=== PATIENT | female | born 1950 | race Caucasian/White ===

== ENCOUNTER 2017-02-15 21:56 | Emergency (ER) | payer MEDICARE ==
[2017-02-14 23:20] VITALS: O2SAT 100
[~2017-02-15] VITALS: Ht 162.6 cm; Wt 87.0 kg
[2017-02-15 22:06] VITALS: BP 182/94; PULSE 77; RESP 20; TEMP 97.9; O2SAT 99
--- NOTE | 2017-02-15 22:08 | PD ---
HPI Chief Complaint: FALL Time Seen by Provider: 22:04 Travel History International Travel<30 days: No Contact w/Intl Traveler<30days: No Traveled to known affect area: No History of Present Illness HPI S/P MECHANICAL FALL AFTER TRIPPING ON CAT, LANDED AWKWARDLY AND NOW HAS PAIN TO RIGHT HIP, DIFFICULT TO MOVE, UNABLE TO MOVE WITHOUT SEVERE PAIN....11/29 [facility] Social History Alcohol Use: No Tobacco Use: No Allergies-Medications (Allergen,Severity, Reaction): Coded Allergies: Opioids - Morphine Analogues (Verified Allergy, Severe, Shortness of Breath, 02/15/17) acetaminophen (Verified Allergy, Severe, Swelling, 02/15/17) PT STATES THROAT SWELLS hydrocodone (Verified Allergy, Severe, Swelling, 02/15/17) PT STATES THROAT SWELLS oxycodone (Verified Allergy, Severe, Swelling, 02/15/17) PT STATES THROAT SWELLS Reported Meds & Prescriptions Reported Meds & Active Scripts Active No Active Prescriptions or Reported Medications Review of Systems Except as stated in HPI: all other systems reviewed are Neg Musculoskeletal: Positive: Limited ROM, Pain (RT HIP) Physical Exam Narrative GENERAL: SKIN: Warm and dry. HEAD: Atraumatic. Normocephalic. EYES: Pupils equal and round. No scleral icterus. No injection or drainage. ENT: No nasal bleeding or discharge. Mucous membranes pink and moist. NECK: Trachea midline. No JVD. CARDIOVASCULAR: Regular rate and rhythm. RESPIRATORY: No accessory muscle use. Clear to auscultation. Breath sounds equal bilaterally. GASTROINTESTINAL: Abdomen soft, non-tender, nondistended. Hepatic and splenic margins not palpable. MUSCULOSKELETAL: Extremities without clubbing, cyanosis, or edema. RT LE SHORTENED AND INTERNALLY ROTATED NEUROLOGICAL: Awake and alert. No obvious cranial nerve deficits. Motor grossly within normal limits. Five out of 5 muscle strength in the arms and legs. Normal speech. PSYCHIATRIC: Appropriate mood and affect; insight and judgment normal. Data Data Last Documented VS Vital Signs Date Time Temp Pulse Resp B/P (MAP) Pulse Ox O2 Delivery O2 Flow Rate FiO2 02/16/17 01:00 80 16 165/85 (111) 100 Room Air 02/15/17 22:06 97.9 02/14/17 23:20 2.00 Orders Orders Iv Access Insert/Monitor (02/15/17 22:04) Oximetry (02/15/17 22:04) Ecg Monitoring (02/15/17 22:04) Sodium Chloride 0.9% Flush (Ns Flush) (02/15/17 22:15) Hip, Ap Only W Ap Pelvis (02/15/17 22:04) Midazolam Inj (Versed Inj) (02/15/17 23:00) Midazolam Inj (Versed Inj) (02/15/17 23:02) Pelvis, Ap Only (Routine) (02/15/17 ) Immobilizer Knee 20 Inch (02/15/17 ) MDM Medical Decision Making Medical Screen Exam Complete: Yes Emergency Medical Condition: Yes Medical Record Reviewed: Yes Differential Diagnosis HIP FX V DISLOCATION V PROSTHESIS DISLOCATION Narrative Course XR CONFIRMED RT HIP DISLOCATION, AND AFTER CLOSED REDUCTION REPEAT XRAY CONFIRMED SUCCESSFUL REDUCTION. Procedures Procedure Narrative The patient was placed on a school bus monitor and pulse oximetry. An ambu bag and suction was immediately available at bedside. The patient was monitored by the nurse. Oxygen saturation, heart rate and blood pressure were monitored. Procedural sedation was acheived using [5MG VERSED]. The patient was observed until awake and alert. Procedural Sedation time in attendance was [30] minutes. RT HIP REDUCTION: LATERAL TRACTION /COUNTER TRACTION AT PELVIS WITH TRACTION OF LOWER EXTREMITY, SUCCESSFULL CLOSED REDUCTION, RIGHT KNEE IMMOBILIZER PLACED. Diagnosis Primary Impression: RIGHT HIP PROSTHESIS DISLOCATION S/P REDUCTION Patient Instructions: General Instructions, Hip Dislocation (ED) Scripts No Active Prescriptions or Reported Meds Disposition: 01 DISCHARGE HOME Condition: Stable John Ramsey MD Feb 15, 2017 22:08
[2017-02-15] MEDS ORDERED: SODIUM CHLORIDE 0.9% FLUSH 10 ML FLUSH IVF PRN (22:15)
--- NOTE | 2017-02-15 22:46 | RADRPT ---
EXAM DATE/TIME: 02/15/2017 22:30 [facility] COMPARISON: No previous studies available for comparison. INDICATIONS : Right hip pain after fall. MEDICAL HISTORY : None. SURGICAL HISTORY : ORIF right hip. ENCOUNTER: Initial ACUITY: 1 day PAIN SCORE: 10/10 LOCATION: Right hip. FINDINGS: Here is a right hip arthroplasty that has acute superior dislocation. No fractures. No hardware failu re demonstrated. CONCLUSION: Superiorly dislocated right hip arthroplasty. Mitch Gonzalez MD on February 15, 2017 at 22:44 Board Certified Radiologist. This report was verified electronically.
[2017-02-15] MEDS ORDERED: MIDAZOLAM HCL 5 MG/5 ML VIAL IV PUSH ONE (23:00)
[2017-02-15] MEDS ORDERED: MIDAZOLAM HCL 5 MG/ML VIAL (1 ML) ONE (23:02)
[2017-02-15 23:22] VITALS: BP 194/131; PULSE 82; RESP 19; O2SAT 99
[2017-02-15 23:30] VITALS: BP 163/69; PULSE 84; RESP 18; O2SAT 99
--- NOTE | 2017-02-15 23:57 | RADRPT ---
EXAM DATE/TIME: 02/15/2017 23:34 [facility] COMPARISON: No previous studies available for comparison. INDICATIONS : Post reduction right hip. MEDICAL HISTORY : None. SURGICAL HISTORY : ORIF right hip ENCOUNTER: Subsequent ACUITY: 1 day PAIN SCORE: 3/10 LOCATION: Right pelvis FINDINGS: A single frontal view of the pelvis demonstrates no acute findings. Previous right hip replacement. A dvanced osteoarthritis left hip. CONCLUSION: 1. No acute findings. Currently no dislocation. Maycol Looney MD on February 15, 2017 at 23:55 Board Certified Radiologist. This report was verified electronically.
[2017-02-16] VITALS: BP 155/73; PULSE 84; RESP 18; O2SAT 100
[2017-02-16 01:00] VITALS: BP 165/85; PULSE 80; RESP 16; O2SAT 100
[2017-02-16 07:06] VITALS: BP 156/74; PULSE 75; RESP 16; O2SAT 98
--- NOTE | 2017-02-16 14:53 | EKG ---
Date Performed: 02/15/2017 Time Performed: 22:15:51 PTAGE: 66 years EKG: Sinus rhythm NO PREVIOUS TRACING DOCTOR: Isauro Sheppard Interpretating Date/Time 02/16/2017 14:52:53
== END 2017-02-16 10:39 | disposition home or self-care (01) ==
LOC: NEPC 21:56
DX: S73.004A Unspecified dislocation of right hip, initial encounter (principal); T84.020A Dislocation of internal right hip prosthesis, initial encounter; W01.0XXA Fall on same level from slipping, tripping and stumbling without subsequent striking against object, initial encounter; Y92.019 Unspecified place in single-family (private) house as the place of occurrence of the external cause
CPT/HCPCS: 27265; 72170; 73501; 93005; 99152; 99153; 99285; J2250; L1830

== ENCOUNTER 2017-10-07 19:55 | Inpatient (IN) | payer MEDICARE ==
[2017-10-07] VITALS (7 sets, daily range): BP systolic 53–105; BP diastolic 30–59; PULSE 96–105; RESP 16; TEMP 95–97.4; O2SAT 92–100
[~2017-10-07] VITALS: Ht 170.2 cm; Wt 90.0 kg
[2017-10-07] MEDS ORDERED: DILT120C50 PO (20:54)
[2017-10-07] MEDS ORDERED: SODIUM CHLOR 0.9% 1000 ML INJ 400 ML IV ONE (20:54)
[2017-10-07] MEDS ORDERED: LISI40TA PO (20:54)
[2017-10-07] MEDS ORDERED: METF850T PO (20:54)
[2017-10-07] MEDS ORDERED: DULO1CAP3 PO (20:54)
[2017-10-07] MEDS ORDERED: SODIUM CHLOR 0.9% 1000 ML INJ 1,000 ML IV ONE ×2 (20:54)
[2017-10-07] MEDS ORDERED: LEVO75TA3 PO (20:54)
[2017-10-07] MEDS ORDERED: VANCOMYCIN INJ 1,200 MG in SODIUM CHLOR 0.9% 250 ML INJ 250 ML IV ONE (21:15)
[2017-10-07] MEDS ORDERED: CEFEPIME INJ 2,000 MG in SODIUM CHLORIDE 0.9% INJ 100 ML IV ONE (21:15)
[2017-10-07] MEDS ORDERED: OCTREOTIDE INJ 500 MCG in SODIUM CHLORID 0.9% 500 ML INJ 500 ML IV SCH (21:20)
[2017-10-07] MEDS ORDERED: PANTOPRAZOLE INJ 80 MG in SODIUM CHLORIDE 0.9% INJ 35 ML IV ONE (21:20)
[2017-10-07] MEDS ORDERED: PANTOPRAZOLE INJ 80 MG in SODIUM CHLORIDE 0.9% INJ 100 ML IV SCH (21:20)
[2017-10-07 21:41] LABS: ALT (GPT) 17 U/L (10-53)
[2017-10-07 21:42] LABS: AUTOMATED NEUTROPHIL # 10.8 TH/MM3 (1.8-7.7); BASOPHIL # 0.1 TH/MM3 (0-0.2); BASOPHIL % 0.6 % (0.0-2.0); HEMATOCRIT 24.7 % (35.0-46.0); HEMOGLOBIN 8.1 GM/DL (11.6-15.3); LYMPHOCYTE # 1.5 TH/MM3 (1.0-4.8); MEAN CORPUSCULAR HEMOGLOBIN 32.6 PG (27.0-34.0); MONO % 3.9 % (0.0-8.0); MONOCYTE # 0.5 TH/MM3 (0-0.9); NEUT % 83.5 % (16.0-70.0); PLATELET COUNT 290 TH/MM3 (150-450); RED CELL DISTRIBUTION WIDTH 18.6 % (11.6-17.2); WHITE BLOOD COUNT 12.9 TH/MM3 (4.0-11.0)
[2017-10-07 21:44] LABS: ALBUMIN 2.5 GM/DL (3.4-5.0); ALKALINE PHOSPHATASE 258 U/L (45-117); AST (GOT) 51 U/L (15-37); BICARBONATE 18.1 MEQ/L (21.0-32.0); BLOOD UREA NITROGEN 30 MG/DL (7-18); CALCIUM 9.3 MG/DL (8.5-10.1); CHLORIDE 90 MEQ/L (98-107); CREATININE 1.22 MG/DL (0.50-1.00); GLOMERULAR FILTRATION RATE 44 ML/MIN (>89); GLUCOSE,RANDOM 142 MG/DL (74-106); SODIUM (NA) 130 MEQ/L (136-145); TOTAL BILIRUBIN ADULT 3.8 MG/DL (0.2-1.0); TOTAL PROTEIN 7.2 GM/DL (6.4-8.2)
[2017-10-07 21:49] LABS: LACTIC ACID SEPSIS PROTOCOL 7.3 mmol/L (0.4-2.0)
[2017-10-07] MEDS ORDERED: TERBUTALINE INJ 1 MG/ML AMP SQ PRN (22:00)
[2017-10-07 22:06] LABS: INTERNATIONAL NORMALIZED RATIO 1.3 RATIO; PROTHROMBIN TIME - PATIENT 13.5 SEC (9.8-11.6)
--- NOTE | 2017-10-07 22:13 | PD ---
HPI Chief Complaint: GI Complaint Time Seen by Provider: 20:41 Travel History International Travel<30 days: No Contact w/Intl Traveler<30days: No Traveled to known affect area: No History of Present Illness HPI This is a 67-year-old female who has a history of alcoholism who presents to the emergency department with lethargy this been going on for 4 days, constant, severe, not getting out of a chair associated with some burning with urination. She has been very fatigued. She does not know of any dark stools. She has been vomiting but has not noticed any blood or coffee grounds in her vomit. She says she has been drinking less alcohol than normal and usually she drinks 5 drinks a day. PFSH Past Medical History Cardiovascular Problems: Yes (HTN) Diabetes: Yes (Metformin) Patient Takes Glucophage: Yes Diminished Hearing: No Endocrine: Yes (ACROMEGALY) Fibromyalgia: Yes Hypertension: Yes Neurologic: Yes (NEUROPATHY) Respiratory: Yes (COPD) Immunizations Current: No Thyroid Disease: Yes ?: Not Past Surgical History Abdominal Surgery: Yes (HERNIA REPAIR) Cholecystectomy: Yes Social History Alcohol Use: Yes (etoh daily 5 alcoholic drinks) Tobacco Use: Yes (1 ppd) Substance Use: No Allergies-Medications (Allergen,Severity, Reaction): Coded Allergies: Opioids - Morphine Analogues (Verified Allergy, Severe, Shortness of Breath, 10/07/17) acetaminophen (Verified Allergy, Severe, Swelling, 10/07/17) PT STATES THROAT SWELLS hydrocodone (Verified Allergy, Severe, Swelling, 10/07/17) PT STATES THROAT SWELLS oxycodone (Verified Allergy, Severe, Swelling, 10/07/17) PT STATES THROAT SWELLS Reported Meds & Prescriptions Reported Meds & Active Scripts Active Reported Metformin (Metformin HCl) 850 Mg Tab 850 Mg PO BIDPC Diltiazem CD 24 HR 120 Mg Caper 180 Mg PO DAILY Duloxetine DR (Duloxetine HCl) 60 Mg Capdr 60 Mg PO DAILY Levothyroxine (Levothyroxine Sodium) 75 Mcg Tab 75 Mcg PO DAILY Lisinopril 40 Mg Tab 40 Mg PO DAILY Review of Systems Except as stated in HPI: all other systems reviewed are Neg Physical Exam Narrative GENERAL: Malaise, frail, ill-appearing SKIN: Doughy pale skin, erythema and excoriation of the labia and buttock area with no warmth fluctuance or induration HEAD: Atraumatic. Normocephalic. EYES: Pupils equal and round. No injection or drainage. ENT: Moist mucous membranes NECK: Trachea midline. CARDIOVASCULAR: Tachycardic RESPIRATORY: Clear to auscultation. Breath sounds equal bilaterally. GASTROINTESTINAL: Hepatomegaly, nontender, nondistended MUSCULOSKELETAL: No obvious deformities. NEUROLOGICAL: Awake and alert. No obvious cranial nerve deficits. Moving all extremities. PSYCHIATRIC: Appropriate mood and affect; insight and judgment normal. Data Data Last Documented VS Vital Signs Date Time Temp Pulse Resp B/P (MAP) Pulse Ox O2 Delivery O2 Flow Rate FiO2 10/07/17 22:20 104 69/43 10/07/17 21:53 100 2.00 10/07/17 21:51 16 Nasal Cannula 10/07/17 21:37 97.4 Orders Orders Sepsis Workup Initiated (10/07/17 ) Complete Blood Count With Diff (10/07/17 20:54) Comprehensive Metabolic Panel (10/07/17 20:54) Lactic Acid Sepsis Protocol (10/07/17 20:54) Lipase (10/07/17 20:54) Ua Includes Microscopic (10/07/17 20:54) Blood Culture (10/07/17 20:54) Chest, Single Ap (10/07/17 20:54) Blood Glucose (10/07/17 20:54) Ecg Monitoring (10/07/17 20:54) Iv Access Insert/Monitor (10/07/17 20:54) Oximetry (10/07/17 20:54) Oxygen Administration (10/07/17 20:54) Sodium Chlor 0.9% 1000 Ml Inj (Ns 1000 M (10/07/17 20:54) Sodium Chlor 0.9% 1000 Ml Inj (Ns 1000 M (10/07/17 20:54) Sodium Chlor 0.9% 1000 Ml Inj (Ns 1000 M (10/07/17 20:54) Vancomycin Inj (Vancomycin Inj) (10/07/17 21:15) Cefepime Inj (Maxipime Inj) (10/07/17 21:15) Type And Screen (10/07/17 21:04) Prothrombin Time / Inr (Pt) (10/07/17 21:04) Act Partial Throm Time (Ptt) (10/07/17 21:04) Red Blood Cells (Rbc) (10/07/17 21:20) Blood Product Administration (10/07/17 21:20) Sodium Chloride 0.9... W/Pantoprazole In (10/07/17 21:20) Sodium Chloride 0.9... W/Pantoprazole In (10/07/17 21:20) Sodium Chlorid 0.9%... W/Octreotide Inj (10/07/17 21:20) Norepinephrine Inj (Levophed Inj) (10/07/17 22:00) Terbutaline Inj (Brethine Inj) (10/07/17 22:00) Consult Gastroenterology (10/07/17 ) Levothyroxine (Synthroid) (10/08/17 06:00) Sodium Chloride 0.9... W/Pantoprazole In (10/07/17 23:24) Sodium Chlorid 0.9%... W/Octreotide Inj (10/07/17 22:24) Admit Order (Ed Use Only) (10/07/17 22:25) Labs Laboratory Tests Test 10/07/17 00:00 10/07/17 21:05 10/07/17 21:12 Potassium Level 3.5 MEQ/L 3.4 MEQ/L Phosphorus Level 2.3 MG/DL Magnesium Level 1.6 MG/DL Ethyl Alcohol Level LESS THAN 3 MG/DL White Blood Count 12.9 TH/MM3 Red Blood Count 2.50 MIL/MM3 Hemoglobin 8.1 GM/DL Hematocrit 24.7 % Mean Corpuscular Volume 99.0 FL Mean Corpuscular Hemoglobin 32.6 PG Mean Corpuscular Hemoglobin Concent 33.0 % Red Cell Distribution Width 18.6 % Platelet Count 290 TH/MM3 Mean Platelet Volume 8.0 FL Neutrophils (%) (Auto) 83.5 % Lymphocytes (%) (Auto) 12.0 % Monocytes (%) (Auto) 3.9 % Eosinophils (%) (Auto) 0.0 % Basophils (%) (Auto) 0.6 % Neutrophils # (Auto) 10.8 TH/MM3 Lymphocytes # (Auto) 1.5 TH/MM3 Monocytes # (Auto) 0.5 TH/MM3 Eosinophils # (Auto) 0.0 TH/MM3 Basophils # (Auto) 0.1 TH/MM3 CBC Comment AUTO DIFF Differential Comment FINAL DIFF MANUAL Platelet Estimate NORMAL Platelet Morphology Comment NORMAL Blood Urea Nitrogen 30 MG/DL Creatinine 1.22 MG/DL Random Glucose 142 MG/DL Total Protein 7.2 GM/DL Albumin 2.5 GM/DL Calcium Level 9.3 MG/DL Alkaline Phosphatase 258 U/L Aspartate Amino Transf (AST/SGOT) 51 U/L Alanine Aminotransferase (ALT/SGPT) 17 U/L Total Bilirubin 3.8 MG/DL Sodium Level 130 MEQ/L Chloride Level 90 MEQ/L Carbon Dioxide Level 18.1 MEQ/L Anion Gap 22 MEQ/L Estimat Glomerular Filtration Rate 44 ML/MIN Lactic Acid Level 7.3 mmol/L Lipase 742 U/L Thyroid Stimulating Hormone 3rd Gen 5.570 uIU/ML Prothrombin Time 13.5 SEC Prothromb Time International Ratio 1.3 RATIO Activated Partial Thromboplast Time 24.0 SEC MDM Medical Decision Making Medical Screen Exam Complete: Yes Emergency Medical Condition: Yes Interpretation(s) Hypothermic, tachycardic, hypotensive Leukocytosis of 12 Hemoglobin is 8.1 Anion gap metabolic acidosis Lactic acid is 7.3 Total bilirubin is 3.8 Lipase is 742 Differential Diagnosis Urinary tract infection, GI bleed, pneumonia, myocardial infarction Narrative Course This is a 67-year-old female who presents to the emergency department feeling weak for the past several days. She was hypotensive on arrival and hypothermic concerning for sepsis. Patient was initiated on 30 cc/kg of normal saline and was given vancomycin and cefepime. She was found to be Hemoccult positive and had an episode of coffee-ground emesis with some blood clots in the emergency department. Following this she was transfused 2 units of trauma release blood. Her blood pressure continued to deteriorate. She was initiated on levophed. A central line was placed. Her lactic acid was found to be 7. Patient is in shock, hemorrhagic versus septic. She will be admitted to the intensive care unit for close monitoring. Goals of care were discussed with the patient. She says she would not want CPR in the hospital if she were to and she would want to be allowed to naturally. She would not want to be kept alive on life support. She does however want medical management to attempt to reverse her current condition. Critical Care Narrative Aggregate critical care time was 70 minutes. Time to perform other separately billable procedures was not included in the critical care time. My time did not include minutes spent treating any other patients simultaneously or on activities that did not directly contribute to the patient's treatment. The services I provided to this patient were to treat and/or prevent clinically significant deterioration that could result in: disability, I provided critical care services requiring my management, as noted below: Chart data review, documentation time, medication orders and management, vital sign assessments/reviewing monitor data, ordering and reviewing lab tests, ordering and interpreting/reviewing x-rays and diagnostic studies, care of the patient and discussion of the patient with the admitting physicians. Procedures Procedure Narrative CENTRAL VENOUS LINE: The site was prepped with Chloraprep and sterilely draped. It was infiltrated with 1% lidocaine plain. The deep vein was cannulated using normal Seldinger technique. A triple lumen central line was placed in the right internal jugular site and secured with simple interrupted suture. The site was sterilely dressed. The patient tolerated the procedure well. Physician Communication Physician Communication Discussed with Dr. Meyer Diagnosis Primary Impression: Shock Admitting Information Admitting Physician Requests: Admit Harriet Lieberman MD October 07, 2017 22:13
[2017-10-07] MEDS: NOREPINEPHRINE INJ 4 MG in SODIUM CHLOR 0.9% 250 ML INJ 246 ML IV PRN (22:20)
[2017-10-07] MEDS ORDERED: NURSING INFORMATION XX SCH (22:30)
[2017-10-07] MEDS ORDERED: RESP: ALBUTEROL 2.5 MG/IPRATROPIUM 0.5 MG NEB (PRN) INH (22:30)
[2017-10-07] MEDS ORDERED: CHLORHEXIDINE GLUCONATE 2 % 1 PACK (2 CLOTHS) TOP PRN (22:30)
--- NOTE | 2017-10-07 22:32 | RADRPT ---
EXAM DATE/TIME: 10/07/2017 21:54 [facility] COMPARISON: No previous studies available for comparison. INDICATIONS : Shortness of breath and dizziness. MEDICAL HISTORY : Chronic obstructive pulmonary disease. SURGICAL HISTORY : None. ENCOUNTER: Initial ACUITY: 1 day PAIN SCORE: 0/10 LOCATION: Bilateral chest FINDINGS: A single view of the chest demonstrates the lungs to be symmetrically aerated without evidence of mas s, infiltrate or effusion. The cardiomediastinal contours are unremarkable. Bilateral shoulder prost heses are present. CONCLUSION: No acute disease. Mitch Reed MD on October 07, 2017 at 22:30 Board Certified Radiologist. This report was verified electronically.
[2017-10-07 23:10] LABS: BACTERIA, URINE MANY /hpf; BLOOD, URINE MOD (NEG); GLUCOSE,URINE NEG (NEG); KETONE, URINE TRACE mg/dL (NEG); MUCUS URINE MANY /lpf (OCC); NITRITE,URINE NEG (NEG); RENAL EPITHELIAL CELLS 5 /hpf; TRANSITIONAL EPI CELLS, URINE 5 /hpf; URINE COLOR YELLOW (YELLW/STRAW); URINE LEUKOCYTE ESTERASE LARGE (NEG); WHITE BLOOD CELL CLUMPS MANY
[2017-10-07 23:11] LABS: BILIRUBIN, URINE NEG (NEG)
[2017-10-07] MEDS: OCTREOTIDE INJ 500 MCG in SODIUM CHLORID 0.9% 500 ML INJ 499.5 ML IV SCH (23:26)
--- NOTE | 2017-10-07 23:32 | RADRPT ---
EXAM DATE/TIME: 10/07/2017 23:15 [facility] COMPARISON: No previous studies available for comparison. INDICATIONS : Central line placement MEDICAL HISTORY : Chronic obstructive pulmonary disease SURGICAL HISTORY : None. ENCOUNTER: Initial ACUITY: 1 day PAIN SCORE: 0/10 LOCATION: Bilateral chest FINDINGS: A single view of the chest demonstrates right central line in superior vena cava. No pneumothorax or effusion. No lung consolidation. Tortuous aorta. Previous bilateral shoulder replacement. CONCLUSION: 1. Right central line in superior vena cava without pneumothorax. Maycol Looney MD on October 07, 2017 at 23:30 Board Certified Radiologist. This report was verified electronically.
[2017-10-07] MEDS: SODIUM CHLOR 0.9% 1000 ML INJ 1,000 ML IV SCH (23:53)
[2017-10-08] VITALS (20 sets, daily range): BP systolic 78–139; BP diastolic 42–81; PULSE 69–105; RESP 16–28; TEMP 97.4–98.2; O2SAT 97–100
--- NOTE | 2017-10-08 00:06 | HHI.HP ---
[facility] Service Critical Care Medicine Primary Care Physician Gael Dior MD Admission Diagnosis shock Diagnosis: (1) Septic shock Diagnosis: Principal (2) Anemia requiring transfusions Diagnosis: Principal (3) Upper GI bleed Diagnosis: Principal (4) Lactic acidosis Diagnosis: Principal (5) UTI (urinary tract infection) Diagnosis: Principal (6) Acute kidney injury Diagnosis: Principal (7) Elevated bilirubin Diagnosis: Principal (8) Hypokalemia Diagnosis: Principal (9) Hypothermia Diagnosis: Principal (10) Alcohol dependence Diagnosis: Secondary Chief Complaint: Upper GI bleed Septic shock Travel History International Travel<30 Days: No Contact w/Intl Traveler <30 Da: No Traveled to Known Affected Are: No Sepsis Criteria SIRS Criteria (2 or more): Temp > 100.9 or < 96.8, WBC > 55698, < 4000 or > 10 % bands Sepsis Criteria (SIRS+source): Infect source susp/known Severe Sepsis (+one): Hypotension Septic Shock Criteria: Lactic acid >=4 Criteria Outcome: Meets septic shock criteria History of Present Illness Patient is a 67-year-old female with history of alcohol dependence, history of acromegaly, hypertension, type 2 diabetes, COPD who presented to the emergency department for increasing lethargy and a UTI symptoms and severe fatigue for last 4 days. She drinks approximately 5 alcoholic beverages a day. Patient was initially hypothermic with temperatures in the 95. Tachycardic and hypotensive with lowest blood pressure recorded as 55/30. Patient was fluid resuscitated with 2.5 L of normal saline, and despite that remained hypotensive. Patient was given vancomycin and cefepime. Hb was 8.1, found to be Hemoccult positive and also had coffee-ground emesis with some blood clots in the emergency department. She was transfused 2 units of emergency release blood. Levophed was started for persistent hypotension and Dr. Lieberman placed a Rright IUJ central line. Her lactic acid was found to be 7.3. UA showed evidence of severe UTI which could be the source of sepsis, white count was 12.9 with left shift. Other pertinent labs included total bilirubin of 3.8 elevated lipase at 742, lactic acid as mentioned above 7.3. I evaluated the patient in the emergency department. Despite fluid boluses and now receiving blood patient is on 10 mcg/min of Levophed. Patient is lethargic encephalopathic but she is able to answer some of the questions. I am told by the ED physician that patient wanted to be a DNR but wants to get medical management for current situation. Patient is a poor historian is lethargic and has encephalopathy from UTI. I will readdress the CODE STATUS when patient is clinically improved. For sepsis cefepime will be continued. Have placed the patient on IV Protonix infusion and octreotide infusion for upper GI bleed. Monitor hemoglobin every 6 hours for at least 24 hours. GI has been consulted. Cefepime will provide SBP prophylaxis also Review of Systems ROS Limitations: Clinical Condition, Altered Mental Status Past Family Social History Allergies: Coded Allergies: Opioids - Morphine Analogues (Verified Allergy, Severe, Shortness of Breath, 10/07/17) acetaminophen (Verified Allergy, Severe, Swelling, 10/07/17) PT STATES THROAT SWELLS hydrocodone (Verified Allergy, Severe, Swelling, 10/07/17) PT STATES THROAT SWELLS oxycodone (Verified Allergy, Severe, Swelling, 10/07/17) PT STATES THROAT SWELLS Past Medical History Acromegaly Type 2 diabetes Hypertension Hypothyroidism COPD Alcohol dependence Past Surgical History Cholecystectomy Hernia repair Pituitary surgery for acromegaly in 1996. Was on Octreotide before Reported Medications Metformin (Metformin HCl) 850 Mg Tab 850 Mg PO BIDPC Diltiazem CD 24 HR 120 Mg Caper 180 Mg PO DAILY Duloxetine DR (Duloxetine HCl) 60 Mg Capdr 60 Mg PO DAILY Levothyroxine (Levothyroxine Sodium) 75 Mcg Tab 75 Mcg PO DAILY Lisinopril 40 Mg Tab 40 Mg PO DAILY Active Ordered Medications Reviewed Family History Unable to obtain, poor historian Social History Daily drinks 5 alcoholic beverages Smokes 1 pack of cigarettes a day Physical Exam Vital Signs Vital Signs Date Time Temp Pulse Resp B/P (MAP) Pulse Ox O2 Delivery O2 Flow Rate FiO2 10/08/17 00:00 91 16 109/63 (78) 100 Nasal Cannula 2.00 10/07/17 23:45 99 Nasal Cannula 2.00 10/07/17 23:20 94 133/69 10/07/17 22:36 95.0 10/07/17 22:35 96 16 105/59 (74) 100 Nasal Cannula 2.00 10/07/17 22:20 104 69/43 10/07/17 21:53 100 2.00 10/07/17 21:51 104 16 55/30 (38) 99 Nasal Cannula 2.00 10/07/17 21:51 95 10/07/17 21:37 97.4 105 16 53/30 10/07/17 20:45 95.0 104 16 89/59 (69) 92 Room Air Physical Exam GENERAL: Acutely ill-appearing frail female, lethargic SKIN: Hypothermic but denies current HEAD: Atraumatic. Normocephalic. Prognathism EYES: Pupils equal and round. No injection or drainage. ENT: Oral mucosa is dry NECK: Trachea midline. CARDIOVASCULAR: Tachycardic. No murmurs RESPIRATORY: Clear to auscultation. Breath sounds equal bilaterally. GASTROINTESTINAL: Hepatomegaly, mild tenderness. MSK: Large hands and feet, and prognathism suggestive of acromegaly NEUROLOGICAL: Awake and alert. No obvious cranial nerve deficits. Moving all extremities. Answers a few questions Laboratory Laboratory Tests Test 10/07/17 21:05 10/07/17 21:12 10/07/17 22:28 10/07/17 23:35 White Blood Count 12.9 Red Blood Count 2.50 Hemoglobin 8.1 Hematocrit 24.7 Mean Corpuscular Volume 99.0 Mean Corpuscular Hemoglobin 32.6 Mean Corpuscular Hemoglobin Concent 33.0 Red Cell Distribution Width 18.6 Platelet Count 290 Mean Platelet Volume 8.0 Neutrophils (%) (Auto) 83.5 Lymphocytes (%) (Auto) 12.0 Monocytes (%) (Auto) 3.9 Eosinophils (%) (Auto) 0.0 Basophils (%) (Auto) 0.6 Neutrophils # (Auto) 10.8 Lymphocytes # (Auto) 1.5 Monocytes # (Auto) 0.5 Eosinophils # (Auto) 0.0 Basophils # (Auto) 0.1 CBC Comment AUTO DIFF Differential Comment FINAL DIFF MANUAL Platelet Estimate NORMAL Platelet Morphology Comment NORMAL Blood Urea Nitrogen 30 Creatinine 1.22 Random Glucose 142 Total Protein 7.2 Albumin 2.5 Calcium Level 9.3 Alkaline Phosphatase 258 Aspartate Amino Transf (AST/SGOT) 51 Alanine Aminotransferase (ALT/SGPT) 17 Total Bilirubin 3.8 Sodium Level 130 Potassium Level 3.4 Chloride Level 90 Carbon Dioxide Level 18.1 Anion Gap 22 Estimat Glomerular Filtration Rate 44 Lactic Acid Level 7.3 Lipase 742 Prothrombin Time 13.5 Prothromb Time International Ratio 1.3 Activated Partial Thromboplast Time 24.0 Urine Color YELLOW Urine Turbidity HAZY Urine pH 7.0 Urine Specific Randolph 1.012 Urine Protein 300 Urine Glucose (UA) NEG Urine Ketones TRACE Urine Occult Blood MOD Urine Nitrite NEG Urine Bilirubin NEG Urine Urobilinogen 2.0 Urine Leukocyte Esterase LARGE Urine RBC 95 Urine WBC Urine WBC Clumps MANY Urine Transitional Epithelial Cells 5 Urine Renal Epithelial Cells 5 Urine Bacteria MANY Urine Mucus MANY Date/Time Source Procedure Growth Status 10/07/17 21:10 Blood Peripheral Aerobic Blood Culture Pending Received 10/07/17 21:10 Blood Peripheral Anaerobic Blood Culture Pending Received 10/07/17 22:22 Urine Catheterized Urine Urine Culture Pending Received Result Diagram: 10/07/17210410/07/172104 Imaging Chest x-ray no acute changes Septic Shock Reassessment Septic shock perfusion: reassessment completed Caprini VTE Risk Assessment Caprini VTE Risk Assessment: Mod/High Risk (score >= 2) VTE Pharm Contraindication: Hemorrhage Caprini Risk Assessment Model Point Value = 1 Point Value = 2 Point Value = 3 Point Value = 5 Age 41-60 Minor surgery BMI > 25 kg/m2 Swollen legs Varicose veins or History of unexplained or recurrent spontaneous Oral contraceptives or hormone replacement Sepsis (< 1 month) Serious lung disease, including pneumonia (< 1 month) Abnormal pulmonary function Acute myocardial infarction Congestive heart failure (< 1 month) History of inflammatory bowel disease Medical patient at bed rest Age 61-74 Arthroscopic surgery Major open surgery (> 45 min) Laparoscopic surgery (> 45 min) Malignancy Confined to bed (> 72 hours) Immobilizing plaster cast Central venous access Age >= 75 History of VTE Family history of VTE Factor V Leiden Prothrombin [id number] Lupus anticoagulant Anticardiolipin antibodies Elevated serum homocysteine Heparin-induced thrombocytopenia Other congenital or acquired thrombophilia Stroke (< 1 month) Elective arthroplasty Hip, pelvis, or leg fracture Acute spinal cord injury (< 1 month) Prophylaxis Regimen Total Risk Factor Score Risk Level Prophylaxis Regimen 0-1 Low Early ambulation 2 Moderate Order ONE of the following: *Sequential Compression Device (SCD) *Heparin 5000 units SQ BID 3-4 Higher Order ONE of the following medications: *Heparin 5000 units SQ TID *Enoxaparin/Lovenox 40 mg SQ daily (WT < 150 kg, CrCl > 30 mL/min) *Enoxaparin/Lovenox 30 mg SQ daily (WT < 150 kg, CrCl > 10-29 mL/min) *Enoxaparin/Lovenox 30 mg SQ BID (WT < 150 kg, CrCl > 30 mL/min) AND/OR *Sequential Compression Device (SCD) 5 or more Highest Order ONE of the following medications: *Heparin 5000 units SQ TID (Preferred with Epidurals) *Enoxaparin/Lovenox 40 mg SQ daily (WT < 150 kg, CrCl > 30 mL/min) *Enoxaparin/Lovenox 30 mg SQ daily (WT < 150 kg, CrCl > 10-29 mL/min) *Enoxaparin/Lovenox 30 mg SQ BID (WT < 150 kg, CrCl > 30 mL/min) AND *Sequential Compression Device (SCD) Assessment and Plan Assessment and Plan Assessment and Plan NEURO: Alcohol dependence -Initiate CIWA protocol, patient drinks about 5 alcoholic beverages daily -High risk of withdrawal -Supplement thiamine, MVI -Avoid excessive sedation RESP: History of COPD -Nasal cannula oxygen to keep O2 sat >90% -DuoNeb every 6 hours as needed -Aggressive pulmonary toilet CV: Septic and hypovolemic shock Lactic acidosis History of hypertension -Normal saline 2.5L bolus and maintenance at 84 ml per hour -Hold lisinopril and diltiazem -Trend lactic acid -Levophed to keep map above 65, currently at 10 mcg/min GI: Upper GI bleed Hyperbilirubinemia, possible cirrhosis -Start Protonix infusion, octreotide infusion -Keep n.p.o., GI consult -Cefepime will provide SBP prophylaxis -CT abdomen and pelvis to evaluate liver gallbladder, abdominal source of sepsis Acute kidney insufficiency -Monitor renal function closely. Normal saline at 84 mL/h -Patient is oliguric but with aggressive resuscitation starting to make some urine Endo: Type 2 diabetes Hypokalemia Acromegaly -Sliding scale insulin -Electrolyte replacement per protocol -Previously was on Octreotide and had pituitary surgery in 1986 -Check random cortisol level due to hypotension. If low check ACTH level ID: Septic shock UTI -Received vancomycin and cefepime in the ED. Continue cefepime -Follow-up on blood and urine cultures HEME: Anemia requiring transfusion -Transfuse 2 units PRBC, check hemoglobin every 8 hours -Monitor CBC, CMP, coags PROPH: -Bilateral lower extremity SCDs. IV Protonix infusion. Chemical DVT prophylaxis is contraindicated at this time LINES: -Right IJ central line placed in the ED by Dr. Patton CCT 77 MIN Code Status Full code for now Discussed Condition With Dr. Lieberman Problem Qualifiers (1) UTI (urinary tract infection): Ines Meyer MD October 08, 2017 00:06
[2017-10-08] MEDS ORDERED: MAGNESIUM SULFATE INJ 4 GM in SODIUM CHLORIDE 0.9% INJ 92 ML IV PRN (00:15)
[2017-10-08] MEDS ORDERED: SODIUM PHOSPHATE INJ 30 MMOL in SODIUM CHLOR 0.9% 250 ML INJ 240 ML IV PRN (00:15)
[2017-10-08] MEDS ORDERED: VANCOMYCIN INJ 1,000 MG in SODIUM CHLOR 0.9% 250 ML INJ 250 ML IV ONE (00:15)
[2017-10-08] MEDS ORDERED: MAGNESIUM SULFATE INJ 2 GM in SODIUM CHLORIDE 0.9% INJ 96 ML IV PRN (00:15)
[2017-10-08] MEDS ORDERED: POTASSIUM PHOSPHATE INJ 30 MMOL in SODIUM CHLOR 0.9% 250 ML INJ 250 ML IV PRN (00:15)
[2017-10-08] MEDS ORDERED: POTASSIUM CHLORIDE 25 MEQ EFFERVESCENT TAB PO PRN (00:15)
[2017-10-08] MEDS ORDERED: POTASSIUM PHOSPHATE MONOBASIC 500 MG TAB PO PRN (00:15)
[2017-10-08] MEDS ORDERED: MAGNESIUM OXIDE 400 MG TAB PO PRN (00:15)
[2017-10-08] MEDS ORDERED: POTASSIUM CHLOR 20 MEQ PREMIX 100 ML IV PRN (00:15)
[2017-10-08] MEDS ORDERED: POTASSIUM PHOSPHATE MONOBASIC 500 MG TAB PO/TUBE PRN (00:15)
[2017-10-08] MEDS ORDERED: LORazepam 2 MG/ML VIAL IV PUSH PRN ×3 (01:00)
[2017-10-08] MEDS ORDERED: LORazepam 2 MG TAB PO PRN (01:00)
[2017-10-08] MEDS ORDERED: LORazepam 1 MG TAB PO PRN (01:00)
[2017-10-08] MEDS ORDERED: FLUMAZENIL 0.5 MG/5 ML VIAL IV PUSH PRN (01:00)
[2017-10-08] MEDS ORDERED: PANTOPRAZOLE INJ 80 MG in SODIUM CHLORIDE 0.9% INJ 100 ML IV SCH (01:06)
[2017-10-08] MEDS: INSULIN ASPART SUPPLEMENTAL SCALE SQ SCH ×6 (02:25→20:00)
[2017-10-08] MEDS: PANTOPRAZOLE INJ 80 MG in SODIUM CHLORIDE 0.9% INJ 100 ML IV SCH ×2 (02:27→18:18)
[2017-10-08] MEDS: CHLORHEXIDINE GLUCONATE 2 % 1 PACK (2 CLOTHS) TOP SCH (04:00)
[2017-10-08 04:10] LABS: AUTOMATED NEUTROPHIL # 11.9 TH/MM3 (1.8-7.7); BASOPHIL % 0.1 % (0.0-2.0); HEMATOCRIT 29.4 % (35.0-46.0); LYMPH % 6.3 % (9.0-44.0); LYMPHOCYTE # 0.9 TH/MM3 (1.0-4.8); MEAN CELL VOLUME 94.6 FL (80.0-100.0); MEAN CORPUSCULAR HEMOGLOBIN 32.2 PG (27.0-34.0); MEAN PLATELET VOLUME 7.4 FL (7.0-11.0); MONO % 7.7 % (0.0-8.0); MONOCYTE # 1.1 TH/MM3 (0-0.9); NEUT % 85.9 % (16.0-70.0); PLATELET COUNT 208 TH/MM3 (150-450); RED BLOOD COUNT 3.11 MIL/MM3 (4.00-5.30); RED CELL DISTRIBUTION WIDTH 19.9 % (11.6-17.2); WHITE BLOOD COUNT 13.8 TH/MM3 (4.0-11.0)
[2017-10-08 04:41] LABS: ALBUMIN 2.1 GM/DL (3.4-5.0); ALKALINE PHOSPHATASE 211 U/L (45-117); ALT (GPT) 16 U/L (10-53); AST (GOT) 46 U/L (15-37); BICARBONATE 20.4 MEQ/L (21.0-32.0); BLOOD UREA NITROGEN 26 MG/DL (7-18); CALCIUM 7.6 MG/DL (8.5-10.1); CHLORIDE 100 MEQ/L (98-107); CREATININE 1.04 MG/DL (0.50-1.00); GLOMERULAR FILTRATION RATE 53 ML/MIN (>89); GLUCOSE,RANDOM 141 MG/DL (74-106); SODIUM (NA) 136 MEQ/L (136-145); TOTAL BILIRUBIN ADULT 4.2 MG/DL (0.2-1.0)
[2017-10-08] MEDS: POTASSIUM CHLOR 40 MEQ PREMIX 100 ML IV PRN ×2 (04:48→10:01)
--- NOTE | 2017-10-08 04:52 | RADRPT ---
EXAM DATE/TIME: 10/08/2017 03:08 [place] COMPARISON: CHEST SINGLE AP, October 07, 2017, 23:15. INDICATIONS : Shortness of breath, possible pulmonary disease. MEDICAL HISTORY : Chronic obstructive pulmonary disease. SURGICAL HISTORY : None. ENCOUNTER: Subsequent ACUITY: 2 days PAIN SCORE: Non-responsive. LOCATION: Bilateral chest FINDINGS: Right central line in superior vena cava. No focal consolidation or significant effusion. No pneumoth orax. Bilateral shoulder replacement. CONCLUSION: 1. Right central line in superior vena cava. No pneumothorax or effusion. Maycol Looney MD on October 08, 2017 at 4:49 Board Certified Radiologist. This report was verified electronically.
[2017-10-08 05:33] LABS: BANDS 9 % (0-6); LYMPHOCYTES 2 % (9-44); METAMYELOCYTES 1 % (0-1); MONOCYTES 1 % (0-8); NEUTROPHIL # MANUAL DIFF 13.4 TH/MM3 (1.8-7.7); POLYS (SEG NEUTROPHILS) 87 % (16-70)
[2017-10-08 05:34] LABS: TARGET CELLS 1+ (NORMAL)
[2017-10-08] MEDS: CEFEPIME INJ 1,000 MG in SODIUM CHLORIDE 0.9% INJ 100 ML IV SCH ×3 (05:54→21:31)
[2017-10-08] MEDS: LEVOTHYROXINE SODIUM 75 MCG TAB PO SCH (06:03)
[2017-10-08] MEDS: NOREPINEPHRINE INJ 4 MG in SODIUM CHLOR 0.9% 250 ML INJ 246 ML IV PRN ×2 (06:52→16:04)
[2017-10-08] MEDS: SODIUM CHLORIDE 0.9% FLUSH 10 ML FLUSH IV FLUSH SCH ×2 (09:00→21:00)
[2017-10-08] MEDS: MULTIVITAMIN INJ 10 ML, THIAMINE INJ 100 MG, FOLIC ACID INJ 1 MG in SODIUM CHLORID 0.9%... IV SCH (10:02)
[2017-10-08 10:34] LABS: HEMATOCRIT 30.8 % (35.0-46.0); HEMOGLOBIN 10.5 GM/DL (11.6-15.3)
--- NOTE | 2017-10-08 12:46 | PD.CONS ---
HPI History of Present Illness This is a 67 year old F with PMH significant for colon polyps, ETOH abuse, hypothyroidism, HTN, DM, acromegaly, and COPD who presented to the ER yesterday with complaints of weakness for the past week. In ther ER she was found to be hypotensive and tachycardic with hypothermia. Our service has been consulted to evaluate patient for coffee ground emesis, black stools, and Hemoccult positive stool. Pt reports five episodes of emesis that began yesterday, denies BRB in emesis. Also had one BM last night that she states was black, unsure of any BRB in her stool. Reports some mild epigastric pain, intermittent, for approximately a month. She thinks it is related to PO intake. States daily acid reflux, has been taking Aleve OTC every 4 hours which has not been helping. Also complaining of a 68 pound weight loss, unintentional, since May. Has never had EGD. Last colonoscopy a year and a half ago and states findings of polyps. Admits to five liquor drinks a day. Smokes a pack a day. Denies illicit drug use. (Karmen Orellana) PFSH Past Medical History Acromegaly Type 2 diabetes Hypertension Hypothyroidism COPD Alcohol dependence Past Surgical History Cholecystectomy Hernia repair Pituitary surgery for acromegaly in 1996. Was on Octreotide before Colonoscopy (Karmen Orellana) Coded Allergies: Opioids - Morphine Analogues (Verified Allergy, Severe, Shortness of Breath, 10/07/17) acetaminophen (Verified Allergy, Severe, Swelling, 10/07/17) PT STATES THROAT SWELLS hydrocodone (Verified Allergy, Severe, Swelling, 10/07/17) PT STATES THROAT SWELLS oxycodone (Verified Allergy, Severe, Swelling, 10/07/17) PT STATES THROAT SWELLS Social History Daily ETOH- 5 liquor drinks a day Smokes 1 PPD of cigarettes Denies illicit drug use (Karmen Orellana) Review of Systems Gastrointestinal: COMPLAINS OF: Abdominal pain, Black stools, Nausea, Vomiting , Heartburn, Hematemesis, DENIES: Bloody stools, Constipation, Diarrhea, Difficulty Swallowing, Odynophagia, Swelling of Abdomen (Karmen Orellana) GI Exam Vitals I&O Vital Signs Date Time Temp Pulse Resp B/P (MAP) Pulse Ox O2 Delivery O2 Flow Rate FiO2 5/19/18 12:00 73 10/08/17 12:00 97.8 73 19 98/50 (66) 98 10/08/17 10:00 72 10/08/17 09:49 99 Nasal Cannula 2.00 10/08/17 08:00 79 10/08/17 08:00 98.0 79 19 98/57 (71) 99 10/08/17 06:52 74 115/57 10/08/17 06:09 72 103/51 10/08/17 06:00 72 10/08/17 04:00 72 10/08/17 04:00 97.9 72 17 92/54 (67) 100 10/08/17 02:30 64 95/53 10/08/17 02:00 89 10/08/17 02:00 89 28 105/65 (78) 100 10/08/17 01:31 90 20 95/53 (67) 100 10/08/17 01:30 80 16 100 10/08/17 01:08 95 19 139/61 (87) 100 10/08/17 01:01 105 18 78/42 (54) 98 10/08/17 01:00 105 78/42 10/08/17 01:00 105 20 98 10/08/17 00:59 98 23 138/61 (86) 99 10/08/17 00:57 10/08/17 00:04 91 16 121/56 (77) 99 Nasal Cannula 2.00 10/08/17 00:00 91 16 109/63 (78) 100 Nasal Cannula 2.00 10/07/17 23:45 99 Nasal Cannula 2.00 10/07/17 23:20 94 133/69 10/07/17 22:36 95.0 10/07/17 22:35 96 16 105/59 (74) 100 Nasal Cannula 2.00 10/07/17 22:20 104 69/43 10/07/17 21:53 100 2.00 10/07/17 21:51 104 16 55/30 (38) 99 Nasal Cannula 2.00 10/07/17 21:51 95 10/07/17 21:37 97.4 105 16 53/30 10/07/17 20:45 95.0 104 16 89/59 (69) 92 Room Air I/O 510/07/17 10/07/17 10/08/17 10/08/17 10/08/17 07:00 15:00 23:00 07:00 15:00 23:00 Intake Total 1835 ml 2105.2 ml Output Total 0 ml 750 ml Balance 1835 ml 1355.2 ml Intake Oral 0 ml IV Total 1835 ml 1305.2 ml Packed Cells 800 ml Output Urine Total 750 ml Stool Total 0 ml # Bowel Movements 1 1 Imaging Last Impressions Chest X-Ray 10/08/17 0000 Signed Impressions: Service Date/Time: Sunday, October 08, 2017 03:08 - CONCLUSION: 1. Right central line in superior vena cava. No pneumothorax or effusion. Maycol Looney MD Laboratory Test 10/07/17 21:05 10/07/17 21:12 10/07/17 22:28 10/07/17 23:35 White Blood Count 12.9 TH/MM3 Red Blood Count 2.50 MIL/MM3 Hemoglobin 8.1 GM/DL Hematocrit 24.7 % Mean Corpuscular Volume 99.0 FL Mean Corpuscular Hemoglobin 32.6 PG Mean Corpuscular Hemoglobin Concent 33.0 % Red Cell Distribution Width 18.6 % Platelet Count 290 TH/MM3 Mean Platelet Volume 8.0 FL Neutrophils (%) (Auto) 83.5 % Lymphocytes (%) (Auto) 12.0 % Monocytes (%) (Auto) 3.9 % Eosinophils (%) (Auto) 0.0 % Basophils (%) (Auto) 0.6 % Neutrophils # (Auto) 10.8 TH/MM3 Lymphocytes # (Auto) 1.5 TH/MM3 Monocytes # (Auto) 0.5 TH/MM3 Eosinophils # (Auto) 0.0 TH/MM3 Basophils # (Auto) 0.1 TH/MM3 CBC Comment AUTO DIFF Differential Comment FINAL DIFF MANUAL Platelet Estimate NORMAL Platelet Morphology Comment NORMAL Blood Urea Nitrogen 30 MG/DL Creatinine 1.22 MG/DL Random Glucose 142 MG/DL Total Protein 7.2 GM/DL Albumin 2.5 GM/DL Calcium Level 9.3 MG/DL Alkaline Phosphatase 258 U/L Aspartate Amino Transf (AST/SGOT) 51 U/L Alanine Aminotransferase (ALT/SGPT) 17 U/L Total Bilirubin 3.8 MG/DL Sodium Level 130 MEQ/L Potassium Level 3.4 MEQ/L Chloride Level 90 MEQ/L Carbon Dioxide Level 18.1 MEQ/L Anion Gap 22 MEQ/L Estimat Glomerular Filtration Rate 44 ML/MIN Lactic Acid Level 7.3 mmol/L 4.4 mmol/L Lipase 742 U/L Thyroid Stimulating Hormone 3rd Gen 5.570 uIU/ML Prothrombin Time 13.5 SEC Prothromb Time International Ratio 1.3 RATIO Activated Partial Thromboplast Time 24.0 SEC Urine Color YELLOW Urine Turbidity HAZY Urine pH 7.0 Urine Specific Rose 1.012 Urine Protein 300 mg/dL Urine Glucose (UA) NEG mg/dL Urine Ketones TRACE mg/dL Urine Occult Blood MOD Urine Nitrite NEG Urine Bilirubin NEG Urine Urobilinogen 2.0 MG/DL Urine Leukocyte Esterase LARGE Urine RBC 95 /hpf Urine WBC /hpf Urine WBC Clumps MANY Urine Transitional Epithelial Cells 5 /hpf Urine Renal Epithelial Cells 5 /hpf Urine Bacteria MANY /hpf Urine Mucus MANY /lpf Test 10/08/17 01:00 10/08/17 01:44 10/08/17 03:45 10/08/17 09:22 Nasal Screen MRSA (PCR) MRSA NOT DETECTED Blood Gas Puncture Site RT RADIAL Blood Gas Patient Temperature 98.6 Blood Gas HCO3 17 mmol/L Blood Gas Base Excess -7.1 mmol/L Blood Gas Oxygen Saturation 94 % Arterial Blood pH 7.41 Arterial Blood Partial Pressure CO2 27 mmHg Arterial Blood Partial Pressure O2 113 mmHg Arterial Blood Oxygen Content 14.1 Vol % Arterial Blood Carboxyhemoglobin 2.4 % Arterial Blood Methemoglobin 1.5 % Blood Gas Hemoglobin 10.5 G/DL Oxygen Delivery Device NASAL CANNULA Blood Gas Liter Flow 2 L/M White Blood Count 13.8 TH/MM3 Red Blood Count 3.11 MIL/MM3 Hemoglobin 10.0 GM/DL 10.4 GM/DL Hematocrit 29.4 % 30.8 % Mean Corpuscular Volume 94.6 FL Mean Corpuscular Hemoglobin 32.2 PG Mean Corpuscular Hemoglobin Concent 34.0 % Red Cell Distribution Width 19.9 % Platelet Count 208 TH/MM3 Mean Platelet Volume 7.4 FL Neutrophils (%) (Auto) 85.9 % Lymphocytes (%) (Auto) 6.3 % Monocytes (%) (Auto) 7.7 % Eosinophils (%) (Auto) 0.0 % Basophils (%) (Auto) 0.1 % Neutrophils # (Auto) 11.9 TH/MM3 Lymphocytes # (Auto) 0.9 TH/MM3 Monocytes # (Auto) 1.1 TH/MM3 Eosinophils # (Auto) 0.0 TH/MM3 Basophils # (Auto) 0.0 TH/MM3 CBC Comment AUTO DIFF Differential Total Cells Counted 100 Neutrophils % (Manual) 87 % Band Neutrophils % 9 % Lymphocytes % 2 % Monocytes % 1 % Neutrophils # (Manual) 13.4 TH/MM3 Metamyelocytes 1 % Differential Comment FINAL DIFF MANUAL Platelet Estimate NORMAL Platelet Morphology Comment NORMAL Target Cells 1+ Blood Urea Nitrogen 26 MG/DL Creatinine 1.04 MG/DL Random Glucose 141 MG/DL Total Protein 6.0 GM/DL Albumin 2.1 GM/DL Calcium Level 7.6 MG/DL Alkaline Phosphatase 211 U/L Aspartate Amino Transf (AST/SGOT) 46 U/L Alanine Aminotransferase (ALT/SGPT) 16 U/L Total Bilirubin 4.2 MG/DL Sodium Level 136 MEQ/L Potassium Level 2.5 MEQ/L Chloride Level 100 MEQ/L Carbon Dioxide Level 20.4 MEQ/L Anion Gap 16 MEQ/L Estimat Glomerular Filtration Rate 53 ML/MIN Random Cortisol 36.2 MCG/DL Date/Time Source Procedure Growth Status 10/07/17 21:10 Blood Peripheral Aerobic Blood Culture - Preliminary NO GROWTH IN 1 DAY Resulted 10/07/17 21:10 Blood Peripheral Anaerobic Blood Culture - Preliminary NO GROWTH IN 1 DAY Resulted 10/07/17 22:22 Urine Catheterized Urine Urine Culture - Preliminary IMMATURE GROWTH - REINCUBATE Resulted Physical Examination HEENT: Normocephalic; atraumatic CHEST: Even/unlabored CARDIAC: RRR ABDOMEN: Soft, nondistended, nontender; bowel sounds active EXTREMITIES: No clubbing, cyanosis, or edema. SKIN: Normal; no rash; no jaundice. SENIOR SOLUTIONS ENGINEER: Alert and oriented times three. (Karmen Orellana) Assessment and Plan Plan Assessment: - Anemia with reports of coffee ground emesis and Hemoccult (+) stool H/H on admission 8.1/24.7 Pt denies history of GIB. Risk factors: Aleve q4hrs for long time, daily ETOH- 5 liquor drinks a day, smokes 1 PPD of cigarettes. Denies previous EGD. Last colonoscopy a year and a half ago, states findings of polyps - Unintentional weight loss- 68 pounds since May - Elevated LFTs in setting of ETOH abuse. [id number] Currently: AST-46 ALT-16 Alk phos-211 T bili-4.2 - Elevated lipase- no abdominal imaging - Sepsis- hypothermic, hypotensive, and tachycardic on arrival- Now on Levo- Cefepime Plan: EGD/colonoscopy on Tuesday Obtain consent Clear liquids tomorrow Golytely prep NPO after MN Tuesday CT abdomen and pelvis W/O contrast (poor renal function) Alcohol withdraw protocol Protonix gtt Octreotide gtt Monitor H/H Notify GI of active GIB- can do EGD on emergent basis Monitor LFTs Further recommendations based on findings of above and clinical course Pt has been seen and examined by myself and Dr. Khalil and this note is written on her behalf (Karmen Orellana) Physician Comments seen, examined agree with above (Annabella Khalil MD) Karmen Orellana October 08, 2017 12:46 Annabella Khalil MD October 08, 2017 18:13
--- NOTE | 2017-10-08 13:47 | EKG ---
Date Performed: 10/07/2017 Time Performed: 21:08:55 PTAGE: 67 years EKG: SINUS TACHYCARDIA LOW QRS VOLTAGE IN PRECORDIAL LEADS NONSPECIFIC T-WAVE ABNORMALITY ABNORM AL RHYTHM ECG INTERPRETATION BASED ON A DEFAULT AGE OF 40 YEARS PREVIOUS TRACING : 02/15/2017 22.15 Since the previous tracing, no significant change not ed DOCTOR: Yves Conrad Interpretating Date/Time 10/08/2017 13:44:35
[2017-10-08 15:35] LABS: HEMATOCRIT 29.5 % (35.0-46.0); HEMOGLOBIN 10.1 GM/DL (11.6-15.3)
[2017-10-08] MEDS: SODIUM CHLOR 0.9% 1000 ML INJ 1,000 ML IV SCH ×2 (17:07→22:15)
[2017-10-08] MEDS: OCTREOTIDE INJ 500 MCG in SODIUM CHLORID 0.9% 500 ML INJ 499.5 ML IV SCH (18:18)
[2017-10-08 23:59] LABS: HEMATOCRIT 27.8 % (35.0-46.0); HEMOGLOBIN 9.5 GM/DL (11.6-15.3)
[2017-10-09] VITALS (12 sets, daily range): BP systolic 112–145; BP diastolic 56–70; PULSE 66–91; RESP 17–24; TEMP 97.8–98.4; O2SAT 95–100
[2017-10-09] MEDS: NOREPINEPHRINE INJ 4 MG in SODIUM CHLOR 0.9% 250 ML INJ 246 ML IV PRN ×3 (02:56→21:27)
[2017-10-09] MEDS: INSULIN ASPART SUPPLEMENTAL SCALE SQ SCH ×6 (04:00→20:00)
[2017-10-09] MEDS: CHLORHEXIDINE GLUCONATE 2 % 1 PACK (2 CLOTHS) TOP SCH (04:00)
[2017-10-09] MEDS: PANTOPRAZOLE INJ 80 MG in SODIUM CHLORIDE 0.9% INJ 100 ML IV SCH ×3 (05:32→20:24)
[2017-10-09] MEDS: CEFEPIME INJ 1,000 MG in SODIUM CHLORIDE 0.9% INJ 100 ML IV SCH ×3 (05:33→20:24)
[2017-10-09] MEDS: LEVOTHYROXINE SODIUM 75 MCG TAB PO SCH (06:00)
[2017-10-09 06:41] LABS: ALBUMIN 1.9 GM/DL (3.4-5.0); ALKALINE PHOSPHATASE 186 U/L (45-117); ALT (GPT) 15 U/L (10-53); AST (GOT) 58 U/L (15-37); BICARBONATE 22.9 MEQ/L (21.0-32.0); BLOOD UREA NITROGEN 21 MG/DL (7-18); CALCIUM 7.5 MG/DL (8.5-10.1); CHLORIDE 107 MEQ/L (98-107); CREATININE 0.64 MG/DL (0.50-1.00); GLOMERULAR FILTRATION RATE 92 ML/MIN (>89); GLUCOSE,RANDOM 135 MG/DL (74-106); MAGNESIUM 1.2 MG/DL (1.5-2.5); SODIUM (NA) 142 MEQ/L (136-145); TOTAL PROTEIN 5.5 GM/DL (6.4-8.2)
[2017-10-09 07:21] LABS: AUTOMATED NEUTROPHIL # 6.9 TH/MM3 (1.8-7.7); BASOPHIL % 0.2 % (0.0-2.0); EOSINOPHIL # 0.1 TH/MM3 (0-0.4); EOSINOPHIL % 0.6 % (0.0-4.0); HEMATOCRIT 27.1 % (35.0-46.0); HEMOGLOBIN 9.2 GM/DL (11.6-15.3); LYMPH % 14.4 % (9.0-44.0); LYMPHOCYTE # 1.3 TH/MM3 (1.0-4.8); MEAN CELL VOLUME 94.9 FL (80.0-100.0); MEAN CORPUSCULAR HEMOGLOBIN 32.3 PG (27.0-34.0); MEAN CORPUSCULAR HGB CONC 34.1 % (32.0-36.0); MEAN PLATELET VOLUME 7.4 FL (7.0-11.0); MONO % 8.5 % (0.0-8.0); MONOCYTE # 0.8 TH/MM3 (0-0.9); NEUT % 76.3 % (16.0-70.0); PLATELET COUNT 180 TH/MM3 (150-450); RED BLOOD COUNT 2.86 MIL/MM3 (4.00-5.30); RED CELL DISTRIBUTION WIDTH 20.3 % (11.6-17.2); WHITE BLOOD COUNT 9.1 TH/MM3 (4.0-11.0)
[2017-10-09] MEDS: MULTIVITAMIN INJ 10 ML, THIAMINE INJ 100 MG, FOLIC ACID INJ 1 MG in SODIUM CHLORID 0.9%... IV SCH (08:25)
[2017-10-09] MEDS: POTASSIUM CHLOR 40 MEQ PREMIX 100 ML IV PRN ×2 (08:25→14:23)
[2017-10-09] MEDS: POTASSIUM CHLOR 20 MEQ PREMIX 100 ML IV PRN ×2 (08:26→14:24)
[2017-10-09] MEDS: SODIUM CHLORIDE 0.9% FLUSH 10 ML FLUSH IV FLUSH SCH ×2 (09:00→20:24)
[2017-10-09 11:31] LABS: HEMATOCRIT 26.4 % (35.0-46.0); HEMOGLOBIN 9.1 GM/DL (11.6-15.3)
[2017-10-09] MEDS ORDERED: Vancomycin Consult Pharmacy 1 EA OTHER SCH (13:45)
[2017-10-09] MEDS: OCTREOTIDE INJ 500 MCG in SODIUM CHLORID 0.9% 500 ML INJ 499.5 ML IV SCH (14:23)
[2017-10-09 15:13] LABS: HEMATOCRIT 28.5 % (35.0-46.0); HEMOGLOBIN 9.8 GM/DL (11.6-15.3)
--- NOTE | 2017-10-09 15:52 | HHI.CCPN ---
Subjective Remarks/Hospital Course Patient is a 67-year-old female with history of alcohol dependence, history of acromegaly, hypertension, type 2 diabetes, COPD who presented to the emergency department for increasing lethargy and a UTI symptoms and severe fatigue for last 4 days. She drinks approximately 5 alcoholic beverages a day. Patient was initially hypothermic with temperatures in the 95. Tachycardic and hypotensive with lowest blood pressure recorded as 55/30. Patient was fluid resuscitated with 2.5 L of normal saline, and despite that remained hypotensive. Patient was given vancomycin and cefepime. Hb was 8.1, found to be Hemoccult positive and also had coffee-ground emesis with some blood clots in the emergency department. She was transfused 2 units of emergency release blood. Levophed was started for persistent hypotension and Dr. Lieberman placed a Rright IUJ central line. Her lactic acid was found to be 7.3. UA showed evidence of severe UTI which could be the source of sepsis, white count was 12.9 with left shift. Other pertinent labs included total bilirubin of 3.8 elevated lipase at 742, lactic acid as mentioned above 7.3. I evaluated the patient in the emergency department. Despite fluid boluses and now receiving blood patient is on 10 mcg/min of Levophed. Patient is lethargic encephalopathic but she is able to answer some of the questions. I am told by the ED physician that patient wanted to be a DNR but wants to get medical management for current situation. Patient is a poor historian is lethargic and has encephalopathy from UTI. I will readdress the CODE STATUS when patient is clinically improved. For sepsis cefepime will be continued. Have placed the patient on IV Protonix infusion and octreotide infusion for upper GI bleed. Monitor hemoglobin every 6 hours for at least 24 hours. GI has been consulted. Cefepime will provide SBP prophylaxis also. Subjective: 10/09 Remains on levophed, weaned to 6 mcg/min. Hgb relatively stable following transfusion of 2 units on admission. Urine culture with GNR. Blood culture with 1/4 with GPC. Complains of some chest "heaviness". Non pleuritic. Denies shortness of breath, nausea vomiting, diaphoresis. Objective Vital Signs Date Time Temp Pulse Resp B/P (MAP) Pulse Ox O2 Delivery O2 Flow Rate FiO2 10/09/17 12:35 81 143/68 10/09/17 08:00 98.2 21 95 10/08/17 09:49 Nasal Cannula 2.00 Intake and Output 10/09/17 10/09/17 10/10/17 08:00 16:00 00:00 Output Total 900 ml Balance -900 ml Result Diagram: 10/09/17 1445 10/09/17 0400 Imaging Chest x-ray no acute changes Objective Remarks GENERAL: Ill appearing female. SKIN: Warm, dry./ HEAD: Atraumatic. Normocephalic. Prognathism EYES: Pupils equal and round. No injection or drainage. ENT: MMM NECK: Trachea midline. CARDIOVASCULAR: RRR with rate in the 70s, 2/6 systolic murmur LSB. RESPIRATORY: Clear to auscultation. Breath sounds equal bilaterally. GASTROINTESTINAL: Hepatomegaly, mild tenderness. Bowel sounds present. MSK: Large hands and feet, and prognathism suggestive of acromegaly NEUROLOGICAL: Awake and alert. No obvious cranial nerve deficits. Moving all extremities. Answers questions. A/P Problem List: (1) Hypokalemia ICD Code: E87.6 - Hypokalemia Status: Acute (2) Septic shock ICD Code: A41.9 - Sepsis, unspecified organism; R65.21 - Severe sepsis with septic shock Status: Acute (3) Lactic acidosis ICD Code: E87.2 - Acidosis Status: Resolved (4) UTI (urinary tract infection) ICD Code: N39.0 - Urinary tract infection, site not specified (5) Upper GI bleed ICD Code: K92.2 - Gastrointestinal hemorrhage, unspecified (6) Acute kidney injury ICD Code: N17.9 - Acute kidney failure, unspecified (7) Shock ICD Code: R57.9 - Shock, unspecified Status: Acute (8) Alcohol dependence ICD Code: F10.20 - Alcohol dependence, uncomplicated (9) Hypothermia ICD Code: T68.XXXA - Hypothermia, initial encounter (10) Anemia requiring transfusions ICD Code: D64.9 - Anemia, unspecified (11) Elevated bilirubin ICD Code: R17 - Unspecified jaundice Assessment and Plan Assessment and Plan NEURO: Chronic pain Alcohol dependence -On CIWA protocol, patient drinks about 5 alcoholic beverages daily -High risk of withdrawal -Supplement thiamine, MVI Patient states she is nonambulatory at baseline due to chronic pain, uses a motorized scooter. RESP: History of COPD -Nasal cannula oxygen to keep O2 sat >90% -DuoNeb every 6 hours as needed - pulmonary toilet CV: Septic and hypovolemic shock Lactic acidosis, resolved on 10/08 History of hypertension -Normal saline 2.5L bolus and maintenance at 84 ml per hour -Hold lisinopril and diltiazem -Trend lactic acid -Levophed to keep map above 65, currently at 6 mcg/min. Bolus LR 500 Chest pain Check EKG and troponin. Not candidate for ASA due to GI bleeding. Not candidate for betablocker due to hypotension. She states negative stress test at [facility] in [place] 3 years ago. GI: Upper GI bleed Hyperbilirubinemia, possible cirrhosis -Continue Protonix infusion, octreotide infusion -Keep n.p.o., GI consulted plan for EGD on 10/10. -Cefepime for UTI would also provide SBP prophylaxis -CT abdomen and pelvis to evaluate liver gallbladder, abdominal source of sepsis - results pending. Acute kidney insufficiency Hypokalemia Hypomagnesemia Hypophosphatemia -Monitor renal function closely. Normal saline at 84 mL/h -Electrolyte replacement per protocol Endo: Type 2 diabetes -Sliding scale insulin Acromegaly -Previously was on Octreotide and had pituitary surgery in 1986 -Random cortisol was normal. Hypothyroidism Continue Synthroid 75 mcg p.o. daily ID: Septic shock UTI -Received vancomycin and cefepime in the ED. Continue cefepime and continue vancomycin as blood culture 1/4 with GPC. 09/27 blood culture 1 out of 4 with GPC 10/07 urine culture - gram-negative rods 10/07 blood culture - pending. HEME: Anemia requiring transfusion -Transfused 2 units PRBC 10/07, check hemoglobin every 8 hours -Monitor CBC, CMP, coags PROPH: -Bilateral lower extremity SCDs. IV Protonix infusion. Chemical DVT prophylaxis is contraindicated at this time LINES: -Right IJ central line placed in the ED by Dr. Patton 10/08 #2, will remain in place due to ongoing levophed requirement. Patient is currently capacitated for medical decision-making. Discussed code status in detail. She states she wishes to be DNR. She would be willing to be intubated for procedure but states she would not otherwise want intubation for respiratory failure. She feels that her baseline quality of life is relatively poor and she states "when it is my time, just let me go". She states her will make medical decisions on her behalf should she lose capacity. She states they have spoken many times about end of life care and "he knows my wishes". Level 3 follow-up Problem Qualifiers (1) UTI (urinary tract infection): Maria Ines Rodriguez MD October 09, 2017 15:52
[2017-10-09] MEDS ORDERED: PEG (High)/E-LYTE SOLN 4000 ML BTL PO ONE (16:00)
[2017-10-09] MEDS ORDERED: LACTATED RINGER'S 1000 ML INJ 500 ML IV ONE (16:15)
[2017-10-09] MEDS: VANCOMYCIN INJ 1,250 MG in SODIUM CHLOR 0.9% 250 ML INJ 250 ML IV SCH (16:56)
--- NOTE | 2017-10-09 17:40 | EKG ---
Date Performed: 10/09/2017 Time Performed: 16:16:39 PTAGE: 67 years EKG: Sinus rhythm WITH OCCASIONAL SUPRAVENTRICULAR PREMATURE COMPLEXES LOW QRS VOLTAGE SEPTAL MYOCARDIAL INFARCTION , OF INDETERMINATE AGE NONSPECIFIC ST/T CHANGES ABNORMAL ECG PREVIOUS TRACING : 10/07/2017 21.08 Compared to previous tracing, PACs are now present. DOCTOR: Jacob Quevedo Interpretating Date/Time 10/09/2017 17:40:11
--- NOTE | 2017-10-09 18:58 | HHI.GIFU ---
GI Follow-up Note Consult Follow-up Subjective: Late entry.Patient seen earlier today Patient laying in bed comfortably, no new complaints .Denies nausea, vomiting, gi bleeding.Tolerated clear liquids.CT abdomen/pelvis ordered-not done yet.Some chest pain Objective: PHYSICAL EXAMINATION: Vitals signs stable No fever Vital Signs Date Time Temp Pulse Resp B/P (MAP) Pulse Ox O2 Delivery O2 Flow Rate FiO2 10/09/17 16:00 98.0 76 22 112/70 (84) 99 10/09/17 16:00 76 10/09/17 14:00 71 10/09/17 12:35 81 143/68 10/09/17 12:00 98.4 67 17 145/67 (93) 100 10/09/17 12:00 67 HEENT: Pupils round and reactive to light; normocephalic; atraumatic; no jaundice. Throat is clear. NECK: Neck is supple, no JVD, no lymphadenopathy. CHEST: Chest is clear to auscultation and percussion. CARDIAC: Regular rate and rhythm with no murmur gallop or rubs. ABDOMEN: Soft, nondistended, nontender; no hepatosplenomegaly; bowel sounds are present in all four quadrants. EXTREMITIES: No clubbing, cyanosis, or edema. SKIN: Normal; no rash; no jaundice. ETL DATA ARCHITECT: No focal deficits; alert and oriented times three. facial features characteristic for acromegaly Available Data (labs, X- Rays, Procedues) : Laboratory Tests Test 10/07/17 21:05 10/07/17 21:12 10/07/17 22:28 10/07/17 23:35 White Blood Count 12.9 TH/MM3 Red Blood Count 2.50 MIL/MM3 Hemoglobin 8.1 GM/DL Hematocrit 24.7 % Mean Corpuscular Volume 99.0 FL Mean Corpuscular Hemoglobin 32.6 PG Mean Corpuscular Hemoglobin Concent 33.0 % Red Cell Distribution Width 18.6 % Platelet Count 290 TH/MM3 Mean Platelet Volume 8.0 FL Neutrophils (%) (Auto) 83.5 % Lymphocytes (%) (Auto) 12.0 % Monocytes (%) (Auto) 3.9 % Eosinophils (%) (Auto) 0.0 % Basophils (%) (Auto) 0.6 % Neutrophils # (Auto) 10.8 TH/MM3 Lymphocytes # (Auto) 1.5 TH/MM3 Monocytes # (Auto) 0.5 TH/MM3 Eosinophils # (Auto) 0.0 TH/MM3 Basophils # (Auto) 0.1 TH/MM3 CBC Comment AUTO DIFF Differential Comment FINAL DIFF MANUAL Platelet Estimate NORMAL Platelet Morphology Comment NORMAL Blood Urea Nitrogen 30 MG/DL Creatinine 1.22 MG/DL Random Glucose 142 MG/DL Total Protein 7.2 GM/DL Albumin 2.5 GM/DL Calcium Level 9.3 MG/DL Alkaline Phosphatase 258 U/L Aspartate Amino Transf (AST/SGOT) 51 U/L Alanine Aminotransferase (ALT/SGPT) 17 U/L Total Bilirubin 3.8 MG/DL Sodium Level 130 MEQ/L Potassium Level 3.4 MEQ/L Chloride Level 90 MEQ/L Carbon Dioxide Level 18.1 MEQ/L Anion Gap 22 MEQ/L Estimat Glomerular Filtration Rate 44 ML/MIN Lactic Acid Level 7.3 mmol/L 4.4 mmol/L Lipase 742 U/L Thyroid Stimulating Hormone 3rd Gen 5.570 uIU/ML Prothrombin Time 13.5 SEC Prothromb Time International Ratio 1.3 RATIO Activated Partial Thromboplast Time 24.0 SEC Urine Color YELLOW Urine Turbidity HAZY Urine pH 7.0 Urine Specific [place] 1.012 Urine Protein 300 mg/dL Urine Glucose (UA) NEG mg/dL Urine Ketones TRACE mg/dL Urine Occult Blood MOD Urine Nitrite NEG Urine Bilirubin NEG Urine Urobilinogen 2.0 MG/DL Urine Leukocyte Esterase LARGE Urine RBC 95 /hpf Urine WBC /hpf Urine WBC Clumps MANY Urine Transitional Epithelial Cells 5 /hpf Urine Renal Epithelial Cells 5 /hpf Urine Bacteria MANY /hpf Urine Mucus MANY /lpf Test 10/08/17 01:00 10/08/17 01:44 10/08/17 03:45 10/08/17 09:22 Nasal Screen MRSA (PCR) MRSA NOT DETECTED Blood Gas Puncture Site RT RADIAL Blood Gas Patient Temperature 98.6 Blood Gas HCO3 17 mmol/L Blood Gas Base Excess -7.1 mmol/L Blood Gas Oxygen Saturation 94 % Arterial Blood pH 7.41 Arterial Blood Partial Pressure CO2 27 mmHg Arterial Blood Partial Pressure O2 113 mmHg Arterial Blood Oxygen Content 14.1 Vol % Arterial Blood Carboxyhemoglobin 2.4 % Arterial Blood Methemoglobin 1.5 % Blood Gas Hemoglobin 10.5 G/DL Oxygen Delivery Device NASAL CANNULA Blood Gas Liter Flow 2 L/M White Blood Count 13.8 TH/MM3 Red Blood Count 3.11 MIL/MM3 Hemoglobin 10.0 GM/DL 10.4 GM/DL Hematocrit 29.4 % 30.8 % Mean Corpuscular Volume 94.6 FL Mean Corpuscular Hemoglobin 32.2 PG Mean Corpuscular Hemoglobin Concent 34.0 % Red Cell Distribution Width 19.9 % Platelet Count 208 TH/MM3 Mean Platelet Volume 7.4 FL Neutrophils (%) (Auto) 85.9 % Lymphocytes (%) (Auto) 6.3 % Monocytes (%) (Auto) 7.7 % Eosinophils (%) (Auto) 0.0 % Basophils (%) (Auto) 0.1 % Neutrophils # (Auto) 11.9 TH/MM3 Lymphocytes # (Auto) 0.9 TH/MM3 Monocytes # (Auto) 1.1 TH/MM3 Eosinophils # (Auto) 0.0 TH/MM3 Basophils # (Auto) 0.0 TH/MM3 CBC Comment AUTO DIFF Differential Total Cells Counted 100 Neutrophils % (Manual) 87 % Band Neutrophils % 9 % Lymphocytes % 2 % Monocytes % 1 % Neutrophils # (Manual) 13.4 TH/MM3 Metamyelocytes 1 % Differential Comment FINAL DIFF MANUAL Platelet Estimate NORMAL Platelet Morphology Comment NORMAL Target Cells 1+ Blood Urea Nitrogen 26 MG/DL Creatinine 1.04 MG/DL Random Glucose 141 MG/DL Total Protein 6.0 GM/DL Albumin 2.1 GM/DL Calcium Level 7.6 MG/DL Alkaline Phosphatase 211 U/L Aspartate Amino Transf (AST/SGOT) 46 U/L Alanine Aminotransferase (ALT/SGPT) 16 U/L Total Bilirubin 4.2 MG/DL Sodium Level 136 MEQ/L Potassium Level 2.5 MEQ/L Chloride Level 100 MEQ/L Carbon Dioxide Level 20.4 MEQ/L Anion Gap 16 MEQ/L Estimat Glomerular Filtration Rate 53 ML/MIN Random Cortisol 36.2 MCG/DL Test 10/08/17 15:22 10/08/17 17:34 10/08/17 18:30 10/08/17 23:43 Hemoglobin 10.1 GM/DL 9.5 GM/DL 9.5 GM/DL Hematocrit 29.5 % 27.8 % Lactic Acid Level 1.1 mmol/L Potassium Level 3.1 MEQ/L Test 10/09/17 04:00 10/09/17 10:27 10/09/17 14:45 10/09/17 16:17 White Blood Count 9.1 TH/MM3 Red Blood Count 2.86 MIL/MM3 Hemoglobin 9.2 GM/DL 9.1 GM/DL 9.8 GM/DL Hematocrit 27.1 % 26.4 % 28.5 % Mean Corpuscular Volume 94.9 FL Mean Corpuscular Hemoglobin 32.3 PG Mean Corpuscular Hemoglobin Concent 34.1 % Red Cell Distribution Width 20.3 % Platelet Count 180 TH/MM3 Mean Platelet Volume 7.4 FL Neutrophils (%) (Auto) 76.3 % Lymphocytes (%) (Auto) 14.4 % Monocytes (%) (Auto) 8.5 % Eosinophils (%) (Auto) 0.6 % Basophils (%) (Auto) 0.2 % Neutrophils # (Auto) 6.9 TH/MM3 Lymphocytes # (Auto) 1.3 TH/MM3 Monocytes # (Auto) 0.8 TH/MM3 Eosinophils # (Auto) 0.1 TH/MM3 Basophils # (Auto) 0.0 TH/MM3 CBC Comment DIFF FINAL Differential Comment Blood Urea Nitrogen 21 MG/DL Creatinine 0.64 MG/DL Random Glucose 135 MG/DL Total Protein 5.5 GM/DL Albumin 1.9 GM/DL Calcium Level 7.5 MG/DL Phosphorus Level 1.0 MG/DL Magnesium Level 1.2 MG/DL Alkaline Phosphatase 186 U/L Aspartate Amino Transf (AST/SGOT) 58 U/L Alanine Aminotransferase (ALT/SGPT) 15 U/L Total Bilirubin 3.0 MG/DL Sodium Level 142 MEQ/L Potassium Level 2.7 MEQ/L Chloride Level 107 MEQ/L Carbon Dioxide Level 22.9 MEQ/L Anion Gap 12 MEQ/L Estimat Glomerular Filtration Rate 92 ML/MIN Troponin I LESS THAN 0.02 NG/ML ASSESSMENT/PLAN: Weight loss, decreased appetite- work-up in progress gi bleeding-no active bleeding since admission -s/p 2 units of prbc history of nsaids use, etoh use UTI Recommendations : CT abdomen/pelvis egd/colonoscopy in am transfuse prn clear liquid diet avoid nsaids, etoh if active bleeding we will consider endoscopy on emergency It was a pleasure seeing Deedee Almanza. Thank you for this consult. Entered by: Annabella Brumfield MD October 09, 2017 18:58
[2017-10-09] MEDS: LORazepam 2 MG/ML VIAL IV PUSH PRN (20:26)
--- NOTE | 2017-10-09 21:52 | RADRPT ---
EXAM DATE/TIME: 10/09/2017 21:07 [place] COMPARISON: No previous studies available for comparison. INDICATIONS : Sepsis. ORAL CONTRAST: No oral contrast ingested. RADIATION DOSE: 16.45 CTDIvol (mGy) MEDICAL HISTORY : Cardiovascular disease. Hypertension. SURGICAL HISTORY : Cholecystectomy. ENCOUNTER: Initial ACUITY: 1 day PAIN SCALE: 0/10 LOCATION: abdomen TECHNIQUE: Volumetric scanning of the abdomen and pelvis was performed. Using automated exposure control and ad justment of the mA and/or kV according to patient size, radiation dose was kept as low as reasonably achievable to obtain optimal diagnostic quality images. DICOM format image data is available electro nically for review and comparison. FINDINGS: LOWER LUNGS: Trace bilateral pleural effusions. LIVER: Slightly nodular hepatic contour. Gallbladder surgically absent. Trace perihepatic ascites. SPLEEN: Normal size without lesion. PANCREAS: Within normal limits. KIDNEYS: Symmetrical in size without hydronephrosis or radiopaque renal calculi. No significant contour deform ing abnormalities. ADRENAL GLANDS: Within normal limits. VASCULAR: There is no aortic aneurysm. BOWEL/MESENTERY: Nondistended fluid-filled loop of jejunum and ileum. Moderate stool in the rectum. Evaluation of the perirectal region is limited by beam hardening artifact. However, there is a collection of fluid and small amount of air in the perirectal region measuring 6.3 x 2.5 cm that appears to be extraluminal. Mild sigmoid diverticulosis without evidence for diverticulitis. Mild mesenteric edema throughout the abdomen. No free air. ABDOMINAL WALL: [place] anterior abdominal. Umbilical hernia containing several loops of bowel appearing small trevin l. RETROPERITONEUM: There is no lymphadenopathy. BLADDER: No wall thickening or mass. REPRODUCTIVE: Within normal limits. INGUINAL: There is no lymphadenopathy or hernia. MUSCULOSKELETAL: Degenerative spondylosis of the lumbar spine. Right hip arthroplasty in place. CONCLUSION: 1. Moderate stool in the rectum with findings concerning for a perirectal abscess measuring up to 6.3 cm. Evaluation of the perirectal region is significantly limited due to lack of contrast and beam hadley rdening artifact from right hip arthroplasty. Correlation with physical examination is recommended. C onsider disimpaction with repeat rectal contrast examination to further evaluate if there is continue d clinical uncertainty. 2. Cirrhotic appearing liver with trace ascites and mesenteric edema. 3. Anterior abdominal wall hernia containing several loops of normal-appearing small bowel. Tez Myers MD on October 09, 2017 at 21:43 Board Certified Radiologist. This report was verified electronically.
[2017-10-09] MEDS: SODIUM CHLOR 0.9% 1000 ML INJ 1,000 ML IV SCH (23:59)
[2017-10-10] VITALS (12 sets, daily range): BP systolic 96–118; BP diastolic 52–73; PULSE 67–112; RESP 13–24; TEMP 97.7–98.6; O2SAT 92–100
[2017-10-10] MEDS: PANTOPRAZOLE INJ 80 MG in SODIUM CHLORIDE 0.9% INJ 100 ML IV SCH ×4 (01:39→22:21)
[2017-10-10 02:36] LABS: AUTOMATED NEUTROPHIL # 5.5 TH/MM3 (1.8-7.7); BASOPHIL % 0.2 % (0.0-2.0); EOSINOPHIL # 0.1 TH/MM3 (0-0.4); EOSINOPHIL % 0.9 % (0.0-4.0); HEMATOCRIT 25.2 % (35.0-46.0); HEMOGLOBIN 8.6 GM/DL (11.6-15.3); LYMPH % 18.2 % (9.0-44.0); LYMPHOCYTE # 1.5 TH/MM3 (1.0-4.8); MEAN CELL VOLUME 95.1 FL (80.0-100.0); MEAN CORPUSCULAR HEMOGLOBIN 32.7 PG (27.0-34.0); MEAN CORPUSCULAR HGB CONC 34.3 % (32.0-36.0); MEAN PLATELET VOLUME 7.1 FL (7.0-11.0); MONO % 11.4 % (0.0-8.0); MONOCYTE # 0.9 TH/MM3 (0-0.9); NEUT % 69.3 % (16.0-70.0); PLATELET COUNT 157 TH/MM3 (150-450); RED BLOOD COUNT 2.65 MIL/MM3 (4.00-5.30); RED CELL DISTRIBUTION WIDTH 20.8 % (11.6-17.2)
[2017-10-10 02:50] LABS: ALBUMIN 1.7 GM/DL (3.4-5.0); BICARBONATE 24.1 MEQ/L (21.0-32.0); CALCIUM 7.3 MG/DL (8.5-10.1); CALCIUM-PROTEIN CORRECTED 8.3 MG/DL (8.5-10.1); CREATININE 0.47 MG/DL (0.50-1.00); TOTAL BILIRUBIN ADULT 2.8 MG/DL (0.2-1.0); TOTAL PROTEIN 5.3 GM/DL (6.4-8.2); TROPONIN I 0.04 NG/ML (0.02-0.05)
[2017-10-10] MEDS: INSULIN ASPART SUPPLEMENTAL SCALE SQ SCH ×6 (04:00→20:00)
[2017-10-10] MEDS: CHLORHEXIDINE GLUCONATE 2 % 1 PACK (2 CLOTHS) TOP SCH (04:00)
[2017-10-10] MEDS: CEFEPIME INJ 1,000 MG in SODIUM CHLORIDE 0.9% INJ 100 ML IV SCH ×3 (05:41→20:41)
[2017-10-10] MEDS: LEVOTHYROXINE SODIUM 75 MCG TAB PO SCH (05:41)
[2017-10-10] MEDS: MULTIVITAMIN INJ 10 ML, THIAMINE INJ 100 MG, FOLIC ACID INJ 1 MG in SODIUM CHLORID 0.9%... IV SCH (09:05)
[2017-10-10] MEDS: POTASSIUM CHLOR 20 MEQ PREMIX 100 ML IV PRN ×2 (11:20→13:12)
[2017-10-10] MEDS: OCTREOTIDE INJ 500 MCG in SODIUM CHLORID 0.9% 500 ML INJ 499.5 ML IV SCH (12:50)
[2017-10-10] MEDS: SODIUM CHLORIDE 0.9% FLUSH 10 ML FLUSH IV FLUSH SCH ×2 (13:10→20:42)
--- NOTE | 2017-10-10 13:46 | HHI.CCPN ---
Subjective Remarks/Hospital Course Patient is a 67-year-old female with history of alcohol dependence, history of acromegaly, hypertension, type 2 diabetes, COPD who presented to the emergency department for increasing lethargy and a UTI symptoms and severe fatigue for last 4 days. She drinks approximately 5 alcoholic beverages a day. Patient was initially hypothermic with temperatures in the 95. Tachycardic and hypotensive with lowest blood pressure recorded as 55/30. Patient was fluid resuscitated with 2.5 L of normal saline, and despite that remained hypotensive. Patient was given vancomycin and cefepime. Hb was 8.1, found to be Hemoccult positive and also had coffee-ground emesis with some blood clots in the emergency department. She was transfused 2 units of emergency release blood. Levophed was started for persistent hypotension and Dr. Lieberman placed a Rright IUJ central line. Her lactic acid was found to be 7.3. UA showed evidence of severe UTI which could be the source of sepsis, white count was 12.9 with left shift. Other pertinent labs included total bilirubin of 3.8 elevated lipase at 742, lactic acid as mentioned above 7.3. I evaluated the patient in the emergency department. Despite fluid boluses and now receiving blood patient is on 10 mcg/min of Levophed. Patient is lethargic encephalopathic but she is able to answer some of the questions. I am told by the ED physician that patient wanted to be a DNR but wants to get medical management for current situation. Patient is a poor historian is lethargic and has encephalopathy from UTI. I will readdress the CODE STATUS when patient is clinically improved. For sepsis cefepime will be continued. Have placed the patient on IV Protonix infusion and octreotide infusion for upper GI bleed. Monitor hemoglobin every 6 hours for at least 24 hours. GI has been consulted. Cefepime will provide SBP prophylaxis also. Subjective: 10/09 Remains on levophed, weaned to 6 mcg/min. Hgb relatively stable following transfusion of 2 units on admission. Urine culture with GNR. Blood culture with 1/4 with GPC. Complains of some chest "heaviness". Non pleuritic. Denies shortness of breath, nausea vomiting, diaphoresis. 10/10: On levophed 3 mics per minute this morning. Still awaiting EGD/ colonoscopy however has not completed taking prep. Objective Vital Signs Date Time Temp Pulse Resp B/P (MAP) Pulse Ox O2 Delivery O2 Flow Rate FiO2 10/10/17 10:00 87 10/10/17 08:14 100 Nasal Cannula 2.00 10/10/17 08:00 97.9 20 116/73 (87) Intake and Output 10/10/17 10/10/17 10/11/17 08:00 16:00 00:00 Intake Total 3163 ml Output Total 900 ml Balance 2263 ml Result Diagram: 10/10/17 0215 10/10/17 0215 Other Results Microbiology Date/Time Source Procedure Growth Status 10/07/17 22:22 Urine Catheterized Urine Urine Culture - Final Escherichia Coli Complete Imaging Chest x-ray no acute changes Objective Remarks GENERAL: Ill appearing female. SKIN: Warm, dry./ HEAD: Atraumatic. Normocephalic. Prognathism EYES: Pupils equal and round. No injection or drainage. ENT: MMM NECK: Trachea midline. CARDIOVASCULAR: RRR with rate in the 70s, 2/6 systolic murmur LSB. RESPIRATORY: Clear to auscultation. Breath sounds equal bilaterally. GASTROINTESTINAL: Hepatomegaly, mild tenderness. Bowel sounds present. MSK: Large hands and feet, and prognathism suggestive of acromegaly NEUROLOGICAL: Awake and alert. No obvious cranial nerve deficits. Moving all extremities. Answers questions. A/P Problem List: (1) Hypokalemia ICD Code: E87.6 - Hypokalemia Status: Acute (2) Septic shock ICD Code: A41.9 - Sepsis, unspecified organism; R65.21 - Severe sepsis with septic shock Status: Acute (3) Lactic acidosis ICD Code: E87.2 - Acidosis Status: Resolved (4) UTI (urinary tract infection) ICD Code: N39.0 - Urinary tract infection, site not specified (5) Upper GI bleed ICD Code: K92.2 - Gastrointestinal hemorrhage, unspecified (6) Acute kidney injury ICD Code: N17.9 - Acute kidney failure, unspecified (7) Shock ICD Code: R57.9 - Shock, unspecified Status: Acute (8) Alcohol dependence ICD Code: F10.20 - Alcohol dependence, uncomplicated (9) Hypothermia ICD Code: T68.XXXA - Hypothermia, initial encounter (10) Anemia requiring transfusions ICD Code: D64.9 - Anemia, unspecified (11) Elevated bilirubin ICD Code: R17 - Unspecified jaundice Assessment and Plan Assessment and Plan NEURO: Chronic pain Alcohol dependence -On CIWA protocol, patient drinks about 5 alcoholic beverages daily -High risk of withdrawal -Supplement thiamine, MVI Patient states she is nonambulatory at baseline due to chronic pain, uses a motorized scooter. RESP: History of COPD -Nasal cannula oxygen to keep O2 sat >90% -DuoNeb every 6 hours as needed - pulmonary toilet CV: Septic and hypovolemic shock Lactic acidosis, resolved on 10/08 History of hypertension -Normal saline 2.5L bolus and maintenance at 84 ml per hour -Hold lisinopril and diltiazem -Trend lactic acid -Levophed to keep map above 65, currently at 3 mcg/min. Chest pain f/u EKG and troponin. Not candidate for ASA due to GI bleeding. Not candidate for betablocker due to hypotension. She states negative stress test at [facility] in [place] 3 years ago. GI: Upper GI bleed Hyperbilirubinemia, possible cirrhosis -Continue Protonix infusion, octreotide infusion -Keep n.p.o., GI consulted plan for EGD on 10/10. -Cefepime for UTI would also provide SBP prophylaxis -CT abdomen and pelvis to evaluate liver gallbladder, abdominal source of sepsis - results pending. Acute kidney insufficiency Hypokalemia Hypomagnesemia Hypophosphatemia -Monitor renal function closely. Normal saline at 84 mL/h -Electrolyte replacement per protocol Endo: Type 2 diabetes -Sliding scale insulin Acromegaly -Previously was on Octreotide and had pituitary surgery in 1986 -Random cortisol was normal. Hypothyroidism Continue Synthroid 75 mcg p.o. daily ID: Septic shock UTI -Received vancomycin and cefepime in the ED. Continue cefepime and continue vancomycin as blood culture 1/4 with GPC. 09/27 blood culture 1 out of 4 with GPC 10/07 urine culture - gram-negative rods 10/07 blood culture - pending. HEME: Anemia requiring transfusion -Transfused 2 units PRBC 10/07, check hemoglobin every 8 hours -Monitor CBC, CMP, coags PROPH: -Bilateral lower extremity SCDs. IV Protonix infusion. Chemical DVT prophylaxis is contraindicated at this time LINES: -Right IJ central line placed in the ED by Dr. Patton 10/08 #2, will remain in place due to ongoing levophed requirement. Patient is currently capacitated for medical decision-making. Discussed code status in detail. She states she wishes to be DNR. She would be willing to be intubated for procedure but states she would not otherwise want intubation for respiratory failure. She feels that her baseline quality of life is relatively poor and she states "when it is my time, just let me go". She states her will make medical decisions on her behalf should she lose capacity. She states they have spoken many times about end of life care and "he knows my wishes". Level 3 follow-up Problem Qualifiers (1) UTI (urinary tract infection): Landon Ortez MD October 10, 2017 13:46
[2017-10-10] MEDS: SODIUM CHLOR 0.9% 1000 ML INJ 1,000 ML IV SCH ×2 (16:36→22:22)
[2017-10-10] MEDS: VANCOMYCIN INJ 1,250 MG in SODIUM CHLOR 0.9% 250 ML INJ 250 ML IV SCH (16:36)
--- NOTE | 2017-10-10 17:27 | PD.CONS ---
History of Present Illness Service Infectious disease Consult Requested By Dr Bishop Ortez Reason for Consult Evaluate patient with UTI and perirectal abscess Primary Care Physician Gael Dior MD Diagnoses: History of Present Illness Patient seen and examined. Records reviewed. Patient is not a good historian. Patient is a 67-year-old female, presented to the hospital with lethargy, and dysuria. She has known significant history of alcohol use. She was initially hypothermic in the emergency room, tachycardic and hypotensive. She was given IV fluids and remain hypotensive, and was therefore started on pressors. She was started empirically on broad-spectrum antibiotic and was given vancomycin and cefepime. During her evaluation she was also found to have low hemoglobin, and Hemoccult positive stool. She has received blood transfusion. She has not been febrile. Her WBC has improved. Her hemodynamics also improved and she is currently off Levophed. Urine culture has E. coli. One blood culture with staph epi. CT of the abdomen and pelvis is showing some findings suggestive of perirectal abscess. GI is evaluating the patient, and planning on doing upper and lower endoscopy. She is currently getting prep, and having diarrhea. Patient states she has been having pain in the anal region. She denies any diarrhea or constipation at home, and states she has a normal bowel movement. She is also complaining of some shortness of breath and cough, but does not bring up any phlegm. Infectious disease consultation has been requested to assist with management of her UTI and perirectal abscess. Review of Systems Constitutional: COMPLAINS OF: Change in appetite, DENIES: Fever, Chills, Night Sweats Eyes: DENIES: Eye pain Ears, nose, mouth, throat: DENIES: Nasal discharge, Oral lesions, Throat pain, Ear Pain Respiratory: COMPLAINS OF: Cough, Shortness of breath, DENIES: Sputum production Cardiovascular: COMPLAINS OF: Dyspnea on Exertion, DENIES: Chest pain, Palpitations, Syncope Gastrointestinal: COMPLAINS OF: Diarrhea, DENIES: Abdominal pain, Nausea, Vomiting, Difficulty Swallowing Genitourinary: COMPLAINS OF: Dysuria Musculoskeletal: DENIES: Joint pain, Joint Swelling Integumentary: DENIES: Rash Immunologic/allergic: DENIES: Urticaria Neurologic: DENIES: Headache, Localized weakness Psychiatric: DENIES: Hallucinations Past Family Social History Allergies: Coded Allergies: Opioids - Morphine Analogues (Verified Allergy, Severe, Shortness of Breath, 10/07/17) acetaminophen (Verified Allergy, Severe, Swelling, 10/07/17) PT STATES THROAT SWELLS hydrocodone (Verified Allergy, Severe, Swelling, 10/07/17) PT STATES THROAT SWELLS oxycodone (Verified Allergy, Severe, Swelling, 10/07/17) PT STATES THROAT SWELLS Past Medical History Acromegaly Type 2 diabetes Hypertension Hypothyroidism COPD Alcohol dependence Past Surgical History Cholecystectomy Hernia repair Pituitary surgery for acromegaly in 1996. Was on Octreotide before Active Ordered Medications Current Medications Medications (Trade) Dose Ordered Sig/Mason Route Start Time Stop Time Status Last Admin Norepinephrine Bitartrate 4 mg/ Sodium Chloride 250 ml @ 7.5 mls/hr TITRATE PRN IV 10/07/17 22:00 10/09/17 21:27 (Brethine Inj) 1 mg UNSCH PRN SQ 10/07/17 22:00 (Synthroid) 75 mcg DAILY@0600 PO 10/08/17 06:00 10/10/17 05:41 Pantoprazole Sodium 80 mg/ Sodium Chloride 100 ml @ 10 mls/hr Q10H IV 10/07/17 23:24 10/10/17 12:49 Octreotide Acetate 500 mcg/ Sodium Chloride 500 ml @ 25 mls/hr Q20H IV 10/07/17 22:24 10/10/17 12:50 Sodium Chloride 1,000 ml @ 84 mls/hr [id number] IV 10/07/17 22:25 10/10/17 16:36 (NS Flush) 2 ml UNSCH PRN IV FLUSH 10/07/17 22:30 (NS Flush) 2 ml BID IV FLUSH 10/08/17 09:00 10/10/17 13:10 (Duoneb Neb) 1 ampule Q2HR NEB PRN INH 10/07/17 22:30 ([facility]) 1 [id number] XX 10/07/17 22:30 (Chlorhexidine 2% Cloth) 3 pack Taper DAILY@04 TOP 10/08/17 04:00 10/04/18 03:59 10/10/17 04:00 (Chlorhexidine 2% Cloth) 3 pack UNSCH PRN TOP 10/07/17 22:30 Cefepime HCl 1000 mg/Sodium Chloride 100 ml @ 200 mls/hr Q8H IV 10/08/17 05:00 10/10/17 12:48 (NovoLOG SUPPLEMENTAL SCALE) 1 Q4H SQ 10/08/17 00:00 10/09/17 12:00 Potassium Chloride 100 ml @ 50 mls/hr Q2H PRN IV 10/08/17 00:15 10/08/17 04:48 Potassium Chloride 100 ml @ 50 mls/hr Q2H PRN IV 10/08/17 00:15 10/10/17 13:12 (K-Lyte Cl Eff) 50 meq UNSCH PRN PO 10/08/17 00:15 Potassium Chloride 100 ml @ 25 mls/hr UNSCH PRN IV 10/08/17 00:15 10/09/17 14:23 Potassium Chloride 100 ml @ 50 mls/hr Q2H PRN IV 10/08/17 00:15 Magnesium Sulfate 4 gm/Sodium Chloride 100 ml @ 50 mls/hr UNSCH PRN IV 10/08/17 00:15 (Mag-Ox) 800 mg UNSCH PRN PO 10/08/17 00:15 Magnesium Sulfate 2 gm/Sodium Chloride 100 ml @ 50 mls/hr UNSCH PRN IV 10/08/17 00:15 (K-Phos) 2,000 mg Q4H PRN PO 10/08/17 00:15 Sodium Phosphate 30 mmol/Sodium Chloride 250 ml @ 42 mls/hr UNSCH PRN IV 10/08/17 00:15 (K-Phos) 2,000 mg UNSCH PRN PO/TUBE 10/08/17 00:15 Potassium Phosphate 30 mmol/ Sodium Chloride 260 ml @ 42 mls/hr UNSCH PRN IV 10/08/17 00:15 (Romazicon Inj) 0.2 mg Q1M PRN IV PUSH 10/08/17 01:00 (Ativan) 1 mg Q4H PRN PO 10/08/17 01:00 (Ativan Inj) 1 mg Q4H PRN IV PUSH 10/08/17 01:00 10/09/17 20:26 (Ativan) 2 mg Q2H PRN PO 10/08/17 01:00 (Ativan Inj) 2 mg Q2H PRN IV PUSH 10/08/17 01:00 (Ativan Inj) 2 mg Q1H PRN IV PUSH 10/08/17 01:00 (Ativan Inj) 2 mg Q15M PRN IV PUSH 10/08/17 01:00 Multivitamins 10 ml/Thiamine HCl 100 mg/Folic Acid 1 mg/Sodium Chloride 511.2 ml @ 125 mls/hr DAILY IV 10/08/17 09:00 10/10/17 09:05 Pharmacy Profile Note 0 ml @ 0 mls/hr UNSCH OTHER 10/09/17 13:45 Vancomycin HCl 1250 mg/Sodium Chloride 262.5 ml @ 250 mls/hr Q24H IV 10/09/17 15:00 10/10/17 16:36 ([facility] Ordered Lab Info) SPECIFIC LAB TO BE ... ONCE ONCE .XX 10/12/17 14:45 10/12/17 14:46 Family History Unable to obtain Social History Daily drinks 5 alcoholic beverages Smokes 1 pack of cigarettes a day Denies illicit drugs Physical Exam Vital Signs Vital Signs Date Time Temp Pulse Resp B/P (MAP) Pulse Ox O2 Delivery O2 Flow Rate FiO2 10/10/17 16:00 98.1 81 21 111/57 (75) 92 10/10/17 16:00 78 10/10/17 14:00 92 10/10/17 12:00 67 10/10/17 12:00 97.7 92 13 96/63 (74) 99 10/10/17 10:00 87 10/10/17 08:14 100 Nasal Cannula 2.00 10/10/17 08:00 97.9 110 20 116/73 (87) 100 10/10/17 08:00 110 10/10/17 05:30 75 119/62 10/10/17 04:01 100 Nasal Cannula 1.50 10/10/17 03:40 69 119/62 10/10/17 02:00 67 10/10/17 01:40 64 119/62 10/10/17 00:00 73 10/10/17 00:00 97.9 85 21 118/52 (74) 97 10/09/17 22:00 75 10/09/17 21:27 71 119/68 10/09/17 20:00 72 18 122/60 (80) 100 10/09/17 20:00 74 10/09/17 18:00 91 Physical Exam GENERAL: Patient is a well-nourished, well-developed female, awake and alert , not in respiratory distress. SKIN: Cool and dry. No generalized rash, no ecchymoses and no evidence of embolic lesions. HEAD: Atraumatic. Normocephalic. No temporal wasting, or tenderness. EYES: [place] conjunctiva. No petechia or hemorrhage. Pupils equal, round and reactive to light. Extraocular movements full and intact. No scleral icterus. No injection or drainage. EARS, NOSE AND THROAT: Nose without bleeding or purulent nasal discharge. No sinus tenderness. Mucous membranes pink and moist. No oral lesions noted. NECK: Trachea midline. Supple and not tender, no meningeal signs CARDIOVASCULAR: Regular rate and rhythm. No murmurs, rubs or gallops heard RESPIRATORY: Clear to auscultation. Breath sounds equal bilaterally. No rales , wheezing or rhonchi ABDOMEN: Soft, non-tender, nondistended. Bowel sounds present and normoactive. No guarding. No rebound. No organomegaly. BACK: Has excoriations in coccyx region. No induration or swelling noted in perianal region EXTREMITIES: No clubbing, cyanosis, or edema. No joint effusion, has good ROM. No calf tenderness. Well perfused and warm. NEUROLOGICAL: Awake and alert. Cranial nerves grossly intact. Motor grossly within normal limits. PSYCHIATRIC: Normal affect, calm and cooperative. LINE: No evidence of infection Laboratory Laboratory Tests Test 10/10/17 02:15 10/10/17 11:35 White Blood Count 8.0 Red Blood Count 2.65 Hemoglobin 8.6 Hematocrit 25.2 Mean Corpuscular Volume 95.1 Mean Corpuscular Hemoglobin 32.7 Mean Corpuscular Hemoglobin Concent 34.3 Red Cell Distribution Width 20.8 Platelet Count 157 Mean Platelet Volume 7.1 Neutrophils (%) (Auto) 69.3 Lymphocytes (%) (Auto) 18.2 Monocytes (%) (Auto) 11.4 Eosinophils (%) (Auto) 0.9 Basophils (%) (Auto) 0.2 Neutrophils # (Auto) 5.5 Lymphocytes # (Auto) 1.5 Monocytes # (Auto) 0.9 Eosinophils # (Auto) 0.1 Basophils # (Auto) 0.0 CBC Comment DIFF FINAL Differential Comment Blood Urea Nitrogen 11 Creatinine 0.47 Random Glucose 99 Total Protein 5.3 Albumin 1.7 Calcium Level 7.3 Alkaline Phosphatase 185 Aspartate Amino Transf (AST/SGOT) 64 Alanine Aminotransferase (ALT/SGPT) 17 Total Bilirubin 2.8 Sodium Level 144 Potassium Level 3.3 Chloride Level 110 Carbon Dioxide Level 24.1 Anion Gap 10 Estimat Glomerular Filtration Rate 131 Protein Corrected Calcium 8.3 Troponin I 0.04 0.02 Date/Time Source Procedure Growth Status 10/09/17 14:45 Blood Peripheral Aerobic Blood Culture - Preliminary NO GROWTH IN 1 DAY Resulted 10/09/17 14:45 Blood Peripheral Anaerobic Blood Culture - Preliminary NO GROWTH IN 1 DAY Resulted 10/07/17 22:22 Urine Catheterized Urine Urine Culture - Final Escherichia Coli Complete Result Diagram: 10/10/175 10/10/17 0215 Imaging RADIOLOGY STUDIES/FILMS REVIEWED Chest X-Ray 10/08/17 0000 Signed Impressions: Service Date/Time: Sunday, October 08, 2017 03:08 - CONCLUSION: 1. Right central line in superior vena cava. No pneumothorax or effusion. Maycol Looney MD Abdomen/Pelvis CT 10/08/17 0000 Signed Impressions: Service Date/Time: Monday, October 09, 2017 21:07 - CONCLUSION: 1. Moderate stool in the rectum with findings concerning for a perirectal abscess measuring up to 6.3 cm. Evaluation of the perirectal region is significantly limited due to lack of contrast and beam hardening artifact from right hip arthroplasty. Correlation with physical examination is recommended. Consider disimpaction with repeat rectal contrast examination to further evaluate if there is continued clinical uncertainty. 2. Cirrhotic appearing liver with trace ascites and mesenteric edema. 3. Anterior abdominal wall hernia containing several loops of normal-appearing small bowel. Tez Myers MD Assessment and Plan Assessment and Plan IMPRESSION Sepsis on presentation, S/P shock - hemodynamic better, off pressors E coli UTI Perirectal abscess, possible, seen on CT GIB, anemia Known significant ETOH use One (+) BC with Staph epi likely contaminant RECOMMENDATION Surgery has been consulted to evaluate for perirectal abscess GI work up in progress Continue Vanco Continue Cefepime Add Flagyl Monitor progress I will follow along with you. Thank you for this consultation Discussed Condition With D/W RN Malathi Huggins MD October 10, 2017 17:27
[2017-10-10] MEDS: metroNIDAZOLE 500 MG TAB PO SCH ×2 (19:00→22:22)
--- NOTE | 2017-10-10 22:04 | HHI.GIFU ---
Subjective Remarks Laying in bed still drinking her GoLYTELY appears to be comfortable with no new complaints and no signs of any active bleeding Objective Vitals I&O Vital Signs Date Time Temp Pulse Resp B/P (MAP) Pulse Ox O2 Delivery O2 Flow Rate FiO2 10/10/17 18:00 90 10/10/17 16:00 98.1 81 21 111/57 (75) 92 10/10/17 16:00 78 10/10/17 14:00 92 10/10/17 12:00 67 10/10/17 12:00 97.7 92 13 96/63 (74) 99 10/10/17 10:00 87 10/10/17 08:14 100 Nasal Cannula 2.00 10/10/17 08:00 97.9 110 20 116/73 (87) 100 10/10/17 08:00 110 10/10/17 05:30 75 119/62 10/10/17 04:01 100 Nasal Cannula 1.50 10/10/17 03:40 69 119/62 10/10/17 02:00 67 10/10/17 01:40 64 119/62 10/10/17 00:00 73 10/10/17 00:00 97.9 85 21 118/52 (74) 97 10/09/17 22:00 75 I/O 10/09/17 10/09/17 10/09/17 10/10/17 10/10/17 10/10/17 07:00 15:00 23:00 07:00 15:00 23:00 Intake Total 711.2 ml 962.5 ml 3163 ml 350 ml Output Total 900 ml 1625 ml 900 ml 650 ml Balance -900 ml 711.2 ml -662.5 ml 2263 ml -300 ml Intake Oral 0 ml 350 ml IV Total 711.2 ml 962.5 ml 3163 ml Output Urine Total 900 ml 1625 ml 900 ml 650 ml # Bowel Movements 1 0 4 2 Laboratory Laboratory Tests Test 10/10/17 02:15 10/10/17 11:35 White Blood Count 8.0 Red Blood Count 2.65 Hemoglobin 8.6 Hematocrit 25.2 Mean Corpuscular Volume 95.1 Mean Corpuscular Hemoglobin 32.7 Mean Corpuscular Hemoglobin Concent 34.3 Red Cell Distribution Width 20.8 Platelet Count 157 Mean Platelet Volume 7.1 Neutrophils (%) (Auto) 69.3 Lymphocytes (%) (Auto) 18.2 Monocytes (%) (Auto) 11.4 Eosinophils (%) (Auto) 0.9 Basophils (%) (Auto) 0.2 Neutrophils # (Auto) 5.5 Lymphocytes # (Auto) 1.5 Monocytes # (Auto) 0.9 Eosinophils # (Auto) 0.1 Basophils # (Auto) 0.0 CBC Comment DIFF FINAL Differential Comment Blood Urea Nitrogen 11 Creatinine 0.47 Random Glucose 99 Total Protein 5.3 Albumin 1.7 Calcium Level 7.3 Alkaline Phosphatase 185 Aspartate Amino Transf (AST/SGOT) 64 Alanine Aminotransferase (ALT/SGPT) 17 Total Bilirubin 2.8 Sodium Level 144 Potassium Level 3.3 Chloride Level 110 Carbon Dioxide Level 24.1 Anion Gap 10 Estimat Glomerular Filtration Rate 131 Protein Corrected Calcium 8.3 Troponin I 0.04 0.02 Date/Time Source Procedure Growth Status 10/09/17 14:45 Blood Peripheral Aerobic Blood Culture - Preliminary NO GROWTH IN 1 DAY Resulted 10/09/17 14:45 Blood Peripheral Anaerobic Blood Culture - Preliminary NO GROWTH IN 1 DAY Resulted 10/07/17 22:22 Urine Catheterized Urine Urine Culture - Final Escherichia Coli Complete Imaging Last Impressions Chest X-Ray 10/08/17 0000 Signed Impressions: Service Date/Time: Sunday, October 08, 2017 03:08 - CONCLUSION: 1. Right central line in superior vena cava. No pneumothorax or effusion. Maycol Looney MD Abdomen/Pelvis CT 10/08/17 0000 Signed Impressions: Service Date/Time: Monday, October 09, 2017 21:07 - CONCLUSION: 1. Moderate stool in the rectum with findings concerning for a perirectal abscess measuring up to 6.3 cm. Evaluation of the perirectal region is significantly limited due to lack of contrast and beam hardening artifact from right hip arthroplasty. Correlation with physical examination is recommended. Consider disimpaction with repeat rectal contrast examination to further evaluate if there is continued clinical uncertainty. 2. Cirrhotic appearing liver with trace ascites and mesenteric edema. 3. Anterior abdominal wall hernia containing several loops of normal-appearing small bowel. Tez Myers MD Physical Exam HEENT: normocephalic; atraumatic; no jaundice. Throat is clear. NECK: Neck is supple, no JVD CHEST: Chest is clear to auscultation and percussion. CARDIAC: Regular rate and rhythm with no murmur gallop or rubs. ABDOMEN: Soft, nondistended, nontender; no hepatosplenomegaly; bowel sounds are present in all four quadrants. EXTREMITIES: No clubbing, cyanosis, or edema. SKIN: Normal; no rash; no jaundice. GEOSPATIAL ENGINEER: No focal deficits; alert and oriented times three. Assessment and Plan Plan Assessment: - Anemia with reports of coffee ground emesis and Hemoccult (+) stool H/H on admission 8.1/24.7 Pt denies history of GIB. Risk factors: Aleve q4hrs for long time, daily ETOH- 5 liquor drinks a day, smokes 1 PPD of cigarettes. Denies previous EGD. Last colonoscopy a year and a half ago, states findings of polyps - Unintentional weight loss- 68 pounds since May - Elevated LFTs in setting of ETOH abuse. DF-11 Currently: AST-46 ALT-16 Alk phos-211 T bili-4.2 - Elevated lipase- no abdominal imaging - Sepsis- hypothermic, hypotensive, and tachycardic on arrival- Now on Levo- Cefepime Abnormal CT revealing cirrhosis of the liver with abdominal wall herniation and possibly kirsten-rectal abscess Plan: EGD/colonoscopy tomorrow CT abdomen and pelvis W/O contrast (poor renal function) Alcohol withdraw protocol Protonix gtt Octreotide gtt Monitor H/H Notify GI of active GIB- can do EGD on emergent basis Monitor LFTs Further recommendations based on findings of above and clinical course Tee Tatum MD October 10, 2017 22:04
[2017-10-11] VITALS (15 sets, daily range): BP systolic 123–148; BP diastolic 59–79; PULSE 68–106; RESP 12–32; TEMP 97.6–98.6; O2SAT 71–99
[2017-10-11] MEDS: INSULIN ASPART SUPPLEMENTAL SCALE SQ SCH ×6 (03:56→20:00)
[2017-10-11] MEDS: CHLORHEXIDINE GLUCONATE 2 % 1 PACK (2 CLOTHS) TOP SCH (04:00)
[2017-10-11] MEDS: CEFEPIME INJ 1,000 MG in SODIUM CHLORIDE 0.9% INJ 100 ML IV SCH ×3 (04:19→20:07)
[2017-10-11] MEDS: LEVOTHYROXINE SODIUM 75 MCG TAB PO SCH (04:19)
[2017-10-11] MEDS: metroNIDAZOLE 500 MG TAB PO SCH ×3 (04:19→20:08)
[2017-10-11] MEDS: LORazepam 2 MG/ML VIAL IV PUSH PRN ×2 (04:22→21:05)
[2017-10-11] MEDS: SODIUM CHLORIDE 0.9% FLUSH 10 ML FLUSH IV FLUSH SCH ×2 (08:08→20:08)
[2017-10-11] MEDS: OCTREOTIDE INJ 500 MCG in SODIUM CHLORID 0.9% 500 ML INJ 499.5 ML IV SCH ×2 (08:09→20:08)
[2017-10-11] MEDS: PANTOPRAZOLE INJ 80 MG in SODIUM CHLORIDE 0.9% INJ 100 ML IV SCH ×2 (08:09→20:09)
--- NOTE | 2017-10-11 08:37 | HHI.IDPN ---
Subjective Subjective Remarks Patient is a 67-year-old female, presented to the hospital with lethargy, and dysuria. She has known significant history of alcohol use. She was initially hypothermic in the emergency room, tachycardic and hypotensive. She was given IV fluids and remain hypotensive, and was therefore started on pressors. She was started empirically on broad-spectrum antibiotic and was given vancomycin and cefepime. During her evaluation she was also found to have low hemoglobin, and Hemoccult positive stool. She has received blood transfusion. She has not been febrile. Her WBC has improved. Her hemodynamics also improved and she is currently off Levophed. Urine culture has E. coli. One blood culture with staph epi. CT of the abdomen and pelvis is showing some findings suggestive of perirectal abscess. GI is evaluating the patient, and planning on doing upper and lower endoscopy. She is currently getting prep, and having diarrhea. Patient states she has been having pain in the anal region. She denies any diarrhea or constipation at home, and states she has a normal bowel movement. She is also complaining of some shortness of breath and cough, but does not bring up any phlegm. Infectious disease consultation has been requested to assist with management of her UTI and perirectal abscess. Notes reviewed Discussed with RN Afebrile BP okay GI workup still pending Antibiotics Vancomycin Cefepime Flagyl Current Medications Medications (Trade) Dose Ordered Sig/Mason Route Start Time Stop Time Status Last Admin Norepinephrine Bitartrate 4 mg/ Sodium Chloride 250 ml @ 7.5 mls/hr TITRATE PRN IV 10/07/17 22:00 10/09/17 21:27 (Brethine Inj) 1 mg UNSCH PRN SQ 10/07/17 22:00 (Synthroid) 75 mcg DAILY@0600 PO 10/08/17 06:00 10/11/17 04:19 Pantoprazole Sodium 80 mg/ Sodium Chloride 100 ml @ 10 mls/hr Q10H IV 10/07/17 23:24 10/11/17 08:09 Octreotide Acetate 500 mcg/ Sodium Chloride 500 ml @ 25 mls/hr Q20H IV 10/07/17 22:24 10/11/17 08:09 Sodium Chloride 1,000 ml @ 84 mls/hr [id number] IV 10/07/17 22:25 10/10/17 22:22 (NS Flush) 2 ml UNSCH PRN IV FLUSH 10/07/17 22:30 (NS Flush) 2 ml BID IV FLUSH 10/08/17 09:00 10/11/17 08:08 (Duoneb Neb) 1 ampule Q2HR NEB PRN INH 10/07/17 22:30 ([facility] 1 [id number] XX 10/07/17 22:30 (Chlorhexidine 2% Cloth) 3 pack Taper DAILY@04 TOP 10/08/17 04:00 10/04/18 03:59 10/11/17 04:00 (Chlorhexidine 2% Cloth) 3 pack UNSCH PRN TOP 10/07/17 22:30 Cefepime HCl 1000 mg/Sodium Chloride 100 ml @ 200 mls/hr Q8H IV 10/08/17 05:00 10/11/17 04:19 (NovoLOG SUPPLEMENTAL SCALE) 1 Q4H SQ 10/08/17 00:00 10/09/17 12:00 Potassium Chloride 100 ml @ 50 mls/hr Q2H PRN IV 10/08/17 00:15 10/08/17 04:48 Potassium Chloride 100 ml @ 50 mls/hr Q2H PRN IV 10/08/17 00:15 10/10/17 13:12 (K-Lyte Cl Eff) 50 meq UNSCH PRN PO 10/08/17 00:15 Potassium Chloride 100 ml @ 25 mls/hr UNSCH PRN IV 10/08/17 00:15 10/09/17 14:23 Potassium Chloride 100 ml @ 50 mls/hr Q2H PRN IV 10/08/17 00:15 Magnesium Sulfate 4 gm/Sodium Chloride 100 ml @ 50 mls/hr UNSCH PRN IV 10/08/17 00:15 (Mag-Ox) 800 mg UNSCH PRN PO 10/08/17 00:15 Magnesium Sulfate 2 gm/Sodium Chloride 100 ml @ 50 mls/hr UNSCH PRN IV 10/08/17 00:15 (K-Phos) 2,000 mg Q4H PRN PO 10/08/17 00:15 Sodium Phosphate 30 mmol/Sodium Chloride 250 ml @ 42 mls/hr UNSCH PRN IV 10/08/17 00:15 (K-Phos) 2,000 mg UNSCH PRN PO/TUBE 10/08/17 00:15 Potassium Phosphate 30 mmol/ Sodium Chloride 260 ml @ 42 mls/hr UNSCH PRN IV 10/08/17 00:15 (Romazicon Inj) 0.2 mg Q1M PRN IV PUSH 10/08/17 01:00 (Ativan) 1 mg Q4H PRN PO 10/08/17 01:00 (Ativan Inj) 1 mg Q4H PRN IV PUSH 10/08/17 01:00 10/11/17 04:22 (Ativan) 2 mg Q2H PRN PO 10/08/17 01:00 (Ativan Inj) 2 mg Q2H PRN IV PUSH 10/08/17 01:00 (Ativan Inj) 2 mg Q1H PRN IV PUSH 10/08/17 01:00 (Ativan Inj) 2 mg Q15M PRN IV PUSH 10/08/17 01:00 Multivitamins 10 ml/Thiamine HCl 100 mg/Folic Acid 1 mg/Sodium Chloride 511.2 ml @ 125 mls/hr DAILY IV 10/08/17 09:00 10/10/17 09:05 Pharmacy Profile Note 0 ml @ 0 mls/hr UNSCH OTHER 10/09/17 13:45 Vancomycin HCl 1250 mg/Sodium Chloride 262.5 ml @ 250 mls/hr Q24H IV 10/09/17 15:00 10/10/17 16:36 ([facility] Or[facility] Info) SPECIFIC LAB TO BE .. ONCE ONCE .XX 10/12/17 14:45 10/12/17 14:46 (Flagyl) 500 mg Q8HR PO 10/10/17 17:30 10/11/17 04:19 Past Medical History Acromegaly Type 2 diabetes Hypertension Hypothyroidism COPD Alcohol dependence Past Surgical History Cholecystectomy Hernia repair Pituitary surgery for acromegaly in 1996. Was on Octreotide before Allergies: Coded Allergies: Opioids - Morphine Analogues (Verified Allergy, Severe, Shortness of Breath, 10/07/17) acetaminophen (Verified Allergy, Severe, Swelling, 10/07/17) PT STATES THROAT SWELLS hydrocodone (Verified Allergy, Severe, Swelling, 10/07/17) PT STATES THROAT SWELLS oxycodone (Verified Allergy, Severe, Swelling, 10/07/17) PT STATES THROAT SWELLS Objective . Vital Signs Date Time Temp Pulse Resp B/P (MAP) Pulse Ox O2 Delivery O2 Flow Rate FiO2 10/11/17 08:03 99 Nasal Cannula 3.00 10/11/17 06:00 78 10/11/17 04:00 106 10/11/17 04:00 97.6 106 25 123/69 (87) 71 10/11/17 02:00 100 10/11/17 00:25 99 Nasal Cannula 3.00 10/11/17 00:00 98 10/11/17 00:00 98.5 98 17 128/79 (95) 97 10/10/17 22:00 81 10/10/17 20:00 98.6 112 24 110/60 (77) 96 10/10/17 20:00 112 10/10/17 18:00 90 10/10/17 16:00 98.1 81 21 111/57 (75) 92 10/10/17 16:00 78 10/10/17 14:00 92 10/10/17 12:00 67 10/10/17 12:00 97.7 92 13 96/63 (74) 99 10/10/17 10:00 87 . Laboratory Tests Test 10/09/17 10:27 10/09/17 14:45 10/10/17 02:15 Hemoglobin 9.1 GM/DL 9.8 GM/DL 8.6 GM/DL Hematocrit 26.4 % 28.5 % 25.2 % White Blood Count 8.0 TH/MM3 Red Blood Count 2.65 MIL/MM3 Mean Corpuscular Volume 95.1 FL Mean Corpuscular Hemoglobin 32.7 PG Mean Corpuscular Hemoglobin Concent 34.3 % Red Cell Distribution Width 20.8 % Platelet Count 157 TH/MM3 Mean Platelet Volume 7.1 FL Neutrophils (%) (Auto) 69.3 % Lymphocytes (%) (Auto) 18.2 % Monocytes (%) (Auto) 11.4 % Eosinophils (%) (Auto) 0.9 % Basophils (%) (Auto) 0.2 % Neutrophils # (Auto) 5.5 TH/MM3 Lymphocytes # (Auto) 1.5 TH/MM3 Monocytes # (Auto) 0.9 TH/MM3 Eosinophils # (Auto) 0.1 TH/MM3 Basophils # (Auto) 0.0 TH/MM3 CBC Comment DIFF FINAL Differential Comment Laboratory Tests Test 10/09/17 16:17 10/10/17 02:15 10/10/17 11:35 Troponin I LESS THAN 0.02 NG/ML 0.04 NG/ML 0.02 NG/ML Blood Urea Nitrogen 11 MG/DL Creatinine 0.47 MG/DL Random Glucose 99 MG/DL Total Protein 5.3 GM/DL Albumin 1.7 GM/DL Calcium Level 7.3 MG/DL Alkaline Phosphatase 185 U/L Aspartate Amino Transf (AST/SGOT) 64 U/L Alanine Aminotransferase (ALT/SGPT) 17 U/L Total Bilirubin 2.8 MG/DL Sodium Level 144 MEQ/L Potassium Level 3.3 MEQ/L Chloride Level 110 MEQ/L Carbon Dioxide Level 24.1 MEQ/L Anion Gap 10 MEQ/L Estimat Glomerular Filtration Rate 131 ML/MIN Protein Corrected Calcium 8.3 MG/DL Microbiology Date/Time Source Procedure Growth Status 10/09/17 14:45 Blood Peripheral Aerobic Blood Culture - Preliminary NO GROWTH IN 1 DAY Resulted 10/09/17 14:45 Blood Peripheral Anaerobic Blood Culture - Preliminary NO GROWTH IN 1 DAY Resulted 10/09/17 14:40 Blood Peripheral Aerobic Blood Culture - Preliminary NO GROWTH IN 1 DAY Resulted 10/09/17 14:40 Blood Peripheral Anaerobic Blood Culture - Preliminary NO GROWTH IN 1 DAY Resulted Imaging Last Impressions Chest X-Ray 10/08/17 0000 Signed Impressions: Service Date/Time: Sunday, October 08, 2017 03:08 - CONCLUSION: 1. Right central line in superior vena cava. No pneumothorax or effusion. Maycol Looney MD Abdomen/Pelvis CT 10/08/17 0000 Signed Impressions: Service Date/Time: Monday, October 09, 2017 21:07 - CONCLUSION: 1. Moderate stool in the rectum with findings concerning for a perirectal abscess measuring up to 6.3 cm. Evaluation of the perirectal region is significantly limited due to lack of contrast and beam hardening artifact from right hip arthroplasty. Correlation with physical examination is recommended. Consider disimpaction with repeat rectal contrast examination to further evaluate if there is continued clinical uncertainty. 2. Cirrhotic appearing liver with trace ascites and mesenteric edema. 3. Anterior abdominal wall hernia containing several loops of normal-appearing small bowel. Tez Myers MD Physical Exam GENERAL: Awakens easily, not in respiratory distress. SKIN: Cool and dry. No generalized rash, no ecchymoses and no evidence of embolic lesions. HEAD: Atraumatic. Normocephalic. No temporal wasting, or tenderness. EYES: Mettler conjunctiva. No petechia or hemorrhage. Pupils equal, round and reactive to light. Extraocular movements full and intact. No scleral icterus. No injection or drainage. EARS, NOSE AND THROAT: Nose without bleeding or purulent nasal discharge. No sinus tenderness. Mucous membranes pink and moist. No oral lesions noted. NECK: Trachea midline. Supple and not tender, no meningeal signs CARDIOVASCULAR: Regular rate and rhythm. No murmurs, rubs or gallops heard RESPIRATORY: Clear to auscultation. Breath sounds equal bilaterally. No rales , wheezing or rhonchi ABDOMEN: Soft, non-tender, nondistended. Bowel sounds present and normoactive. No guarding. No rebound. No organomegaly. BACK: Has excoriations in coccyx region. No induration or swelling noted in perianal region EXTREMITIES: No clubbing, cyanosis, or edema. No joint effusion, has good ROM. No calf tenderness. Well perfused and warm. NEUROLOGICAL: Awake and alert. Cranial nerves grossly intact. Motor grossly within normal limits. PSYCHIATRIC: Normal affect, calm and cooperative. LINE: No evidence of infection Assessment & Plan Remarks IMPRESSION Sepsis on presentation, S/P shock - hemodynamic better, off pressors E coli UTI Perirectal abscess, possible, seen on CT GIB, anemia Known significant ETOH use One (+) BC with Staph epi likely contaminant RECOMMENDATION Surgery has been consulted to evaluate for perirectal abscess GI work up in progress Continue Vanco Continue Cefepime Continue Flagyl Monitor progress Discussed with Malathi Joyce MD October 11, 2017 08:37
[2017-10-11] MEDS: MULTIVITAMIN INJ 10 ML, THIAMINE INJ 100 MG, FOLIC ACID INJ 1 MG in SODIUM CHLORID 0.9%... IV SCH (10:45)
[2017-10-11] MEDS: SODIUM CHLOR 0.9% 1000 ML INJ 1,000 ML IV SCH (10:45)
[2017-10-11] MEDS ORDERED: PHENYLEPH/NS 1000 MCG/10 ML SYR IV ONE (12:00)
[2017-10-11] MEDS ORDERED: PROPOFOL 200 MG/20 ML AMP IV ONE (12:00)
[2017-10-11] MEDS ORDERED: LIDOCAINE HCL 1% PF 5 ML SYRINGE OTHER ONE (12:00)
--- NOTE | 2017-10-11 15:03 | HHI.CCPN ---
Subjective Remarks/Hospital Course Patient is a 67-year-old female with history of alcohol dependence, history of acromegaly, hypertension, type 2 diabetes, COPD who presented to the emergency department for increasing lethargy and a UTI symptoms and severe fatigue for last 4 days. She drinks approximately 5 alcoholic beverages a day. Patient was initially hypothermic with temperatures in the 95. Tachycardic and hypotensive with lowest blood pressure recorded as 55/30. Patient was fluid resuscitated with 2.5 L of normal saline, and despite that remained hypotensive. Patient was given vancomycin and cefepime. Hb was 8.1, found to be Hemoccult positive and also had coffee-ground emesis with some blood clots in the emergency department. She was transfused 2 units of emergency release blood. Levophed was started for persistent hypotension and Dr. Lieberman placed a Rright IUJ central line. Her lactic acid was found to be 7.3. UA showed evidence of severe UTI which could be the source of sepsis, white count was 12.9 with left shift. Other pertinent labs included total bilirubin of 3.8 elevated lipase at 742, lactic acid as mentioned above 7.3. I evaluated the patient in the emergency department. Despite fluid boluses and now receiving blood patient is on 10 mcg/min of Levophed. Patient is lethargic encephalopathic but she is able to answer some of the questions. I am told by the ED physician that patient wanted to be a DNR but wants to get medical management for current situation. Patient is a poor historian is lethargic and has encephalopathy from UTI. I will readdress the CODE STATUS when patient is clinically improved. For sepsis cefepime will be continued. Have placed the patient on IV Protonix infusion and octreotide infusion for upper GI bleed. Monitor hemoglobin every 6 hours for at least 24 hours. GI has been consulted. Cefepime will provide SBP prophylaxis also. 10/09 Remains on levophed, weaned to 6 mcg/min. Hgb relatively stable following transfusion of 2 units on admission. Urine culture with GNR. Blood culture with 1/4 with GPC. Complains of some chest "heaviness". Non pleuritic. Denies shortness of breath, nausea vomiting, diaphoresis. 10/10: On levophed 3 mics per minute this morning. Still awaiting EGD/ colonoscopy however has not completed taking prep. Subjective: 10/11 Off levophed. EGD/colonoscopy today. Dr. Liao recommends colorectal surgery eval for ?perirectal abscess. Objective Vital Signs Date Time Temp Pulse Resp B/P (MAP) Pulse Ox O2 Delivery O2 Flow Rate FiO2 10/11/17 14:00 68 10/11/17 12:00 98.0 12 148/68 (94) 99 10/11/17 08:03 Nasal Cannula 3.00 Intake and Output 10/11/17 10/11/17 10/12/17 08:00 16:00 00:00 Intake Total 4000 ml Output Total 1250 ml Balance 2750 ml Result Diagram: 10/10/17 0215 10/10/17 0215 Imaging Chest x-ray no acute changes Objective Remarks GENERAL: Ill appearing femal. SKIN: Warm, dry./ HEAD: Atraumatic. Normocephalic. Prognathism EYES: Pupils equal and round. No injection or drainage. ENT: MMM NECK: Trachea midline. CARDIOVASCULAR: RRR with rate in the 70s, 2/6 systolic murmur LSB. RESPIRATORY: Clear to auscultation. Breath sounds equal bilaterally. GASTROINTESTINAL: Hepatomegaly, mild tenderness. Bowel sounds present. Excoriation of right buttocks MSK: Large hands and feet, and prognathism suggestive of acromegaly NEUROLOGICAL: Awake and alert. No obvious cranial nerve deficits. Moving all extremities. Answers questions. A/P Problem List: (1) Hypokalemia ICD Code: E87.6 - Hypokalemia Status: Acute (2) Septic shock ICD Code: A41.9 - Sepsis, unspecified organism; R65.21 - Severe sepsis with septic shock Status: Acute (3) Lactic acidosis ICD Code: E87.2 - Acidosis Status: Resolved (4) UTI (urinary tract infection) ICD Code: N39.0 - Urinary tract infection, site not specified (5) Upper GI bleed ICD Code: K92.2 - Gastrointestinal hemorrhage, unspecified (6) Acute kidney injury ICD Code: N17.9 - Acute kidney failure, unspecified (7) Shock ICD Code: R57.9 - Shock, unspecified Status: Acute (8) Alcohol dependence ICD Code: F10.20 - Alcohol dependence, uncomplicated (9) Hypothermia ICD Code: T68.XXXA - Hypothermia, initial encounter (10) Anemia requiring transfusions ICD Code: D64.9 - Anemia, unspecified (11) Elevated bilirubin ICD Code: R17 - Unspecified jaundice Assessment and Plan Assessment and Plan NEURO: Chronic pain Alcohol dependence -On CINE protocol, patient drinks about 5 alcoholic beverages daily -Supplement thiamine, MVI Patient states she is nonambulatory at baseline due to chronic pain, uses a motorized scooter. RESP: History of COPD -Nasal cannula oxygen to keep O2 sat >90% -DuoNeb every 6 hours as needed - pulmonary toilet CV: Septic and hypovolemic shock , resolved on 10/11. Lactic acidosis, resolved on 10/08 History of hypertension -Normal saline 2.5L bolus and maintenance at 84 ml per hour -Hold lisinopril and diltiazem -Levophed now off. Chest pain, resolved Serial troponins were negative. Not candidate for ASA due to GI bleeding. Not candidate for betablocker due to hypotension. She states negative stress test at [facility] in [place] 3 years ago. GI: Upper GI bleed Hyperbilirubinemia, possible cirrhosis Gastritis Colon polyps Diverticulosis Internal and external hemorrhoid Cirrhosis -EGD 10/11 - gastritis, duodenitis. No acitve bleeding. Biopsies sent. (Dr. Tatum) -Colonoscopy 10/11 -diverticulosis, colon polyps, internal and external hemorrhoids. (Dr. Tatum) transverse colon and descending colon polypectomy were performed x2 and sent for path -Discontinue Protonix and octreotide infusions. Protonix 40 mg IV daily. -Antibiotic for UTI would also provide SBP prophylaxis Perirectal abscess -CT abdomen and pelvis -findings concerning for perirectal abscess. Colorectal surgery consulted, Dr. Yin evaluated Acute kidney insufficiency Hypokalemia Hypomagnesemia Hypophosphatemia -Monitor renal function closely. Normal saline at 84 mL/h -Electrolyte replacement per protocol Endo: Type 2 diabetes -Sliding scale insulin Acromegaly -Previously was on Octreotide and had pituitary surgery in 1986 -Random cortisol was normal. Hypothyroidism Continue Synthroid 75 mcg p.o. daily ID: Septic shock UTI Perirectal abscess -Received vancomycin and cefepime in the ED. on antibiotics per infectious disease: Vancomycin, cefepime, Flagyl. Colorectal surgery evaluating as per above 09/27 blood culture 1 out of 4 with GPC 10/07 urine culture -E. coli 10/07 blood culture -no growth to date HEME: Anemia requiring transfusion -Transfused 2 units PRBC 10/07, CBC daily -Monitor CBC, CMP, coags PROPH: -Bilateral lower extremity SCDs. Change to Protonix 40 mill grams IV daily. Chemical DVT prophylaxis when appropriate from GI standpoint LINES: -Right IJ central line placed in the ED by Dr. Patton 10/08 #4 we will continue for now as may require OR for perirectal abscess, follow-up on Dr. Yin's plan On 10/09: Patient is currently capacitated for medical decision-making. Discussed code status in detail. She states she wishes to be DNR. She would be willing to be intubated for procedure but states she would not otherwise want intubation for respiratory failure. She feels that her baseline quality of life is relatively poor and she states "when it is my time, just let me go". She states her will make medical decisions on her behalf should she lose capacity. She states they have spoken many times about end of life care and "he knows my wishes". DNR Level 3 follow-up Problem Qualifiers (1) UTI (urinary tract infection): Maria Ines Rodriguez MD October 11, 2017 15:03
[2017-10-11] MEDS: VANCOMYCIN INJ 1,250 MG in SODIUM CHLOR 0.9% 250 ML INJ 250 ML IV SCH (15:48)
[2017-10-11] MEDS ORDERED: DO NOT ADM ANY ANTICOAGULANT DRUGS PRN (19:26)
--- NOTE | 2017-10-11 19:28 | PD.PROCEDR ---
GI Procedure PROCEDURE PERFORMED EGD with biopsy followed by colonoscopy with snare polypectomy and biopsy INDICATION FOR PROCEDURE Anemia, coffee-ground emesis, weight loss, abnormal CT with possible kirsten- rectal abscess PROCEDURE: The procedure, risks and benefits were discussed with Patient/POA and informed consent was obtained. Anesthesia sedated Patient with Diprivan. Patient was placed in the left lateral decubitus position. EGD: The Pentax videoscope was introduced through the oropharynx and advanced to the second portion of the duodenum under direct visualization. Retroflexion was performed in the stomach. FINDINGS: The esophagus this appeared to be unremarkable and within normal limits The stomach there was patchy erythema in the antrum but no ulcerations no erosions no blood or bleeding antral biopsies were taken for further evaluation The duodenum this was normal random biopsies were taken for evaluation of anemia Colonoscopy: The Pentax videoscope was introduced through the rectum and advanced to proximal transverse colon. Retroflexion was performed in the rectum. Colonic prep was fair to poor FINDINGS: Colonic withdrawal time greater than 6 minutes. As the scope was slowly withdrawn colonic mucosa was carefully inspected patient was noted to have several polyps one in the transverse colon this was removed using biopsy forceps there was a second 1 in the descending colon that was removed with biopsy forceps and a third one that was slightly bigger removed with a cold snare technique colonic mucosa was otherwise unremarkable the patient did have diverticulosis scattered throughout the colon retroflexion in the rectum did reveal moderate size internal hemorrhoids and rectal examination also revealed external hemorrhoids ESTIMATED BLOOD LOSS: None SPECIMENS REMOVED: Gastric, duodenal, and colon biopsies COMPLICATIONS: None IMPRESSION: Gastritis Colon polyps Diverticulosis Internal and external hemorrhoids Incomplete colonoscopy PLAN: Await biopsies High-fiber diet Follow-up with GI post discharge Consider repeat colonoscopy in 2-3 months Continue with current supportive care Tee Tatum MD October 11, 2017 19:28
[2017-10-12] VITALS (11 sets, daily range): BP systolic 110–142; BP diastolic 59–77; PULSE 72–160; RESP 14–25; TEMP 97.5–98.2; O2SAT 93–100
[2017-10-12] MEDS: SODIUM CHLOR 0.9% 1000 ML INJ 1,000 ML IV SCH (03:17)
[2017-10-12] MEDS: CHLORHEXIDINE GLUCONATE 2 % 1 PACK (2 CLOTHS) TOP SCH (04:00)
[2017-10-12] MEDS: INSULIN ASPART SUPPLEMENTAL SCALE SQ SCH ×6 (04:00→20:00)
[2017-10-12 04:56] LABS: HEMATOCRIT 23.9 % (35.0-46.0); MEAN CELL VOLUME 96.5 FL (80.0-100.0); MEAN CORPUSCULAR HEMOGLOBIN 32.4 PG (27.0-34.0); MEAN CORPUSCULAR HGB CONC 33.5 % (32.0-36.0); MEAN PLATELET VOLUME 7.4 FL (7.0-11.0); PLATELET COUNT 125 TH/MM3 (150-450); RED BLOOD COUNT 2.47 MIL/MM3 (4.00-5.30); RED CELL DISTRIBUTION WIDTH 20.2 % (11.6-17.2); WHITE BLOOD COUNT 5.4 TH/MM3 (4.0-11.0)
[2017-10-12 05:37] LABS: ALBUMIN 1.6 GM/DL (3.4-5.0); BICARBONATE 20.3 MEQ/L (21.0-32.0); CALCIUM 6.9 MG/DL (8.5-10.1); CALCIUM-PROTEIN CORRECTED 8.1 MG/DL (8.5-10.1); CREATININE 0.39 MG/DL (0.50-1.00); TOTAL BILIRUBIN ADULT 1.7 MG/DL (0.2-1.0); TOTAL PROTEIN 4.9 GM/DL (6.4-8.2)
[2017-10-12] MEDS: LEVOTHYROXINE SODIUM 75 MCG TAB PO SCH (05:42)
[2017-10-12] MEDS: metroNIDAZOLE 500 MG TAB PO SCH (05:42)
[2017-10-12] MEDS: CEFEPIME INJ 1,000 MG in SODIUM CHLORIDE 0.9% INJ 100 ML IV SCH ×3 (05:42→20:27)
[2017-10-12] MEDS: POTASSIUM CHLOR 40 MEQ PREMIX 100 ML IV PRN ×2 (06:46→06:47)
--- NOTE | 2017-10-12 08:35 | HHI.PR ---
Subjective Remarks C/R Surg afebrile, VSS EGD/Colon reviewed UO good Objective - Vital Signs Date Time Temp Pulse Resp B/P (MAP) Pulse Ox O2 Delivery O2 Flow Rate FiO2 10/12/17 06:00 102 10/12/17 04:00 97.6 17 142/70 (94) 94 10/11/17 19:45 Nasal Cannula 3.00 Result Diagram: 10/12/1741910/12/17419 Objective Remarks PE Abd - doughy, non-tender Rectal - fistula PML open, no cellultitis, no abscess signif desquamation of skin A/P Assessment and Plan Imp: stable fistula, cont local wound care protective ointment for kirsten-anal dermatitis good anal cleaning will see prn - not a good time to consider fistulotomy Juan Miguel Yin MD October 12, 2017 08:35
--- NOTE | 2017-10-12 09:15 | MB ---
cc: Juan Miguel Yin MD DATE: 10/11/2017 REASON FOR CONSULTATION: Possible perirectal abscess. HISTORY OF PRESENT ILLNESS: Ms. Almanza is a 67-year-old female with a history of alcohol abuse, acromegaly, diabetes, COPD. The patient was brought to the emergency room when she was found to have decreasing mental status and increased lethargy. This had been going on for 4 or 5 days prior to her arrival at the hospital. She does consume alcohol daily. Upon arrival to the hospital, she was found to have a low blood pressure around 95. She had a high pulse rate as well as hypotension. She was resuscitated and warmed, placed on IV fluids and pressors. Workup revealed a low hemoglobin down to 8.1. She did have some coffee ground emesis and clots in the emergency room. She was also found to have a significant urinary tract infection with high white cells and clumps of bacteria in the urine. She was empirically treated with antibiotics and was stabilized. Additional workup including a CT scan of the abdomen and pelvis shows evidence of cirrhosis with some ascites and a suspicion of some thickening of the perirectal tissues with some perirectal air suggestive of a possible perirectal abscess or fistula. Since admission to the emergency room, the patient has stabilized on broad spectrum antibiotics. Urine culture has grown E. coli, which she is being treated appropriately for. She is a little bit more alert, although not a very good historian and does complain of some rectal pain and tenderness. GI is consulted who recently performed an upper and lower endoscopy showing no other signs of blood loss. Several small polyps were noted throughout the colon. MEDICAL AND SURGICAL HISTORY: Reviewed and updated in the chart. PERTINENT PHYSICAL EXAMINATION: GENERAL: Pleasant, lethargic female in no acute distress. HEENT: Remarkable for pale, dry membranes. Nonicteric sclerae. NECK: A little stiff without adenopathy. CHEST: Decreased bilaterally. HEART: Slight tachycardia. ABDOMEN: Doughy, soft, not really distended. Liver was palpable. No other masses or tenderness appreciated. Abdominal hernia was present. 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 Moderate amount of liquid stool and even solid stool in the fistula. Digital exam revealed decreased tone. No mucosal masses. Thickening and some edema posteriorly, but no abscess or fluctuance. There appeared to be a fistula to the posterior midline, but no acute cellulitis or significant drainable fluid was palpated. EXTREMITIES: No cyanosis or clubbing and 1-2+ pedal edema. LABORATORY DATA: White count 8.0, hemoglobin is 8.6, platelet count was 157,000. INR was 1.3. Electrolytes remarkable for a BUN of 11, creatinine of 0.47, bilirubin of 2.8, mild elevation of liver enzymes, albumin of 1.7. IMAGING STUDIES: CT scan was reviewed showing perirectal inflammatory process, but with the possibility of some perirectal air consistent with a fistula, cirrhotic liver and ascites. ASSESSMENT AND PLAN: A 67-year-old female with multiple medical problems and recent admission for hypotension and sepsis relating to hypothermia, dehydration and marked anemia. 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 I do not feel there was a drainable fluid collection at this time. She is being treated for urinary tract infection and apparently has gotten a lot better with IV fluids, blood transfusion and appropriate antibiotic coverage for the urinary tract infection. Would continue local care to the perianal tissues, A and D ointment or double shield for protection of the skin, good anal hygiene and local care to the perianal fistula. For the time being, with her liver problems, conservative treatment of the fistula would be more appropriate unless continued sepsis became an issue. We will see how she does over the next few days with aggressive antibiotic therapy. Juan Miguel Yin MD AHR/SB , 08:48 AM , 09:14 AM
[2017-10-12] MEDS: PANTOPRAZOLE SODIUM 40 MG VIAL IV PUSH SCH (09:22)
[2017-10-12] MEDS: SODIUM CHLORIDE 0.9% FLUSH 10 ML FLUSH IV FLUSH SCH ×2 (09:23→20:27)
[2017-10-12] MEDS: MULTIVITAMIN INJ 10 ML, THIAMINE INJ 100 MG, FOLIC ACID INJ 1 MG in SODIUM CHLORID 0.9%... IV SCH (09:33)
--- NOTE | 2017-10-12 09:43 | HHI.IDPN ---
Subjective Subjective Remarks Patient is a 67-year-old female, presented to the hospital with lethargy, and dysuria. She has known significant history of alcohol use. She was initially hypothermic in the emergency room, tachycardic and hypotensive. She was given IV fluids and remain hypotensive, and was therefore started on pressors. She was started empirically on broad-spectrum antibiotic and was given vancomycin and cefepime. During her evaluation she was also found to have low hemoglobin, and Hemoccult positive stool. She has received blood transfusion. She has not been febrile. Her WBC has improved. Her hemodynamics also improved and she is currently off Levophed. Urine culture has E. coli. One blood culture with staph epi. CT of the abdomen and pelvis is showing some findings suggestive of perirectal abscess. GI is evaluating the patient, and planning on doing upper and lower endoscopy. She is currently getting prep, and having diarrhea. Patient states she has been having pain in the anal region. She denies any diarrhea or constipation at home, and states she has a normal bowel movement. She is also complaining of some shortness of breath and cough, but does not bring up any phlegm. Infectious disease consultation has been requested to assist with management of her UTI and perirectal abscess. Notes reviewed Discussed with RN Afebrile BP okay Mental status back to baseline CRS notes reviewed - no perirectal abscess Had endoscopy, findings noted Antibiotics Vancomycin Cefepime Flagyl Current Medications Medications (Trade) Dose Ordered Sig/Mason Route Start Time Stop Time Status Last Admin (Synthroid) 75 mcg DAILY@0600 PO 10/08/17 06:00 10/12/17 05:42 Sodium Chloride 1,000 ml @ 84 mls/hr [id number] IV 10/07/17 22:25 10/12/17 03:17 (NS Flush) 2 ml UNSCH PRN IV FLUSH 10/07/17 22:30 (NS Flush) 2 ml BID IV FLUSH 10/08/17 09:00 10/12/17 09:23 (Duoneb Neb) 1 ampule Q2HR NEB PRN INH 10/07/17 22:30 ([facility]) 1 [id number] XX 10/07/17 22:30 10/07/17 22:30 (Chlorhexidine 2% Cloth) 3 pack Taper DAILY@04 TOP 10/08/17 04:00 5/15/19 03:59 10/12/17 04:00 (Chlorhexidine 2% Cloth) 3 pack UNSCH PRN TOP 10/07/17 22:30 Cefepime HCl 1000 mg/Sodium Chloride 100 ml @ 200 mls/hr Q8H IV 10/08/17 05:00 10/12/17 05:42 (NovoLOG SUPPLEMENTAL SCALE) 1 Q4H SQ 10/08/17 00:00 10/09/17 12:00 Potassium Chloride 100 ml @ 50 mls/hr Q2H PRN IV 10/08/17 00:15 10/12/17 06:47 Potassium Chloride 100 ml @ 50 mls/hr Q2H PRN IV 10/08/17 00:15 10/10/17 13:12 (K-Lyte Cl Eff) 50 meq UNSCH PRN PO 10/08/17 00:15 Potassium Chloride 100 ml @ 25 mls/hr UNSCH PRN IV 10/08/17 00:15 10/12/17 06:46 Potassium Chloride 100 ml @ 50 mls/hr Q2H PRN IV 10/08/17 00:15 Magnesium Sulfate 4 gm/Sodium Chloride 100 ml @ 50 mls/hr UNSCH PRN IV 10/08/17 00:15 (Mag-Ox) 800 mg UNSCH PRN PO 10/08/17 00:15 Magnesium Sulfate 2 gm/Sodium Chloride 100 ml @ 50 mls/hr UNSCH PRN IV 10/08/17 00:15 (K-Phos) 2,000 mg Q4H PRN PO 10/08/17 00:15 Sodium Phosphate 30 mmol/Sodium Chloride 250 ml @ 42 mls/hr UNSCH PRN IV 10/08/17 00:15 (K-Phos) 2,000 mg UNSCH PRN PO/TUBE 10/08/17 00:15 Potassium Phosphate 30 mmol/ Sodium Chloride 260 ml @ 42 mls/hr UNSCH PRN IV 10/08/17 00:15 (Romazicon Inj) 0.2 mg Q1M PRN IV PUSH 10/08/17 01:00 (Ativan) 1 mg Q4H PRN PO 10/08/17 01:00 (Ativan Inj) 1 mg Q4H PRN IV PUSH 10/08/17 01:00 10/11/17 21:05 (Ativan) 2 mg Q2H PRN PO 10/08/17 01:00 (Ativan Inj) 2 mg Q2H PRN IV PUSH 10/08/17 01:00 (Ativan Inj) 2 mg Q1H PRN IV PUSH 10/08/17 01:00 (Ativan Inj) 2 mg Q15M PRN IV PUSH 10/08/17 01:00 Multivitamins 10 ml/Thiamine HCl 100 mg/Folic Acid 1 mg/Sodium Chloride 511.2 ml @ 125 mls/hr DAILY IV 10/08/17 09:00 10/12/17 09:33 Pharmacy Profile Note 0 ml @ 0 mls/hr UNSCH OTHER 10/09/17 13:45 Vancomycin HCl 1250 mg/Sodium Chloride 262.5 ml @ 250 mls/hr Q24H IV 10/09/17 15:00 10/11/17 15:48 ([facility] Ordered Lab Info) SPECIFIC LAB TO BE ALEXIS... ONCE ONCE .XX 10/12/17 14:45 10/12/17 14:46 (Flagyl) 500 mg Q8HR PO 10/10/17 17:30 10/12/17 05:42 ([facility]) ALL NURSING DEPARTME... UNSCH PRN .XX 10/11/17 19:26 10/12/17 19:25 (Protonix Inj) 40 mg Q24H IV PUSH 10/12/17 09:00 10/12/17 09:22 Lines Line no evidence of infection Past Medical History Acromegaly Type 2 diabetes Hypertension Hypothyroidism COPD Alcohol dependence Past Surgical History Cholecystectomy Hernia repair Pituitary surgery for acromegaly in 1996. Was on Octreotide before Allergies: Coded Allergies: Opioids - Morphine Analogues (Verified Allergy, Severe, Shortness of Breath, 10/07/17) acetaminophen (Verified Allergy, Severe, Swelling, 10/07/17) PT STATES THROAT SWELLS hydrocodone (Verified Allergy, Severe, Swelling, 10/07/17) PT STATES THROAT SWELLS oxycodone (Verified Allergy, Severe, Swelling, 10/07/17) PT STATES THROAT SWELLS Objective . Vital Signs Date Time Temp Pulse Resp B/P (MAP) Pulse Ox O2 Delivery O2 Flow Rate FiO2 10/12/17 08:00 97.5 78 17 125/77 (93) 97 10/12/17 06:00 102 10/12/17 04:00 97.6 77 17 142/70 (94) 94 10/12/17 04:00 77 10/12/17 02:00 87 10/12/17 00:00 98.2 101 16 139/65 (89) 100 10/12/17 00:00 101 10/11/17 22:00 101 10/11/17 20:00 83 10/11/17 20:00 98.6 83 21 125/70 (88) 99 10/11/17 19:45 98 Nasal Cannula 3.00 10/11/17 19:30 98.6 100 14 137/68 (91) 98 Nasal Cannula 3 10/11/17 19:27 98.6 99 15 128/62 (84) 96 Nasal Cannula 3 10/11/17 18:00 77 10/11/17 16:00 96 10/11/17 16:00 97.6 96 32 127/61 (83) 97 10/11/17 14:00 68 10/11/17 12:00 98.0 86 12 148/68 (94) 99 10/11/17 12:00 86 10/11/17 10:00 72 . Laboratory Tests Test 10/12/17 04:20 White Blood Count 5.4 TH/MM3 Red Blood Count 2.47 MIL/MM3 Hemoglobin 8.0 GM/DL Hematocrit 23.9 % Mean Corpuscular Volume 96.5 FL Mean Corpuscular Hemoglobin 32.4 PG Mean Corpuscular Hemoglobin Concent 33.5 % Red Cell Distribution Width 20.2 % Platelet Count 125 TH/MM3 Mean Platelet Volume 7.4 FL Laboratory Tests Test 10/10/17 11:35 10/12/17 04:20 Troponin I 0.02 NG/ML Blood Urea Nitrogen 6 MG/DL Creatinine 0.39 MG/DL Random Glucose 86 MG/DL Total Protein 4.9 GM/DL Albumin 1.6 GM/DL Calcium Level 6.9 MG/DL Alkaline Phosphatase 168 U/L Aspartate Amino Transf (AST/SGOT) 45 U/L Alanine Aminotransferase (ALT/SGPT) 17 U/L Total Bilirubin 1.7 MG/DL Sodium Level 148 MEQ/L Potassium Level 3.0 MEQ/L Chloride Level 116 MEQ/L Carbon Dioxide Level 20.3 MEQ/L Anion Gap 12 MEQ/L Estimat Glomerular Filtration Rate 163 ML/MIN Protein Corrected Calcium 8.1 MG/DL Microbiology Date/Time Source Procedure Growth Status 10/09/17 14:45 Blood Peripheral Aerobic Blood Culture - Preliminary NO GROWTH IN 2 DAYS Resulted 10/09/17 14:45 Blood Peripheral Anaerobic Blood Culture - Preliminary NO GROWTH IN 2 DAYS Resulted 10/09/17 14:40 Blood Peripheral Aerobic Blood Culture - Preliminary NO GROWTH IN 2 DAYS Resulted 10/09/17 14:40 Blood Peripheral Anaerobic Blood Culture - Preliminary NO GROWTH IN 2 DAYS Resulted Imaging Last Impressions Chest X-Ray 10/08/17 0000 Signed Impressions: Service Date/Time: Sunday, October 08, 2017 03:08 - CONCLUSION: 1. Right central line in superior vena cava. No pneumothorax or effusion. Maycol Looney MD Abdomen/Pelvis CT 10/08/17 0000 Signed Impressions: Service Date/Time: Monday, October 09, 2017 21:07 - CONCLUSION: 1. Moderate stool in the rectum with findings concerning for a perirectal abscess measuring up to 6.3 cm. Evaluation of the perirectal region is significantly limited due to lack of contrast and beam hardening artifact from right hip arthroplasty. Correlation with physical examination is recommended. Consider disimpaction with repeat rectal contrast examination to further evaluate if there is continued clinical uncertainty. 2. Cirrhotic appearing liver with trace ascites and mesenteric edema. 3. Anterior abdominal wall hernia containing several loops of normal-appearing small bowel. Tez Myers MD Physical Exam GENERAL: Awake and alert, not in respiratory distress. SKIN: Cool and dry. No generalized rash, no ecchymoses and no evidence of embolic lesions. HEAD: Atraumatic. Normocephalic. No temporal wasting, or tenderness. EYES: Eros conjunctiva. No petechia or hemorrhage. Pupils equal, round and reactive to light. Extraocular movements full and intact. No scleral icterus. No injection or drainage. EARS, NOSE AND THROAT: Nose without bleeding or purulent nasal discharge. No sinus tenderness. Mucous membranes pink and moist. No oral lesions noted. NECK: Trachea midline. Supple and not tender, no meningeal signs CARDIOVASCULAR: Regular rate and rhythm. No murmurs, rubs or gallops heard RESPIRATORY: Clear to auscultation. Breath sounds equal bilaterally. No rales , wheezing or rhonchi ABDOMEN: Soft, non-tender, nondistended. Bowel sounds present and normoactive. No guarding. No rebound. No organomegaly. BACK: Has excoriations in coccyx region. No induration or swelling noted in perianal region EXTREMITIES: No clubbing, cyanosis, or edema. No joint effusion, has good ROM. No calf tenderness. Well perfused and warm. NEUROLOGICAL: Awake and alert. Cranial nerves grossly intact. Motor grossly within normal limits. PSYCHIATRIC: Normal affect, calm and cooperative. LINE: No evidence of infection Assessment & Plan Remarks IMPRESSION Sepsis on presentation, S/P shock - hemodynamic better, off pressors E coli UTI GIB, anemia Known significant ETOH use One (+) BC with Staph epi likely contaminant RECOMMENDATION Stop Vanco Continue Cefepime Stop Flagyl Monitor progress Possibly changed to oral Abx in next day or 2 if she remains stable Malathi Huggins MD October 12, 2017 09:43
--- NOTE | 2017-10-12 11:24 | HHI.GIFU ---
Subjective Remarks Pt resting in bed, napping. Offers no complaints. No obvious bleeding per nursing staff. (Sol Jimenez) Objective Vitals I&O Vital Signs Date Time Temp Pulse Resp B/P (MAP) Pulse Ox O2 Delivery O2 Flow Rate FiO2 10/12/17 10:00 115 10/12/17 10:00 97 10/12/17 08:00 78 10/12/17 08:00 97.5 78 17 125/77 (93) 97 10/12/17 06:00 102 10/12/17 04:00 97.6 77 17 142/70 (94) 94 10/12/17 04:00 77 10/12/17 02:00 87 10/12/17 00:00 98.2 101 16 139/65 (89) 100 10/12/17 00:00 101 10/11/17 22:00 101 10/11/17 20:00 83 10/11/17 20:00 98.6 83 21 125/70 (88) 99 10/11/17 19:45 98 Nasal Cannula 3.00 10/11/17 19:30 98.6 100 14 137/68 (91) 98 Nasal Cannula 3 10/11/17 19:27 98.6 99 15 128/62 (84) 96 Nasal Cannula 3 10/11/17 18:00 77 10/11/17 16:00 96 10/11/17 16:00 97.6 96 32 127/61 (83) 97 10/11/17 14:00 68 10/11/17 12:00 98.0 86 12 148/68 (94) 99 10/11/17 12:00 86 I/O 10/11/17 10/11/17 10/11/17 10/12/17 10/12/17 10/12/17 07:00 15:00 23:00 07:00 15:00 23:00 Intake Total 4000 ml 1500 ml 1580 ml 1800 ml Output Total 1250 ml 550 ml 475 ml Balance 2750 ml 1500 ml 1030 ml 1325 ml Intake Oral 4000 ml 30 ml 120 ml IV Total 1500 ml 950 ml 1680 ml Other 600 ml Output Urine Total 550 ml 550 ml 475 ml Stool Total 700 ml 0 ml # Bowel Movements 15 3 0 Laboratory Laboratory Tests Test 10/12/17 04:20 White Blood Count 5.4 Red Blood Count 2.47 Hemoglobin 8.0 Hematocrit 23.9 Mean Corpuscular Volume 96.5 Mean Corpuscular Hemoglobin 32.4 Mean Corpuscular Hemoglobin Concent 33.5 Red Cell Distribution Width 20.2 Platelet Count 125 Mean Platelet Volume 7.4 Blood Urea Nitrogen 6 Creatinine 0.39 Random Glucose 86 Total Protein 4.9 Albumin 1.6 Calcium Level 6.9 Alkaline Phosphatase 168 Aspartate Amino Transf (AST/SGOT) 45 Alanine Aminotransferase (ALT/SGPT) 17 Total Bilirubin 1.7 Sodium Level 148 Potassium Level 3.0 Chloride Level 116 Carbon Dioxide Level 20.3 Anion Gap 12 Estimat Glomerular Filtration Rate 163 Protein Corrected Calcium 8.1 Date/Time Source Procedure Growth Status 10/09/17 14:45 Blood Peripheral Aerobic Blood Culture - Preliminary NO GROWTH IN 3 DAYS Resulted 10/09/17 14:45 Blood Peripheral Anaerobic Blood Culture - Preliminary NO GROWTH IN 3 DAYS Resulted 10/07/17 22:22 Urine Catheterized Urine Urine Culture - Final Escherichia Coli Complete Imaging Last Impressions Chest X-Ray 10/08/17 0000 Signed Impressions: Service Date/Time: Sunday, October 08, 2017 03:08 - CONCLUSION: 1. Right central line in superior vena cava. No pneumothorax or effusion. Maycol Looney MD Abdomen/Pelvis CT 10/08/17 0000 Signed Impressions: Service Date/Time: Monday, October 09, 2017 21:07 - CONCLUSION: 1. Moderate stool in the rectum with findings concerning for a perirectal abscess measuring up to 6.3 cm. Evaluation of the perirectal region is significantly limited due to lack of contrast and beam hardening artifact from right hip arthroplasty. Correlation with physical examination is recommended. Consider disimpaction with repeat rectal contrast examination to further evaluate if there is continued clinical uncertainty. 2. Cirrhotic appearing liver with trace ascites and mesenteric edema. 3. Anterior abdominal wall hernia containing several loops of normal-appearing small bowel. Tez Myers MD Physical Exam HEENT: normocephalic; atraumatic; no jaundice. CHEST: CTA CARDIAC: RRR ABDOMEN: Soft, nondistended, nontender; no hepatosplenomegaly; bowel sounds are present in all four quadrants. EXTREMITIES: No clubbing, cyanosis, or edema. SKIN: Normal; no rash; no jaundice. BARYTES GRINDER: Lethargic (Sol Jimenez) Assessment and Plan Plan Assessment: - Anemia with reports of coffee ground emesis and Hemoccult (+) stool H/H on admission 8.1/24.7 Pt denies history of GIB. Risk factors: Aleve q4hrs for long time, daily ETOH- 5 liquor drinks a day, smokes 1 PPD of cigarettes. Denies previous EGD. Last colonoscopy a year and a half ago, states findings of polyps - Unintentional weight loss- 68 pounds since May - Elevated LFTs in setting of ETOH abuse. DF-11 Currently: AST-46 ALT-16 Alk phos-211 T bili-4.2 - Elevated lipase- no abdominal imaging - Sepsis- hypothermic, hypotensive, and tachycardic on arrival- Now on Levo- Cefepime Abnormal CT revealing cirrhosis of the liver with abdominal wall herniation and possibly kirsten-rectal abscess 10/12/17 s/p incomplete colonoscopy wit finding hemorrhoids, colon polyps, diverticulosis; EGD revealed gastritis. CRS consult appreciated re fistula, recommending conservative mgmt for now. HH trending down, no obvious bleeding. Bx pending. LFTs trending down. Plan: await bx Notify GI of active GIB Monitor LFTs colonoscopy 2-3 months supportive care pt seen by myself and Dr Tatum and this note is on his behalf (Sol Jimenez) Physician Comments Patient seen and examined Agree with above Continue with current supportive care Monitor labs (Tee Tatum MD) Sol Jimenez October 12, 2017 11:24 Tee Tatum MD October 12, 2017 19:18
--- NOTE | 2017-10-12 12:56 | HHI.CCPN ---
Subjective Remarks/Hospital Course Patient is a 67-year-old female with history of alcohol dependence, history of acromegaly, hypertension, type 2 diabetes, COPD who presented to the emergency department for increasing lethargy and a UTI symptoms and severe fatigue for last 4 days. She drinks approximately 5 alcoholic beverages a day. Patient was initially hypothermic with temperatures in the 95. Tachycardic and hypotensive with lowest blood pressure recorded as 55/30. Patient was fluid resuscitated with 2.5 L of normal saline, and despite that remained hypotensive. Patient was given vancomycin and cefepime. Hb was 8.1, found to be Hemoccult positive and also had coffee-ground emesis with some blood clots in the emergency department. She was transfused 2 units of emergency release blood. Levophed was started for persistent hypotension and Dr. Lieberman placed a Rright IUJ central line. Her lactic acid was found to be 7.3. UA showed evidence of severe UTI which could be the source of sepsis, white count was 12.9 with left shift. Other pertinent labs included total bilirubin of 3.8 elevated lipase at 742, lactic acid as mentioned above 7.3. I evaluated the patient in the emergency department. Despite fluid boluses and now receiving blood patient is on 10 mcg/min of Levophed. Patient is lethargic encephalopathic but she is able to answer some of the questions. I am told by the ED physician that patient wanted to be a DNR but wants to get medical management for current situation. Patient is a poor historian is lethargic and has encephalopathy from UTI. I will readdress the CODE STATUS when patient is clinically improved. For sepsis cefepime will be continued. Have placed the patient on IV Protonix infusion and octreotide infusion for upper GI bleed. Monitor hemoglobin every 6 hours for at least 24 hours. GI has been consulted. Cefepime will provide SBP prophylaxis also. 10/09 Remains on levophed, weaned to 6 mcg/min. Hgb relatively stable following transfusion of 2 units on admission. Urine culture with GNR. Blood culture with 1/4 with GPC. Complains of some chest "heaviness". Non pleuritic. Denies shortness of breath, nausea vomiting, diaphoresis. 10/10: On levophed 3 mics per minute this morning. Still awaiting EGD/ colonoscopy however has not completed taking prep. Subjective: 10/11 Off levophed. EGD/colonoscopy today. Dr. Liao recommends colorectal surgery eval for ?perirectal abscess. 10/12: Resting in bed comfortably. Off pressors for more than 24 hours. On nasal cannula. Objective Vital Signs Date Time Temp Pulse Resp B/P (MAP) Pulse Ox O2 Delivery O2 Flow Rate FiO2 10/12/17 12:00 73 10/12/17 12:00 97.6 14 110/59 (76) 100 10/11/17 19:45 Nasal Cannula 3.00 Intake and Output 10/12/17 10/12/17 10/13/17 08:00 16:00 00:00 Intake Total 1800 ml Output Total 475 ml Balance 1325 ml Result Diagram: 10/12/1741910/12/17419 Imaging Chest x-ray no acute changes Objective Remarks GENERAL: Ill appearing female, laying in bed not in any acute distress SKIN: Warm, dry HEAD: Atraumatic. Normocephalic. Prognathism EYES: Pupils equal and round. No injection or drainage. ENT: MMM NECK: Trachea midline. CARDIOVASCULAR: RRR, 2/6 systolic murmur LSB. RESPIRATORY: Clear to auscultation. Breath sounds equal bilaterally. GASTROINTESTINAL: Hepatomegaly, mild tenderness. Bowel sounds present. Excoriation of right buttocks MSK: Large hands and feet, and prognathism suggestive of acromegaly NEUROLOGICAL: Awake and alert. No obvious cranial nerve deficits. Moving all extremities. Answers questions. A/P Problem List: (1) Hypokalemia ICD Code: E87.6 - Hypokalemia Status: Acute (2) Septic shock ICD Code: A41.9 - Sepsis, unspecified organism; R65.21 - Severe sepsis with septic shock Status: Acute (3) Lactic acidosis ICD Code: E87.2 - Acidosis Status: Resolved (4) UTI (urinary tract infection) ICD Code: N39.0 - Urinary tract infection, site not specified (5) Upper GI bleed ICD Code: K92.2 - Gastrointestinal hemorrhage, unspecified (6) Acute kidney injury ICD Code: N17.9 - Acute kidney failure, unspecified (7) Shock ICD Code: R57.9 - Shock, unspecified Status: Acute (8) Alcohol dependence ICD Code: F10.20 - Alcohol dependence, uncomplicated (9) Hypothermia ICD Code: T68.XXXA - Hypothermia, initial encounter (10) Anemia requiring transfusions ICD Code: D64.9 - Anemia, unspecified (11) Elevated bilirubin ICD Code: R17 - Unspecified jaundice Assessment and Plan Assessment and Plan NEURO: Chronic pain Alcohol dependence -On [facility] protocol, patient drinks about 5 alcoholic beverages daily -Supplement thiamine, MVI Patient states she is nonambulatory at baseline due to chronic pain, uses a motorized scooter. RESP: History of COPD -Nasal cannula oxygen to keep O2 sat >90% -DuoNeb every 6 hours as needed - pulmonary toilet CV: Septic and hypovolemic shock , resolved on 10/11. Lactic acidosis, resolved on 10/08 History of hypertension -Normal saline 2.5L bolus and maintenance at 84 ml per hour -Hold lisinopril and diltiazem -Levophed now off. Chest pain, resolved Serial troponins were negative. Not candidate for ASA due to GI bleeding. Not candidate for betablocker due to hypotension. She states negative stress test at [facility] in [place] 3 years ago. GI: Upper GI bleed Hyperbilirubinemia, possible cirrhosis Gastritis Colon polyps Diverticulosis Internal and external hemorrhoid Cirrhosis -EGD 10/11 - gastritis, duodenitis. No acitve bleeding. Biopsies sent. (Dr. Tatum) -Colonoscopy 10/11 -diverticulosis, colon polyps, internal and external hemorrhoids. (Dr. Tatum) transverse colon and descending colon polypectomy were performed x2 and sent for path -Discontinue Protonix and octreotide infusions. Protonix 40 mg IV daily. -Antibiotic for UTI would also provide SBP prophylaxis Perirectal abscess -CT abdomen and pelvis -findings concerning for perirectal abscess. Colorectal surgery consulted, Dr. Yin evaluated Acute kidney insufficiency Hypokalemia Hypomagnesemia Hypophosphatemia -Monitor renal function closely. Normal saline at 84 mL/h -Electrolyte replacement per protocol Endo: Type 2 diabetes -Sliding scale insulin Acromegaly -Previously was on Octreotide and had pituitary surgery in 1986 -Random cortisol was normal. Hypothyroidism Continue Synthroid 75 mcg p.o. daily ID: Septic shock UTI Perirectal abscess -Received vancomycin and cefepime in the ED. on antibiotics per infectious disease: Vancomycin, cefepime, Flagyl. Colorectal surgery evaluating as per above 09/27 blood culture 1 out of 4 with GPC 10/07 urine culture -E. coli 10/07 blood culture -no growth to date HEME: Anemia requiring transfusion -Transfused 2 units PRBC 10/07, CBC daily -Monitor CBC, CMP, coags PROPH: -Bilateral lower extremity SCDs. Change to Protonix 40 mill grams IV daily. Chemical DVT prophylaxis when appropriate from GI standpoint LINES: -Right IJ central line placed in the ED by Dr. Patton 10/08, we will continue for now as may require OR for perirectal abscess, follow-up on Dr. Yin's plan On 10/09: Patient is currently capacitated for medical decision-making. Discussed code status in detail. She states she wishes to be DNR. She would be willing to be intubated for procedure but states she would not otherwise want intubation for respiratory failure. She feels that her baseline quality of life is relatively poor and she states "when it is my time, just let me go". She states her will make medical decisions on her behalf should she lose capacity. She states they have spoken many times about end of life care and "he knows my wishes". DNR Consult and transfer to hospitalist service for further medical management. Transfer out of ICU. Problem Qualifiers (1) UTI (urinary tract infection): Landon Ortez MD October 12, 2017 12:56
[2017-10-12] MEDS ORDERED: PHARMACY ORDERED LAB ONE (14:45)
[2017-10-13] VITALS (26 sets, daily range): BP systolic 102–152; BP diastolic 60–88; PULSE 67–96; RESP 16–19; TEMP 97.7–98.8; O2SAT 92–98
[2017-10-13] MEDS: CHLORHEXIDINE GLUCONATE 2 % 1 PACK (2 CLOTHS) TOP SCH ×2 (04:00→22:43)
[2017-10-13] MEDS: INSULIN ASPART SUPPLEMENTAL SCALE SQ SCH ×6 (04:00→20:55)
[2017-10-13] MEDS: CEFEPIME INJ 1,000 MG in SODIUM CHLORIDE 0.9% INJ 100 ML IV SCH ×3 (05:06→20:54)
[2017-10-13] MEDS: LEVOTHYROXINE SODIUM 75 MCG TAB PO SCH (05:06)
[2017-10-13] MEDS: PANTOPRAZOLE SODIUM 40 MG VIAL IV PUSH SCH (08:39)
[2017-10-13] MEDS: SODIUM CHLORIDE 0.9% FLUSH 10 ML FLUSH IV FLUSH SCH ×2 (08:40→20:55)
[2017-10-13] MEDS: SODIUM CHLORIDE 0.9% FLUSH 10 ML FLUSH IV FLUSH PRN (08:40)
[2017-10-13] MEDS: MULTIVITAMIN INJ 10 ML, THIAMINE INJ 100 MG, FOLIC ACID INJ 1 MG in SODIUM CHLORID 0.9%... IV SCH (09:38)
--- NOTE | 2017-10-13 15:55 | HHI.PR ---
Subjective Remarks awake and alert po intake gradually improving complains of discomfort on the perineal area- from [place] - on exam- some excoriations from the [place] area baseline uses a scooter around Objective Vitals Vital Signs Date Time Temp Pulse Resp B/P (MAP) Pulse Ox O2 Delivery O2 Flow Rate FiO2 10/13/17 11:49 92 Nasal Cannula 2.00 10/13/17 11:48 98.5 86 16 103/67 (79) 92 10/13/17 11:44 75 10/13/17 07:45 96 Nasal Cannula 2.00 10/13/17 07:45 98.5 75 16 102/60 (74) 96 10/13/17 07:00 67 10/13/17 06:00 70 10/13/17 05:00 96 10/13/17 04:00 70 10/13/17 04:00 98.2 90 18 152/88 (109) 96 10/13/17 03:00 74 10/13/17 02:00 84 10/13/17 01:00 72 10/13/17 00:00 98.6 78 16 147/85 (105) 98 10/13/17 00:00 86 10/12/17 20:00 84 10/12/17 20:00 97.7 84 24 124/59 (80) 94 10/12/17 19:28 94 21 10/12/17 16:00 72 10/12/17 16:00 97.8 160 25 134/59 (84) 93 I/O 10/12/17 10/12/17 10/12/17 10/13/17 10/13/17 10/13/17 07:00 15:00 23:00 07:00 15:00 23:00 Intake Total 1800 ml 700 ml 440 ml 240 ml Output Total 475 ml 450 ml Balance 1325 ml 700 ml -10 ml 240 ml Intake Oral 120 ml 240 ml 240 ml IV Total 1680 ml 700 ml 200 ml Output Urine Total 475 ml 450 ml Stool Total 0 ml # Voids 1 # Bowel Movements 0 1 Result Diagram: 10/12/17 0420 10/13/17 0022 Imaging Last Impressions Chest X-Ray 10/08/17 0000 Signed Impressions: Service Date/Time: Sunday, October 08, 2017 03:08 - CONCLUSION: 1. Right central line in superior vena cava. No pneumothorax or effusion. Maycol Looney MD Abdomen/Pelvis CT 10/08/17 0000 Signed Impressions: Service Date/Time: Monday, October 09, 2017 21:07 - CONCLUSION: 1. Moderate stool in the rectum with findings concerning for a perirectal abscess measuring up to 6.3 cm. Evaluation of the perirectal region is significantly limited due to lack of contrast and beam hardening artifact from right hip arthroplasty. Correlation with physical examination is recommended. Consider disimpaction with repeat rectal contrast examination to further evaluate if there is continued clinical uncertainty. 2. Cirrhotic appearing liver with trace ascites and mesenteric edema. 3. Anterior abdominal wall hernia containing several loops of normal-appearing small bowel. Tez Myers MD Objective Remarks anicteric no nuchal rigidity lungs- decfreased breath sounds, no rales regular rhythm abdomen-soft good bwoel sounds perineal area- weith excoriations from [place] extremites no edema Urinary Catheter: Yes Fernandez insert reason: Measure Accurate Output Date of Insertion: October 13, 2017 A/P Problem List: (1) Septic shock ICD Code: A41.9 - Sepsis, unspecified organism; R65.21 - Severe sepsis with septic shock Status: Acute (2) Anemia requiring transfusions ICD Code: D64.9 - Anemia, unspecified (3) Upper GI bleed ICD Code: K92.2 - Gastrointestinal hemorrhage, unspecified (4) Lactic acidosis ICD Code: E87.2 - Acidosis Status: Resolved (5) UTI (urinary tract infection) ICD Code: N39.0 - Urinary tract infection, site not specified (6) Acute kidney injury ICD Code: N17.9 - Acute kidney failure, unspecified (7) Elevated bilirubin ICD Code: R17 - Unspecified jaundice (8) Hypokalemia ICD Code: E87.6 - Hypokalemia Status: Acute (9) Hypothermia ICD Code: T68.XXXA - Hypothermia, initial encounter (10) Alcohol dependence ICD Code: F10.20 - Alcohol dependence, uncomplicated Assessment and Plan NEURO: Chronic pain Alcohol dependence -On [facility] protocol, patient drinks about 5 alcoholic beverages daily -Supplement thiamine, MVI Patient states she is nonambulatory at baseline due to chronic pain, uses a motorized scooter. RESP: History of COPD -Nasal cannula oxygen to keep O2 sat >90% -DuoNeb every 6 hours as needed - pulmonary toilet CV: Septic and hypovolemic shock , resolved on 10/11. Lactic acidosis, resolved on 10/08 History of hypertension -Normal saline 2.5L bolus and maintenance at 84 ml per hour -Hold lisinopril and diltiazem -Levophed now off. Chest pain, resolved Serial troponins were negative. Not candidate for ASA due to GI bleeding. Not candidate for betablocker due to hypotension. She states negative stress test at [facility] in [place] 3 years ago. GI: Upper GI bleed Hyperbilirubinemia, possible cirrhosis Gastritis Colon polyps Diverticulosis Internal and external hemorrhoid Cirrhosis -EGD 10/11 - gastritis, duodenitis. No acitve bleeding. Biopsies sent. (Dr. Tatum) -Colonoscopy 10/11 -diverticulosis, colon polyps, internal and external hemorrhoids. (Dr. Tatum) transverse colon and descending colon polypectomy were performed x2 and sent for path -Discontinue Protonix and octreotide infusions. Protonix 40 mg IV daily. -Antibiotic for UTI would also provide SBP prophylaxis Perirectal abscess -CT abdomen and pelvis -findings concerning for perirectal abscess. Colorectal surgery consulted, Dr. Yin evaluated Acute kidney insufficiency Hypokalemia Hypomagnesemia Hypophosphatemia -Monitor renal function closely. Normal saline at 84 mL/h -Electrolyte replacement per protocol Endo: Type 2 diabetes -Sliding scale insulin Acromegaly -Previously was on Octreotide and had pituitary surgery in 1986 -Random cortisol was normal. Hypothyroidism Continue Synthroid 75 mcg p.o. daily ID: Septic shock UTI Perirectal abscess -Received vancomycin and cefepime in the ED. on antibiotics per infectious disease: Vancomycin, cefepime, Flagyl. Colorectal surgery evaluating as per above 09/27 blood culture 1 out of 4 with GPC 10/07 urine culture -E. coli 10/07 blood culture -no growth to date HEME: Anemia requiring transfusion -Transfused 2 units PRBC 10/07, CBC daily -Monitor CBC, CMP, coags Perineal skin excoriations - wound care team consult - place fernandez PROPH: -Bilateral lower extremity SCDs. Change to Protonix 40 mill grams IV daily. Chemical DVT prophylaxis when appropriate from GI standpoint LINES: -Right IJ central line placed in the ED by Dr. Patton 10/08, we will continue for now as may require OR for perirectal abscess, follow-up on Dr. Yin's plan On 10/09: Patient is currently capacitated for medical decision-making. Discussed code status in detail. She states she wishes to be DNR. She would be willing to be intubated for procedure but states she would not otherwise want intubation for respiratory failure. She feels that her baseline quality of life is relatively poor and she states "when it is my time, just let me go". She states her will make medical decisions on her behalf should she lose capacity. She states they have spoken many times about end of life care and "he knows my wishes". DNR Out of bed to darek BISHOP for DC planning Problem Qualifiers (1) UTI (urinary tract infection): Aníbal Leyva MD October 13, 2017 15:55
[2017-10-13] MEDS ORDERED: POTASSIUM CHLORIDE 10 MEQ CONTROLLED RELEASE TAB PO ONE (16:00)
[2017-10-13] MEDS ORDERED: fentaNYL 25 MCG/HR PATCH T-DERMAL ONE (16:00)
--- NOTE | 2017-10-13 16:32 | HHI.GIFU ---
Subjective Remarks Obese female resting on her right side still having some lower abdominal cramping [place] catheter has been inserted secondary to her groin excoriation 3 loose greenish brown stools today incontinent Afebrile Current hemoglobin 8. (Shakira Alonzo) Objective Vitals I&O Vital Signs Date Time Temp Pulse Resp B/P (MAP) Pulse Ox O2 Delivery O2 Flow Rate FiO2 10/13/17 15:54 94 Nasal Cannula 2.00 10/13/17 15:53 98.8 83 16 114/67 (83) 94 10/13/17 11:49 92 Nasal Cannula 2.00 10/13/17 11:48 98.5 86 16 103/67 (79) 92 10/13/17 11:44 75 10/13/17 07:45 96 Nasal Cannula 2.00 10/13/17 07:45 98.5 75 16 102/60 (74) 96 10/13/17 07:00 67 10/13/17 06:00 70 10/13/17 05:00 96 10/13/17 04:00 70 10/13/17 04:00 98.2 90 18 152/88 (109) 96 10/13/17 03:00 74 10/13/17 02:00 84 10/13/17 01:00 72 10/13/17 00:00 98.6 78 16 147/85 (105) 98 10/13/17 00:00 86 10/12/17 20:00 84 10/12/17 20:00 97.7 84 24 124/59 (80) 94 10/12/17 19:28 94 21 I/O 10/12/17 10/12/17 10/12/17 10/13/17 10/13/17 10/13/17 07:00 15:00 23:00 07:00 15:00 23:00 Intake Total 1800 ml 700 ml 440 ml 240 ml Output Total 475 ml 450 ml Balance 1325 ml 700 ml -10 ml 240 ml Intake Oral 120 ml 240 ml 240 ml IV Total 1680 ml 700 ml 200 ml Output Urine Total 475 ml 450 ml Stool Total 0 ml # Voids 1 # Bowel Movements 0 1 Laboratory Laboratory Tests Test 10/13/17 00:22 Potassium Level 3.4 Date/Time Source Procedure Growth Status 10/09/17 14:45 Blood Peripheral Aerobic Blood Culture - Preliminary NO GROWTH IN 4 DAYS Resulted 10/09/17 14:45 Blood Peripheral Anaerobic Blood Culture - Preliminary NO GROWTH IN 4 DAYS Resulted 10/07/17 22:22 Urine Catheterized Urine Urine Culture - Final Escherichia Coli Complete Imaging Last Impressions Chest X-Ray 10/08/17 0000 Signed Impressions: Service Date/Time: Sunday, October 08, 2017 03:08 - CONCLUSION: 1. Right central line in superior vena cava. No pneumothorax or effusion. Maycol Looney MD Abdomen/Pelvis CT 10/08/17 0000 Signed Impressions: Service Date/Time: Monday, October 09, 2017 21:07 - CONCLUSION: 1. Moderate stool in the rectum with findings concerning for a perirectal abscess measuring up to 6.3 cm. Evaluation of the perirectal region is significantly limited due to lack of contrast and beam hardening artifact from right hip arthroplasty. Correlation with physical examination is recommended. Consider disimpaction with repeat rectal contrast examination to further evaluate if there is continued clinical uncertainty. 2. Cirrhotic appearing liver with trace ascites and mesenteric edema. 3. Anterior abdominal wall hernia containing several loops of normal-appearing small bowel. Tez Myers MD Physical Exam HEENT: Morbid obesity, normocephalic; atraumatic; no jaundice. CHEST: Diminished breath sounds with some shortness of breath CARDIAC: RRR ABDOMEN: Soft, large obese abdomen, complaints of lower abdominal cramping to light palpation; bowel sounds are present in all four quadrants. EXTREMITIES: No clubbing, cyanosis, or edema. SKIN: Pale, no rash; no jaundice. 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 Risk factors: Aleve q4hrs for long time, daily ETOH- 5 liquor drinks a day, smokes 1 PPD of cigarettes. Denies previous EGD. Last colonoscopy a year and a half ago, states findings of polyps - Unintentional weight loss- 68 pounds since May - Elevated LFTs in setting of ETOH abuse. DF-11 Currently: AST-46 ALT-16 Alk phos-211 T bili-4.2 - Elevated lipase- no abdominal imaging - Sepsis- hypothermic, hypotensive, and tachycardic on arrival- Now on Levo- Cefepime Abnormal CT revealing cirrhosis of the liver with abdominal wall herniation and possibly kirsten-rectal abscess 10/12/17 s/p incomplete colonoscopy wit finding hemorrhoids, colon polyps, diverticulosis; EGD revealed gastritis. CRS consult appreciated re fistula, recommending conservative mgmt for now. HH trending down, no obvious bleeding. Bx pending. LFTs trending down. 08/13/2017 patient is lying on right side having some loose incontinent stools today 3 small amounts of greenish brown, complains of some lower abdominal cramping Patient does have some mild dyspnea noted at rest and appears to be weakened. Current hemoglobin 8., LFTs done on 523 show 45 and 17 which are trending down. No obvious rectal bleeding noted. Liver palpable which is probably secondary to her cirrhosis and hepatomegaly No obvious bleeding at this time. INR 1.3 Plan: Biopsies pending Protonix 40 mg daily Encourage patient to turn and move in bed, Monitor labs with special attention to hemoglobin, transfuse if needed Monitor LFTs colonoscopy 2-3 months supportive care pt seen by myself and Dr Tatum and this note is on his behalf (Shakira Alonzo) Physician Comments Patient seen and examined Agree with above Continue with current supportive care Monitor labs Patient follow-up with GI post discharge No much to add from a GI perspective at this point we will sign off (Tee Tatum MD) Shakira Alonzo October 13, 2017 16:32 Tee Tatum MD October 13, 2017 20:35
[2017-10-14] VITALS (31 sets, daily range): BP systolic 93–120; BP diastolic 55–73; PULSE 68–112; RESP 15–20; TEMP 97.9–99.1; O2SAT 95–99
[2017-10-14] MEDS: INSULIN ASPART SUPPLEMENTAL SCALE SQ SCH ×6 (00:46→20:30)
[2017-10-14] MEDS: CEFEPIME INJ 1,000 MG in SODIUM CHLORIDE 0.9% INJ 100 ML IV SCH (04:25)
[2017-10-14] MEDS: LEVOTHYROXINE SODIUM 75 MCG TAB PO SCH (06:26)
[2017-10-14 07:26] LABS: BICARBONATE 21.5 MEQ/L (21.0-32.0); CALCIUM 7.1 MG/DL (8.5-10.1); CREATININE 0.49 MG/DL (0.50-1.00)
[2017-10-14 07:44] LABS: CALCIUM-PROTEIN CORRECTED 8.4 MG/DL (8.5-10.1); TOTAL PROTEIN 4.8 GM/DL (6.4-8.2)
[2017-10-14] MEDS: PANTOPRAZOLE SOD 40 MG DELAYED RELEASE TAB PO SCH (09:04)
[2017-10-14] MEDS: SODIUM CHLORIDE 0.9% FLUSH 10 ML FLUSH IV FLUSH SCH ×2 (09:04→20:30)
--- NOTE | 2017-10-14 10:03 | HHI.PR ---
Subjective Remarks awake and alert no complains no nausea or vomiting poor po sdtill ahve loose stools Objective Vitals Vital Signs Date Time Temp Pulse Resp B/P (MAP) Pulse Ox O2 Delivery O2 Flow Rate FiO2 10/14/17 07:51 97 Nasal Cannula 2.00 10/14/17 07:50 98.9 89 16 120/73 (89) 97 10/14/17 07:13 70 10/14/17 06:12 79 10/14/17 05:00 68 10/14/17 04:00 68 10/14/17 03:40 99.1 74 18 109/67 (81) 97 10/14/17 03:00 75 10/14/17 02:07 71 10/14/17 01:00 80 10/14/17 00:43 98.2 76 18 93/59 (70) 95 10/14/17 00:00 84 10/13/17 23:00 69 10/13/17 22:00 94 10/13/17 21:00 80 10/13/17 20:02 97.7 79 19 109/69 (82) 98 10/13/17 20:02 Nasal Cannula 2.00 10/13/17 20:00 78 10/13/17 19:00 81 10/13/17 18:24 83 10/13/17 18:00 94 10/13/17 17:00 86 10/13/17 16:00 79 10/13/17 15:54 94 Nasal Cannula 2.00 10/13/17 15:53 98.8 83 16 114/67 (83) 94 10/13/17 15:00 82 10/13/17 14:00 80 10/13/17 13:00 78 10/13/17 12:00 75 10/13/17 11:49 92 Nasal Cannula 2.00 10/13/17 11:48 98.5 86 16 103/67 (79) 92 10/13/17 11:44 75 I/O 10/13/17 10/13/17 10/13/17 10/14/17 10/14/17 10/14/17 07:00 15:00 23:00 07:00 15:00 23:00 Intake Total 240 ml 100 ml 240 ml Output Total 525 ml Balance 240 ml 100 ml -285 ml Intake Oral 240 ml 240 ml IV Total 100 ml Output Urine Total 525 ml # Voids 1 5 # Bowel Movements 3 1 Result Diagram: 10/12/17 0420 10/14/17 0515 Imaging Last Impressions Chest X-Ray 10/08/17 0000 Signed Impressions: Service Date/Time: Sunday, October 08, 2017 03:08 - CONCLUSION: 1. Right central line in superior vena cava. No pneumothorax or effusion. Maycol Looney MD Abdomen/Pelvis CT 10/08/17 0000 Signed Impressions: Service Date/Time: Monday, October 09, 2017 21:07 - CONCLUSION: 1. Moderate stool in the rectum with findings concerning for a perirectal abscess measuring up to 6.3 cm. Evaluation of the perirectal region is significantly limited due to lack of contrast and beam hardening artifact from right hip arthroplasty. Correlation with physical examination is recommended. Consider disimpaction with repeat rectal contrast examination to further evaluate if there is continued clinical uncertainty. 2. Cirrhotic appearing liver with trace ascites and mesenteric edema. 3. Anterior abdominal wall hernia containing several loops of normal-appearing small bowel. Tez Myers MD Objective Remarks awake and alert, oriented x 3, ff all commands, speech clear anicteric no nuchal rigidity lungs- decreased breath sounds, no rales regular rhythm abdomen-soft good bwoel sounds perirectal area- with excoriations extremites no edema Urinary Catheter: Yes Assessment to: Continue Fernandez insert reason: Prolonged Immobilization Date of Insertion: October 13, 2017 A/P Problem List: (1) Septic shock ICD Code: A41.9 - Sepsis, unspecified organism; R65.21 - Severe sepsis with septic shock Status: Acute (2) Anemia requiring transfusions ICD Code: D64.9 - Anemia, unspecified (3) Upper GI bleed ICD Code: K92.2 - Gastrointestinal hemorrhage, unspecified (4) Lactic acidosis ICD Code: E87.2 - Acidosis Status: Resolved (5) UTI (urinary tract infection) ICD Code: N39.0 - Urinary tract infection, site not specified (6) Acute kidney injury ICD Code: N17.9 - Acute kidney failure, unspecified (7) Elevated bilirubin ICD Code: R17 - Unspecified jaundice (8) Hypokalemia ICD Code: E87.6 - Hypokalemia Status: Acute (9) Hypothermia ICD Code: T68.XXXA - Hypothermia, initial encounter (10) Alcohol dependence ICD Code: F10.20 - Alcohol dependence, uncomplicated Assessment and Plan NEURO: Chronic pain Alcohol dependence -On CIMN protocol, patient drinks about 5 alcoholic beverages daily -Supplement thiamine, MVI Patient states she is nonambulatory at baseline due to chronic pain, uses a motorized scooter. MS duncan improv RESP: History of COPD -Nasal cannula oxygen to keep O2 sat >90% -DuoNeb every 6 hours as needed - pulmonary toilet CV: Septic and hypovolemic shock , resolved on 10/11. Lactic acidosis, resolved on 10/08 History of hypertension -Normal saline 2.5L bolus and maintenance at 84 ml per hour -Hold lisinopril and diltiazem -Levophed now off. Chest pain, resolved Serial troponins were negative. Not candidate for ASA due to GI bleeding. Not candidate for betablocker due to hypotension. She states negative stress test at [facility] in [place] 3 years ago. GI: Upper GI bleed Hyperbilirubinemia, possible cirrhosis Gastritis Colon polyps Diverticulosis Internal and external hemorrhoid Cirrhosis -EGD 10/11 - gastritis, duodenitis. No acitve bleeding. Biopsies sent. (Dr. Tatum) -Colonoscopy 10/11 -diverticulosis, colon polyps, internal and external hemorrhoids. (Dr. Tatum) transverse colon and descending colon polypectomy were performed x2 and sent for path -Discontinue Protonix and octreotide infusions. Protonix 40 mg IV daily. -Antibiotic for UTI would also provide SBP prophylaxis Perirectal abscess -CT abdomen and pelvis -findings concerning for perirectal abscess. Colorectal surgery consulted, Dr. Yin evaluated Acute kidney insufficiency Hypokalemia Hypomagnesemia Hypophosphatemia -Monitor renal function closely. Normal saline at 84 mL/h -Electrolyte replacement per protocol - give pop KCL Endo: Type 2 diabetes -Sliding scale insulin Acromegaly -Previously was on Octreotide and had pituitary surgery in 1986 -Random cortisol was normal. Hypothyroidism Continue Synthroid 75 mcg p.o. daily ID: Septic shock UTI Perirectal abscess -Received vancomycin and cefepime in the ED. on antibiotics per infectious disease: on Vancomycin, cefepime, Flagyl. Colorectal surgery evaluating as per above 09/27 blood culture 1 out of 4 with GPC 10/07 urine culture -E. coli 10/07 blood culture -no growth to date HEME: Anemia requiring transfusion -Transfused 2 units PRBC 10/07, CBC daily -Monitor CBC, CMP, coags Perineal skin excoriations - wound care team consult - place fernandez PROPH: -Bilateral lower extremity SCDs. Change to Protonix 40 mill grams IV daily. Chemical DVT prophylaxis when appropriate from GI standpoint LINES: -Right IJ central line placed in the ED by Dr. Patton 10/08, we will continue for now as may require OR for perirectal abscess, follow-up on Dr. Yin's plan On 10/09: Patient is currently capacitated for medical decision-making. Discussed code status in detail. She states she wishes to be DNR. She would be willing to be intubated for procedure but states she would not otherwise want intubation for respiratory failure. She feels that her baseline quality of life is relatively poor and she states "when it is my time, just let me go". She states her will make medical decisions on her behalf should she lose capacity. She states they have spoken many times about end of life care and "he knows my wishes". DNR Out of bed to chair for DC planning Problem Qualifiers (1) UTI (urinary tract infection): Aníbal Leyva MD October 14, 2017 10:03
[2017-10-14] MEDS: POTASSIUM CHLORIDE 20 MEQ CONTROLLED RELEASE TAB PO SCH ×2 (10:33→20:31)
[2017-10-14] MEDS ORDERED: POTASSIUM CHLOR 10 MEQ PREMIX 100 ML IV ONE (11:00)
--- NOTE | 2017-10-14 12:26 | HHI.IDPN ---
Subjective Subjective Remarks Patient is a 67-year-old female, presented to the hospital with lethargy, and dysuria. She has known significant history of alcohol use. She was initially hypothermic in the emergency room, tachycardic and hypotensive. She was given IV fluids and remain hypotensive, and was therefore started on pressors. She was started empirically on broad-spectrum antibiotic and was given vancomycin and cefepime. During her evaluation she was also found to have low hemoglobin, and Hemoccult positive stool. She has received blood transfusion. She has not been febrile. Her WBC has improved. Her hemodynamics also improved and she is currently off Levophed. Urine culture has E. coli. One blood culture with staph epi. CT of the abdomen and pelvis is showing some findings suggestive of perirectal abscess. GI is evaluating the patient, and planning on doing upper and lower endoscopy. She is currently getting prep, and having diarrhea. Patient states she has been having pain in the anal region. She denies any diarrhea or constipation at home, and states she has a normal bowel movement. She is also complaining of some shortness of breath and cough, but does not bring up any phlegm. Infectious disease consultation has been requested to assist with management of her UTI and perirectal abscess. Notes reviewed Afebrile BP okay Mental status back to baseline Out of ICU Antibiotics Cefepime Current Medications Medications (Trade) Dose Ordered Sig/Mason Route Start Time Stop Time Status Last Admin (Synthroid) 75 mcg DAILY@0600 PO 10/08/17 06:00 10/14/17 06:26 (NS Flush) 2 ml UNSCH PRN IV FLUSH 10/07/17 22:30 10/13/17 08:40 (NS Flush) 2 ml BID IV FLUSH 10/08/17 09:00 10/14/17 09:04 (Duoneb Neb) 1 ampule Q2HR NEB PRN INH 10/07/17 22:30 ([facility] Nursing Information) 1 Q361D XX 10/07/17 22:30 10/07/17 22:30 (Chlorhexidine 2% Cloth) Taper DAILY@04 TOP 10/08/17 04:00 10/04/18 03:59 10/12/17 04:00 (Chlorhexidine 2% Cloth) 3 pack UNSCH PRN TOP 10/07/17 22:30 (NovoLOG SUPPLEMENTAL SCALE) 1 Q4H SQ 10/08/17 00:00 10/13/17 20:55 (Romazicon Inj) 0.2 mg Q1M PRN IV PUSH 10/08/17 01:00 (Ativan) 1 mg Q4H PRN PO 10/08/17 01:00 (Ativan Inj) 1 mg Q4H PRN IV PUSH 10/08/17 01:00 10/11/17 21:05 (Ativan) 2 mg Q2H PRN PO 10/08/17 01:00 (Ativan Inj) 2 mg Q2H PRN IV PUSH 10/08/17 01:00 (Ativan Inj) 2 mg Q1H PRN IV PUSH 10/08/17 01:00 (Ativan Inj) 2 mg Q15M PRN IV PUSH 10/08/17 01:00 (Protonix) 40 mg DAILY PO 10/14/17 09:00 10/14/17 09:04 (KCl) 20 meq Q12HR PO 10/14/17 10:30 10/14/17 10:33 (Levaquin) 750 mg DAILY PO 10/14/17 13:00 10/21/17 23:00 Lines Line no evidence of infection Past Medical History Acromegaly Type 2 diabetes Hypertension Hypothyroidism COPD Alcohol dependence Past Surgical History Cholecystectomy Hernia repair Pituitary surgery for acromegaly in 1996. Was on Octreotide before Allergies: Coded Allergies: Opioids - Morphine Analogues (Verified Allergy, Severe, Shortness of Breath, 10/07/17) acetaminophen (Verified Allergy, Severe, Swelling, 10/07/17) PT STATES THROAT SWELLS hydrocodone (Verified Allergy, Severe, Swelling, 10/07/17) PT STATES THROAT SWELLS oxycodone (Verified Allergy, Severe, Swelling, 10/07/17) PT STATES THROAT SWELLS Objective . Vital Signs Date Time Temp Pulse Resp B/P (MAP) Pulse Ox O2 Delivery O2 Flow Rate FiO2 10/14/17 12:00 68 10/14/17 11:13 97 Nasal Cannula 2.00 10/14/17 11:12 98.1 77 16 116/58 (77) 97 10/14/17 11:00 76 10/14/17 10:00 88 10/14/17 09:00 112 10/14/17 08:00 78 10/14/17 07:51 97 Nasal Cannula 2.00 10/14/17 07:50 98.9 89 16 120/73 (89) 97 10/14/17 07:13 70 10/14/17 06:12 79 10/14/17 05:00 68 10/14/17 04:00 68 10/14/17 03:40 99.1 74 18 109/67 (81) 97 10/14/17 03:00 75 10/14/17 02:07 71 10/14/17 01:00 80 10/14/17 00:43 98.2 76 18 93/59 (70) 95 10/14/17 00:00 84 10/13/17 23:00 69 10/13/17 22:00 94 10/13/17 21:00 80 10/13/17 20:02 97.7 79 19 109/69 (82) 98 10/13/17 20:02 Nasal Cannula 2.00 10/13/17 20:00 78 10/13/17 19:00 81 10/13/17 18:24 83 10/13/17 18:00 94 10/13/17 17:00 86 10/13/17 16:00 79 10/13/17 15:54 94 Nasal Cannula 2.00 10/13/17 15:53 98.8 83 16 114/67 (83) 94 10/13/17 15:00 82 10/13/17 14:00 80 10/13/17 13:00 78 . Laboratory Tests Test 10/13/17 00:22 10/14/17 05:15 Potassium Level 3.4 MEQ/L 3.1 MEQ/L Blood Urea Nitrogen 5 MG/DL Creatinine 0.49 MG/DL Random Glucose 83 MG/DL Total Protein 4.8 GM/DL Calcium Level 7.1 MG/DL Sodium Level 149 MEQ/L Chloride Level 118 MEQ/L Carbon Dioxide Level 21.5 MEQ/L Anion Gap 10 MEQ/L Estimat Glomerular Filtration Rate 125 ML/MIN Protein Corrected Calcium 8.4 MG/DL Imaging Last Impressions Chest X-Ray 10/08/17 0000 Signed Impressions: Service Date/Time: Sunday, October 08, 2017 03:08 - CONCLUSION: 1. Right central line in superior vena cava. No pneumothorax or effusion. Maycol Looney MD Abdomen/Pelvis CT 10/08/17 0000 Signed Impressions: Service Date/Time: Monday, October 09, 2017 21:07 - CONCLUSION: 1. Moderate stool in the rectum with findings concerning for a perirectal abscess measuring up to 6.3 cm. Evaluation of the perirectal region is significantly limited due to lack of contrast and beam hardening artifact from right hip arthroplasty. Correlation with physical examination is recommended. Consider disimpaction with repeat rectal contrast examination to further evaluate if there is continued clinical uncertainty. 2. Cirrhotic appearing liver with trace ascites and mesenteric edema. 3. Anterior abdominal wall hernia containing several loops of normal-appearing small bowel. Tez Myers MD Physical Exam GENERAL: Awake and alert, not in respiratory distress. SKIN: Cool and dry. No generalized rash, no ecchymoses and no evidence of embolic lesions. HEAD: Atraumatic. Normocephalic. No temporal wasting, or tenderness. EYES: Mcdade conjunctiva. No petechia or hemorrhage. Pupils equal, round and reactive to light. Extraocular movements full and intact. No scleral icterus. No injection or drainage. EARS, NOSE AND THROAT: Nose without bleeding or purulent nasal discharge. No sinus tenderness. Mucous membranes pink and moist. No oral lesions noted. NECK: Trachea midline. Supple and not tender, no meningeal signs CARDIOVASCULAR: Regular rate and rhythm. No murmurs, rubs or gallops heard RESPIRATORY: Clear to auscultation. Breath sounds equal bilaterally. No rales , wheezing or rhonchi ABDOMEN: Soft, non-tender, nondistended. Bowel sounds present and normoactive. No guarding. No rebound. No organomegaly. BACK: Has excoriations in coccyx region. No induration or swelling noted in perianal region EXTREMITIES: No clubbing, cyanosis, or edema. No joint effusion, has good ROM. No calf tenderness. Well perfused and warm. NEUROLOGICAL: Awake and alert. Cranial nerves grossly intact. Motor grossly within normal limits. PSYCHIATRIC: Normal affect, calm and cooperative. LINE: No evidence of infection Assessment & Plan Remarks IMPRESSION Sepsis on presentation, S/P shock, better - hemodynamic better, off pressors E coli UTI GIB, anemia Known significant ETOH use One (+) BC with Staph epi likely contaminant RECOMMENDATION Change to po Levaquin and complete 14 day Rx for UTI End date ordered on [facility] Monitor progress Seems stable from ID standpoint Malathi Huggins MD October 14, 2017 12:26
[2017-10-14] MEDS: LEVOFLOXACIN 750 MG TAB PO SCH (13:00)
--- NOTE | 2017-10-14 13:41 | PD.WCN.NOT ---
Wound Consult Description: Received consult from Doctor Leyva, for wound care to perineal area. Communicated with: [facility] and Doctor Leyva Recommendation: 1.Please cleanse buttock and labia area with Remedy barrier wipes to remove stool gently from skin. Apply Ritter's cream BID to labia and buttock wounds and leave open to air 2.Please turn patient every 2 hours and PRN for comfort and offloading hillary prominences. 3. Only use ultra sorb pad for incontinence management, DO NOT use cloth pads. Additional Information: Patient seen on [facility] for evaluation of wound care to perineal area. Patient was seen with copywriter Student nurse Dionisio. Patient was turned to L side for wound assessment patient is noted with wounds to bilateral buttocks and labia areas that present as partial thickness, jagged wound margins. Wounds bilateral inner buttock measure ~8cm x ~2xm x ~0.1cm.Small labia wound measures ~2cm x ~1cm x ~ 0.1cm.Wound etiology is moisture and friction.Wounds are 100% pink and present dry without drainage.Periwound presents with blanching erythematous denuded peeling skin. Wounds are tender when cleansed. Patient does not want the Calazime skin protectant paste. Patient states," that maldonado me" . Patient was cleansed of stool with remedy barrier wipes gently.Sprayed periwound with Cavilon skin barrier film spray and left open to air. Recommendations are noted above. Saniya Fonseca [facility] October 14, 2017 13:41
[2017-10-14] MEDS: SILVER SULFADIAZINE/LIDOCAINE CREAM 60 GM JAR RECTAL SCH ×2 (15:23→20:33)
[2017-10-15] VITALS: BP 115/59; PULSE 81; RESP 18; TEMP 98; O2SAT 98
[2017-10-15] MEDS: INSULIN ASPART SUPPLEMENTAL SCALE SQ SCH ×4 (04:00→11:49)
[2017-10-15] MEDS: CHLORHEXIDINE GLUCONATE 2 % 1 PACK (2 CLOTHS) TOP SCH (04:00)
[2017-10-15] MEDS: LEVOTHYROXINE SODIUM 75 MCG TAB PO SCH (04:49)
[2017-10-15 08:00] VITALS: BP 114/54; PULSE 97; RESP 18; TEMP 98.2; O2SAT 96
--- NOTE | 2017-10-15 08:09 | HHI.IDPN ---
Subjective Subjective Remarks Patient is a 67-year-old female, presented to the hospital with lethargy, and dysuria. She has known significant history of alcohol use. She was initially hypothermic in the emergency room, tachycardic and hypotensive. She was given IV fluids and remain hypotensive, and was therefore started on pressors. She was started empirically on broad-spectrum antibiotic and was given vancomycin and cefepime. During her evaluation she was also found to have low hemoglobin, and Hemoccult positive stool. She has received blood transfusion. She has not been febrile. Her WBC has improved. Her hemodynamics also improved and she is currently off Levophed. Urine culture has E. coli. One blood culture with staph epi. CT of the abdomen and pelvis is showing some findings suggestive of perirectal abscess. GI is evaluating the patient, and planning on doing upper and lower endoscopy. She is currently getting prep, and having diarrhea. Patient states she has been having pain in the anal region. She denies any diarrhea or constipation at home, and states she has a normal bowel movement. She is also complaining of some shortness of breath and cough, but does not bring up any phlegm. Infectious disease consultation has been requested to assist with management of her UTI and perirectal abscess. Notes reviewed Afebrile BP okay Clinically stable from ID standpoint Antibiotics Levaquin Current Medications Medications (Trade) Dose Ordered Sig/Mason Route Start Time Stop Time Status Last Admin (Synthroid) 75 mcg DAILY@0600 PO 10/08/17 06:00 10/15/17 04:49 (NS Flush) 2 ml UNSCH PRN IV FLUSH 10/07/17 22:30 10/13/17 08:40 (NS Flush) 2 ml BID IV FLUSH 10/08/17 09:00 10/14/17 20:30 (Duoneb Neb) 1 ampule Q2HR NEB PRN INH 10/07/17 22:30 [place] [place] 1 Q361D XX 10/07/17 22:30 10/07/17 22:30 (Chlorhexidine 2% Cloth) Taper DAILY@04 TOP 10/08/17 04:00 10/04/18 03:59 10/12/17 04:00 (Chlorhexidine 2% Cloth) 3 pack UNSCH PRN TOP 10/07/17 22:30 (NovoLOG SUPPLEMENTAL SCALE) 1 Q4H SQ 10/08/17 00:00 10/14/17 20:30 (Romazicon Inj) 0.2 mg Q1M PRN IV PUSH 10/08/17 01:00 (Ativan) 1 mg Q4H PRN PO 10/08/17 01:00 (Ativan Inj) 1 mg Q4H PRN IV PUSH 10/08/17 01:00 10/11/17 21:05 (Ativan) 2 mg Q2H PRN PO 10/08/17 01:00 (Ativan Inj) 2 mg Q2H PRN IV PUSH 10/08/17 01:00 (Ativan Inj) 2 mg Q1H PRN IV PUSH 10/08/17 01:00 (Ativan Inj) 2 mg Q15M PRN IV PUSH 10/08/17 01:00 (Protonix) 40 mg DAILY PO 10/14/17 09:00 10/14/17 09:04 (KCl) 20 meq Q12HR PO 10/14/17 10:30 10/14/17 20:31 (Levaquin) 750 mg DAILY PO 10/14/17 13:00 10/21/17 23:00 10/14/17 13:00 (Ritters Cream) 1 applic BID RECTAL 10/14/17 13:15 10/14/17 20:33 Lines Line no evidence of infection Past Medical History Acromegaly Type 2 diabetes Hypertension Hypothyroidism COPD Alcohol dependence Past Surgical History Cholecystectomy Hernia repair Pituitary surgery for acromegaly in 1996. Was on Octreotide before Allergies: Coded Allergies: Opioids - Morphine Analogues (Verified Allergy, Severe, Shortness of Breath, 10/07/17) acetaminophen (Verified Allergy, Severe, Swelling, 10/07/17) PT STATES THROAT SWELLS hydrocodone (Verified Allergy, Severe, Swelling, 10/07/17) PT STATES THROAT SWELLS oxycodone (Verified Allergy, Severe, Swelling, 10/07/17) PT STATES THROAT SWELLS Objective . Vital Signs Date Time Temp Pulse Resp B/P (MAP) Pulse Ox O2 Delivery O2 Flow Rate FiO2 10/15/17 00:00 98.0 81 18 115/59 (77) 98 10/14/17 22:00 97.9 81 20 93/58 (70) 99 10/14/17 21:00 77 5/25/18 20:00 75 10/14/17 19:06 98.3 90 20 104/63 (77) 97 10/14/17 19:06 97 Nasal Cannula 2.00 10/14/17 19:00 76 10/14/17 18:10 101 10/14/17 17:04 69 10/14/17 16:26 69 10/14/17 16:09 75 10/14/17 16:08 98.2 75 15 100/55 (70) 97 10/14/17 15:42 98 10/14/17 14:00 78 10/14/17 13:34 73 10/14/17 13:14 112 10/14/17 12:00 68 10/14/17 11:13 97 Nasal Cannula 2.00 10/14/17 11:12 98.1 77 16 116/58 (77) 97 10/14/17 11:00 76 10/14/17 10:00 88 10/14/17 09:00 112 . Laboratory Tests Test 10/14/17 05:15 Blood Urea Nitrogen 5 MG/DL Creatinine 0.49 MG/DL Random Glucose 83 MG/DL Total Protein 4.8 GM/DL Calcium Level 7.1 MG/DL Sodium Level 149 MEQ/L Potassium Level 3.1 MEQ/L Chloride Level 118 MEQ/L Carbon Dioxide Level 21.5 MEQ/L Anion Gap 10 MEQ/L Estimat Glomerular Filtration Rate 125 ML/MIN Protein Corrected Calcium 8.4 MG/DL Imaging Last Impressions Chest X-Ray 10/08/17 0000 Signed Impressions: Service Date/Time: Sunday, October 08, 2017 03:08 - CONCLUSION: 1. Right central line in superior vena cava. No pneumothorax or effusion. Maycol Looney MD Abdomen/Pelvis CT 10/08/17 0000 Signed Impressions: Service Date/Time: Monday, October 09, 2017 21:07 - CONCLUSION: 1. Moderate stool in the rectum with findings concerning for a perirectal abscess measuring up to 6.3 cm. Evaluation of the perirectal region is significantly limited due to lack of contrast and beam hardening artifact from right hip arthroplasty. Correlation with physical examination is recommended. Consider disimpaction with repeat rectal contrast examination to further evaluate if there is continued clinical uncertainty. 2. Cirrhotic appearing liver with trace ascites and mesenteric edema. 3. Anterior abdominal wall hernia containing several loops of normal-appearing small bowel. Tez Myers MD Physical Exam GENERAL: Awake and alert, NAD SKIN: Cool and dry. No generalized rash. HEAD: Atraumatic. Normocephalic. No temporal wasting, or tenderness. EYES: Luck conjunctiva. No petechia or hemorrhage. Pupils equal, round and reactive to light. Extraocular movements full and intact. No scleral icterus. No injection or drainage. EARS, NOSE AND THROAT: Nose without bleeding or purulent nasal discharge. No sinus tenderness. Mucous membranes pink and moist. No oral lesions noted. NECK: Trachea midline. Supple and not tender, no meningeal signs CARDIOVASCULAR: Regular rate and rhythm. No murmurs, rubs or gallops heard RESPIRATORY: Clear to auscultation. Breath sounds equal bilaterally. No rales , wheezing or rhonchi ABDOMEN: Soft, non-tender, nondistended. Bowel sounds present and normoactive. No guarding. No rebound. No organomegaly. EXTREMITIES: No clubbing, cyanosis, or edema. No joint effusion, has good ROM. No calf tenderness. Well perfused and warm. NEUROLOGICAL: Awake and alert. Cranial nerves grossly intact. Motor grossly within normal limits. PSYCHIATRIC: Normal affect, calm and cooperative. LINE: No evidence of infection Assessment & Plan Remarks IMPRESSION Sepsis on presentation, S/P shock, resolved - hemodynamic better, off pressors E coli UTI GIB, anemia Known significant ETOH use One (+) BC with Staph epi likely contaminant RECOMMENDATION Continue Levaquin and complete 14 day Rx for UTI End date ordered on [facility] Clinically doing well from ID standpoint I will be available as needed Please call if with any further ID issue or question Malathi Huggins MD October 15, 2017 08:09
[2017-10-15] MEDS: SODIUM CHLORIDE 0.9% FLUSH 10 ML FLUSH IV FLUSH SCH ×2 (09:35→20:32)
[2017-10-15] MEDS: POTASSIUM CHLORIDE 20 MEQ CONTROLLED RELEASE TAB PO SCH ×2 (09:35→20:32)
[2017-10-15] MEDS: SILVER SULFADIAZINE/LIDOCAINE CREAM 60 GM JAR RECTAL SCH ×2 (09:35→20:32)
[2017-10-15] MEDS: PANTOPRAZOLE SOD 40 MG DELAYED RELEASE TAB PO SCH (09:35)
[2017-10-15] MEDS: LEVOFLOXACIN 750 MG TAB PO SCH (09:35)
[2017-10-15 12:00] VITALS: BP 114/57; PULSE 90; RESP 17; TEMP 98; O2SAT 96
--- NOTE | 2017-10-15 13:57 | HHI.PR ---
Subjective Remarks The pt was resting comfortably in bed. She said she has been very weak and can barely stand up. She gets short of breath at times. She has been tolerating a diet. Discussed with nursing. Objective Vitals Vital Signs Date Time Temp Pulse Resp B/P (MAP) Pulse Ox O2 Delivery O2 Flow Rate FiO2 10/15/17 12:00 98.0 90 17 114/57 (76) 96 10/15/17 09:55 Nasal Cannula 2.00 10/15/17 08:00 98.2 97 18 114/54 (74) 96 10/15/17 00:00 98.0 81 18 115/59 (77) 98 10/14/17 22:00 97.9 81 20 93/58 (70) 99 10/14/17 21:00 77 10/14/17 20:00 75 10/14/17 19:06 98.3 90 20 104/63 (77) 97 10/14/17 19:06 97 Nasal Cannula 2.00 10/14/17 19:00 76 10/14/17 18:10 101 10/14/17 17:04 69 10/14/17 16:26 69 10/14/17 16:09 75 10/14/17 16:08 98.2 75 15 100/55 (70) 97 10/14/17 15:42 98 10/14/17 14:00 78 I/O 10/14/17 10/14/17 10/14/17 10/15/17 10/15/17 10/15/17 07:00 15:00 23:00 07:00 15:00 23:00 Intake Total 240 ml Output Total 525 ml 500 ml Balance -285 ml -500 ml Intake Oral 240 ml Output Urine Total 525 ml 500 ml # Bowel Movements 1 Result Diagram: 10/12/17 0420 10/14/17 0515 Imaging Last Impressions Chest X-Ray 10/08/17 0000 Signed Impressions: Service Date/Time: Sunday, October 08, 2017 03:08 - CONCLUSION: 1. Right central line in superior vena cava. No pneumothorax or effusion. Maycol Looney MD Abdomen/Pelvis CT 10/08/17 0000 Signed Impressions: Service Date/Time: Monday, October 09, 2017 21:07 - CONCLUSION: 1. Moderate stool in the rectum with findings concerning for a perirectal abscess measuring up to 6.3 cm. Evaluation of the perirectal region is significantly limited due to lack of contrast and beam hardening artifact from right hip arthroplasty. Correlation with physical examination is recommended. Consider disimpaction with repeat rectal contrast examination to further evaluate if there is continued clinical uncertainty. 2. Cirrhotic appearing liver with trace ascites and mesenteric edema. 3. Anterior abdominal wall hernia containing several loops of normal-appearing small bowel. Tez Myers MD Objective Remarks GENERAL: Not in any acute distress SKIN: Warm, dry HEAD: Atraumatic. Normocephalic. Prognathism EYES: Pupils equal and round. No injection or drainage. ENT: MMM NECK: Trachea midline. CARDIOVASCULAR: RRR, 2/6 systolic murmur LSB. RESPIRATORY: Clear to auscultation. Breath sounds equal bilaterally. GASTROINTESTINAL: Hepatomegaly, mild tenderness. Bowel sounds present. Excoriation of right buttocks NEUROLOGICAL: Awake and alert. No obvious cranial nerve deficits. Moving all extremities. Answers questions. Date of Insertion: October 13, 2017 A/P Problem List: (1) Septic shock ICD Code: A41.9 - Sepsis, unspecified organism; R65.21 - Severe sepsis with septic shock Status: Acute (2) Anemia requiring transfusions ICD Code: D64.9 - Anemia, unspecified (3) Upper GI bleed ICD Code: K92.2 - Gastrointestinal hemorrhage, unspecified (4) Lactic acidosis ICD Code: E87.2 - Acidosis Status: Resolved (5) UTI (urinary tract infection) ICD Code: N39.0 - Urinary tract infection, site not specified (6) Acute kidney injury ICD Code: N17.9 - Acute kidney failure, unspecified (7) Elevated bilirubin ICD Code: R17 - Unspecified jaundice (8) Hypokalemia ICD Code: E87.6 - Hypokalemia Status: Acute (9) Hypothermia ICD Code: T68.XXXA - Hypothermia, initial encounter (10) Alcohol dependence ICD Code: F10.20 - Alcohol dependence, uncomplicated Assessment and Plan Upper GI bleed/ possible cirrhosis EGD 10/11 - gastritis, duodenitis. No acitve bleeding. Biopsies sent. (Dr. Tatum). Colonoscopy 10/11 -diverticulosis, colon polyps, internal and external hemorrhoids. (Dr. Tatum) transverse colon and descending colon polypectomy were performed x2 and sent for path. - PPI. - Antibiotics for UTI would also provide SBP prophylaxis. Septic shock/ UTI/ Perirectal abscess Colorectal surgery consult appreciated. 09/27 blood culture 1 out of 4 with GPC. urine culture -E. coli. Levophed weaned off. - antibiotics per ID. - holding antihypertensive meds. Chronic pain/ Alcohol dependence Patient drinks about 5 alcoholic beverages daily. Patient states she is nonambulatory at baseline due to chronic pain, uses a motorized scooter. - Supplement thiamine, MVI. - cessation instruction. - PT/ OT. - pain control. Chest pain Serial troponins were negative. She states negative stress test at [facility] in [place] 3 years ago. - Not candidate for ASA due to GI bleeding. - Not candidate for betablocker due to hypotension. Perirectal abscess CT abdomen and pelvis -findings concerning for perirectal abscess. - Colorectal surgery consulted, Dr. Yin evaluated. Not a candidate for surgery at this time. - continue wound care. Acute kidney insufficiency/ Hypokalemia/ Hypomagnesemia/ Hypophosphatemia Stable. - follow labs and replete lytes as needed. Acromegaly/ Hypothyroidism Previously was on Octreotide and had pituitary surgery in 1986. Random cortisol was normal. - Continue Synthroid 75 mcg p.o. daily. PROPH: -Bilateral lower extremity SCDs. Change to Protonix 40 mill grams IV daily. Chemical DVT prophylaxis when appropriate from GI standpoint Problem Qualifiers (1) UTI (urinary tract infection): Tarun Moran DO October 15, 2017 13:57
[2017-10-15] MEDS: D5-1/2 NS + KCL 20 MEQ INJ 1,000 ML IV SCH (14:45)
[2017-10-15 16:00] VITALS: BP 105/59; PULSE 88; RESP 18; TEMP 97.9; O2SAT 97
[2017-10-15] MEDS: DULoxetine HCl DR 60 MG CAP PO SCH (16:53)
[2017-10-15 20:00] VITALS: BP 111/58; PULSE 82; RESP 15; TEMP 98.1; O2SAT 96
[2017-10-16] VITALS: BP 117/56; PULSE 84; RESP 15; TEMP 98; O2SAT 94
[2017-10-16] MEDS: D5-1/2 NS + KCL 20 MEQ INJ 1,000 ML IV SCH ×3 (00:45→19:59)
[2017-10-16] MEDS: CHLORHEXIDINE GLUCONATE 2 % 1 PACK (2 CLOTHS) TOP SCH (04:00)
[2017-10-16] MEDS: LEVOTHYROXINE SODIUM 75 MCG TAB PO SCH (05:11)
[2017-10-16 06:26] LABS: HEMATOCRIT 24.7 % (35.0-46.0); HEMOGLOBIN 8.3 GM/DL (11.6-15.3); MEAN CELL VOLUME 97.5 FL (80.0-100.0); MEAN CORPUSCULAR HEMOGLOBIN 32.8 PG (27.0-34.0); MEAN CORPUSCULAR HGB CONC 33.6 % (32.0-36.0); MEAN PLATELET VOLUME 8.7 FL (7.0-11.0); PLATELET COUNT 126 TH/MM3 (150-450); RED BLOOD COUNT 2.53 MIL/MM3 (4.00-5.30); RED CELL DISTRIBUTION WIDTH 20.9 % (11.6-17.2); WHITE BLOOD COUNT 8.5 TH/MM3 (4.0-11.0)
[2017-10-16 07:10] LABS: ALBUMIN 1.6 GM/DL (3.4-5.0); BICARBONATE 21.9 MEQ/L (21.0-32.0); CALCIUM 7.2 MG/DL (8.5-10.1); CREATININE 0.64 MG/DL (0.50-1.00); DIRECT BILIRUBIN ADULT 1.9 MG/DL (0.0-0.2); INDIRECT BILIRUBIN 0.7 MG/DL (0.0-0.8); MAGNESIUM 0.8 MG/DL (1.5-2.5); TOTAL BILIRUBIN ADULT 2.6 MG/DL (0.2-1.0); TOTAL PROTEIN 5.2 GM/DL (6.4-8.2)
[2017-10-16 08:00] VITALS: BP 112/52; PULSE 84; RESP 17; TEMP 98.1; O2SAT 96
[2017-10-16 08:00] LABS: CALCIUM-PROTEIN CORRECTED 8.2 MG/DL (8.5-10.1)
[2017-10-16] MEDS: LEVOFLOXACIN 750 MG TAB PO SCH (08:24)
[2017-10-16] MEDS: PANTOPRAZOLE SOD 40 MG DELAYED RELEASE TAB PO SCH (08:25)
[2017-10-16] MEDS: DULoxetine HCl DR 60 MG CAP PO SCH (08:25)
[2017-10-16] MEDS: SODIUM CHLORIDE 0.9% FLUSH 10 ML FLUSH IV FLUSH SCH ×2 (08:25→19:57)
[2017-10-16] MEDS: POTASSIUM CHLORIDE 20 MEQ CONTROLLED RELEASE TAB PO SCH ×2 (08:25→19:59)
[2017-10-16] MEDS: SILVER SULFADIAZINE/LIDOCAINE CREAM 60 GM JAR RECTAL SCH ×2 (08:25→19:59)
[2017-10-16] MEDS ORDERED: ONDANSETRON ODT 4 MG TAB SL PRN (10:45)
[2017-10-16] MEDS ORDERED: ONDANSETRON ODT 4 MG TAB SL ONE (10:45)
[2017-10-16] MEDS ORDERED: PROCHLORPERAZINE INJ 10 MG/2 ML VIAL IV PUSH PRN (11:00)
[2017-10-16] MEDS ORDERED: PROCHLORPERAZINE INJ 10 MG/2 ML VIAL IV PUSH ONE (11:00)
[2017-10-16] MEDS: MAGNESIUM SULFATE 1 GM PREMIX 100 ML IV SCH ×4 (11:05→15:51)
--- NOTE | 2017-10-16 11:05 | HHI.PR ---
Subjective Remarks The pt has been nauseous. She has been having some abdominal pain. She says she gets short of breath at times. Discussed with her at the bedside. Objective Vitals Vital Signs Date Time Temp Pulse Resp B/P (MAP) Pulse Ox O2 Delivery O2 Flow Rate FiO2 10/16/17 08:30 Nasal Cannula 2.00 10/16/17 08:00 98.1 84 17 112/52 (72) 96 10/16/17 00:00 98.0 84 15 117/56 (76) 94 10/15/17 20:30 Nasal Cannula 2.00 10/15/17 20:00 98.1 82 15 111/58 (75) 96 10/15/17 16:00 97.9 88 18 105/59 (74) 97 10/15/17 12:00 98.0 90 17 114/57 (76) 96 I/O 10/15/17 10/15/17 10/15/17 10/16/17 10/16/17 10/16/17 07:00 15:00 23:00 07:00 15:00 23:00 Intake Total 1160 ml 1040 ml Output Total 550 ml 500 ml Balance 610 ml 540 ml Intake Oral 960 ml 240 ml IV Total 200 ml 800 ml Output Urine Total 550 ml 500 ml # Bowel Movements 2 1 Result Diagram: 10/16/17 0538 10/16/17 0538 Imaging Last Impressions Chest X-Ray 10/08/17 0000 Signed Impressions: Service Date/Time: Sunday, October 08, 2017 03:08 - CONCLUSION: 1. Right central line in superior vena cava. No pneumothorax or effusion. Maycol Looney MD Abdomen/Pelvis CT 10/08/17 0000 Signed Impressions: Service Date/Time: Monday, October 09, 2017 21:07 - CONCLUSION: 1. Moderate stool in the rectum with findings concerning for a perirectal abscess measuring up to 6.3 cm. Evaluation of the perirectal region is significantly limited due to lack of contrast and beam hardening artifact from right hip arthroplasty. Correlation with physical examination is recommended. Consider disimpaction with repeat rectal contrast examination to further evaluate if there is continued clinical uncertainty. 2. Cirrhotic appearing liver with trace ascites and mesenteric edema. 3. Anterior abdominal wall hernia containing several loops of normal-appearing small bowel. Tez Myers MD Objective Remarks GENERAL: Uncomfortable. SKIN: Warm, dry HEAD: Atraumatic. Normocephalic. Prognathism EYES: Pupils equal and round. No injection or drainage. ENT: MMM NECK: Trachea midline. CARDIOVASCULAR: RRR. RESPIRATORY: Clear to auscultation. Breath sounds equal bilaterally. GASTROINTESTINAL: Tender in the epigastric area. Bowel sounds present. Excoriation of right buttocks. NEUROLOGICAL: Awake and alert. No obvious cranial nerve deficits. Moving all extremities. Answers questions. Date of Insertion: October 13, 2017 A/P Problem List: (1) Septic shock ICD Code: A41.9 - Sepsis, unspecified organism; R65.21 - Severe sepsis with septic shock Status: Acute (2) Anemia requiring transfusions ICD Code: D64.9 - Anemia, unspecified (3) Upper GI bleed ICD Code: K92.2 - Gastrointestinal hemorrhage, unspecified (4) Lactic acidosis ICD Code: E87.2 - Acidosis Status: Resolved (5) UTI (urinary tract infection) ICD Code: N39.0 - Urinary tract infection, site not specified (6) Acute kidney injury ICD Code: N17.9 - Acute kidney failure, unspecified (7) Elevated bilirubin ICD Code: R17 - Unspecified jaundice (8) Hypokalemia ICD Code: E87.6 - Hypokalemia Status: Acute (9) Hypothermia ICD Code: T68.XXXA - Hypothermia, initial encounter (10) Alcohol dependence ICD Code: F10.20 - Alcohol dependence, uncomplicated Assessment and Plan Upper GI bleed/ possible cirrhosis/ N/V/ Abdominal pain EGD 10/11 - gastritis, duodenitis. No acitve bleeding. Biopsies sent. (Dr. Tatum). Colonoscopy 10/11 -diverticulosis, colon polyps, internal and external hemorrhoids. (Dr. Tatum) transverse colon and descending colon polypectomy were performed x2 and sent for path. - PPI. - check lipase and hepatitis profile. - pain control and antiemetics as needed. - low residue diet. - add sucralfate. Septic shock/ UTI/ Perirectal abscess Colorectal surgery consult appreciated. 09/27 blood culture 1 out of 4 with GPC. urine culture -E. coli. Levophed weaned off. - antibiotics per ID. - holding antihypertensive meds. Chronic pain/ Alcohol dependence Patient drinks about 5 alcoholic beverages daily. Patient states she is nonambulatory at baseline due to chronic pain, uses a motorized scooter. - Supplement thiamine, MVI. - cessation instruction. - PT/ OT. - pain control. Chest pain Serial troponins were negative. She states negative stress test at [facility] in [place] 3 years ago. Seems resolved. - Not candidate for ASA due to GI bleeding. - Not candidate for betablocker due to hypotension. Perirectal abscess CT abdomen and pelvis -findings concerning for perirectal abscess. - Colorectal surgery consulted, Dr. Yin evaluated. Not a candidate for surgery at this time. - continue wound care. Acute kidney insufficiency/ Hypokalemia/ Hypomagnesemia/ Hypophosphatemia Mg 0.8 10/16. - follow labs and replete lytes as needed. Acromegaly/ Hypothyroidism Previously was on Octreotide and had pituitary surgery in 1986. Random cortisol was normal. - Continue Synthroid 75 mcg p.o. daily. PROPH: -Bilateral lower extremity SCDs. Change to Protonix 40 mill grams IV daily. Chemical DVT prophylaxis when appropriate from GI standpoint Discharge Planning Will need SNF placement Problem Qualifiers (1) UTI (urinary tract infection): Tarun Moran DO October 16, 2017 11:05
[2017-10-16 12:00] VITALS: BP 113/66; PULSE 90; RESP 17; TEMP 98.1; O2SAT 94
[2017-10-16] MEDS: SUCRALFATE 1 GM/10 ML CUP PO SCH ×3 (12:10→19:59)
[2017-10-16 16:00] VITALS: BP 94/55; PULSE 85; RESP 17; TEMP 97.3; O2SAT 95
[2017-10-16 20:00] VITALS: BP 114/70; PULSE 79; RESP 16; TEMP 97.1; O2SAT 91
[2017-10-17] VITALS (8 sets, daily range): BP systolic 95–118; BP diastolic 52–73; PULSE 73–107; RESP 16–19; TEMP 97.7–98.3; O2SAT 94–95
[2017-10-17] MEDS: CHLORHEXIDINE GLUCONATE 2 % 1 PACK (2 CLOTHS) TOP SCH (04:00)
[2017-10-17] MEDS: LEVOTHYROXINE SODIUM 75 MCG TAB PO SCH (04:44)
[2017-10-17] MEDS: D5-1/2 NS + KCL 20 MEQ INJ 1,000 ML IV SCH (06:45)
[2017-10-17] MEDS: SUCRALFATE 1 GM/10 ML CUP PO SCH ×3 (08:00→12:00)
[2017-10-17] MEDS: LEVOFLOXACIN 750 MG TAB PO SCH ×2 (08:31→08:44)
[2017-10-17] MEDS: DULoxetine HCl DR 60 MG CAP PO SCH (08:31)
[2017-10-17] MEDS: POTASSIUM CHLORIDE 20 MEQ CONTROLLED RELEASE TAB PO SCH ×3 (08:31→20:07)
[2017-10-17] MEDS: PANTOPRAZOLE SOD 40 MG DELAYED RELEASE TAB PO SCH (08:31)
[2017-10-17] MEDS: SODIUM CHLORIDE 0.9% FLUSH 10 ML FLUSH IV FLUSH SCH ×2 (08:32→20:06)
[2017-10-17] MEDS: SILVER SULFADIAZINE/LIDOCAINE CREAM 60 GM JAR RECTAL SCH ×2 (08:32→20:07)
[2017-10-17] MEDS ORDERED: ONDANSETRON HCL 4 MG/2 ML VIAL IV PUSH ONE (13:00)
--- NOTE | 2017-10-17 13:06 | HHI.PR ---
Subjective Remarks The patient was still having nausea and she said she vomited 2 more times since last seeing me. She says she has not been able to eat much. She feels short of breath at times. No other acute complaints. Discussed with nursing. Objective Vitals Vital Signs Date Time Temp Pulse Resp B/P (MAP) Pulse Ox O2 Delivery O2 Flow Rate FiO2 10/17/17 12:00 97.7 84 17 95/52 (66) 94 10/17/17 11:52 81 10/17/17 08:00 98.3 81 17 118/72 (87) 95 10/17/17 00:00 97.7 73 16 112/69 (83) 94 10/16/17 20:00 97.1 79 16 114/70 (85) 91 10/16/17 16:00 97.3 85 17 94/55 (68) 95 I/O 10/16/17 10/16/17 10/16/17 10/17/17 10/17/17 10/17/17 07:00 15:00 23:00 07:00 15:00 23:00 Intake Total 1040 ml 2840 ml 1240 ml Output Total 500 ml 200 ml 275 ml Balance 540 ml 2640 ml 965 ml Intake Oral 240 ml 1440 ml 240 ml IV Total 800 ml 1400 ml 1000 ml Output Urine Total 500 ml 200 ml 275 ml # Bowel Movements 1 0 0 Result Diagram: 10/16/17 0538 10/16/17 0538 Imaging Last Impressions Chest X-Ray 10/08/17 0000 Signed Impressions: Service Date/Time: Sunday, October 08, 2017 03:08 - CONCLUSION: 1. Right central line in superior vena cava. No pneumothorax or effusion. Maycol Looney MD Abdomen/Pelvis CT 10/08/17 0000 Signed Impressions: Service Date/Time: Monday, October 09, 2017 21:07 - CONCLUSION: 1. Moderate stool in the rectum with findings concerning for a perirectal abscess measuring up to 6.3 cm. Evaluation of the perirectal region is significantly limited due to lack of contrast and beam hardening artifact from right hip arthroplasty. Correlation with physical examination is recommended. Consider disimpaction with repeat rectal contrast examination to further evaluate if there is continued clinical uncertainty. 2. Cirrhotic appearing liver with trace ascites and mesenteric edema. 3. Anterior abdominal wall hernia containing several loops of normal-appearing small bowel. Tez Myers MD Objective Remarks GENERAL: No distress. SKIN: Warm, dry HEAD: Atraumatic. Normocephalic. Prognathism EYES: Pupils equal and round. No injection or drainage. ENT: MMM NECK: Trachea midline. CARDIOVASCULAR: RRR. RESPIRATORY: Clear to auscultation. Breath sounds equal bilaterally. GASTROINTESTINAL: Nontender. Bowel sounds present. Excoriation of right buttocks. NEUROLOGICAL: Awake and alert. No obvious cranial nerve deficits. Moving all extremities. Answers questions. Date of Insertion: October 13, 2017 A/P Problem List: (1) Septic shock ICD Code: A41.9 - Sepsis, unspecified organism; R65.21 - Severe sepsis with septic shock Status: Acute (2) Anemia requiring transfusions ICD Code: D64.9 - Anemia, unspecified (3) Upper GI bleed ICD Code: K92.2 - Gastrointestinal hemorrhage, unspecified (4) Lactic acidosis ICD Code: E87.2 - Acidosis Status: Resolved (5) UTI (urinary tract infection) ICD Code: N39.0 - Urinary tract infection, site not specified (6) Acute kidney injury ICD Code: N17.9 - Acute kidney failure, unspecified (7) Elevated bilirubin ICD Code: R17 - Unspecified jaundice (8) Hypokalemia ICD Code: E87.6 - Hypokalemia Status: Acute (9) Hypothermia ICD Code: T68.XXXA - Hypothermia, initial encounter (10) Alcohol dependence ICD Code: F10.20 - Alcohol dependence, uncomplicated Assessment and Plan Upper GI bleed/ possible cirrhosis/ N/V/ Abdominal pain EGD 10/11 - gastritis, duodenitis. No acitve bleeding. Biopsies sent. (Dr. Tatum). Colonoscopy 10/11 -diverticulosis, colon polyps, internal and external hemorrhoids. (Dr. Tatum) transverse colon and descending colon polypectomy were performed x2 and sent for path. - PPI. - Antiemetics as needed. - pain control as needed. - low residue diet. - add sucralfate. - trend LFTs. - reconsult GI for persistent nausea and decreased p.o. intake. Septic shock/ UTI/ Perirectal abscess Colorectal surgery consult appreciated. 09/27 blood culture 1 out of 4 with GPC. urine culture -E. coli. Levophed weaned off. - antibiotics per ID. - holding antihypertensive meds. - monitor off of IVFs. Chronic pain/ Alcohol dependence Patient drinks about 5 alcoholic beverages daily. Patient states she is nonambulatory at baseline due to chronic pain, uses a motorized scooter. - Supplement thiamine, MVI. - cessation instruction. - PT/ OT. - pain control. Chest pain Serial troponins were negative. She states negative stress test at [facility] in [place] 3 years ago. Seems resolved. - Not candidate for ASA due to GI bleeding. - Not candidate for betablocker due to hypotension. Perirectal abscess CT abdomen and pelvis -findings concerning for perirectal abscess. - Colorectal surgery consulted, Dr. Yin evaluated. Not a candidate for surgery at this time. - continue wound care. Acute kidney insufficiency/ Hypokalemia/ Hypomagnesemia/ Hypophosphatemia Mg 0.8 10/16. - follow labs and replete lytes as needed. - monitor off of IVFs. Acromegaly/ Hypothyroidism Previously was on Octreotide and had pituitary surgery in 1986. Random cortisol was normal. - Continue Synthroid 75 mcg p.o. daily. PROPH: -Bilateral lower extremity SCDs. Chemical DVT prophylaxis when appropriate from GI standpoint Discharge Planning Will need SNF placement. Await GI re-evaluation. ADAT. Antiemetics as needed. Monitor off of IVFs. Problem Qualifiers (1) UTI (urinary tract infection): Tarun Moran DO October 17, 2017 13:06
[2017-10-17] MEDS ORDERED: LEVOFLOXACIN 250 MG TAB PO ONE (13:15)
[2017-10-17] MEDS ORDERED: PROCHLORPERAZINE INJ 10 MG/2 ML VIAL IV PUSH ONE (13:30)
--- NOTE | 2017-10-17 16:11 | PD.CONS ---
HPI History of Present Illness This is a 67 year old F with PMH significant for colon polyps, ETOH abuse, hypothyroidism, HTN, DM, acromegaly, and COPD who presented to the ER yesterday with complaints of weakness for the past week. In the ER she was found to be hypotensive and tachycardic with hypothermia. Our service has been consulted to evaluate patient for coffee ground emesis, black stools, and Hemoccult positive stool. Pt reports five episodes of emesis that began yesterday, denies BRB in emesis. Also had one BM last night that she states was black, unsure of any BRB in her stool. Reports some mild epigastric pain, intermittent, for approximately a month. She thinks it is related to PO intake. States daily acid reflux, has been taking Aleve OTC every 4 hours which has not been helping. Also complaining of a 68 pound weight loss, unintentional, since May. Has never had EGD. Last colonoscopy a year and a half ago and states findings of polyps. Admits to five liquor drinks a day. Smokes a pack a day. Denies illicit drug use. RECONSULT ON 10/17 FOR NAUSEA/VOMITING Pt reports continued nausea and five episodes of emesis over the past two days. Denies hematemesis and coffee ground emesis. Has been unable to keep food down because as soon as she eats a bite she has emesis soon after. Also complaining of epigastric pain, states constant. She had EGD and colonoscopy six days ago which revealed gastritis, colon polyps, diverticulosis, internal and external hemorrhoids, and incomplete colonoscopy. Pathology (small intestine) without significant histopathologic abnormality (stomach antrum) reactive/chemical gastropathy (transverse colon polyp) adenomatous polyp (descending colon polyp) adenomatous polyp, fragments. (Karmen Orellana) PFSH Past Medical History Acromegaly Type 2 diabetes Hypertension Hypothyroidism COPD Alcohol dependence Past Surgical History Cholecystectomy Hernia repair Pituitary surgery for acromegaly in 1996. Was on Octreotide before Colonoscopy (Karmen Orellana) Coded Allergies: Opioids - Morphine Analogues (Verified Allergy, Severe, Shortness of Breath, 10/07/17) acetaminophen (Verified Allergy, Severe, Swelling, 10/07/17) PT STATES THROAT SWELLS hydrocodone (Verified Allergy, Severe, Swelling, 10/07/17) PT STATES THROAT SWELLS oxycodone (Verified Allergy, Severe, Swelling, 10/07/17) PT STATES THROAT SWELLS Social History Daily ETOH- 5 liquor drinks a day Smokes 1 PPD of cigarettes Denies illicit drug use (Karmen Orellana) Review of Systems Gastrointestinal: COMPLAINS OF: Abdominal pain, Constipation, Nausea, Vomiting , Difficulty Swallowing, Odynophagia, Heartburn, DENIES: Black stools, Bloody stools, Diarrhea, Swelling of Abdomen, Hematemesis (Karmen Orellana) GI Exam Vitals I&O Vital Signs Date Time Temp Pulse Resp B/P (MAP) Pulse Ox O2 Delivery O2 Flow Rate FiO2 10/17/17 13:35 84 10/17/17 12:00 97.7 84 17 95/52 (66) 94 10/17/17 11:52 81 10/17/17 08:00 98.3 81 17 118/72 (87) 95 10/17/17 00:00 97.7 73 16 112/69 (83) 94 10/16/17 20:00 97.1 79 16 114/70 (85) 91 10/16/17 16:00 97.3 85 17 94/55 (68) 95 I/O 10/16/17 10/16/17 10/16/17 10/17/17 10/17/17 10/17/17 07:00 15:00 23:00 07:00 15:00 23:00 Intake Total 1040 ml 2840 ml 1240 ml Output Total 500 ml 200 ml 275 ml Balance 540 ml 2640 ml 965 ml Intake Oral 240 ml 1440 ml 240 ml IV Total 800 ml 1400 ml 1000 ml Output Urine Total 500 ml 200 ml 275 ml # Bowel Movements 1 0 0 Imaging Last Impressions Chest X-Ray 10/08/17 0000 Signed Impressions: Service Date/Time: Sunday, October 08, 2017 03:08 - CONCLUSION: 1. Right central line in superior vena cava. No pneumothorax or effusion. Maycol Looney MD Abdomen/Pelvis CT 10/08/17 0000 Signed Impressions: Service Date/Time: Monday, October 09, 2017 21:07 - CONCLUSION: 1. Moderate stool in the rectum with findings concerning for a perirectal abscess measuring up to 6.3 cm. Evaluation of the perirectal region is significantly limited due to lack of contrast and beam hardening artifact from right hip arthroplasty. Correlation with physical examination is recommended. Consider disimpaction with repeat rectal contrast examination to further evaluate if there is continued clinical uncertainty. 2. Cirrhotic appearing liver with trace ascites and mesenteric edema. 3. Anterior abdominal wall hernia containing several loops of normal-appearing small bowel. Tez Myers MD Laboratory Date/Time Source Procedure Growth Status 10/09/17 14:45 Blood Peripheral Aerobic Blood Culture - Final NO GROWTH IN 5 DAYS Complete 10/09/17 14:45 Blood Peripheral Anaerobic Blood Culture - Final NO GROWTH IN 5 DAYS Complete 10/07/17 22:22 Urine Catheterized Urine Urine Culture - Final Escherichia Coli Complete Physical Examination HEENT: Normocephalic; atraumatic (+) icterus CHEST: Even/unlabored CARDIAC: RRR ABDOMEN: Soft, nondistended, nontender; bowel sounds active FORM BUILDER HELPER: Alert and oriented times three. (Karmen Orellana) Assessment and Plan Plan Assessment: - Anemia with reports of coffee ground emesis and Hemoccult (+) stool H/H on admission 8.1/24.7 Pt denies history of GIB. Risk factors: Aleve q4hrs for long time, daily ETOH- 5 liquor drinks a day, smokes 1 PPD of cigarettes. Denies previous EGD. Last colonoscopy a year and a half ago, states findings of polyps EGD and colonoscopy on 10/11 --> gastritis, colon polyps, diverticulosis, internal and external hemorrhoids, and incomplete colonoscopy. Pathology (small intestine) without significant histopathologic abnormality (stomach antrum) reactive/chemical gastropathy (transverse colon polyp) adenomatous polyp (descending colon polyp) adenomatous polyp, fragments. - Unintentional weight loss- [address] abdomen and pelvis W/O IV contrast (10/09) Moderate stool in the rectum with findings concerning for a perirectal abscess measuring up to 6.3 cm. Evaluation of the perirectal region is significantly limited due to lack of contrast and beam hardening artifact from right hip arthroplasty. Cirrhotic appearing liver with trace ascites and mesenteric edema. Anterior abdominal wall hernia containing several loops of normal-appearing small bowel. 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 Associated epigastric pain, constant but worse after eating. Nausea also related to PO intake. Previous cholecystostomy. Plan: GES Consider Reglan after exam Protonix Monitor LFTs ETOH cessation Colonoscopy 2-3 months Supportive care Further recommendations based on findings of above and clinical course Pt has been seen and examined by myself and Dr. Marvin and this note is written on his behalf (Karmen Orellana) Physician Comments Seen and examined with FARM ADVISOR, GES and CT scan ordered for tomorrow. CT scan foe fu of kirsten rectal abscess. Discussed with pt. and family at bedside. Thank you (Griffin Marvin MD) Karmen Orellana October 17, 2017 16:11 Griffin Marvin MD October 17, 2017 16:50
[2017-10-18] VITALS (10 sets, daily range): BP systolic 95–107; BP diastolic 51–69; PULSE 75–112; RESP 18–19; TEMP 97.1–98.3; O2SAT 94–97
[2017-10-18] MEDS: CHLORHEXIDINE GLUCONATE 2 % 1 PACK (2 CLOTHS) TOP SCH (04:00)
[2017-10-18] MEDS: LEVOTHYROXINE SODIUM 75 MCG TAB PO SCH (06:00)
[2017-10-18 07:19] LABS: HEMATOCRIT 24.7 % (35.0-46.0); HEMOGLOBIN 8.3 GM/DL (11.6-15.3); MEAN CORPUSCULAR HEMOGLOBIN 32.5 PG (27.0-34.0); MEAN CORPUSCULAR HGB CONC 33.8 % (32.0-36.0); MEAN PLATELET VOLUME 9.5 FL (7.0-11.0); PLATELET COUNT 137 TH/MM3 (150-450); RED BLOOD COUNT 2.57 MIL/MM3 (4.00-5.30); RED CELL DISTRIBUTION WIDTH 20.3 % (11.6-17.2); WHITE BLOOD COUNT 12.1 TH/MM3 (4.0-11.0)
[2017-10-18 07:57] LABS: ALBUMIN 1.4 GM/DL (3.4-5.0); BICARBONATE 20.6 MEQ/L (21.0-32.0); CALCIUM 7.6 MG/DL (8.5-10.1); CREATININE 0.57 MG/DL (0.50-1.00); DIRECT BILIRUBIN ADULT 4.3 MG/DL (0.0-0.2); INDIRECT BILIRUBIN 1.1 MG/DL (0.0-0.8); MAGNESIUM 1.4 MG/DL (1.5-2.5); PHOSPHORUS 0.9 MG/DL (2.5-4.9); TOTAL BILIRUBIN ADULT 5.4 MG/DL (0.2-1.0); TOTAL PROTEIN 5.6 GM/DL (6.4-8.2)
[2017-10-18] MEDS: PANTOPRAZOLE SOD 40 MG DELAYED RELEASE TAB PO SCH (08:13)
[2017-10-18] MEDS: LEVOFLOXACIN 750 MG TAB PO SCH (08:14)
[2017-10-18] MEDS: SILVER SULFADIAZINE/LIDOCAINE CREAM 60 GM JAR RECTAL SCH ×2 (08:14→21:43)
[2017-10-18] MEDS: DULoxetine HCl DR 60 MG CAP PO SCH (08:14)
[2017-10-18] MEDS: POTASSIUM CHLORIDE 20 MEQ CONTROLLED RELEASE TAB PO SCH ×2 (08:14→21:43)
[2017-10-18] MEDS: SODIUM CHLORIDE 0.9% FLUSH 10 ML FLUSH IV FLUSH SCH ×2 (08:30→21:43)
--- NOTE | 2017-10-18 08:59 | HHI.GIFU ---
Subjective Remarks Pt resting in bed Currently NPO for imaging studies today Continued epigastric pain today, states does not feel much different Some nausea but mostly related to PO intake and she has not eaten 2 BMs documented (Karmen Orellana) Objective Vitals I&O Vital Signs Date Time Temp Pulse Resp B/P (MAP) Pulse Ox O2 Delivery O2 Flow Rate FiO2 10/18/17 00:00 98.3 99 19 95/54 (68) 94 10/17/17 20:00 97.9 100 19 116/73 (87) 95 10/17/17 17:07 107 10/17/17 16:00 97.9 107 17 98/55 (69) 94 10/17/17 13:35 84 10/17/17 12:00 97.7 84 17 95/52 (66) 94 10/17/17 11:52 81 I/O 10/17/17 10/17/17 10/17/17 10/18/17 10/18/17 10/18/17 07:00 15:00 23:00 07:00 15:00 23:00 Intake Total 1240 ml 960 ml 240 ml Output Total 275 ml 150 ml 175 ml Balance 965 ml 810 ml 65 ml Intake Oral 240 ml 160 ml 240 ml IV Total 1000 ml 800 ml Output Urine Total 275 ml 150 ml 175 ml # Bowel Movements 0 2 Laboratory Laboratory Tests Test 10/18/17 06:23 White Blood Count 12.1 Red Blood Count 2.57 Hemoglobin 8.3 Hematocrit 24.7 Mean Corpuscular Volume 96.0 Mean Corpuscular Hemoglobin 32.5 Mean Corpuscular Hemoglobin Concent 33.8 Red Cell Distribution Width 20.3 Platelet Count 137 Mean Platelet Volume 9.5 Blood Urea Nitrogen 6 Creatinine 0.57 Random Glucose 64 Total Protein 5.6 Albumin 1.4 Calcium Level 7.6 Phosphorus Level 0.9 Magnesium Level 1.4 Alkaline Phosphatase 232 Aspartate Amino Transf (AST/SGOT) 87 Alanine Aminotransferase (ALT/SGPT) 23 Total Bilirubin 5.4 Direct Bilirubin 4.3 Sodium Level 140 Potassium Level 4.6 Chloride Level 111 Carbon Dioxide Level 20.6 Anion Gap 8 Estimat Glomerular Filtration Rate 105 Indirect Bilirubin 1.1 Lipase 85 Date/Time Source Procedure Growth Status 10/09/17 14:45 Blood Peripheral Aerobic Blood Culture - Final NO GROWTH IN 5 DAYS Complete 10/09/17 14:45 Blood Peripheral Anaerobic Blood Culture - Final NO GROWTH IN 5 DAYS Complete 10/07/17 22:22 Urine Catheterized Urine Urine Culture - Final Escherichia Coli Complete Imaging Last Impressions Chest X-Ray 10/08/17 0000 Signed Impressions: Service Date/Time: Sunday, October 08, 2017 03:08 - CONCLUSION: 1. Right central line in superior vena cava. No pneumothorax or effusion. Maycol Looney MD Abdomen/Pelvis CT 10/08/17 0000 Signed Impressions: Service Date/Time: Monday, October 09, 2017 21:07 - CONCLUSION: 1. Moderate stool in the rectum with findings concerning for a perirectal abscess measuring up to 6.3 cm. Evaluation of the perirectal region is significantly limited due to lack of contrast and beam hardening artifact from right hip arthroplasty. Correlation with physical examination is recommended. Consider disimpaction with repeat rectal contrast examination to further evaluate if there is continued clinical uncertainty. 2. Cirrhotic appearing liver with trace ascites and mesenteric edema. 3. Anterior abdominal wall hernia containing several loops of normal-appearing small bowel. Tez Myers MD Physical Exam HEENT: Normocephalic; atraumatic CHEST: Even/unlabored CARDIAC: RRR ABDOMEN: Soft, nontender, nondistended, bowel sounds active EXTREMITIES: No clubbing, cyanosis, or edema. SKIN: Pale, no rash; no jaundice. 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 Risk factors: Aleve q4hrs for long time, daily ETOH- 5 liquor drinks a day, smokes 1 PPD of cigarettes. Denies previous EGD. Last colonoscopy a year and a half ago, states findings of polyps EGD and colonoscopy on 10/11 --> gastritis, colon polyps, diverticulosis, internal and external hemorrhoids, and incomplete colonoscopy. Pathology (small intestine) without significant histopathologic abnormality (stomach antrum) reactive/chemical gastropathy (transverse colon polyp) adenomatous polyp (descending colon polyp) adenomatous polyp, fragments. - Unintentional weight loss- [address] abdomen and pelvis W/O IV contrast (10/09) Moderate stool in the rectum with findings concerning for a perirectal abscess measuring up to 6.3 cm. Evaluation of the perirectal region is significantly limited due to lack of contrast and beam hardening artifact from right hip arthroplasty. Cirrhotic appearing liver with trace ascites and mesenteric edema. Anterior abdominal wall hernia containing several loops of normal-appearing small bowel. 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 Associated epigastric pain, constant but worse after eating. Nausea also related to PO intake. Previous cholecystostomy. (10/18) Currently NPO for imaging studies today, still with some nausea, but mostly related to PO intake. Continued epigastric pain, states doesn't feel much different. 2 BMs with good relief. Plan: CT abdomen and pelvis W IV contrast to assess perirectal abscess GES Consider Reglan after exam Protonix Monitor LFTs ETOH cessation Colonoscopy 2-3 months Supportive care Further recommendations based on findings of above and clinical course Pt has been seen and examined by myself and Dr. Marvin and this note is written on his behalf (Karmen Orellana) Physician Comments Seen and examined today with [employer], CT and GES planned for today. (Griffin Marvin MD) Karmen Orellana October 18, 2017 08:58 Griffin Marvin MD October 18, 2017 12:06
[2017-10-18] MEDS: DIATRIZOATE MEGLUM/DIATRIZOATE SOD 9 ML CUP PO ONE (10:00)
--- NOTE | 2017-10-18 15:13 | RADRPT ---
EXAM DATE: 10/18/2017 12:48 PM EDT AGE/SEX: 67 years / Female INDICATIONS: Abdominal pain, nausea and vomiting for 2 days. CLINICAL DATA: This is the patient's initial encounter. Patient reports that signs and symptoms have been present for 2 days and indicates a pain score of 3/10. MEDICAL/SURGICAL HISTORY: Diabetes mellitus type II. Hypothyroidism. Hypertension. . Right hi p and knee replacement. COMPARISON: No prior [facility] exams available for comparison. No external comparison. DOSE: 1.1 mCi Tc99m Sulfur Colloid Labeled Whole Egg PO MEDICATION: None. Reglan IV at None. minutes. IMAGING TIME: 2 hr TECHNIQUE: Following the oral ingestion of radiotracer-labeled meal, dynamic sequential images in the ICELANDIC projection were acquired with simultaneous computer acquisition. The data set was decay-correcte d. FINDINGS: Lag Phase: There is 4 minutes before onset of gastric emptying. Emptying: Gastric emptying kinetics are linear. The decay-corrected, back-extrapolated half-time of emptying is 5 minutes. (Normal for this lab is 45 - 90 minutes) Intervention: No Reglan given. CONCLUSION: 1. Normal gastric emptying half-time and kinetics. Electronically signed by: Tez Myers MD 10/18/2017 3:12 PM EDT
--- NOTE | 2017-10-18 19:11 | HHI.PR ---
Subjective Remarks The patient complains of epigastric pain and some nausea, however denies vomiting. Denies chest pain or shortness of breath Denies fevers or chills and there has not been reported or documented fevers. Denies diarrhea. Objective Vitals Vital Signs Date Time Temp Pulse Resp B/P (MAP) Pulse Ox O2 Delivery O2 Flow Rate FiO2 10/18/17 18:11 100 10/18/17 16:00 97.7 100 18 107/69 (82) 97 10/18/17 14:21 97.6 102 18 99/51 (67) 95 10/18/17 13:44 75 10/18/17 12:19 75 10/18/17 11:07 75 10/18/17 09:36 75 10/18/17 08:00 97.7 75 18 101/52 (68) 95 10/18/17 00:00 98.3 99 19 95/54 (68) 94 10/17/17 20:00 97.9 100 19 116/73 (87) 95 I/O 10/17/17 10/17/17 10/17/17 10/18/17 10/18/17 10/18/17 07:00 15:00 23:00 07:00 15:00 23:00 Intake Total 1240 ml 960 ml 240 ml 240 ml Output Total 275 ml 150 ml 175 ml 100 ml Balance 965 ml 810 ml 65 ml 140 ml Intake Oral 240 ml 160 ml 240 ml 240 ml IV Total 1000 ml 800 ml Output Urine Total 275 ml 150 ml 175 ml 100 ml # Bowel Movements 0 2 0 Result Diagram: 10/18/17 0623 10/18/17 0623 Other Results Laboratory Tests Test 10/16/17 05:38 10/16/17 12:51 10/18/17 06:23 Red Blood Count 2.53 MIL/MM3 (4.00-5.30) 2.57 MIL/MM3 (4.00-5.30) Hemoglobin 8.3 GM/DL (11.6-15.3) 8.3 GM/DL (11.6-15.3) Hematocrit 24.7 % (35.0-46.0) 24.7 % (35.0-46.0) Red Cell Distribution Width 20.9 % (11.6-17.2) 20.3 % (11.6-17.2) Platelet Count 126 TH/MM3 (150-450) 137 TH/MM3 (150-450) Blood Urea Nitrogen 3 MG/DL (7-18) 6 MG/DL (7-18) Total Protein 5.2 GM/DL (6.4-8.2) 5.6 GM/DL (6.4-8.2) Albumin 1.6 GM/DL (3.4-5.0) 1.4 GM/DL (3.4-5.0) Calcium Level 7.2 MG/DL (8.5-10.1) 7.6 MG/DL (8.5-10.1) Magnesium Level 0.8 MG/DL (1.5-2.5) 1.4 MG/DL (1.5-2.5) Alkaline Phosphatase 205 U/L (45-117) 232 U/L (45-117) Aspartate Amino Transf (AST/SGOT) 65 U/L (15-37) 87 U/L (15-37) Total Bilirubin 2.6 MG/DL (0.2-1.0) 5.4 MG/DL (0.2-1.0) Direct Bilirubin 1.9 MG/DL (0.0-0.2) 4.3 MG/DL (0.0-0.2) Chloride Level 114 MEQ/L (98-107) 111 MEQ/L (98-107) Protein Corrected Calcium 8.2 MG/DL (8.5-10.1) White Blood Count 12.1 TH/MM3 (4.0-11.0) Random Glucose 64 MG/DL (74-106) Phosphorus Level 0.9 MG/DL (2.5-4.9) Carbon Dioxide Level 20.6 MEQ/L (21.0-32.0) Indirect Bilirubin 1.1 MG/DL (0.0-0.8) Objective Remarks NAD + jaundice + icteric sclera Lungs Clear to auscultation BL Abdomen is soft, tender to palpation of mesogastric region. Excoriation of right buttocks. neurologically intact Procedures SP EGD and colonoscopy Date of Insertion: October 13, 2017 A/P Problem List: (1) Septic shock ICD Code: A41.9 - Sepsis, unspecified organism; R65.21 - Severe sepsis with septic shock Status: Acute (2) Anemia requiring transfusions ICD Code: D64.9 - Anemia, unspecified (3) Upper GI bleed ICD Code: K92.2 - Gastrointestinal hemorrhage, unspecified (4) Lactic acidosis ICD Code: E87.2 - Acidosis Status: Resolved (5) UTI (urinary tract infection) ICD Code: N39.0 - Urinary tract infection, site not specified (6) Acute kidney injury ICD Code: N17.9 - Acute kidney failure, unspecified (7) Elevated bilirubin ICD Code: R17 - Unspecified jaundice (8) Hypokalemia ICD Code: E87.6 - Hypokalemia Status: Acute (9) Hypothermia ICD Code: T68.XXXA - Hypothermia, initial encounter (10) Alcohol dependence ICD Code: F10.20 - Alcohol dependence, uncomplicated Assessment and Plan Upper GI bleed/ possible cirrhosis/ N/V/ Abdominal pain EGD 10/11 - gastritis, duodenitis. No acitve bleeding. Biopsies sent. (Dr. Tatum). Colonoscopy 10/11 -diverticulosis, colon polyps, internal and external hemorrhoids. (Dr. Tatum) transverse colon and descending colon polypectomy were performed x2 and sent for path. - PPI. - Antiemetics as needed. - pain control as needed. - low residue diet. - add sucralfate. - trend LFTs. - reconsult GI for persistent nausea and decreased p.o. intake. 10/18 Patient's bilirrubin trending up with predominance of direct bilirubin over indirect bilirubin. Repeat CT abdomen and pelvis pending. Septic shock/ UTI/ Perirectal abscess Colorectal surgery consult appreciated. 09/27 blood culture 1 out of 4 with GPC. urine culture -E. coli. Levophed weaned off. - antibiotics per ID. - holding antihypertensive meds. - monitor off of IVFs. Chronic pain/ Alcohol dependence Patient drinks about 5 alcoholic beverages daily. Patient states she is nonambulatory at baseline due to chronic pain, uses a motorized scooter. - Supplement thiamine, MVI. - cessation instruction. - PT/ OT. - pain control. Chest pain Serial troponins were negative. She states negative stress test at [facility] in [place] 3 years ago. Seems resolved. - Not candidate for ASA due to GI bleeding. - Not candidate for betablocker due to hypotension. Perirectal abscess CT abdomen and pelvis -findings concerning for perirectal abscess. - Colorectal surgery consulted, Dr. Yin evaluated. Not a candidate for surgery at this time. - continue wound care. Acute kidney insufficiency/ Hypokalemia/ Hypomagnesemia/ Hypophosphatemia Mg 0.8 10/16. - follow labs and replete lytes as needed. - monitor off of IVFs. 10/18 Magnesium, phosphorus still low. Replace with IV Magnesium sulfate and neutra-phos. Acromegaly/ Hypothyroidism Previously was on Octreotide and had pituitary surgery in 1986. Random cortisol was normal. - Continue Synthroid 75 mcg p.o. daily. PROPH: -Bilateral lower extremity SCDs. Chemical DVT prophylaxis when appropriate from GI standpoint Discharge Planning Pending CT abdomen and pelvis. Bilirrubin trending up. Problem Qualifiers (1) UTI (urinary tract infection): Joshua Saeed MD October 18, 2017 19:11
[2017-10-18] MEDS ORDERED: IOHEXOL 350 MG/ML 10 ML VIAL (for RAD DIAG) IVCONTRAST ONE (20:28)
--- NOTE | 2017-10-18 20:41 | RADRPT ---
EXAM DATE: 10/18/2017 8:30 PM EDT AGE/SEX: 67 years / Female INDICATIONS: Perirectal abscess, pain. CLINICAL DATA: This is the patient's initial encounter. Patient reports that signs and symptoms have been present for 1 day and indicates a pain score of 4/10. MEDICAL/SURGICAL HISTORY: Hypertension. Diabetes. Cholecystectomy. hernia repair, right hip re placement. ORAL CONTRAST: Prescribed oral contrast ingested. RADIATION DOSE: 16.39 CTDI (mGy) ; Patient motion COMPARISON: No prior [facility] exams available for comparison. TECHNIQUE: Multiple contiguous axial images were obtained through the abdomen and pelvis following b olus infusion of 80 ml Omnipaque 350 (iohexol) nonionic water-soluble contrast as a single exam dos e. Prescribed oral contrast ingested. Using automated exposure control and adjustment of the mA and/ or kV according to patient size, the radiation dose was kept as low as reasonably achievable to obtai n optimal diagnostic quality images. FINDINGS: Lower Lungs: Small bilateral pleural effusions with some mild bibasilar atelectasis. Liver: The liver has a homogeneous density without space-occupying lesion. There is no dilation of th e biliary tree. The gallbladder has been surgically removed. There is a small amount of ascites aroun d the liver. Spleen: Homogeneous density without enlargement. Small amount of ascites around the spleen. Pancreas: Unremarkable without mass or calcification. Kidneys: Normal in size and shape. No evidence of mass or hydronephrosis. Adrenal Glands: Unremarkable. Aorta: Atherosclerotic changes. No aneurysmal dilatation. Bowel/Mesentery: The bowel gas pattern is within normal limits.. There are some scattered diverticul a along the sigmoid colon without definite inflammatory changes. However, this is limited since there is evidence of ascites in the pelvis. There appears to be a small right perirectal abscess measuring 2.8 x 1.2 cm. There is stool and fluid throughout the rectum. There is contrast seen in the colon wh ich is predominantly decompressed. There is stool throughout the colon. No evidence of free air. Ther e is a midline ventral abdominal wall hernia containing loops of small bowel without obstruction. Abdominal Wall: Midline ventral abdominal wall hernia containing loops of small bowel without obstru ction. Retroperitoneum: No evidence of adenopathy in the retrocrural, para-aortic, or deep pelvic regions. Bladder: Decompressed with [place] catheter. Reproductive Organs: No pelvic masses. Inguinal: The inguinal region is unremarkable without evidence of adenopathy. Bony Structures: Primary bony degenerative changes of the lumbar spine and pelvis. Right hip prosthe sis in place. Curvature of the lumbar spine to the right. CONCLUSION: 1. Small perirectal abscess on the right side measuring 2.8 x 1.2 cm.. 2. Small amount of ascites in the upper abdomen. Small to moderate amount of ascites in the pelvis. 3. Scattered diverticula along the sigmoid colon. 4. Midline ventral abdominal wall hernia containing loops of small bowel without obstruction. 5. Small bilateral pleural effusions with bibasilar atelectasis. Electronically signed by: Abhishek Bloom MD 10/18/2017 8:40 PM EDT
[2017-10-19] VITALS: BP 126/62; PULSE 100; RESP 18; TEMP 97.4; O2SAT 95
[2017-10-19] MEDS: MAGNESIUM SULFATE 1 GM PREMIX 100 ML IV SCH ×2 (01:00→02:00)
[2017-10-19] MEDS: CHLORHEXIDINE GLUCONATE 2 % 1 PACK (2 CLOTHS) TOP SCH (04:00)
[2017-10-19] MEDS: LEVOTHYROXINE SODIUM 75 MCG TAB PO SCH (05:15)
[2017-10-19] MEDS: POTASSIUM PHOSPHATE/SODIUM PHOSPHATE 250 MG TAB PO SCH ×3 (05:15→20:27)
[2017-10-19 07:20] LABS: AUTOMATED NEUTROPHIL # 10.1 TH/MM3 (1.8-7.7); BASOPHIL % 0.3 % (0.0-2.0); EOSINOPHIL % 0.3 % (0.0-4.0); HEMATOCRIT 24.1 % (35.0-46.0); HEMOGLOBIN 7.9 GM/DL (11.6-15.3); LYMPH % 10.3 % (9.0-44.0); LYMPHOCYTE # 1.2 TH/MM3 (1.0-4.8); MEAN CELL VOLUME 97.1 FL (80.0-100.0); MEAN PLATELET VOLUME 9.4 FL (7.0-11.0); MONO % 3.4 % (0.0-8.0); MONOCYTE # 0.4 TH/MM3 (0-0.9); NEUT % 85.7 % (16.0-70.0); PLATELET COUNT 142 TH/MM3 (150-450); RED BLOOD COUNT 2.48 MIL/MM3 (4.00-5.30); RED CELL DISTRIBUTION WIDTH 20.2 % (11.6-17.2); WHITE BLOOD COUNT 11.8 TH/MM3 (4.0-11.0)
[2017-10-19 07:51] LABS: ALBUMIN 1.4 GM/DL (3.4-5.0); AST (GOT) 79 U/L (15-37); BICARBONATE 22.5 MEQ/L (21.0-32.0); BLOOD UREA NITROGEN 7 MG/DL (7-18); CALCIUM 7.9 MG/DL (8.5-10.1); CHLORIDE 108 MEQ/L (98-107); CREATININE 0.62 MG/DL (0.50-1.00); GLOMERULAR FILTRATION RATE 95 ML/MIN (>89); GLUCOSE,RANDOM 64 MG/DL (74-106); MAGNESIUM 1.7 MG/DL (1.5-2.5); SODIUM (NA) 138 MEQ/L (136-145)
[2017-10-19 07:53] LABS: ALT (GPT) 24 U/L (10-53); DIRECT BILIRUBIN ADULT 5.1 MG/DL (0.0-0.2); PHOSPHORUS 1.3 MG/DL (2.5-4.9)
[2017-10-19 07:55] LABS: ALKALINE PHOSPHATASE 235 U/L (45-117); TOTAL BILIRUBIN ADULT 6.1 MG/DL (0.2-1.0); TOTAL PROTEIN 5.6 GM/DL (6.4-8.2)
[2017-10-19 08:00] VITALS: BP 102/55; PULSE 88; RESP 18; TEMP 97.9; O2SAT 98
[2017-10-19] MEDS: PANTOPRAZOLE SOD 40 MG DELAYED RELEASE TAB PO SCH (09:00)
[2017-10-19] MEDS: SODIUM CHLORIDE 0.9% FLUSH 10 ML FLUSH IV FLUSH SCH ×2 (09:00→20:34)
[2017-10-19] MEDS: LEVOFLOXACIN 750 MG TAB PO SCH (09:09)
[2017-10-19] MEDS: POTASSIUM CHLORIDE 20 MEQ CONTROLLED RELEASE TAB PO SCH ×2 (09:09→20:26)
[2017-10-19] MEDS: DULoxetine HCl DR 60 MG CAP PO SCH (09:09)
[2017-10-19] MEDS: SILVER SULFADIAZINE/LIDOCAINE CREAM 60 GM JAR RECTAL SCH ×2 (09:11→20:32)
--- NOTE | 2017-10-19 09:35 | HHI.GIFU ---
Subjective Remarks Pt resting in bed Reports some improvement in symptoms Still having some nausea and abdominal pain Denies emesis Has been able to tolerate some PO (Karmen Orellana) Objective Vitals I&O Vital Signs Date Time Temp Pulse Resp B/P (MAP) Pulse Ox O2 Delivery O2 Flow Rate FiO2 10/19/17 00:00 97.4 100 18 126/62 (83) 95 10/18/17 20:00 97.1 112 18 107/58 (74) 95 10/18/17 18:11 100 10/18/17 16:00 97.7 100 18 107/69 (82) 97 10/18/17 14:21 97.6 102 18 99/51 (67) 95 10/18/17 13:44 75 10/18/17 12:19 75 10/18/17 11:07 75 10/18/17 09:36 75 I/O 10/18/17 10/18/17 10/18/17 10/19/17 10/19/17 10/19/17 07:00 15:00 23:00 07:00 15:00 23:00 Intake Total 240 ml 240 ml 440 ml Output Total 175 ml 100 ml 300 ml Balance 65 ml 140 ml 140 ml Intake Oral 240 ml 240 ml 240 ml IV Total 200 ml Output Urine Total 175 ml 100 ml 300 ml # Bowel Movements 2 0 Laboratory Laboratory Tests Test 10/19/17 06:47 White Blood Count 11.8 Red Blood Count 2.48 Hemoglobin 7.9 Hematocrit 24.1 Mean Corpuscular Volume 97.1 Mean Corpuscular Hemoglobin 32.0 Mean Corpuscular Hemoglobin Concent 33.0 Red Cell Distribution Width 20.2 Platelet Count 142 Mean Platelet Volume 9.4 Neutrophils (%) (Auto) 85.7 Lymphocytes (%) (Auto) 10.3 Monocytes (%) (Auto) 3.4 Eosinophils (%) (Auto) 0.3 Basophils (%) (Auto) 0.3 Neutrophils # (Auto) 10.1 Lymphocytes # (Auto) 1.2 Monocytes # (Auto) 0.4 Eosinophils # (Auto) 0.0 Basophils # (Auto) 0.0 CBC Comment DIFF FINAL Differential Comment Blood Urea Nitrogen 7 Creatinine 0.62 Random Glucose 64 Total Protein 5.6 Albumin 1.4 Calcium Level 7.9 Phosphorus Level 1.3 Magnesium Level 1.7 Alkaline Phosphatase 235 Aspartate Amino Transf (AST/SGOT) 79 Alanine Aminotransferase (ALT/SGPT) 24 Total Bilirubin 6.1 Direct Bilirubin 5.1 Sodium Level 138 Potassium Level 4.1 Chloride Level 108 Carbon Dioxide Level 22.5 Anion Gap 8 Estimat Glomerular Filtration Rate 95 Date/Time Source Procedure Growth Status 10/09/17 14:45 Blood Peripheral Aerobic Blood Culture - Final NO GROWTH IN 5 DAYS Complete 10/09/17 14:45 Blood Peripheral Anaerobic Blood Culture - Final NO GROWTH IN 5 DAYS Complete 10/07/17 22:22 Urine Catheterized Urine Urine Culture - Final Escherichia Coli Complete Imaging Last Impressions Gastric Emptying Nuclear Medicine 10/18/17 0000 Signed Impressions: CONCLUSION: 1. Normal gastric emptying half-time and kinetics. Abdomen/Pelvis CT 10/18/17 0000 Signed Impressions: CONCLUSION: 1. Small perirectal abscess on the right side measuring 2.8 x 1.2 cm.. 2. Small amount of ascites in the upper abdomen. Small to moderate amount of a scites in the pelvis. 3. Scattered diverticula along the sigmoid colon. 4. Midline ventral abdominal wall hernia containing loops of small bowel witho ut obstruction. 5. Small bilateral pleural effusions with bibasilar atelectasis. Chest X-Ray 10/08/17 0000 Signed Impressions: Service Date/Time: Sunday, October 08, 2017 03:08 - CONCLUSION: 1. Right central line in superior vena cava. No pneumothorax or effusion. Maycol Looney MD Physical Exam HEENT: Normocephalic; atraumatic (+) icterus CHEST: Even/unlabored CARDIAC: RRR ABDOMEN: Soft, nontender, bowel sounds active, ventral wall hernia EXTREMITIES: No clubbing, cyanosis, or edema. SKIN: Pale, no rash; (+) jaundice. GRAPHIC ILLUSTRATOR: Alert and oriented (Karmen Orellana) Assessment and Plan Plan Assessment: - Anemia with reports of coffee ground emesis and Hemoccult (+) stool H/H on admission 8.1/24.7 Pt denies history of GIB. Risk factors: Aleve q4hrs for long time, daily ETOH- 5 liquor drinks a day, smokes 1 PPD of cigarettes. Denies previous EGD. Last colonoscopy a year and a half ago, states findings of polyps EGD and colonoscopy on 10/11 --> gastritis, colon polyps, diverticulosis, internal and external hemorrhoids, and incomplete colonoscopy. Pathology (small intestine) without significant histopathologic abnormality (stomach antrum) reactive/chemical gastropathy (transverse colon polyp) adenomatous polyp (descending colon polyp) adenomatous polyp, fragments. - Unintentional weight loss- [address] abdomen and pelvis W/O IV contrast (10/09) Moderate stool in the rectum with findings concerning for a perirectal abscess measuring up to 6.3 cm. Evaluation of the perirectal region is significantly limited due to lack of contrast and beam hardening artifact from right hip arthroplasty. Cirrhotic appearing liver with trace ascites and mesenteric edema. Anterior abdominal wall hernia containing several loops of normal-appearing small bowel. 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 Associated epigastric pain, constant but worse after eating. Nausea also related to PO intake. Previous cholecystostomy. (10/18) Currently NPO for imaging studies today, still with some nausea, but mostly related to PO intake. Continued epigastric pain, states doesn't feel much different. 2 BMs with good relief. (10/19) Pt reports some improvement in symptoms, continued abdominal pain and nausea, denies emesis. Alk phos and T bili continue to trend up. As previously noted post cholecystectomy. Will obtain MRCP to further evaluate. GES and CT scan noted. GES --> Normal gastric emptying half-time and kinetics CT abdomen and pelvis W IV contrast (10/18) Small perirectal abscess on the R side measuring 2.8 x 1.2 cm (smaller than previous exam), small amount of ascites in the upper abdomen. Small to moderate amount of ascites in the pelvis. Scattered diverticula along the sigmoid colon. Midline ventral abdominal wall hernia containing loops of small bowel without obstruction. Plan: MRCP Protonix Monitor LFTs ETOH cessation Colonoscopy 2-3 months Supportive care Further recommendations based on findings of above and clinical course Pt has been seen and examined by myself and Dr. Marvin and this note is written on his behalf (Karmen Orellana) Physician Comments Some improvement in symptoms. Repeat CT and GES reviewed. ? colonoscopy this admission (Griffin Marvin MD) Karmen Orellana October 19, 2017 09:35 Griffin Marvin MD October 19, 2017 16:14
[2017-10-19] MEDS: SODIUM CHLOR 0.9% 1000 ML INJ 1,000 ML IV SCH ×2 (11:00→20:33)
[2017-10-19 12:00] VITALS: BP 100/54; PULSE 89; RESP 17; TEMP 97.9; O2SAT 94
[2017-10-19 16:00] VITALS: BP 107/51; PULSE 100; RESP 17; TEMP 97.7; O2SAT 97
--- NOTE | 2017-10-19 16:12 | HHI.PR ---
Subjective Remarks The patient still complains of abdominal pain. States she is not feeling very well, is nauseous and vomited in the morning. As per RN report the patient urine output has been decreasing and urine looks very dark. Patient is not eating much and not drinking fluids as well. Objective Vitals Vital Signs Date Time Temp Pulse Resp B/P (MAP) Pulse Ox O2 Delivery O2 Flow Rate FiO2 10/19/17 12:00 97.9 89 17 100/54 (69) 94 10/19/17 08:00 97.9 88 18 102/55 (71) 98 10/19/17 00:00 97.4 100 18 126/62 (83) 95 10/18/17 20:00 97.1 112 18 107/58 (74) 95 10/18/17 18:11 100 I/O 10/18/17 10/18/17 10/18/17 10/19/17 10/19/17 10/19/17 07:00 15:00 23:00 07:00 15:00 23:00 Intake Total 240 ml 240 ml 440 ml Output Total 175 ml 100 ml 300 ml Balance 65 ml 140 ml 140 ml Intake Oral 240 ml 240 ml 240 ml IV Total 200 ml Output Urine Total 175 ml 100 ml 300 ml # Bowel Movements 2 0 Result Diagram: 10/19/17 0647 10/19/17 0647 Imaging Last Impressions Gastric Emptying Nuclear Medicine 10/18/17 0000 Signed Impressions: CONCLUSION: 1. Normal gastric emptying half-time and kinetics. Abdomen/Pelvis CT 10/18/17 0000 Signed Impressions: CONCLUSION: 1. Small perirectal abscess on the right side measuring 2.8 x 1.2 cm.. 2. Small amount of ascites in the upper abdomen. Small to moderate amount of a scites in the pelvis. 3. Scattered diverticula along the sigmoid colon. 4. Midline ventral abdominal wall hernia containing loops of small bowel witho ut obstruction. 5. Small bilateral pleural effusions with bibasilar atelectasis. Chest X-Ray 10/08/17 0000 Signed Impressions: Service Date/Time: Sunday, October 08, 2017 03:08 - CONCLUSION: 1. Right central line in superior vena cava. No pneumothorax or effusion. Maycol Looney MD Objective Remarks NAD + jaundice + icteric sclera Lungs Clear to auscultation BL Abdomen is soft, tender to palpation of mesogastric region. Excoriation of right buttocks. neurologically intact Procedures SP EGD and colonoscopy Medications and IVs Current Medications Medications (Trade) Dose Ordered Sig/Mason Route Start Time Stop Time Status Last Admin (Synthroid) 75 mcg DAILY@0600 PO 10/08/17 06:00 10/19/17 05:15 (NS Flush) 2 ml UNSCH PRN IV FLUSH 10/07/17 22:30 10/13/17 08:40 (NS Flush) 2 ml BID IV FLUSH 10/08/17 09:00 10/19/17 09:00 (Duoneb Neb) 1 ampule Q2HR NEB PRN INH 10/07/17 22:30 ([facility]) 1 Q361D XX 10/07/17 22:30 10/07/17 22:30 (Chlorhexidine 2% Cloth) Taper DAILY@04 TOP 10/08/17 04:00 10/04/18 03:59 10/12/17 04:00 (Chlorhexidine 2% Cloth) 3 pack UNSCH PRN TOP 10/07/17 22:30 (Romazicon Inj) 0.2 mg Q1M PRN IV PUSH 10/08/17 01:00 (Ativan) 1 mg Q4H PRN PO 10/08/17 01:00 (Ativan Inj) 1 mg Q4H PRN IV PUSH 10/08/17 01:00 10/11/17 21:05 (Ativan) 2 mg Q2H PRN PO 10/08/17 01:00 (Ativan Inj) 2 mg Q2H PRN IV PUSH 10/08/17 01:00 (Ativan Inj) 2 mg Q1H PRN IV PUSH 10/08/17 01:00 (Ativan Inj) 2 mg Q15M PRN IV PUSH 10/08/17 01:00 (Protonix) 40 mg DAILY PO 10/14/17 09:00 10/18/17 08:13 (KCl) 20 meq Q12HR PO 10/14/17 10:30 10/19/17 09:09 (Levaquin) 750 mg DAILY PO 10/14/17 13:00 10/21/17 23:00 10/19/17 09:09 (Ritters Cream) 1 applic BID RECTAL 10/14/17 13:15 10/19/17 09:11 (Cymbalta Dr) 60 mg DAILY PO 10/15/17 16:30 10/19/17 09:09 (Compazine Inj) 10 mg Q8H PRN IV PUSH 10/16/17 11:00 (K-Phos Neutral) 250 mg Q8HR PO 10/19/17 06:00 10/19/17 05:15 Sodium Chloride 1,000 ml @ 100 mls/hr Q10H IV 10/19/17 11:00 10/19/17 11:00 Date of Insertion: October 13, 2017 A/P Problem List: (1) Septic shock ICD Code: A41.9 - Sepsis, unspecified organism; R65.21 - Severe sepsis with septic shock Status: Acute (2) Anemia requiring transfusions ICD Code: D64.9 - Anemia, unspecified (3) Upper GI bleed ICD Code: K92.2 - Gastrointestinal hemorrhage, unspecified (4) Lactic acidosis ICD Code: E87.2 - Acidosis Status: Resolved (5) UTI (urinary tract infection) ICD Code: N39.0 - Urinary tract infection, site not specified (6) Acute kidney injury ICD Code: N17.9 - Acute kidney failure, unspecified (7) Elevated bilirubin ICD Code: R17 - Unspecified jaundice (8) Hypokalemia ICD Code: E87.6 - Hypokalemia Status: Acute (9) Hypothermia ICD Code: T68.XXXA - Hypothermia, initial encounter (10) Alcohol dependence ICD Code: F10.20 - Alcohol dependence, uncomplicated Assessment and Plan Upper GI bleed/ possible cirrhosis/ N/V/ Abdominal pain EGD 10/11 - gastritis, duodenitis. No acitve bleeding. Biopsies sent. (Dr. Tatum). Colonoscopy 10/11 -diverticulosis, colon polyps, internal and external hemorrhoids. (Dr. Tatum) transverse colon and descending colon polypectomy were performed x2 and sent for path. - PPI. - Antiemetics as needed. - pain control as needed. - low residue diet. - add sucralfate. - trend LFTs. - reconsult GI for persistent nausea and decreased p.o. intake. 10/18 Patient's bilirrubin trending up with predominance of direct bilirubin over indirect bilirubin. Repeat CT abdomen and pelvis pending. 10/19 bilirubin keeps trending up now total bilirubin 6.1, with predominance of direct bilirubin. Agree with MRCP. Septic shock/ UTI/ Perirectal abscess Colorectal surgery consult appreciated. 09/27 blood culture 1 out of 4 with GPC. urine culture -E. coli. Levophed weaned off. - antibiotics per ID. - holding antihypertensive meds. - monitor off of IVFs. Chronic pain/ Alcohol dependence Patient drinks about 5 alcoholic beverages daily. Patient states she is nonambulatory at baseline due to chronic pain, uses a motorized scooter. - Supplement thiamine, MVI. - cessation instruction. - PT/ OT. - pain control. Chest pain Serial troponins were negative. She states negative stress test at [facility] in [place] 3 years ago. Seems resolved. - Not candidate for ASA due to GI bleeding. - Not candidate for betablocker due to hypotension. Perirectal abscess CT abdomen and pelvis -findings concerning for perirectal abscess. - Colorectal surgery consulted, Dr. Yin evaluated. Not a candidate for surgery at this time. - continue wound care. Acute kidney insufficiency/ Hypokalemia/ Hypomagnesemia/ Hypophosphatemia Mg 0.8 10/16. - follow labs and replete lytes as needed. - monitor off of IVFs. 10/18 Magnesium, phosphorus still low. Replace with IV Magnesium sulfate and neutra-phos. 10/19 electrolytes much improved with potassium within normal range as well as magnesium., Phosphorus continues to be low. Continue Neutra-Phos. Acromegaly/ Hypothyroidism Previously was on Octreotide and had pituitary surgery in 1986. Random cortisol was normal. - Continue Synthroid 75 mcg p.o. daily. PROPH: -Bilateral lower extremity SCDs. Chemical DVT prophylaxis when appropriate from GI standpoint Discharge Planning Pending CT abdomen and pelvis. Bilirrubin trending up. Problem Qualifiers (1) UTI (urinary tract infection): Joshua Saeed MD October 19, 2017 16:12
[2017-10-19 20:00] VITALS: BP 108/59; PULSE 99; RESP 20; TEMP 97.9; O2SAT 95
[2017-10-20] VITALS: BP 131/61; PULSE 96; RESP 20; TEMP 97.6; O2SAT 93
[2017-10-20] MEDS: CHLORHEXIDINE GLUCONATE 2 % 1 PACK (2 CLOTHS) TOP SCH (04:00)
[2017-10-20] MEDS: POTASSIUM PHOSPHATE/SODIUM PHOSPHATE 250 MG TAB PO SCH ×3 (04:43→21:30)
[2017-10-20] MEDS: LEVOTHYROXINE SODIUM 75 MCG TAB PO SCH (04:43)
[2017-10-20] MEDS: SODIUM CHLOR 0.9% 1000 ML INJ 1,000 ML IV SCH ×2 (04:47→18:36)
[2017-10-20] MEDS ORDERED: SODIUM CHLORID 0.9% 500 ML INJ 500 ML IV ONE (05:30)
[2017-10-20 08:00] VITALS: BP 98/56; PULSE 79; RESP 16; TEMP 97.7; O2SAT 92
[2017-10-20] MEDS: SODIUM CHLORIDE 0.9% FLUSH 10 ML FLUSH IV FLUSH SCH ×2 (09:00→21:30)
--- NOTE | 2017-10-20 09:21 | HHI.GIFU ---
Subjective Remarks Pt resting in bed Denies nausea, vomiting, abdominal pain Has not eaten breakfast, but states it is because she has been sleeping MRCP pending (Karmen Orellana) Objective Vitals I&O Vital Signs Date Time Temp Pulse Resp B/P (MAP) Pulse Ox O2 Delivery O2 Flow Rate FiO2 10/20/17 08:00 97.7 79 16 98/56 (70) 92 10/20/17 00:00 97.6 96 20 131/61 (84) 93 10/19/17 20:00 97.9 99 20 108/59 (75) 95 10/19/17 16:00 97.7 100 17 107/51 (69) 97 10/19/17 12:00 97.9 89 17 100/54 (69) 94 I/O 10/19/17 10/19/17 10/19/17 10/20/17 10/20/17 10/20/17 07:00 15:00 23:00 07:00 15:00 23:00 Intake Total 440 ml 0 ml 240 ml Output Total 300 ml 175 ml 100 ml Balance 140 ml -175 ml 140 ml Intake Oral 240 ml 0 ml 240 ml IV Total 200 ml Output Urine Total 300 ml 175 ml 100 ml # Bowel Movements 1 Laboratory Laboratory Tests Test 10/19/17 17:33 Ammonia 24 Date/Time Source Procedure Growth Status 10/09/17 14:45 Blood Peripheral Aerobic Blood Culture - Final NO GROWTH IN 5 DAYS Complete 10/09/17 14:45 Blood Peripheral Anaerobic Blood Culture - Final NO GROWTH IN 5 DAYS Complete 10/07/17 22:22 Urine Catheterized Urine Urine Culture - Final Escherichia Coli Complete Imaging Last Impressions Gastric Emptying Nuclear Medicine 10/18/17 0000 Signed Impressions: CONCLUSION: 1. Normal gastric emptying half-time and kinetics. Abdomen/Pelvis CT 10/18/17 0000 Signed Impressions: CONCLUSION: 1. Small perirectal abscess on the right side measuring 2.8 x 1.2 cm.. 2. Small amount of ascites in the upper abdomen. Small to moderate amount of a scites in the pelvis. 3. Scattered diverticula along the sigmoid colon. 4. Midline ventral abdominal wall hernia containing loops of small bowel witho ut obstruction. 5. Small bilateral pleural effusions with bibasilar atelectasis. Chest X-Ray 10/08/17 0000 Signed Impressions: Service Date/Time: Sunday, October 08, 2017 03:08 - CONCLUSION: 1. Right central line in superior vena cava. No pneumothorax or effusion. Maycol Looney MD Physical Exam HEENT: Normocephalic; atraumatic (+) icterus CHEST: Even/unlabored CARDIAC: RRR ABDOMEN: Soft, nontender, bowel sounds active, ventral wall hernia EXTREMITIES: No clubbing, cyanosis, or edema. SKIN: Pale, no rash; (+) jaundice. FIXED INCOME MANAGER: Alert and oriented (Karmen Orellana [employer]) Assessment and Plan Plan Assessment: - Anemia with reports of coffee ground emesis and Hemoccult (+) stool H/H on admission 8.1/24.7 Pt denies history of GIB. Risk factors: Aleve q4hrs for long time, daily ETOH- 5 liquor drinks a day, smokes 1 PPD of cigarettes. Denies previous EGD. Last colonoscopy a year and a half ago, states findings of polyps EGD and colonoscopy on 10/11 --> gastritis, colon polyps, diverticulosis, internal and external hemorrhoids, and incomplete colonoscopy. Pathology (small intestine) without significant histopathologic abnormality (stomach antrum) reactive/chemical gastropathy (transverse colon polyp) adenomatous polyp (descending colon polyp) adenomatous polyp, fragments. - Unintentional weight loss- [address] abdomen and pelvis W/O IV contrast (10/09) Moderate stool in the rectum with findings concerning for a perirectal abscess measuring up to 6.3 cm. Evaluation of the perirectal region is significantly limited due to lack of contrast and beam hardening artifact from right hip arthroplasty. Cirrhotic appearing liver with trace ascites and mesenteric edema. Anterior abdominal wall hernia containing several loops of normal-appearing small bowel. 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 Associated epigastric pain, constant but worse after eating. Nausea also related to PO intake. Previous cholecystostomy. (10/18) Currently NPO for imaging studies today, still with some nausea, but mostly related to PO intake. Continued epigastric pain, states doesn't feel much different. 2 BMs with good relief. (10/19) Pt reports some improvement in symptoms, continued abdominal pain and nausea, denies emesis. Alk phos and T bili continue to trend up. As previously noted post cholecystectomy. Will obtain MRCP to further evaluate. GES and CT scan noted. GES --> Normal gastric emptying half-time and kinetics CT abdomen and pelvis W IV contrast (10/18) Small perirectal abscess on the R side measuring 2.8 x 1.2 cm (smaller than previous exam), small amount of ascites in the upper abdomen. Small to moderate amount of ascites in the pelvis. Scattered diverticula along the sigmoid colon. Midline ventral abdominal wall hernia containing loops of small bowel without obstruction. (10/20) Pt reports improvement in symptoms today. Denies nausea, vomiting, abdominal pain. MRCP ordered but pending. Labs from today are pending. Plan: MRCP Protonix Monitor LFTs ETOH cessation Colonoscopy 2-3 months Supportive care Further recommendations based on findings of above and clinical course Pt has been seen and examined by myself and Dr. Marvin and this note is written on his behalf (Karmen Orellana) Physician Comments Still with some nausea. MRCP -p. (Griffin Marvin MD) Karmen Orellana October 20, 2017 09:21 Griffin Marvin MD October 20, 2017 12:54
[2017-10-20 12:00] VITALS: BP 130/56; PULSE 81; RESP 19; TEMP 97.6; O2SAT 94
[2017-10-20] MEDS: DULoxetine HCl DR 60 MG CAP PO SCH (13:04)
[2017-10-20] MEDS: LEVOFLOXACIN 750 MG TAB PO SCH (13:04)
[2017-10-20] MEDS: SILVER SULFADIAZINE/LIDOCAINE CREAM 60 GM JAR RECTAL SCH ×2 (13:04→21:31)
[2017-10-20] MEDS: POTASSIUM CHLORIDE 20 MEQ CONTROLLED RELEASE TAB PO SCH ×2 (13:04→21:30)
[2017-10-20] MEDS: PANTOPRAZOLE SOD 40 MG DELAYED RELEASE TAB PO SCH (13:04)
--- NOTE | 2017-10-20 15:55 | RADRPT ---
EXAM DATE: 10/20/2017 11:03 AM EDT AGE/SEX: 67 years / Female INDICATIONS: . Bilirubin trending CLINICAL DATA: This is the patient's subsequent encounter. Patient reports that signs and symptoms h ave been present for 2 weeks and indicates a pain score of 0/10. MEDICAL/SURGICAL HISTORY: . HTN, COPD, DM . Hernia repair, Cholecystectomy, R & L Hip replacem ents, Bilat Shoulder Replacements COMPARISON: No prior [facility] exams available for comparison. TECHNIQUE: Multiplanar, multisequence images of the abdomen were obtained without contrast including dedicated cholangiographic images. FINDINGS: Imaging through the lung bases demonstrates small bilateral pleural effusions. There is ascites within the upper abdomen. The examination demonstrates signal dropout throughout the liver suggesting cirrhosis. There is no intrahepatic biliary ductal dilation. The common duct is very difficult to visualize and measures only approximately 3 mm in size. The gallbladder is not identified. The pancreas is unremarkable in appearance. The pancreatic duct is not visualized. The spleen is mildly enlarged. The abdominal aorta is normal in caliber. No retroperitoneal adenopathy is seen. CONCLUSION: 1. No biliary ductal dilation identified. 2. Cirrhotic changes within the liver with mild enlargement of the spleen and mild ascites. Electronically signed by: Norm Chiu MD 10/20/2017 3:53 PM EDT
[2017-10-20 16:00] VITALS: BP 102/58; PULSE 86; RESP 16; TEMP 97.9; O2SAT 96
--- NOTE | 2017-10-20 16:52 | HHI.PR ---
Subjective Remarks still has abdominal pain. Denies nausea and vomiting Objective Vitals Vital Signs Date Time Temp Pulse Resp B/P (MAP) Pulse Ox O2 Delivery O2 Flow Rate FiO2 10/20/17 16:00 97.9 86 16 102/58 (73) 96 10/20/17 12:00 97.6 81 19 130/56 (80) 94 10/20/17 08:00 97.7 79 16 98/56 (70) 92 10/20/17 00:00 97.6 96 20 131/61 (84) 93 10/19/17 20:00 97.9 99 20 108/59 (75) 95 I/O 10/19/17 10/19/17 10/19/17 10/20/17 10/20/17 10/20/17 07:00 15:00 23:00 07:00 15:00 23:00 Intake Total 440 ml 0 ml 240 ml Output Total 300 ml 175 ml 100 ml Balance 140 ml -175 ml 140 ml Intake Oral 240 ml 0 ml 240 ml IV Total 200 ml Output Urine Total 300 ml 175 ml 100 ml # Bowel Movements 1 Result Diagram: 10/19/17 0647 10/19/17 0647 Objective Remarks NAD + jaundice + icteric sclera Lungs Clear to auscultation BL Abdomen is soft, tenderness to palpation is improving, Bs + Excoriation of right buttocks. neurologically intact Procedures SP EGD and colonoscopy Date of Insertion: October 13, 2017 A/P Problem List: (1) Septic shock ICD Code: A41.9 - Sepsis, unspecified organism; R65.21 - Severe sepsis with septic shock Status: Acute (2) Anemia requiring transfusions ICD Code: D64.9 - Anemia, unspecified (3) Upper GI bleed ICD Code: K92.2 - Gastrointestinal hemorrhage, unspecified (4) Lactic acidosis ICD Code: E87.2 - Acidosis Status: Resolved (5) UTI (urinary tract infection) ICD Code: N39.0 - Urinary tract infection, site not specified (6) Acute kidney injury ICD Code: N17.9 - Acute kidney failure, unspecified (7) Elevated bilirubin ICD Code: R17 - Unspecified jaundice (8) Hypokalemia ICD Code: E87.6 - Hypokalemia Status: Acute (9) Hypothermia ICD Code: T68.XXXA - Hypothermia, initial encounter (10) Alcohol dependence ICD Code: F10.20 - Alcohol dependence, uncomplicated Assessment and Plan Upper GI bleed/ possible cirrhosis/ N/V/ Abdominal pain EGD 10/11 - gastritis, duodenitis. No acitve bleeding. Biopsies sent. (Dr. Tatum). Colonoscopy 10/11 -diverticulosis, colon polyps, internal and external hemorrhoids. (Dr. Tatum) transverse colon and descending colon polypectomy were performed x2 and sent for path. - PPI. - Antiemetics as needed. - pain control as needed. - low residue diet. - add sucralfate. - trend LFTs. - reconsult GI for persistent nausea and decreased p.o. intake. 10/18 Patient's bilirrubin trending up with predominance of direct bilirubin over indirect bilirubin. Repeat CT abdomen and pelvis pending. 10/19 bilirubin keeps trending up now total bilirubin 6.1, with predominance of direct bilirubin. Agree with MRCP. 10/20 MRCP done but results pending. Septic shock/ UTI/ Perirectal abscess Colorectal surgery consult appreciated. 09/27 blood culture 1 out of 4 with GPC. urine culture -E. coli. Levophed weaned off. - antibiotics per ID. - holding antihypertensive meds. - monitor off of IVFs. Chronic pain/ Alcohol dependence Patient drinks about 5 alcoholic beverages daily. Patient states she is nonambulatory at baseline due to chronic pain, uses a motorized scooter. - Supplement thiamine, MVI. - cessation instruction. - PT/ OT. - pain control. Chest pain Serial troponins were negative. She states negative stress test at [facility] in [place] 3 years ago. Seems resolved. - Not candidate for ASA due to GI bleeding. - Not candidate for betablocker due to hypotension. Perirectal abscess CT abdomen and pelvis -findings concerning for perirectal abscess. - Colorectal surgery consulted, Dr. Yin evaluated. Not a candidate for surgery at this time. - continue wound care. Acute kidney insufficiency/ Hypokalemia/ Hypomagnesemia/ Hypophosphatemia Mg 0.8 10/16. - follow labs and replete lytes as needed. - monitor off of IVFs. 10/18 Magnesium, phosphorus still low. Replace with IV Magnesium sulfate and neutra-phos. 10/19 electrolytes much improved with potassium within normal range as well as magnesium., Phosphorus continues to be low. Continue Neutra-Phos. Acromegaly/ Hypothyroidism Previously was on Octreotide and had pituitary surgery in 1986. Random cortisol was normal. - Continue Synthroid 75 mcg p.o. daily. PROPH: -Bilateral lower extremity SCDs. Chemical DVT prophylaxis when appropriate from GI standpoint Discharge Planning Pending CT abdomen and pelvis. Bilirrubin trending up. Problem Qualifiers (1) UTI (urinary tract infection): Joshua Saeed MD October 20, 2017 16:52
[2017-10-20 18:33] LABS: AUTOMATED NEUTROPHIL # 9.7 TH/MM3 (1.8-7.7); BASOPHIL # 0.1 TH/MM3 (0-0.2); BASOPHIL % 1.1 % (0.0-2.0); EOSINOPHIL % 0.4 % (0.0-4.0); HEMATOCRIT 23.5 % (35.0-46.0); HEMOGLOBIN 7.7 GM/DL (11.6-15.3); LYMPH % 9.9 % (9.0-44.0); LYMPHOCYTE # 1.1 TH/MM3 (1.0-4.8); MEAN CELL VOLUME 97.2 FL (80.0-100.0); MEAN CORPUSCULAR HEMOGLOBIN 31.7 PG (27.0-34.0); MEAN CORPUSCULAR HGB CONC 32.6 % (32.0-36.0); MEAN PLATELET VOLUME 9.4 FL (7.0-11.0); MONOCYTE # 0.6 TH/MM3 (0-0.9); NEUT % 83.6 % (16.0-70.0); PLATELET COUNT 149 TH/MM3 (150-450); RED BLOOD COUNT 2.42 MIL/MM3 (4.00-5.30); RED CELL DISTRIBUTION WIDTH 19.9 % (11.6-17.2); WHITE BLOOD COUNT 11.6 TH/MM3 (4.0-11.0)
[2017-10-20 18:43] LABS: ALBUMIN 1.4 GM/DL (3.4-5.0); ALT (GPT) 27 U/L (10-53); AST (GOT) 115 U/L (15-37); BLOOD UREA NITROGEN 7 MG/DL (7-18); CALCIUM 7.9 MG/DL (8.5-10.1); CHLORIDE 111 MEQ/L (98-107); CREATININE 0.56 MG/DL (0.50-1.00); GLOMERULAR FILTRATION RATE 107 ML/MIN (>89); GLUCOSE,RANDOM 66 MG/DL (74-106); SODIUM (NA) 141 MEQ/L (136-145)
[2017-10-20 18:46] LABS: ALKALINE PHOSPHATASE 274 U/L (45-117); TOTAL BILIRUBIN ADULT 7.4 MG/DL (0.2-1.0); TOTAL PROTEIN 5.9 GM/DL (6.4-8.2)
[2017-10-20 20:00] VITALS: BP 107/59; PULSE 86; RESP 20; TEMP 98; O2SAT 96
[2017-10-21] VITALS: BP 101/57; PULSE 84; RESP 20; TEMP 97.9; O2SAT 96
[2017-10-21] MEDS: CHLORHEXIDINE GLUCONATE 2 % 1 PACK (2 CLOTHS) TOP SCH (02:03)
[2017-10-21] MEDS: SODIUM CHLOR 0.9% 1000 ML INJ 1,000 ML IV SCH ×2 (03:00→16:01)
[2017-10-21] MEDS: LEVOTHYROXINE SODIUM 75 MCG TAB PO SCH (05:17)
[2017-10-21] MEDS: POTASSIUM PHOSPHATE/SODIUM PHOSPHATE 250 MG TAB PO SCH ×3 (05:17→21:58)
[2017-10-21 08:00] VITALS: BP 101/54; PULSE 82; RESP 18; TEMP 98; O2SAT 93
[2017-10-21] MEDS: SODIUM CHLORIDE 0.9% FLUSH 10 ML FLUSH IV FLUSH SCH ×2 (09:00→21:00)
[2017-10-21] MEDS: DULoxetine HCl DR 60 MG CAP PO SCH (09:06)
[2017-10-21] MEDS: POTASSIUM CHLORIDE 20 MEQ CONTROLLED RELEASE TAB PO SCH ×2 (09:06→21:58)
[2017-10-21] MEDS: PANTOPRAZOLE SOD 40 MG DELAYED RELEASE TAB PO SCH (09:06)
[2017-10-21] MEDS: SILVER SULFADIAZINE/LIDOCAINE CREAM 60 GM JAR RECTAL SCH ×2 (09:06→21:59)
[2017-10-21] MEDS: LEVOFLOXACIN 750 MG TAB PO SCH (09:06)
--- NOTE | 2017-10-21 09:41 | HHI.GIFU ---
Subjective Remarks Pt resting in bed Reports some abdominal pain Denies nausea Going to try to eat her breakfast (Karmen Orellana) Objective Vitals I&O Vital Signs Date Time Temp Pulse Resp B/P (MAP) Pulse Ox O2 Delivery O2 Flow Rate FiO2 10/21/17 08:00 98.0 82 18 101/54 (70) 93 10/21/17 00:00 97.9 84 20 101/57 (72) 96 10/20/17 21:30 Room Air 10/20/17 20:00 98.0 86 20 107/59 (75) 96 10/20/17 16:00 97.9 86 16 102/58 (73) 96 10/20/17 12:00 97.6 81 19 130/56 (80) 94 I/O 10/20/17 10/20/17 10/20/17 10/21/17 10/21/17 10/21/17 07:00 15:00 23:00 07:00 15:00 23:00 Intake Total 240 ml 600 ml 1000 ml Output Total 100 ml 275 ml 200 ml Balance 140 ml 325 ml 800 ml Intake Oral 240 ml 600 ml IV Total 1000 ml Output Urine Total 100 ml 275 ml 200 ml # Bowel Movements 1 2 Laboratory Laboratory Tests Test 10/20/17 18:00 White Blood Count 11.6 Red Blood Count 2.42 Hemoglobin 7.7 Hematocrit 23.5 Mean Corpuscular Volume 97.2 Mean Corpuscular Hemoglobin 31.7 Mean Corpuscular Hemoglobin Concent 32.6 Red Cell Distribution Width 19.9 Platelet Count 149 Mean Platelet Volume 9.4 Neutrophils (%) (Auto) 83.6 Lymphocytes (%) (Auto) 9.9 Monocytes (%) (Auto) 5.0 Eosinophils (%) (Auto) 0.4 Basophils (%) (Auto) 1.1 Neutrophils # (Auto) 9.7 Lymphocytes # (Auto) 1.1 Monocytes # (Auto) 0.6 Eosinophils # (Auto) 0.0 Basophils # (Auto) 0.1 CBC Comment DIFF FINAL Differential Comment Blood Urea Nitrogen 7 Creatinine 0.56 Random Glucose 66 Total Protein 5.9 Albumin 1.4 Calcium Level 7.9 Alkaline Phosphatase 274 Aspartate Amino Transf (AST/SGOT) 115 Alanine Aminotransferase (ALT/SGPT) 27 Total Bilirubin 7.4 Sodium Level 141 Potassium Level 4.5 Chloride Level 111 Carbon Dioxide Level 20.0 Anion Gap 10 Estimat Glomerular Filtration Rate 107 Date/Time Source Procedure Growth Status 10/09/17 14:45 Blood Peripheral Aerobic Blood Culture - Final NO GROWTH IN 5 DAYS Complete 10/09/17 14:45 Blood Peripheral Anaerobic Blood Culture - Final NO GROWTH IN 5 DAYS Complete 10/07/17 22:22 Urine Catheterized Urine Urine Culture - Final Escherichia Coli Complete Imaging Last Impressions Cholangiopancreatography MRI 10/20/17 0000 Signed Impressions: CONCLUSION: 1. No biliary ductal dilation identified. 2. Cirrhotic changes within the liver with mild enlargement of the spleen and mild ascites. Gastric Emptying Nuclear Medicine 10/18/17 0000 Signed Impressions: CONCLUSION: 1. Normal gastric emptying half-time and kinetics. Abdomen/Pelvis CT 10/18/17 0000 Signed Impressions: CONCLUSION: 1. Small perirectal abscess on the right side measuring 2.8 x 1.2 cm.. 2. Small amount of ascites in the upper abdomen. Small to moderate amount of a scites in the pelvis. 3. Scattered diverticula along the sigmoid colon. 4. Midline ventral abdominal wall hernia containing loops of small bowel witho ut obstruction. 5. Small bilateral pleural effusions with bibasilar atelectasis. Chest X-Ray 10/08/17 Signed Impressions: Service Date/Time: Sunday, October 08, 2017 03:08 - CONCLUSION: 1. Right central line in superior vena cava. No pneumothorax or effusion. Maycol Looney MD Physical Exam HEENT: Normocephalic; atraumatic (+) icterus CHEST: Even/unlabored CARDIAC: RRR ABDOMEN: Distended, soft, nontender, bowel sounds active, ventral wall hernia EXTREMITIES: No clubbing, cyanosis, or edema. SKIN: Pale, no rash; (+) jaundice. LEASE ADMINISTRATION ANALYST: Alert and oriented (Karmen Orellana) Assessment and Plan Plan Assessment: - Anemia with reports of coffee ground emesis and Hemoccult (+) stool H/H on admission 8.1/24.7 Pt denies history of GIB. Risk factors: Aleve q4hrs for long time, daily ETOH- 5 liquor drinks a day, smokes 1 PPD of cigarettes. Denies previous EGD. Last colonoscopy a year and a half ago, states findings of polyps EGD and colonoscopy on 10/11 --> gastritis, colon polyps, diverticulosis, internal and external hemorrhoids, and incomplete colonoscopy. Pathology (small intestine) without significant histopathologic abnormality (stomach antrum) reactive/chemical gastropathy (transverse colon polyp) adenomatous polyp (descending colon polyp) adenomatous polyp, fragments. - Unintentional weight loss- [address] abdomen and pelvis W/O IV contrast (10/09) Moderate stool in the rectum with findings concerning for a perirectal abscess measuring up to 6.3 cm. Evaluation of the perirectal region is significantly limited due to lack of contrast and beam hardening artifact from right hip arthroplasty. Cirrhotic appearing liver with trace ascites and mesenteric edema. Anterior abdominal wall hernia containing several loops of normal-appearing small bowel. 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 Associated epigastric pain, constant but worse after eating. Nausea also related to PO intake. Previous cholecystostomy. GES --> Normal gastric emptying half-time and kinetics CT abdomen and pelvis W IV contrast (10/18) Small perirectal abscess on the R side measuring 2.8 x 1.2 cm (smaller than previous exam), small amount of ascites in the upper abdomen. Small to moderate amount of ascites in the pelvis. Scattered diverticula along the sigmoid colon. Midline ventral abdominal wall hernia containing loops of small bowel without obstruction. MRCP --> No biliary ductal dilation identified. Cirrhotic changes within the liver with mild enlargement of the spleen and mild ascites (10/21) Labs from today pending, bilirubin has been trending up, will fractionate this. Imaging studies noted above. Plan: Repeat labs Fractionate bilirubin Protonix ETOH cessation Colonoscopy 2-3 months Supportive care Further recommendations based on findings of above and clinical course Pt has been seen and examined by myself and Dr. Mckee and this note is written on his behalf (Karmen Orellana) Physician Comments Less symptomatic today. MRCP results noted. Will need to avoid hepatotoxic meds. Daily LFT's Will follow up with you. (Steffen Mckee MD) Karmen Orellana Oct 21, 2017 09:41 Steffen Mckee MD Oct 21, 2017 10:50
[2017-10-21 12:00] VITALS: BP 102/51; PULSE 84; RESP 19; TEMP 97.9; O2SAT 97
[2017-10-21 12:20] LABS: AUTOMATED NEUTROPHIL # 7.4 TH/MM3 (1.8-7.7); BASOPHIL % 0.3 % (0.0-2.0); EOSINOPHIL % 0.5 % (0.0-4.0); HEMATOCRIT 21.6 % (35.0-46.0); HEMOGLOBIN 7.4 GM/DL (11.6-15.3); LYMPH % 12.2 % (9.0-44.0); LYMPHOCYTE # 1.1 TH/MM3 (1.0-4.8); MEAN CELL VOLUME 97.7 FL (80.0-100.0); MEAN CORPUSCULAR HEMOGLOBIN 33.4 PG (27.0-34.0); MEAN CORPUSCULAR HGB CONC 34.1 % (32.0-36.0); MONO % 4.5 % (0.0-8.0); MONOCYTE # 0.4 TH/MM3 (0-0.9); NEUT % 82.5 % (16.0-70.0); PLATELET COUNT 141 TH/MM3 (150-450); RED BLOOD COUNT 2.21 MIL/MM3 (4.00-5.30); RED CELL DISTRIBUTION WIDTH 20.5 % (11.6-17.2)
[2017-10-21 12:38] LABS: ALBUMIN 1.3 GM/DL (3.4-5.0); ALT (GPT) 30 U/L (10-53); AST (GOT) 139 U/L (15-37); BICARBONATE 18.8 MEQ/L (21.0-32.0); BLOOD UREA NITROGEN 7 MG/DL (7-18); CHLORIDE 113 MEQ/L (98-107); GLOMERULAR FILTRATION RATE 99 ML/MIN (>89); GLUCOSE,RANDOM 55 MG/DL (74-106); SODIUM (NA) 142 MEQ/L (136-145)
[2017-10-21 12:39] LABS: DIRECT BILIRUBIN ADULT 6.2 MG/DL (0.0-0.2); TOTAL BILIRUBIN ADULT 7.2 MG/DL (0.2-1.0)
[2017-10-21 12:41] LABS: ALKALINE PHOSPHATASE 272 U/L (45-117); TOTAL BILIRUBIN ADULT 7.1 MG/DL (0.2-1.0); TOTAL PROTEIN 5.4 GM/DL (6.4-8.2)
[2017-10-21 16:00] VITALS: BP 112/59; PULSE 103; RESP 18; TEMP 97.4; O2SAT 93
--- NOTE | 2017-10-21 17:27 | HHI.PR ---
Subjective Remarks Patient states she has no appetite and is not eating much. states abdominal pain is improving but still present. Denies nausea or vomiting Objective Vitals Vital Signs Date Time Temp Pulse Resp B/P (MAP) Pulse Ox O2 Delivery O2 Flow Rate FiO2 10/21/17 16:00 97.4 103 18 112/59 (76) 93 10/21/17 12:00 97.9 84 19 102/51 (68) 97 10/21/17 08:00 98.0 82 18 101/54 (70) 93 10/21/17 00:00 97.9 84 20 101/57 (72) 96 10/20/17 21:30 Room Air 10/20/17 20:00 98.0 86 20 107/59 (75) 96 I/O 10/20/17 10/20/17 10/20/17 10/21/17 10/21/17 10/21/17 07:00 15:00 23:00 07:00 15:00 23:00 Intake Total 240 ml 600 ml 1000 ml Output Total 100 ml 275 ml 200 ml Balance 140 ml 325 ml 800 ml Intake Oral 240 ml 600 ml IV Total 1000 ml Output Urine Total 100 ml 275 ml 200 ml # Bowel Movements 1 2 Result Diagram: 10/21/17 1157 10/21/17 1157 Objective Remarks NAD + jaundice + icteric sclera Lungs Clear to auscultation BL Abdomen is soft, tenderness to palpation is improving, Bs + Excoriation of right buttocks. neurologically intact Procedures SP EGD and colonoscopy Date of Insertion: October 13, 2017 A/P Problem List: (1) Septic shock ICD Code: A41.9 - Sepsis, unspecified organism; R65.21 - Severe sepsis with septic shock Status: Acute (2) Anemia requiring transfusions ICD Code: D64.9 - Anemia, unspecified (3) Upper GI bleed ICD Code: K92.2 - Gastrointestinal hemorrhage, unspecified (4) Lactic acidosis ICD Code: E87.2 - Acidosis Status: Resolved (5) UTI (urinary tract infection) ICD Code: N39.0 - Urinary tract infection, site not specified (6) Acute kidney injury ICD Code: N17.9 - Acute kidney failure, unspecified (7) Elevated bilirubin ICD Code: R17 - Unspecified jaundice (8) Hypokalemia ICD Code: E87.6 - Hypokalemia Status: Acute (9) Hypothermia ICD Code: T68.XXXA - Hypothermia, initial encounter (10) Alcohol dependence ICD Code: F10.20 - Alcohol dependence, uncomplicated Assessment and Plan Upper GI bleed/ possible cirrhosis/ N/V/ Abdominal pain Anemia EGD 10/11 - gastritis, duodenitis. No acitve bleeding. Biopsies sent. (Dr. Tatum). Colonoscopy 10/11 -diverticulosis, colon polyps, internal and external hemorrhoids. (Dr. Tatum) transverse colon and descending colon polypectomy were performed x2 and sent for path. - PPI. - Antiemetics as needed. - pain control as needed. - low residue diet. - add sucralfate. - trend LFTs. - reconsult GI for persistent nausea and decreased p.o. intake. 10/18 Patient's bilirrubin trending up with predominance of direct bilirubin over indirect bilirubin. Repeat CT abdomen and pelvis pending. 10/19 bilirubin keeps trending up now total bilirubin 6.1, with predominance of direct bilirubin. Agree with MRCP. 10/21 sp MRCP which does not show any type of obstruction. Septic shock/ UTI/ Perirectal abscess Colorectal surgery consult appreciated. 09/27 blood culture 1 out of 4 with GPC. urine culture -E. coli. Levophed weaned off. - antibiotics per ID. - holding antihypertensive meds. - monitor off of IVFs. Chronic pain/ Alcohol dependence Patient drinks about 5 alcoholic beverages daily. Patient states she is nonambulatory at baseline due to chronic pain, uses a motorized scooter. - Supplement thiamine, MVI. - cessation instruction. - PT/ OT. - pain control. Chest pain Serial troponins were negative. She states negative stress test at [facility] in [place] 3 years ago. Seems resolved. - Not candidate for ASA due to GI bleeding. - Not candidate for betablocker due to hypotension. Perirectal abscess CT abdomen and pelvis -findings concerning for perirectal abscess. - Colorectal surgery consulted, Dr. Yin evaluated. Not a candidate for surgery at this time. - continue wound care. Acute kidney insufficiency/ Hypokalemia/ Hypomagnesemia/ Hypophosphatemia Hyperchloremic metabolic acidosis Mg 0.8 10/16. - follow labs and replete lytes as needed. - monitor off of IVFs. 10/18 Magnesium, phosphorus still low. Replace with IV Magnesium sulfate and neutra-phos. 10/19 electrolytes much improved with potassium within normal range as well as magnesium., Phosphorus continues to be low. Continue Neutra-Phos. 10/21 Electrolytes within normal range. Dc normal saline. Acromegaly/ Hypothyroidism Previously was on Octreotide and had pituitary surgery in 1986. Random cortisol was normal. - Continue Synthroid 75 mcg p.o. daily. Decreased appetite/Poor oral intake Start patient on Megace. Transaminitis Hyperbilirrubinemia 10/21 worsening AST. Continue to monitor. Bilirrubin slightly improved but still very elevated. MRCP negative for obstruction. Continue to monitor bilirrubin. Anasarca As seen on CT abdomen/pelvis described above. DC IV fluids and start on lasix 40 mg po bid. PROPH: -Bilateral lower extremity SCDs. Chemical DVT prophylaxis when appropriate from GI standpoint Discharge Planning Pending clinical improvement and GI clearance. Problem Qualifiers (1) UTI (urinary tract infection): Joshua Saeed MD Oct 21, 2017 17:27
[2017-10-21 20:00] VITALS: BP 94/58; PULSE 95; RESP 18; TEMP 97.8; O2SAT 95
[2017-10-22 00:43] VITALS: BP 115/69; PULSE 91; RESP 16; TEMP 97.7; O2SAT 94
[2017-10-22] MEDS ORDERED: LACTATED RINGER'S 1000 ML INJ 1,000 ML IV SCH (01:00)
[2017-10-22] MEDS: CHLORHEXIDINE GLUCONATE 2 % 1 PACK (2 CLOTHS) TOP SCH ×2 (03:16→20:19)
[2017-10-22] MEDS: LEVOTHYROXINE SODIUM 75 MCG TAB PO SCH (06:09)
[2017-10-22] MEDS: POTASSIUM PHOSPHATE/SODIUM PHOSPHATE 250 MG TAB PO SCH ×3 (06:10→20:18)
[2017-10-22 08:00] VITALS: BP 116/56; PULSE 80; RESP 22; TEMP 98; O2SAT 95
[2017-10-22] MEDS: FUROSEMIDE 40 MG TAB PO SCH ×2 (08:23→18:16)
[2017-10-22] MEDS: DULoxetine HCl DR 60 MG CAP PO SCH (08:23)
[2017-10-22] MEDS: MEGESTROL ACETATE SUSP 400 MG/10 ML CUP PO SCH (08:23)
[2017-10-22] MEDS: POTASSIUM CHLORIDE 20 MEQ CONTROLLED RELEASE TAB PO SCH ×2 (08:23→20:19)
[2017-10-22] MEDS: SODIUM CHLORIDE 0.9% FLUSH 10 ML FLUSH IV FLUSH SCH ×2 (08:23→20:19)
[2017-10-22] MEDS: PANTOPRAZOLE SOD 40 MG DELAYED RELEASE TAB PO SCH (08:23)
[2017-10-22] MEDS: SILVER SULFADIAZINE/LIDOCAINE CREAM 60 GM JAR RECTAL SCH ×2 (08:24→20:18)
[2017-10-22 10:31] LABS: HEMATOCRIT 22.8 % (35.0-46.0); HEMOGLOBIN 7.6 GM/DL (11.6-15.3); MEAN CELL VOLUME 97.9 FL (80.0-100.0); MEAN CORPUSCULAR HEMOGLOBIN 32.7 PG (27.0-34.0); MEAN CORPUSCULAR HGB CONC 33.4 % (32.0-36.0); MEAN PLATELET VOLUME 9.2 FL (7.0-11.0); PLATELET COUNT 178 TH/MM3 (150-450); RED BLOOD COUNT 2.33 MIL/MM3 (4.00-5.30); RED CELL DISTRIBUTION WIDTH 20.2 % (11.6-17.2); WHITE BLOOD COUNT 9.4 TH/MM3 (4.0-11.0)
[2017-10-22 10:53] LABS: ALKALINE PHOSPHATASE 287 U/L (45-117); TOTAL BILIRUBIN ADULT 7.7 MG/DL (0.2-1.0); TOTAL PROTEIN 6.1 GM/DL (6.4-8.2)
[2017-10-22 11:05] LABS: ALBUMIN 1.4 GM/DL (3.4-5.0); ALT (GPT) 33 U/L (10-53); AST (GOT) 157 U/L (15-37); BICARBONATE 18.5 MEQ/L (21.0-32.0); BLOOD UREA NITROGEN 6 MG/DL (7-18); CALCIUM 7.9 MG/DL (8.5-10.1); CHLORIDE 113 MEQ/L (98-107); CREATININE 0.56 MG/DL (0.50-1.00); DIRECT BILIRUBIN ADULT 6.5 MG/DL (0.0-0.2); GLOMERULAR FILTRATION RATE 107 ML/MIN (>89); GLUCOSE,RANDOM 54 MG/DL (74-106); INDIRECT BILIRUBIN 1.2 MG/DL (0.0-0.8); SODIUM (NA) 143 MEQ/L (136-145)
[2017-10-22 12:00] VITALS: BP 123/57; PULSE 80; RESP 20; TEMP 97.6; O2SAT 96
--- NOTE | 2017-10-22 14:23 | HHI.GIFU ---
Subjective Remarks Pt with poor PO intake Reports some improvement in symptoms today Denies nausea, vomiting (Karmen Orellana) Objective Vitals I&O Vital Signs Date Time Temp Pulse Resp B/P (MAP) Pulse Ox O2 Delivery O2 Flow Rate FiO2 10/22/17 10:59 95 Room Air 10/22/17 08:00 98.0 80 22 116/56 (76) 95 10/22/17 00:43 97.7 91 16 115/69 (84) 94 10/21/17 20:00 97.8 95 18 94/58 (70) 95 10/21/17 16:00 97.4 103 18 112/59 (76) 93 I/O 10/21/17 10/21/17 10/21/17 10/22/17 10/22/17 10/22/17 07:00 15:00 23:00 07:00 15:00 23:00 Intake Total 1000 ml 840 ml 1280 ml Output Total 200 ml 350 ml 260 ml Balance 800 ml 490 ml 1020 ml Intake Oral 840 ml 280 ml IV Total 1000 ml 1000 ml Output Urine Total 200 ml 350 ml 260 ml # Voids 3 # Bowel Movements 2 2 3 Laboratory Laboratory Tests Test 10/22/17 10:11 White Blood Count 9.4 Red Blood Count 2.33 Hemoglobin 7.6 Hematocrit 22.8 Mean Corpuscular Volume 97.9 Mean Corpuscular Hemoglobin 32.7 Mean Corpuscular Hemoglobin Concent 33.4 Red Cell Distribution Width 20.2 Platelet Count 178 Mean Platelet Volume 9.2 Blood Urea Nitrogen 6 Creatinine 0.56 Random Glucose 54 Total Protein 6.1 Albumin 1.4 Calcium Level 7.9 Alkaline Phosphatase 287 Aspartate Amino Transf (AST/SGOT) 157 Alanine Aminotransferase (ALT/SGPT) 33 Total Bilirubin 7.7 Direct Bilirubin 6.5 Sodium Level 143 Potassium Level 4.1 Chloride Level 113 Carbon Dioxide Level 18.5 Anion Gap 12 Estimat Glomerular Filtration Rate 107 Indirect Bilirubin 1.2 Date/Time Source Procedure Growth Status 10/09/17 14:45 Blood Peripheral Aerobic Blood Culture - Final NO GROWTH IN 5 DAYS Complete 10/09/17 14:45 Blood Peripheral Anaerobic Blood Culture - Final NO GROWTH IN 5 DAYS Complete 10/07/17 22:22 Urine Catheterized Urine Urine Culture - Final Escherichia Coli Complete Imaging Last Impressions Cholangiopancreatography MRI 5/31/18 0000 Signed Impressions: CONCLUSION: 1. No biliary ductal dilation identified. 2. Cirrhotic changes within the liver with mild enlargement of the spleen and mild ascites. Gastric Emptying Nuclear Medicine 10/18/17 Signed Impressions: CONCLUSION: 1. Normal gastric emptying half-time and kinetics. Abdomen/Pelvis CT 10/18/17 Signed Impressions: CONCLUSION: 1. Small perirectal abscess on the right side measuring 2.8 x 1.2 cm.. 2. Small amount of ascites in the upper abdomen. Small to moderate amount of a scites in the pelvis. 3. Scattered diverticula along the sigmoid colon. 4. Midline ventral abdominal wall hernia containing loops of small bowel witho ut obstruction. 5. Small bilateral pleural effusions with bibasilar atelectasis. Chest X-Ray 10/08/17 Signed Impressions: Service Date/Time: Tuesday, October 08, 2017 03:08 - CONCLUSION: 1. Right central line in superior vena cava. No pneumothorax or effusion. Maycol Looney MD Physical Exam HEENT: Normocephalic; atraumatic (+) icterus CHEST: Even/unlabored CARDIAC: RRR ABDOMEN: Distended, soft, nontender, bowel sounds active, ventral wall hernia EXTREMITIES: No clubbing, cyanosis, or edema. SKIN: Pale, no rash; (+) jaundice. SENIOR TECHNICAL SPECIALIST: Alert and oriented (Karmen Orellana [employer]) Assessment and Plan Plan Assessment: - Anemia with reports of coffee ground emesis and Hemoccult (+) stool H/H on admission 8.1/24.7 Pt denies history of GIB. Risk factors: Aleve q4hrs for long time, daily ETOH- 5 liquor drinks a day, smokes 1 PPD of cigarettes. Denies previous EGD. Last colonoscopy a year and a half ago, states findings of polyps EGD and colonoscopy on 10/11 --> gastritis, colon polyps, diverticulosis, internal and external hemorrhoids, and incomplete colonoscopy. Pathology (small intestine) without significant histopathologic abnormality (stomach antrum) reactive/chemical gastropathy (transverse colon polyp) adenomatous polyp (descending colon polyp) adenomatous polyp, fragments. - Unintentional weight loss- [address] abdomen and pelvis W/O IV contrast (10/09) Moderate stool in the rectum with findings concerning for a perirectal abscess measuring up to 6.3 cm. Evaluation of the perirectal region is significantly limited due to lack of contrast and beam hardening artifact from right hip arthroplasty. Cirrhotic appearing liver with trace ascites and mesenteric edema. Anterior abdominal wall hernia containing several loops of normal-appearing small bowel. 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 Associated epigastric pain, constant but worse after eating. Nausea also related to PO intake. Previous cholecystostomy. GES --> Normal gastric emptying half-time and kinetics CT abdomen and pelvis W IV contrast (10/18) Small perirectal abscess on the R side measuring 2.8 x 1.2 cm (smaller than previous exam), small amount of ascites in the upper abdomen. Small to moderate amount of ascites in the pelvis. Scattered diverticula along the sigmoid colon. Midline ventral abdominal wall hernia containing loops of small bowel without obstruction. MRCP --> No biliary ductal dilation identified. Cirrhotic changes within the liver with mild enlargement of the spleen and mild ascites (10/21) Labs from today pending, bilirubin has been trending up, will fractionate this. Imaging studies noted above. (10/22) No significant changes overnight. Bilirbuin and AST remain elevated, no clear etiology. Pt remains with poor PO intake, client technical professional is following and states poor PO intake, recommendations to continue Powell supplement. Plan: Monitor LFTs Protonix ETOH cessation Colonoscopy 2-3 months Supportive care Further recommendations based on clinical course Pt has been seen and examined by myself and Dr. Mckee and this note is written on his behalf (Karmen Orellana [facility]) Physician Comments Seen with Karmen, plan discussed with primary team. Active issues include, poor oral intake, worsening LFT's and placement after discharge. Agree with the need for Doppler US of the liver, frequent small meals for gastroparesis and encourage oral intake. Will follow up with you. (Steffen Mckee MD) Karmen Orellana Oct 22, 2017 14:23 Steffen Mckee MD Oct 22, 2017 16:29
[2017-10-22 16:00] VITALS: BP 122/59; PULSE 97; RESP 18; TEMP 97.6; O2SAT 97
--- NOTE | 2017-10-22 17:50 | HHI.PR ---
Subjective Remarks The patient states that abdominal pain still present but much improved. Denies nausea vomiting. States still has poor appetite. Denies fevers or chills. Objective Vitals Vital Signs Date Time Temp Pulse Resp B/P (MAP) Pulse Ox O2 Delivery O2 Flow Rate FiO2 10/22/17 16:00 97.6 97 18 122/59 (80) 97 10/22/17 12:00 97.6 80 20 123/57 (79) 96 10/22/17 10:59 95 Room Air 10/22/17 08:00 98.0 80 22 116/56 (76) 95 10/22/17 00:43 97.7 91 16 115/69 (84) 94 10/21/17 20:00 97.8 95 18 94/58 (70) 95 I/O 10/21/17 10/21/17 10/21/17 10/22/17 10/22/17 10/22/17 07:00 15:00 23:00 07:00 15:00 23:00 Intake Total 1000 ml 840 ml 1280 ml 240 ml Output Total 200 ml 350 ml 260 ml 800 ml Balance 800 ml 490 ml 1020 ml 240 ml -800 ml Intake Oral 840 ml 280 ml 240 ml IV Total 1000 ml 1000 ml Output Urine Total 200 ml 350 ml 260 ml 800 ml # Voids 3 2 # Bowel Movements 2 2 3 Result Diagram: 10/22/17 1011 10/22/17 1011 Imaging Last Impressions Cholangiopancreatography MRI 10/20/17 0000 Signed Impressions: CONCLUSION: 1. No biliary ductal dilation identified. 2. Cirrhotic changes within the liver with mild enlargement of the spleen and mild ascites. Gastric Emptying Nuclear Medicine 10/18/17 0000 Signed Impressions: CONCLUSION: 1. Normal gastric emptying half-time and kinetics. Abdomen/Pelvis CT 10/18/17 0000 Signed Impressions: CONCLUSION: 1. Small perirectal abscess on the right side measuring 2.8 x 1.2 cm.. 2. Small amount of ascites in the upper abdomen. Small to moderate amount of a scites in the pelvis. 3. Scattered diverticula along the sigmoid colon. 4. Midline ventral abdominal wall hernia containing loops of small bowel witho ut obstruction. 5. Small bilateral pleural effusions with bibasilar atelectasis. Chest X-Ray 10/08/17 0000 Signed Impressions: Service Date/Time: Sunday, October 08, 2017 03:08 - CONCLUSION: 1. Right central line in superior vena cava. No pneumothorax or effusion. Maycol Looney MD Objective Remarks NAD + jaundice + icteric sclera Lungs Clear to auscultation BL Abdomen is soft, tenderness to palpation is improving, Bs + Excoriation of right buttocks. neurologically intact Procedures SP EGD and colonoscopy Date of Insertion: October 13, 2017 A/P Problem List: (1) Septic shock ICD Code: A41.9 - Sepsis, unspecified organism; R65.21 - Severe sepsis with septic shock Status: Acute (2) Anemia requiring transfusions ICD Code: D64.9 - Anemia, unspecified (3) Upper GI bleed ICD Code: K92.2 - Gastrointestinal hemorrhage, unspecified (4) Lactic acidosis ICD Code: E87.2 - Acidosis Status: Resolved (5) UTI (urinary tract infection) ICD Code: N39.0 - Urinary tract infection, site not specified (6) Acute kidney injury ICD Code: N17.9 - Acute kidney failure, unspecified (7) Elevated bilirubin ICD Code: R17 - Unspecified jaundice (8) Hypokalemia ICD Code: E87.6 - Hypokalemia Status: Acute (9) Hypothermia ICD Code: T68.XXXA - Hypothermia, initial encounter (10) Alcohol dependence ICD Code: F10.20 - Alcohol dependence, uncomplicated Assessment and Plan Upper GI bleed/ possible cirrhosis/ N/V/ Abdominal pain Anemia EGD 10/11 - gastritis, duodenitis. No acitve bleeding. Biopsies sent. (Dr. Tatum). Colonoscopy 10/11 -diverticulosis, colon polyps, internal and external hemorrhoids. (Dr. Tatum) transverse colon and descending colon polypectomy were performed x2 and sent for path. - PPI. - Antiemetics as needed. - pain control as needed. - low residue diet. - add sucralfate. - trend LFTs. - reconsult GI for persistent nausea and decreased p.o. intake. 10/18 Patient's bilirrubin trending up with predominance of direct bilirubin over indirect bilirubin. Repeat CT abdomen and pelvis pending. 10/19 bilirubin keeps trending up now total bilirubin 6.1, with predominance of direct bilirubin. Agree with MRCP. 10/21 sp MRCP which does not show any type of obstruction. Septic shock/ UTI/ Perirectal abscess Colorectal surgery consult appreciated. 09/27 blood culture 1 out of 4 with GPC. urine culture -E. coli. Levophed weaned off. - antibiotics per ID. - holding antihypertensive meds. - monitor off of IVFs. Chronic pain/ Alcohol dependence Patient drinks about 5 alcoholic beverages daily. Patient states she is nonambulatory at baseline due to chronic pain, uses a motorized scooter. - Supplement thiamine, MVI. - cessation instruction. - PT/ OT. - pain control. Chest pain Serial troponins were negative. She states negative stress test at [facility] in [place] 3 years ago. Seems resolved. - Not candidate for ASA due to GI bleeding. - Not candidate for betablocker due to hypotension. Perirectal abscess CT abdomen and pelvis -findings concerning for perirectal abscess. - Colorectal surgery consulted, Dr. Yin evaluated. Not a candidate for surgery at this time. - continue wound care. Acute kidney insufficiency/ Hypokalemia/ Hypomagnesemia/ Hypophosphatemia Hyperchloremic metabolic acidosis Mg 0.8 10/16. - follow labs and replete lytes as needed. - monitor off of IVFs. 10/18 Magnesium, phosphorus still low. Replace with IV Magnesium sulfate and neutra-phos. 10/19 electrolytes much improved with potassium within normal range as well as magnesium., Phosphorus continues to be low. Continue Neutra-Phos. Electrolytes within normal range. NS discontinued. Acromegaly/ Hypothyroidism Previously was on Octreotide and had pituitary surgery in 1986. Random cortisol was normal. - Continue Synthroid 75 mcg p.o. daily. Decreased appetite/Poor oral intake Continue Megace. Transaminitis Hyperbilirrubinemia 10/22 AST continue to worsens. Unclear etiology. Possibly secondary to hepatic congestion due to anasarca and fluid overload. Start on Lasix 40 mg p.o. twice daily. Monitor strict I's and O's with the goal of keeping a negative balance. Elevated bilirubin continues to worsen. Total bilirubin went up from 7.2-7.7 with predominance of direct bilirubin that went up from 6.2-6.5. Continue to monitor bilirubin levels. The case was discussed in detail with Dr. Sims from gastroenterology. Will order a Anasarca As seen on CT abdomen/pelvis described above. Continue Lasix 4 mg p.o. twice daily. PROPH: -Bilateral lower extremity SCDs. Hold chemical DVT prophylaxis due to recent GI bleed. Discharge Planning Pending clinical improvement and GI clearance. Problem Qualifiers (1) UTI (urinary tract infection): Joshua Saeed MD Oct 22, 2017 17:50
[2017-10-22 20:00] VITALS: BP 117/65; PULSE 93; RESP 18; TEMP 97.3; O2SAT 95
[2017-10-23] VITALS: BP 113/58; PULSE 87; RESP 18; TEMP 97.8; O2SAT 95
[2017-10-23] MEDS: LEVOTHYROXINE SODIUM 75 MCG TAB PO SCH (06:06)
[2017-10-23] MEDS: POTASSIUM PHOSPHATE/SODIUM PHOSPHATE 250 MG TAB PO SCH ×3 (06:06→21:04)
[2017-10-23 08:00] VITALS: BP 105/55; PULSE 75; RESP 16; TEMP 97.8; O2SAT 96
[2017-10-23] MEDS: FUROSEMIDE 40 MG TAB PO SCH ×2 (08:02→16:44)
[2017-10-23] MEDS: PANTOPRAZOLE SOD 40 MG DELAYED RELEASE TAB PO SCH (08:02)
[2017-10-23] MEDS: DULoxetine HCl DR 60 MG CAP PO SCH (08:02)
[2017-10-23] MEDS: MEGESTROL ACETATE SUSP 400 MG/10 ML CUP PO SCH (08:02)
[2017-10-23] MEDS: POTASSIUM CHLORIDE 20 MEQ CONTROLLED RELEASE TAB PO SCH ×2 (08:02→21:05)
[2017-10-23] MEDS: SODIUM CHLORIDE 0.9% FLUSH 10 ML FLUSH IV FLUSH SCH ×2 (08:03→21:05)
[2017-10-23] MEDS: SILVER SULFADIAZINE/LIDOCAINE CREAM 60 GM JAR RECTAL SCH ×2 (08:04→21:07)
--- NOTE | 2017-10-23 11:08 | RADRPT ---
EXAM DATE: 10/23/2017 10:19 AM EDT AGE/SEX: 67 years / Female INDICATIONS: Portal vein thrombosis. CLINICAL DATA: This is the patient's subsequent encounter. Patient reports that signs and symptoms h ave been present for 1 day and indicates a pain score of 2/10. MEDICAL/SURGICAL HISTORY: . Hypertension. Diabetes. Cirrhosis. COPD. Acromegaly. [place] m. . Cholecystectomy. Hernia repair. Right hip replacement. Left knee replacement. Bilateral george ulder replacement. Pituitary surgery. COMPARISON: [facility], MRCP W/O CONTRAST, 10/20/2017. [facility], CT ABDOMEN & PELVIS W CONTRAST, 10/18/2017. [facility] [place], CT ABDOMEN & PELVIS W/O CONTRAST, 10/09/2017. . No external comparison. MEASUREMENTS: Liver:__ 15.2 cm. Common Bile Duct:___ 6mm. Right Kidney:___9.5 x 4.6 x 4.4 . Left Kidney:___ . Spleen:___14.7 . Aorta: The portion measures cm maximal. FINDINGS: Liver: Coarse echotexture suggesting fatty change or diffuse hepatocellular process. Portal Vein: Portal vein flow not visualized. Common Duct: No intraluminal mass or stone visualized. Gallbladder: Surgically Absent. Pancreas: The visualized portions are within normal limits Right Kidney: No mass or hydronephrosis Ascites: Moderate ascites is noted. Pleural Effusion: None Spleen: The spleen appears enlarged at 14.7 cm, increased in size as compared to the prior MRI which measured 12.1 cm. Increased arterial flow is identified within the hepatic artery and normal flow within the hepatic ve ins. The splenic vein and splenic artery are patent with normal waveforms. CONCLUSION: 1. Portal vein thrombosis. 2. Diffuse ascites with cirrhotic appearance of the liver and progressive enlargement of the spleen. 3. The hepatic artery is increased in caliber and flow. Normal flow is identified within the splenic artery and vein. Electronically signed by: Amelia Christensen MD 10/23/2017 11:07 AM EDT
--- NOTE | 2017-10-23 14:27 | HHI.GIFU ---
Subjective Remarks Pt resting in bed Poor PO intake Continued upper abdominal pain Denies nausea, vomiting (Karmen Orellana) Objective Vitals I&O Vital Signs Date Time Temp Pulse Resp B/P (MAP) Pulse Ox O2 Delivery O2 Flow Rate FiO2 10/23/17 08:00 97.8 75 16 105/55 (72) 96 10/23/17 00:00 97.8 87 18 113/58 (76) 95 10/22/17 20:00 97.3 93 18 117/65 (82) 95 10/22/17 16:00 97.6 97 18 122/59 (80) 97 I/O 10/22/17 10/22/17 10/22/17 10/23/17 10/23/17 10/23/17 07:00 15:00 23:00 07:00 15:00 23:00 Intake Total 1280 ml 240 ml 480 ml 0 ml Output Total 260 ml 800 ml Balance 1020 ml 240 ml -320 ml 0 ml Intake Oral 280 ml 240 ml 480 ml 0 ml IV Total 1000 ml Output Urine Total 260 ml 800 ml # Voids 3 2 3 5 # Bowel Movements 3 1 Laboratory Date/Time Source Procedure Growth Status 10/09/17 14:45 Blood Peripheral Aerobic Blood Culture - Final NO GROWTH IN 5 DAYS Complete 10/09/17 14:45 Blood Peripheral Anaerobic Blood Culture - Final NO GROWTH IN 5 DAYS Complete 10/07/17 22:22 Urine Catheterized Urine Urine Culture - Final Escherichia Coli Complete Imaging Last Impressions Liver Ultrasound 10/23/17 0000 Signed Impressions: CONCLUSION: 1. Portal vein thrombosis. 2. Diffuse ascites with cirrhotic appearance of the liver and progressive enla rgement of the spleen. 3. The hepatic artery is increased in caliber and flow. Normal flow is identif ied within the splenic artery and vein. Cholangiopancreatography MRI 10/20/17 0000 Signed Impressions: CONCLUSION: 1. No biliary ductal dilation identified. 2. Cirrhotic changes within the liver with mild enlargement of the spleen and mild ascites. Gastric Emptying Nuclear Medicine 10/18/17 0000 Signed Impressions: CONCLUSION: 1. Normal gastric emptying half-time and kinetics. Abdomen/Pelvis CT 10/18/17 0000 Signed Impressions: CONCLUSION: 1. Small perirectal abscess on the right side measuring 2.8 x 1.2 cm.. 2. Small amount of ascites in the upper abdomen. Small to moderate amount of a scites in the pelvis. 3. Scattered diverticula along the sigmoid colon. 4. Midline ventral abdominal wall hernia containing loops of small bowel witho ut obstruction. 5. Small bilateral pleural effusions with bibasilar atelectasis. Chest X-Ray 10/08/17 0000 Signed Impressions: Service Date/Time: Tuesday, October 08, 2017 03:08 - CONCLUSION: 1. Right central line in superior vena cava. No pneumothorax or effusion. Maycol Looney MD Physical Exam HEENT: Normocephalic; atraumatic (+) icterus CHEST: Even/unlabored CARDIAC: RRR ABDOMEN: Distended, soft, RUQ tenderness, bowel sounds active, ventral wall hernia EXTREMITIES: No clubbing, cyanosis, or edema. SKIN: Pale, no rash; (+) jaundice. 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 Risk factors: Aleve q4hrs for long time, daily ETOH- 5 liquor drinks a day, smokes 1 PPD of cigarettes. Denies previous EGD. Last colonoscopy a year and a half ago, states findings of polyps EGD and colonoscopy on 10/11 --> gastritis, colon polyps, diverticulosis, internal and external hemorrhoids, and incomplete colonoscopy. Pathology (small intestine) without significant histopathologic abnormality (stomach antrum) reactive/chemical gastropathy (transverse colon polyp) adenomatous polyp (descending colon polyp) adenomatous polyp, fragments. - Unintentional weight loss- [address] abdomen and pelvis W/O IV contrast (10/09) Moderate stool in the rectum with findings concerning for a perirectal abscess measuring up to 6.3 cm. Evaluation of the perirectal region is significantly limited due to lack of contrast and beam hardening artifact from right hip arthroplasty. Cirrhotic appearing liver with trace ascites and mesenteric edema. Anterior abdominal wall hernia containing several loops of normal-appearing small bowel. 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 Associated epigastric pain, constant but worse after eating. Nausea also related to PO intake. Previous cholecystostomy. GES --> Normal gastric emptying half-time and kinetics CT abdomen and pelvis W IV contrast (10/18) Small perirectal abscess on the R side measuring 2.8 x 1.2 cm (smaller than previous exam), small amount of ascites in the upper abdomen. Small to moderate amount of ascites in the pelvis. Scattered diverticula along the sigmoid colon. Midline ventral abdominal wall hernia containing loops of small bowel without obstruction. MRCP --> No biliary ductal dilation identified. Cirrhotic changes within the liver with mild enlargement of the spleen and mild ascites (10/21) Labs from today pending, bilirubin has been trending up, will fractionate this. Imaging studies noted above. (10/22) No significant changes overnight. Bilirbuin and AST remain elevated, no clear etiology. Pt remains with poor PO intake, diesel engine pipe fitter is following and states poor PO intake, recommendations to continue [place] supplement. (10/23) US Doppler liver --> Portal vein thrombosis. Diffuse ascites with cirrhotic appearance of the liver and progressive enlargement of the spleen. The hepatic artery is increased in caliber and flow. Normal flow is identified within the splenic artery and vein. Heparin gtt ordered per attending Will continue to monitor LFTs Encourage PO intake Plan: Heparin gtt per attending Monitor LFTs Protonix Encourage PO intake ETOH cessation Colonoscopy 2-3 months Supportive care Further recommendations based on clinical course Pt has been seen and examined by myself and Dr. Mckee and this note is written on his behalf (Karmen Orellana) Physician Comments Seen with Karmen, plan as above, agree with anticoagulation. Further recommendations to follow. (Steffen Mckee MD) Karmen Orellana Oct 23, 2017 14:27 Steffen Mckee MD Oct 23, 2017 14:33
[2017-10-23 16:00] VITALS: BP 109/58; PULSE 92; RESP 16; TEMP 97.4; O2SAT 97
[2017-10-23] MEDS: HEPARIN-D5W 25,000 U/250 ML 250 ML IV PRN (16:47)
[2017-10-23] MEDS: SODIUM CHLORIDE 0.9% FLUSH 10 ML FLUSH IV FLUSH PRN (16:50)
[2017-10-23 17:10] LABS: INTERNATIONAL NORMALIZED RATIO 1.8 RATIO; PROTHROMBIN TIME - PATIENT 17.9 SEC (9.8-11.6)
[2017-10-23 19:27] LABS: ALBUMIN 1.4 GM/DL (3.4-5.0); DIRECT BILIRUBIN ADULT 6.1 MG/DL (0.0-0.2)
[2017-10-23 19:29] LABS: INDIRECT BILIRUBIN 0.9 MG/DL (0.0-0.8)
[2017-10-23 20:00] VITALS: BP 100/61; PULSE 87; RESP 18; TEMP 97.4; O2SAT 97
[2017-10-23 23:20] LABS: HEMATOCRIT 24.7 % (35.0-46.0); HEMOGLOBIN 8.3 GM/DL (11.6-15.3); MEAN CELL VOLUME 98.7 FL (80.0-100.0); MEAN CORPUSCULAR HGB CONC 33.4 % (32.0-36.0); MEAN PLATELET VOLUME 8.8 FL (7.0-11.0); PLATELET COUNT 168 TH/MM3 (150-450); RED BLOOD COUNT 2.51 MIL/MM3 (4.00-5.30); RED CELL DISTRIBUTION WIDTH 20.7 % (11.6-17.2); WHITE BLOOD COUNT 8.2 TH/MM3 (4.0-11.0)
[2017-10-24] VITALS: BP 144/65; PULSE 98; RESP 18; TEMP 97.9; O2SAT 93
[2017-10-24 02:24] LABS: AUTOMATED NEUTROPHIL # 5.6 TH/MM3 (1.8-7.7); BASOPHIL # 0.1 TH/MM3 (0-0.2); BASOPHIL % 1.3 % (0.0-2.0); EOSINOPHIL # 0.1 TH/MM3 (0-0.4); HEMATOCRIT 23.6 % (35.0-46.0); HEMOGLOBIN 7.9 GM/DL (11.6-15.3); LYMPH % 19.2 % (9.0-44.0); LYMPHOCYTE # 1.5 TH/MM3 (1.0-4.8); MEAN CELL VOLUME 97.6 FL (80.0-100.0); MEAN CORPUSCULAR HEMOGLOBIN 32.6 PG (27.0-34.0); MEAN CORPUSCULAR HGB CONC 33.4 % (32.0-36.0); MEAN PLATELET VOLUME 8.3 FL (7.0-11.0); MONO % 5.1 % (0.0-8.0); MONOCYTE # 0.4 TH/MM3 (0-0.9); NEUT % 73.4 % (16.0-70.0); PLATELET COUNT 161 TH/MM3 (150-450); RED BLOOD COUNT 2.42 MIL/MM3 (4.00-5.30); RED CELL DISTRIBUTION WIDTH 20.6 % (11.6-17.2); WHITE BLOOD COUNT 7.6 TH/MM3 (4.0-11.0)
[2017-10-24 02:43] LABS: ALBUMIN 1.3 GM/DL (3.4-5.0); ALKALINE PHOSPHATASE 272 U/L (45-117); ALT (GPT) 29 U/L (10-53); AST (GOT) 112 U/L (15-37); BICARBONATE 24.2 MEQ/L (21.0-32.0); BLOOD UREA NITROGEN 6 MG/DL (7-18); CALCIUM 7.8 MG/DL (8.5-10.1); CHLORIDE 109 MEQ/L (98-107); CREATININE 0.82 MG/DL (0.50-1.00); GLOMERULAR FILTRATION RATE 69 ML/MIN (>89); GLUCOSE,RANDOM 67 MG/DL (74-106); SODIUM (NA) 145 MEQ/L (136-145); TOTAL BILIRUBIN ADULT 6.7 MG/DL (0.2-1.0)
[2017-10-24 02:46] LABS: STOMATOCYTES 2+ (NORMAL)
[2017-10-24] MEDS: CHLORHEXIDINE GLUCONATE 2 % 1 PACK (2 CLOTHS) TOP SCH (04:00)
[2017-10-24] MEDS: POTASSIUM PHOSPHATE/SODIUM PHOSPHATE 250 MG TAB PO SCH ×3 (05:20→22:27)
[2017-10-24] MEDS: LEVOTHYROXINE SODIUM 75 MCG TAB PO SCH (05:24)
[2017-10-24 08:00] VITALS: BP 115/56; PULSE 80; RESP 17; TEMP 97.8; O2SAT 95
[2017-10-24] MEDS: SILVER SULFADIAZINE/LIDOCAINE CREAM 60 GM JAR RECTAL SCH ×2 (09:00→22:27)
[2017-10-24] MEDS: PANTOPRAZOLE SOD 40 MG DELAYED RELEASE TAB PO SCH (09:39)
[2017-10-24] MEDS: FUROSEMIDE 40 MG TAB PO SCH ×2 (09:40→17:43)
[2017-10-24] MEDS: POTASSIUM CHLORIDE 20 MEQ CONTROLLED RELEASE TAB PO SCH ×2 (09:40→22:27)
[2017-10-24] MEDS: MEGESTROL ACETATE SUSP 400 MG/10 ML CUP PO SCH (09:40)
[2017-10-24] MEDS: SODIUM CHLORIDE 0.9% FLUSH 10 ML FLUSH IV FLUSH SCH ×2 (09:40→21:00)
[2017-10-24] MEDS: DULoxetine HCl DR 60 MG CAP PO SCH (09:40)
[2017-10-24] MEDS ORDERED: POTASSIUM CHLORIDE 10 MEQ CONTROLLED RELEASE TAB PO ONE (11:30)
[2017-10-24 12:00] VITALS: BP 99/57; PULSE 79; RESP 19; TEMP 97.6; O2SAT 94
[2017-10-24] MEDS: MAGNESIUM SULFATE 1 GM PREMIX 100 ML IV SCH ×2 (12:12→15:10)
--- NOTE | 2017-10-24 14:38 | HHI.GIFU ---
Subjective Remarks Pt resting in bed Drinking a milk shake Reports mild abdominal pain but seems to be improving Denies nausea, vomiting (Karmen Orellana) Objective Vitals I&O Vital Signs Date Time Temp Pulse Resp B/P (MAP) Pulse Ox O2 Delivery O2 Flow Rate FiO2 10/24/17 12:00 97.6 79 19 99/57 (71) 94 10/24/17 08:00 97.8 80 17 115/56 (75) 95 10/24/17 00:00 97.9 98 18 144/65 (91) 93 10/23/17 20:00 97.4 87 18 100/61 (74) 97 10/23/17 16:00 97.4 92 16 109/58 (75) 97 I/O 10/23/17 10/23/17 10/23/17 10/24/17 10/24/17 10/24/17 07:00 15:00 23:00 07:00 15:00 23:00 Intake Total 0 ml 120 ml Output Total 800 ml Balance 0 ml 120 ml -800 ml Intake Oral 0 ml 120 ml Output Urine Total 800 ml # Voids 5 3 # Bowel Movements 2 2 Laboratory Laboratory Tests Test 10/23/17 16:23 10/23/17 18:45 10/23/17 23:06 10/24/17 02:14 Prothrombin Time 17.9 Prothromb Time International Ratio 1.8 Activated Partial Thromboplast Time 32.4 107.4 49.7 Total Bilirubin 7.0 6.7 Direct Bilirubin 6.1 Indirect Bilirubin 0.9 Aspartate Amino Transf (AST/SGOT) 129 112 Alanine Aminotransferase (ALT/SGPT) 29 29 Alkaline Phosphatase 278 272 Total Protein 6.0 6.0 Albumin 1.4 1.3 White Blood Count 8.2 7.6 Red Blood Count 2.51 2.42 Hemoglobin 8.3 7.9 Hematocrit 24.7 23.6 Mean Corpuscular Volume 98.7 97.6 Mean Corpuscular Hemoglobin 33.0 32.6 Mean Corpuscular Hemoglobin Concent 33.4 33.4 Red Cell Distribution Width 20.7 20.6 Platelet Count 168 161 Mean Platelet Volume 8.8 8.3 Neutrophils (%) (Auto) 73.4 Lymphocytes (%) (Auto) 19.2 Monocytes (%) (Auto) 5.1 Eosinophils (%) (Auto) 1.0 Basophils (%) (Auto) 1.3 Neutrophils # (Auto) 5.6 Lymphocytes # (Auto) 1.5 Monocytes # (Auto) 0.4 Eosinophils # (Auto) 0.1 Basophils # (Auto) 0.1 CBC Comment AUTO DIFF Differential Comment AUTO DIFF CONFIRMED Platelet Estimate LOW Platelet Morphology Comment ENLARGED Stomatocytes 2+ Blood Urea Nitrogen 6 Creatinine 0.82 Random Glucose 67 Calcium Level 7.8 Sodium Level 145 Potassium Level 2.6 Chloride Level 109 Carbon Dioxide Level 24.2 Anion Gap 12 Estimat Glomerular Filtration Rate 69 Magnesium Level 1.0 Test 10/24/17 11:03 Activated Partial Thromboplast Time 116.1 Date/Time Source Procedure Growth Status 10/09/17 14:45 Blood Peripheral Aerobic Blood Culture - Final NO GROWTH IN 5 DAYS Complete 10/09/17 14:45 Blood Peripheral Anaerobic Blood Culture - Final NO GROWTH IN 5 DAYS Complete 10/24/17 08:00 Stool Stool Stool Occult Blood (GENI) - Final HEMOCCULT NEGATIVE Complete 10/07/17 22:22 Urine Catheterized Urine Urine Culture - Final Escherichia Coli Complete Imaging Last Impressions Liver Ultrasound 10/23/17 0000 Signed Impressions: CONCLUSION: 1. Portal vein thrombosis. 2. Diffuse ascites with cirrhotic appearance of the liver and progressive enla rgement of the spleen. 3. The hepatic artery is increased in caliber and flow. Normal flow is identif ied within the splenic artery and vein. Cholangiopancreatography MRI 10/20/17 0000 Signed Impressions: CONCLUSION: 1. No biliary ductal dilation identified. 2. Cirrhotic changes within the liver with mild enlargement of the spleen and mild ascites. Gastric Emptying Nuclear Medicine 10/18/17 0000 Signed Impressions: CONCLUSION: 1. Normal gastric emptying half-time and kinetics. Abdomen/Pelvis CT 10/18/17 0000 Signed Impressions: CONCLUSION: 1. Small perirectal abscess on the right side measuring 2.8 x 1.2 cm.. 2. Small amount of ascites in the upper abdomen. Small to moderate amount of a scites in the pelvis. 3. Scattered diverticula along the sigmoid colon. 4. Midline ventral abdominal wall hernia containing loops of small bowel witho ut obstruction. 5. Small bilateral pleural effusions with bibasilar atelectasis. Chest X-Ray 10/08/17 0000 Signed Impressions: Service Date/Time: Sunday, October 08, 2017 03:08 - CONCLUSION: 1. Right central line in superior vena cava. No pneumothorax or effusion. Maycol Looney MD Physical Exam HEENT: Normocephalic; atraumatic (+) icterus CHEST: Even/unlabored CARDIAC: RRR ABDOMEN: Distended, soft, RUQ tenderness, bowel sounds active, ventral wall hernia EXTREMITIES: No clubbing, cyanosis, or edema. SKIN: Pale, no rash; (+) jaundice. TORCH SOLDERER: Alert and oriented (Karmen Orellana FLOAT OPERATOR) Assessment and Plan Plan Assessment: - Anemia with reports of coffee ground emesis and Hemoccult (+) stool H/H on admission 8.1/24.7 Pt denies history of GIB. Risk factors: Aleve q4hrs for long time, daily ETOH- 5 liquor drinks a day, smokes 1 PPD of cigarettes. Denies previous EGD. Last colonoscopy a year and a half ago, states findings of polyps EGD and colonoscopy on 10/11 --> gastritis, colon polyps, diverticulosis, internal and external hemorrhoids, and incomplete colonoscopy. Pathology (small intestine) without significant histopathologic abnormality (stomach antrum) reactive/chemical gastropathy (transverse colon polyp) adenomatous polyp (descending colon polyp) adenomatous polyp, fragments. - Unintentional weight loss- [address] abdomen and pelvis W/O IV contrast (10/09) Moderate stool in the rectum with findings concerning for a perirectal abscess measuring up to 6.3 cm. Evaluation of the perirectal region is significantly limited due to lack of contrast and beam hardening artifact from right hip arthroplasty. Cirrhotic appearing liver with trace ascites and mesenteric edema. Anterior abdominal wall hernia containing several loops of normal-appearing small bowel. 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 Associated epigastric pain, constant but worse after eating. Nausea also related to PO intake. Previous cholecystostomy. GES --> Normal gastric emptying half-time and kinetics CT abdomen and pelvis W IV contrast (10/18) Small perirectal abscess on the R side measuring 2.8 x 1.2 cm (smaller than previous exam), small amount of ascites in the upper abdomen. Small to moderate amount of ascites in the pelvis. Scattered diverticula along the sigmoid colon. Midline ventral abdominal wall hernia containing loops of small bowel without obstruction. MRCP --> No biliary ductal dilation identified. Cirrhotic changes within the liver with mild enlargement of the spleen and mild ascites (10/21) Labs from today pending, bilirubin has been trending up, will fractionate this. Imaging studies noted above. (10/22) No significant changes overnight. Bilirbuin and AST remain elevated, no clear etiology. Pt remains with poor PO intake, acute care physician is following and states poor PO intake, recommendations to continue [place] supplement. (10/23) US Doppler liver --> Portal vein thrombosis. Diffuse ascites with cirrhotic appearance of the liver and progressive enlargement of the spleen. The hepatic artery is increased in caliber and flow. Normal flow is identified within the splenic artery and vein. Heparin gtt ordered per attending Will continue to monitor LFTs Encourage PO intake (10/24) Pt on Heparin gtt, slight improvement in bili and AST today. Our service will sign off, recommend careful anticoagulation at discharge. ASA recommended. Pt with heavy ETOH prior to arrival, needs to be taken into consideration regarding anticoagulation. Have pt follow up with GI after DC. Plan: Heparin gtt per attending Monitor LFTs Protonix Encourage PO intake ETOH cessation Colonoscopy 2-3 months Supportive care GI will sign off, please reconsult as needed Have pt follow up with GI after discharge Pt has been seen and examined by myself and Dr. Mckee and this note is written on his behalf (Karmen Orellana) Physician Comments Agree with the plan as above. Please notify us if needed again. Will need out patient follow up after discharge. (Steffen Mckee MD) Karmen Orellana Oct 24, 2017 14:38 Steffen Mckee MD Oct 24, 2017 15:54
[2017-10-24] MEDS: POTASSIUM CHLOR 20 MEQ PREMIX 100 ML IV SCH ×2 (15:10→17:44)
[2017-10-24] MEDS: HEPARIN-D5W 25,000 U/250 ML 250 ML IV PRN (15:30)
--- NOTE | 2017-10-24 15:52 | HHI.PR ---
Subjective Remarks Patient states is eating a little better Chief complaint of abdominal pain. Potassium and magnesium very low. Bilirubin trending down. Objective Vitals Vital Signs Date Time Temp Pulse Resp B/P (MAP) Pulse Ox O2 Delivery O2 Flow Rate FiO2 10/24/17 12:00 97.6 79 19 99/57 (71) 94 10/24/17 08:00 97.8 80 17 115/56 (75) 95 10/24/17 00:00 97.9 98 18 144/65 (91) 93 10/23/17 20:00 97.4 87 18 100/61 (74) 97 10/23/17 16:00 97.4 92 16 109/58 (75) 97 I/O 10/23/17 10/23/17 10/23/17 10/24/17 10/24/17 10/24/17 07:00 15:00 23:00 07:00 15:00 23:00 Intake Total 0 ml 120 ml Output Total 800 ml Balance 0 ml 120 ml -800 ml Intake Oral 0 ml 120 ml Output Urine Total 800 ml # Voids 5 3 # Bowel Movements 2 2 Result Diagram: 10/24/17 0214 10/24/17 0214 Imaging Last 72 hours Impressions Liver Ultrasound 10/23/17 0000 Signed Impressions: CONCLUSION: 1. Portal vein thrombosis. 2. Diffuse ascites with cirrhotic appearance of the liver and progressive enla rgement of the spleen. 3. The hepatic artery is increased in caliber and flow. Normal flow is identif ied within the splenic artery and vein. Objective Remarks NAD + jaundice + icteric sclera Lungs Clear to auscultation BL Abdomen is soft, tenderness to palpation is improving, Bs + Excoriation of right buttocks. neurologically intact Procedures SP EGD and colonoscopy Date of Insertion: October 13, 2017 A/P Problem List: (1) Septic shock ICD Code: A41.9 - Sepsis, unspecified organism; R65.21 - Severe sepsis with septic shock Status: Acute (2) Anemia requiring transfusions ICD Code: D64.9 - Anemia, unspecified (3) Upper GI bleed ICD Code: K92.2 - Gastrointestinal hemorrhage, unspecified (4) Lactic acidosis ICD Code: E87.2 - Acidosis Status: Resolved (5) UTI (urinary tract infection) ICD Code: N39.0 - Urinary tract infection, site not specified (6) Acute kidney injury ICD Code: N17.9 - Acute kidney failure, unspecified (7) Elevated bilirubin ICD Code: R17 - Unspecified jaundice (8) Hypokalemia ICD Code: E87.6 - Hypokalemia Status: Acute (9) Hypothermia ICD Code: T68.XXXA - Hypothermia, initial encounter (10) Alcohol dependence ICD Code: F10.20 - Alcohol dependence, uncomplicated Assessment and Plan Upper GI bleed/ possible cirrhosis/ N/V/ Abdominal pain Anemia EGD 10/11 - gastritis, duodenitis. No acitve bleeding. Biopsies sent. (Dr. Tatum). Colonoscopy 10/11 -diverticulosis, colon polyps, internal and external hemorrhoids. (Dr. Tatum) transverse colon and descending colon polypectomy were performed x2 and sent for path. - PPI. - Antiemetics as needed. - pain control as needed. - low residue diet. - add sucralfate. - trend LFTs. - reconsult GI for persistent nausea and decreased p.o. intake. 10/18 Patient's bilirrubin trending up with predominance of direct bilirubin over indirect bilirubin. Repeat CT abdomen and pelvis pending. 10/19 bilirubin keeps trending up now total bilirubin 6.1, with predominance of direct bilirubin. Agree with MRCP. 10/21 sp MRCP which does not show any type of obstruction. Septic shock/ UTI/ Perirectal abscess Colorectal surgery consult appreciated. 09/27 blood culture 1 out of 4 with GPC. urine culture -E. coli. Levophed weaned off. - antibiotics per ID. - holding antihypertensive meds. - monitor off of IVFs. Chronic pain/ Alcohol dependence Patient drinks about 5 alcoholic beverages daily. Patient states she is nonambulatory at baseline due to chronic pain, uses a motorized scooter. - Supplement thiamine, MVI. - cessation instruction. - PT/ OT. - pain control. Chest pain Serial troponins were negative. She states negative stress test at [facility] in [place] 3 years ago. Seems resolved. - Not candidate for ASA due to GI bleeding. - Not candidate for betablocker due to hypotension. Perirectal abscess CT abdomen and pelvis -findings concerning for perirectal abscess. - Colorectal surgery consulted, Dr. Yin evaluated. Not a candidate for surgery at this time. - continue wound care. Acute kidney insufficiency/ Hypokalemia/ Hypomagnesemia/ Hypophosphatemia Hyperchloremic metabolic acidosis Mg 0.8 10/16. - follow labs and replete lytes as needed. - monitor off of IVFs. 10/18 Magnesium, phosphorus still low. Replace with IV Magnesium sulfate and neutra-phos. 10/19 electrolytes much improved with potassium within normal range as well as magnesium., Phosphorus continues to be low. Continue Neutra-Phos. Electrolytes within normal range. NS discontinued. Acromegaly/ Hypothyroidism Previously was on Octreotide and had pituitary surgery in 1986. Random cortisol was normal. - Continue Synthroid 75 mcg p.o. daily. Decreased appetite/Poor oral intake Continue Megace. Transaminitis Hyperbilirrubinemia Portal vein thrombosis 10/22 AST continue to worsens. Unclear etiology. Possibly secondary to hepatic congestion due to anasarca and fluid overload. Start on Lasix 40 mg p.o. twice daily. Monitor strict I's and O's with the goal of keeping a negative balance. Elevated bilirubin continues to worsen. Total bilirubin went up from 7.2-7.7 with predominance of direct bilirubin that went up from 6.2-6.5. Continue to monitor bilirubin levels. 10/24 venous Doppler showed portal vein thrombosis. Patient started on IV heparin drip. Start bridge to Coumadin, goal INR 2-3. Bilirubin trending down. Continue to monitor LFTs Anasarca As seen on CT abdomen/pelvis described above. 10/24 decrease furosemide to 40 mg p.o. daily. PROPH: -Bilateral lower extremity SCDs. Hold chemical DVT prophylaxis due to recent GI bleed. Discharge Planning Pending clinical improvement and GI clearance. Problem Qualifiers (1) UTI (urinary tract infection): Joshua Saeed MD Oct 24, 2017 15:52
[2017-10-24 16:00] VITALS: BP 113/65; PULSE 84; RESP 16; TEMP 98.3; O2SAT 97
[2017-10-24] MEDS ORDERED: WARFARIN SOD 2 MG TAB PO ONE (16:15)
[2017-10-24 20:00] VITALS: BP 112/57; PULSE 80; RESP 22; TEMP 97.7; O2SAT 93
[2017-10-25] VITALS: BP 108/56; PULSE 82; RESP 22; TEMP 97.6; O2SAT 96
[2017-10-25 03:18] LABS: INTERNATIONAL NORMALIZED RATIO 2.1 RATIO; PROTHROMBIN TIME - PATIENT 21.2 SEC (9.8-11.6)
[2017-10-25] MEDS: CHLORHEXIDINE GLUCONATE 2 % 1 PACK (2 CLOTHS) TOP SCH (04:00)
[2017-10-25] MEDS: LEVOTHYROXINE SODIUM 75 MCG TAB PO SCH (05:46)
[2017-10-25] MEDS: POTASSIUM PHOSPHATE/SODIUM PHOSPHATE 250 MG TAB PO SCH ×3 (05:46→20:04)
[2017-10-25 07:40] VITALS: BP 123/60; PULSE 74; RESP 18; TEMP 97.4; O2SAT 95
[2017-10-25] MEDS: SODIUM CHLORIDE 0.9% FLUSH 10 ML FLUSH IV FLUSH SCH ×2 (08:46→20:04)
[2017-10-25] MEDS: MEGESTROL ACETATE SUSP 400 MG/10 ML CUP PO SCH (08:46)
[2017-10-25] MEDS: POTASSIUM CHLORIDE 20 MEQ CONTROLLED RELEASE TAB PO SCH ×2 (08:47→20:04)
[2017-10-25] MEDS: DULoxetine HCl DR 60 MG CAP PO SCH (08:47)
[2017-10-25] MEDS: SILVER SULFADIAZINE/LIDOCAINE CREAM 60 GM JAR RECTAL SCH ×2 (08:48→20:06)
[2017-10-25] MEDS: FUROSEMIDE 40 MG TAB PO SCH ×2 (08:48→17:23)
[2017-10-25] MEDS: PANTOPRAZOLE SOD 40 MG DELAYED RELEASE TAB PO SCH (08:48)
[2017-10-25 11:05] LABS: CREATININE 0.9 MG/DL (0.50-1.00)
[2017-10-25 11:17] LABS: BICARBONATE 21.8 MEQ/L (21.0-32.0); CALCIUM 7.8 MG/DL (8.5-10.1)
[2017-10-25] MEDS: ENOXAPARIN SODIUM 100 MG/ML SYRINGE SQ SCH ×2 (11:43→23:55)
[2017-10-25 12:00] VITALS: BP 108/65; PULSE 99; RESP 18; TEMP 97.6; O2SAT 93
[2017-10-25 16:00] VITALS: BP 97/60; PULSE 97; RESP 20; TEMP 98; O2SAT 93
[2017-10-25] MEDS ORDERED: WARFARIN SOD 2 MG TAB PO SCH (16:00)
--- NOTE | 2017-10-25 16:58 | HHI.PR ---
Subjective Remarks Patient seen during PT session. Patient complains of severe epigastric abdominal pain. As per report was in the room the patient is not eating at all. Appetite is poor. Objective Vitals Vital Signs Date Time Temp Pulse Resp B/P (MAP) Pulse Ox O2 Delivery O2 Flow Rate FiO2 10/25/17 12:00 97.6 99 18 108/65 (79) 93 10/25/17 07:40 97.4 74 18 123/60 (81) 95 10/25/17 00:00 97.6 82 22 108/56 (73) 96 10/24/17 20:00 97.7 80 22 112/57 (75) 93 I/O 10/24/17 10/24/17 10/24/17 10/25/17 10/25/17 10/25/17 07:00 15:00 23:00 07:00 15:00 23:00 Intake Total 100 ml 575 ml 0 ml Output Total 800 ml 600 ml Balance -800 ml 100 ml 575 ml -600 ml Intake Oral 275 ml 0 ml IV Total 100 ml 300 ml Output Urine Total 800 ml 600 ml # Voids 6 1 # Bowel Movements 2 1 2 Result Diagram: 10/24/17 0214 10/25/17 1015 Imaging Last Impressions Liver Ultrasound 10/23/17 0000 Signed Impressions: CONCLUSION: 1. Portal vein thrombosis. 2. Diffuse ascites with cirrhotic appearance of the liver and progressive enla rgement of the spleen. 3. The hepatic artery is increased in caliber and flow. Normal flow is identif ied within the splenic artery and vein. Cholangiopancreatography MRI 10/20/17 Signed Impressions: CONCLUSION: 1. No biliary ductal dilation identified. 2. Cirrhotic changes within the liver with mild enlargement of the spleen and mild ascites. Gastric Emptying Nuclear Medicine 10/18/17 Signed Impressions: CONCLUSION: 1. Normal gastric emptying half-time and kinetics. Abdomen/Pelvis CT 10/18/17 Signed Impressions: CONCLUSION: 1. Small perirectal abscess on the right side measuring 2.8 x 1.2 cm.. 2. Small amount of ascites in the upper abdomen. Small to moderate amount of a scites in the pelvis. 3. Scattered diverticula along the sigmoid colon. 4. Midline ventral abdominal wall hernia containing loops of small bowel witho ut obstruction. 5. Small bilateral pleural effusions with bibasilar atelectasis. Chest X-Ray 10/08/17 0000 Signed Impressions: Service Date/Time: Sunday, October 08, 2017 03:08 - CONCLUSION: 1. Right central line in superior vena cava. No pneumothorax or effusion. Maycol Looney MD Objective Remarks NAD + jaundice + icteric sclera Lungs Clear to auscultation BL Abdomen is soft, tenderness to palpation is improving, Bs + Excoriation of right buttocks. neurologically intact Procedures SP EGD and colonoscopy Date of Insertion: October 13, 2017 A/P Problem List: (1) Septic shock ICD Code: A41.9 - Sepsis, unspecified organism; R65.21 - Severe sepsis with septic shock Status: Acute (2) Anemia requiring transfusions ICD Code: D64.9 - Anemia, unspecified (3) Upper GI bleed ICD Code: K92.2 - Gastrointestinal hemorrhage, unspecified (4) Lactic acidosis ICD Code: E87.2 - Acidosis Status: Resolved (5) UTI (urinary tract infection) ICD Code: N39.0 - Urinary tract infection, site not specified (6) Acute kidney injury ICD Code: N17.9 - Acute kidney failure, unspecified (7) Elevated bilirubin ICD Code: R17 - Unspecified jaundice (8) Hypokalemia ICD Code: E87.6 - Hypokalemia Status: Acute (9) Hypothermia ICD Code: T68.XXXA - Hypothermia, initial encounter (10) Alcohol dependence ICD Code: F10.20 - Alcohol dependence, uncomplicated Assessment and Plan Upper GI bleed/liver cirrhosis/ N/V/ Abdominal pain Anemia EGD 10/11 - gastritis, duodenitis. No acitve bleeding. Biopsies sent. (Dr. Tatum). Colonoscopy 10/11 -diverticulosis, colon polyps, internal and external hemorrhoids. (Dr. Tatum) transverse colon and descending colon polypectomy were performed x2 and sent for path. - PPI. - Antiemetics as needed. - pain control as needed. - low residue diet. - add sucralfate. - trend LFTs. - reconsult GI for persistent nausea and decreased p.o. intake. 10/18 Patient's bilirrubin trending up with predominance of direct bilirubin over indirect bilirubin. Repeat CT abdomen and pelvis pending. 10/19 bilirubin keeps trending up now total bilirubin 6.1, with predominance of direct bilirubin. Agree with MRCP. 10/21 sp MRCP which does not show any type of obstruction. 10/25 the patient still with severe abdominal pain, not eating. Septic shock/ UTI/ Perirectal abscess Colorectal surgery consult appreciated. 09/27 blood culture 1 out of 4 with GPC. urine culture -E. coli. Levophed weaned off. - antibiotics per ID. - holding antihypertensive meds. - monitor off of IVFs. Chronic pain/ Alcohol dependence Patient drinks about 5 alcoholic beverages daily. Patient states she is nonambulatory at baseline due to chronic pain, uses a motorized scooter. - Supplement thiamine, MVI. - cessation instruction. - PT/ OT. - pain control. Chest pain Serial troponins were negative. She states negative stress test at [facility] in [place] 3 years ago. Seems resolved. - Not candidate for ASA due to GI bleeding. - Not candidate for betablocker due to hypotension. Perirectal abscess CT abdomen and pelvis -findings concerning for perirectal abscess. - Colorectal surgery consulted, Dr. Yin evaluated. Not a candidate for surgery at this time. - continue wound care. Acute kidney insufficiency/ Hypokalemia/ Hypomagnesemia/ Hypophosphatemia Hyperchloremic metabolic acidosis Mg 0.8 10/16. - follow labs and replete lytes as needed. - monitor off of IVFs. 10/18 Magnesium, phosphorus still low. Replace with IV Magnesium sulfate and neutra-phos. 10/19 electrolytes much improved with potassium within normal range as well as magnesium., Phosphorus continues to be low. Continue Neutra-Phos. 10/25 status post IV and oral potassium on 10/24 due to severe hypokalemia. Potassium today 3.1. We will continue to replace orally and monitor BMP. Patient status post IV magnesium sulfate on 10/24. Will recheck magnesium and replace as needed with IV magnesium sulfate. Acromegaly/ Hypothyroidism Previously was on Octreotide and had pituitary surgery in 1986. Random cortisol was normal. - Continue Synthroid 75 mcg p.o. daily. Decreased appetite/Poor oral intake Moderate protein calorie malnutrition Continue Megace. 10/25 Dietitian consulted, recommended [place] 3 times daily with meals. I will order. Transaminitis Hyperbilirrubinemia Portal vein thrombosis 10/22 AST continue to worsens. Unclear etiology. Possibly secondary to hepatic congestion due to anasarca and fluid overload. Start on Lasix 40 mg p.o. twice daily. Monitor strict I's and O's with the goal of keeping a negative balance. Elevated bilirubin continues to worsen. Total bilirubin went up from 7.2-7.7 with predominance of direct bilirubin that went up from 6.2-6.5. Continue to monitor bilirubin levels. Venous Doppler showed portal vein thrombosis. Patient started on IV heparin drip. Start bridge to Coumadin, goal INR 2-3. Bilirubin trending down. Continue to monitor LFTs 10/25 discontinued IV heparin drip and start on Lovenox 1 mg/kg subcutaneous twice daily. Lovenox bridge to Coumadin with a goal INR of 2-3. Continue to monitor LFTs, bilirubin. Anasarca As seen on CT abdomen/pelvis described above. 10/25 On lasix. continue. PROPH: -Bilateral lower extremity SCDs. Hold chemical DVT prophylaxis due to recent GI bleed. Discharge Planning Discharge pending clinical improvement. The patient still having abdominal pain and not eating. Patient will need to be eating appropriately prior to discharge. Problem Qualifiers (1) UTI (urinary tract infection): Joshua Saeed MD Oct 25, 2017 16:58
[2017-10-25 18:06] LABS: ALBUMIN 1.5 GM/DL (3.4-5.0); DIRECT BILIRUBIN ADULT 5.6 MG/DL (0.0-0.2); TOTAL BILIRUBIN ADULT 6.6 MG/DL (0.2-1.0); TOTAL PROTEIN 6.3 GM/DL (6.4-8.2)
[2017-10-25 20:00] VITALS: BP 126/62; PULSE 80; RESP 20; TEMP 97.4; O2SAT 95
[2017-10-26] VITALS: BP 100/56; PULSE 77; RESP 20; TEMP 98.3; O2SAT 94
[2017-10-26] MEDS: CHLORHEXIDINE GLUCONATE 2 % 1 PACK (2 CLOTHS) TOP SCH (04:00)
[2017-10-26] MEDS: POTASSIUM PHOSPHATE/SODIUM PHOSPHATE 250 MG TAB PO SCH ×3 (06:17→22:23)
[2017-10-26] MEDS: LEVOTHYROXINE SODIUM 75 MCG TAB PO SCH (06:17)
[2017-10-26 08:00] VITALS: BP 77/40; PULSE 100; RESP 18; TEMP 97.7; O2SAT 94
[2017-10-26 08:30] LABS: HEMATOCRIT 24.8 % (35.0-46.0); HEMOGLOBIN 8.4 GM/DL (11.6-15.3); MEAN CELL VOLUME 98.9 FL (80.0-100.0); MEAN CORPUSCULAR HEMOGLOBIN 33.4 PG (27.0-34.0); MEAN CORPUSCULAR HGB CONC 33.8 % (32.0-36.0); MEAN PLATELET VOLUME 8.4 FL (7.0-11.0); PLATELET COUNT 186 TH/MM3 (150-450); RED CELL DISTRIBUTION WIDTH 21.7 % (11.6-17.2); WHITE BLOOD COUNT 10.5 TH/MM3 (4.0-11.0)
[2017-10-26 08:39] LABS: INTERNATIONAL NORMALIZED RATIO 5.5 RATIO; PROTHROMBIN TIME - PATIENT 55.2 SEC (9.8-11.6)
[2017-10-26 08:43] VITALS: BP 92/52
[2017-10-26] MEDS: DULoxetine HCl DR 60 MG CAP PO SCH (08:47)
[2017-10-26] MEDS: FUROSEMIDE 40 MG TAB PO SCH ×2 (08:47→16:49)
[2017-10-26] MEDS: POTASSIUM CHLORIDE 20 MEQ CONTROLLED RELEASE TAB PO SCH (08:48)
[2017-10-26] MEDS: MEGESTROL ACETATE SUSP 400 MG/10 ML CUP PO SCH (08:48)
[2017-10-26] MEDS: PANTOPRAZOLE SOD 40 MG DELAYED RELEASE TAB PO SCH (08:48)
[2017-10-26] MEDS: SODIUM CHLORIDE 0.9% FLUSH 10 ML FLUSH IV FLUSH SCH ×2 (08:49→21:00)
[2017-10-26] MEDS: SILVER SULFADIAZINE/LIDOCAINE CREAM 60 GM JAR RECTAL SCH ×2 (08:49→22:23)
[2017-10-26 09:12] LABS: ALBUMIN 1.4 GM/DL (3.4-5.0); BICARBONATE 22.9 MEQ/L (21.0-32.0); CALCIUM 7.7 MG/DL (8.5-10.1); CREATININE 0.97 MG/DL (0.50-1.00); DIRECT BILIRUBIN ADULT 5.7 MG/DL (0.0-0.2); INDIRECT BILIRUBIN 0.8 MG/DL (0.0-0.8); MAGNESIUM 1.1 MG/DL (1.5-2.5); PHOSPHORUS 4.3 MG/DL (2.5-4.9); TOTAL BILIRUBIN ADULT 6.5 MG/DL (0.2-1.0); TOTAL PROTEIN 6.2 GM/DL (6.4-8.2)
[2017-10-26] MEDS ORDERED: POTASSIUM CHLORIDE 25 MEQ EFFERVESCENT TAB PO ONE (09:45)
[2017-10-26] MEDS: ENOXAPARIN SODIUM 100 MG/ML SYRINGE SQ SCH (10:10)
[2017-10-26 12:00] VITALS: BP 111/56; PULSE 95; RESP 19; TEMP 97.4; O2SAT 99
--- NOTE | 2017-10-26 15:35 | HHI.PR ---
Subjective Remarks 6-5 Patient seen during PT session. Patient complains of severe epigastric abdominal pain. As per report was in the room the patient is not eating at all. Appetite is poor. 6-6 POTASSIUM IS DECREASED WILL REPLACE AM LABS DW RN AND PT AND CM Objective Vitals Vital Signs Date Time Temp Pulse Resp B/P (MAP) Pulse Ox O2 Delivery O2 Flow Rate FiO2 10/26/17 12:00 97.4 95 19 111/56 (74) 99 10/26/17 08:43 92/52 (65) 10/26/17 08:00 97.7 100 18 77/40 (52) 94 10/26/17 00:00 98.3 77 20 100/56 (71) 94 10/25/17 20:00 97.4 80 20 126/62 (83) 95 10/25/17 16:00 98.0 97 20 97/60 (72) 93 I/O 10/25/17 10/25/17 10/25/17 10/26/17 10/26/17 10/26/17 07:00 15:00 23:00 07:00 15:00 23:00 Intake Total 0 ml 240 ml 0 ml Output Total 600 ml 800 ml 1000 ml Balance -600 ml -560 ml -1000 ml Intake Oral 0 ml 240 ml 0 ml Output Urine Total 600 ml 800 ml 1000 ml # Voids 1 5 # Bowel Movements 2 3 1 2 Result Diagram: 10/26/17 0810 10/26/17 0810 Other Results Laboratory Tests Test 10/23/17 16:23 10/23/17 18:45 10/23/17 23:06 10/24/17 02:14 Prothrombin Time 17.9 SEC Prothromb Time International Ratio 1.8 RATIO Activated Partial Thromboplast Time 32.4 SEC 107.4 SEC 49.7 SEC Total Bilirubin 7.0 MG/DL 6.7 MG/DL Direct Bilirubin 6.1 MG/DL Indirect Bilirubin 0.9 MG/DL Aspartate Amino Transf (AST/SGOT) 129 U/L 112 U/L Alanine Aminotransferase (ALT/SGPT) 29 U/L 29 U/L Alkaline Phosphatase 278 U/L 272 U/L Total Protein 6.0 GM/DL 6.0 GM/DL Albumin 1.4 GM/DL 1.3 GM/DL White Blood Count 8.2 TH/MM3 7.6 TH/MM3 Red Blood Count 2.51 MIL/MM3 2.42 MIL/MM3 Hemoglobin 8.3 GM/DL 7.9 GM/DL Hematocrit 24.7 % 23.6 % Mean Corpuscular Volume 98.7 FL 97.6 FL Mean Corpuscular Hemoglobin 33.0 PG 32.6 PG Mean Corpuscular Hemoglobin Concent 33.4 % 33.4 % Red Cell Distribution Width 20.7 % 20.6 % Platelet Count 168 TH/MM3 161 TH/MM3 Mean Platelet Volume 8.8 FL 8.3 FL Neutrophils (%) (Auto) 73.4 % Lymphocytes (%) (Auto) 19.2 % Monocytes (%) (Auto) 5.1 % Eosinophils (%) (Auto) 1.0 % Basophils (%) (Auto) 1.3 % Neutrophils # (Auto) 5.6 TH/MM3 Lymphocytes # (Auto) 1.5 TH/MM3 Monocytes # (Auto) 0.4 TH/MM3 Eosinophils # (Auto) 0.1 TH/MM3 Basophils # (Auto) 0.1 TH/MM3 CBC Comment AUTO DIFF Differential Comment AUTO DIFF CONFIRMED Platelet Estimate LOW Platelet Morphology Comment ENLARGED Stomatocytes 2+ Blood Urea Nitrogen 6 MG/DL Creatinine 0.82 MG/DL Random Glucose 67 MG/DL Calcium Level 7.8 MG/DL Sodium Level 145 MEQ/L Potassium Level 2.6 MEQ/L Chloride Level 109 MEQ/L Carbon Dioxide Level 24.2 MEQ/L Anion Gap 12 MEQ/L Estimat Glomerular Filtration Rate 69 ML/MIN Magnesium Level 1.0 MG/DL Test 10/24/17 11:03 10/24/17 18:50 10/25/17 02:56 10/25/17 10:15 Activated Partial Thromboplast Time 116.1 SEC 34.2 SEC 89.3 SEC 63.9 SEC Prothrombin Time 21.2 SEC Prothromb Time International Ratio 2.1 RATIO Blood Urea Nitrogen 6 MG/DL Creatinine 0.90 MG/DL Random Glucose 73 MG/DL Calcium Level 7.8 MG/DL Sodium Level 143 MEQ/L Potassium Level 3.1 MEQ/L Chloride Level 108 MEQ/L Carbon Dioxide Level 21.8 MEQ/L Anion Gap 13 MEQ/L Estimat Glomerular Filtration Rate 62 ML/MIN Total Bilirubin 6.6 MG/DL Direct Bilirubin 5.6 MG/DL Indirect Bilirubin 1.0 MG/DL Aspartate Amino Transf (AST/SGOT) 113 U/L Alanine Aminotransferase (ALT/SGPT) 28 U/L Alkaline Phosphatase 270 U/L Total Protein 6.3 GM/DL Albumin 1.5 GM/DL Test 10/26/17 08:10 White Blood Count 10.5 TH/MM3 Red Blood Count 2.50 MIL/MM3 Hemoglobin 8.4 GM/DL Hematocrit 24.8 % Mean Corpuscular Volume 98.9 FL Mean Corpuscular Hemoglobin 33.4 PG Mean Corpuscular Hemoglobin Concent 33.8 % Red Cell Distribution Width 21.7 % Platelet Count 186 TH/MM3 Mean Platelet Volume 8.4 FL Prothrombin Time 55.2 SEC Prothromb Time International Ratio 5.5 RATIO Blood Urea Nitrogen 6 MG/DL Creatinine 0.97 MG/DL Random Glucose 55 MG/DL Total Protein 6.2 GM/DL Albumin 1.4 GM/DL Calcium Level 7.7 MG/DL Phosphorus Level 4.3 MG/DL Magnesium Level 1.1 MG/DL Alkaline Phosphatase 259 U/L Aspartate Amino Transf (AST/SGOT) 95 U/L Alanine Aminotransferase (ALT/SGPT) 23 U/L Total Bilirubin 6.5 MG/DL Direct Bilirubin 5.7 MG/DL Sodium Level 144 MEQ/L Potassium Level 2.3 MEQ/L Chloride Level 107 MEQ/L Carbon Dioxide Level 22.9 MEQ/L Anion Gap 14 MEQ/L Estimat Glomerular Filtration Rate 57 ML/MIN Indirect Bilirubin 0.8 MG/DL Ammonia LESS THAN 10 MCMOL/L Imaging Last Impressions Liver Ultrasound 10/23/17 0000 Signed Impressions: CONCLUSION: 1. Portal vein thrombosis. 2. Diffuse ascites with cirrhotic appearance of the liver and progressive enla rgement of the spleen. 3. The hepatic artery is increased in caliber and flow. Normal flow is identif ied within the splenic artery and vein. Cholangiopancreatography MRI 10/20/17 0000 Signed Impressions: CONCLUSION: 1. No biliary ductal dilation identified. 2. Cirrhotic changes within the liver with mild enlargement of the spleen and mild ascites. Gastric Emptying Nuclear Medicine 10/18/17 0000 Signed Impressions: CONCLUSION: 1. Normal gastric emptying half-time and kinetics. Abdomen/Pelvis CT 10/18/17 0000 Signed Impressions: CONCLUSION: 1. Small perirectal abscess on the right side measuring 2.8 x 1.2 cm.. 2. Small amount of ascites in the upper abdomen. Small to moderate amount of a scites in the pelvis. 3. Scattered diverticula along the sigmoid colon. 4. Midline ventral abdominal wall hernia containing loops of small bowel witho ut obstruction. 5. Small bilateral pleural effusions with bibasilar atelectasis. Chest X-Ray 10/08/17 0000 Signed Impressions: Service Date/Time: Sunday, October 08, 2017 03:08 - CONCLUSION: 1. Right central line in superior vena cava. No pneumothorax or effusion. Maycol Looney MD Objective Remarks GENERAL: Awake and alert talkative cooperative jaundiced SKIN: Warm and dry. HEAD: Atraumatic. Normocephalic. EYES: Pupils equal and round. Positive scleral icterus. No injection or drainage. ENT: No nasal bleeding or discharge. Mucous membranes pink and moist. NECK: Trachea midline. No JVD. CARDIOVASCULAR: Regular rate and rhythm. S1-S2 no S3 or S4 RESPIRATORY: No accessory muscle use. Clear to auscultation. Breath sounds equal bilaterally. GASTROINTESTINAL: Abdomen soft, non-tender, nondistended. Hepatic and splenic margins not palpable. MUSCULOSKELETAL: Extremities without clubbing, cyanosis, or edema. No obvious deformities. NEUROLOGICAL: Awake and alert. No obvious cranial nerve deficits. Motor grossly within normal limits. Five out of 5 muscle strength in the arms and legs. Normal speech. PSYCHIATRIC: INAppropriate mood and affect; insight and judgment ABnormal. Procedures SP EGD and colonoscopy Medications and IVs Current Medications Sodium Chloride 1,000 ml @ 1,000 mls/hr Q1H ONCE IV Last administered on 21:09; Start 10/07/17 at 20:54; Stop 10/07/17 at 21:53; Status DC Sodium Chloride 1,000 ml @ 1,000 mls/hr Q1H ONCE IV Last administered on 21:10; Start 10/07/17 at 20:54; Stop 10/07/17 at 21:53; Status DC Sodium Chloride 400 ml @ 1,000 mls/hr Q24M ONCE IV Last administered on at 21:10; Start 10/07/17 at 20:54; Stop 10/07/17 at 21:17; Status DC Vancomycin HCl 1200 mg/Sodium Chloride 262 ml @ 250 mls/hr ONCE ONCE IV Last administered on 10/07/17at 22:20; Start 10/07/17 at 21:15; Stop 10/07/17 at 22:17 ; Status DC Cefepime HCl 2000 mg/Sodium Chloride 100 ml @ 200 mls/hr ONCE ONCE IV Last administered on 10/07/17at 21:28; Start 10/07/17 at 21:15; Stop 10/07/17 at 21:44 ; Status DC Pantoprazole Sodium 80 mg/ Sodium Chloride 35 ml @ 420 mls/hr Q5M ONCE IV Last administered on 10/07/17at 22:21; Start 10/07/17 at 21:20; Stop 10/07/17 at 21:24; Status DC Pantoprazole Sodium 80 mg/ Sodium Chloride 100 ml @ 10 mls/hr Q10H IV Last administered on 10/07/17at 22:21; Start 10/07/17 at 21:20; Stop 10/07/17 at 22:35 ; Status DC Octreotide Acetate 500 mcg/ Sodium Chloride 500.5 ml @ 50 mls/hr Q10H1M IV Last administered on 10/07/17at 22:19; Start 10/07/17 at 21:20; Stop 10/07/17 at 22:35; Status DC Norepinephrine Bitartrate 4 mg/ Sodium Chloride 250 ml @ 7.5 mls/hr TITRATE PRN IV Blood pressure management Last administered on 10/09/17at 21:27; Start at 22:00; Stop 10/11/17 at 23:00; Status DC Terbutaline Sulfate (Brethine Inj) 1 mg UNSCH PRN SQ For Extravasation; Start 10/07/17 at 22:00; Stop 10/11/17 at 23:00; Status DC Levothyroxine Sodium (Synthroid) 75 mcg DAILY@0600 PO Last administered on at 06:17; Start 10/08/17 at 06:00 Pantoprazole Sodium 80 mg/ Sodium Chloride 100 ml @ 10 mls/hr Q10H IV Last administered on 10/11/17at 20:09; Start 10/07/17 at 23:24; Stop 10/11/17 at 23:00 ; Status DC Octreotide Acetate 500 mcg/ Sodium Chloride 500 ml @ 25 mls/hr Q20H IV Last administered on 10/11/17at 20:08; Start 10/07/17 at 22:24; Stop 10/11/17 at 23:00 ; Status DC Sodium Chloride 1,000 ml @ 84 mls/hr [id number] IV Last administered on at 03:17; Start 10/07/17 at 22:25; Stop 10/12/17 at 12:48; Status DC Sodium Chloride (NS Flush) 2 ml UNSCH PRN IV FLUSH FLUSH AFTER USING IV ACCESS Last administered on 10/23/17at 16:50; Start 10/07/17 at 22:30 Sodium Chloride (NS Flush) 2 ml BID IV FLUSH Last administered on 10/26/17 08: 49; Start 10/08/17 at 09:00 Albuterol/ Ipratropium (Duoneb Neb) 1 ampule Q2HR NEB PRN INH WHEEZING; Start 10/07/17 at 22:30 Miscellaneous Information [place] [place] 1 [id number] XX Last administered on 10/07/17at 22:30; Start 10/07/17 at 22:30 Chlorhexidine Gluconate (Chlorhexidine 2% Cloth) Taper DAILY@04 TOP Last administered on 10/12/17at 04:00; Start 10/08/17 at 04:00; Stop 10/04/18 at 03:59 Chlorhexidine Gluconate (Chlorhexidine 2% Cloth) 3 pack UNSCH PRN TOP HYGIENIC CARE; Start 10/07/17 at 22:30 Cefepime HCl 1000 mg/Sodium Chloride 100 ml @ 200 mls/hr Q8H IV Last administered on 10/14/17at 04:25; Start 10/08/17 at 05:00; Stop 10/14/17 at 12:14 ; Status DC Vancomycin HCl 1000 mg/Sodium Chloride 250 ml @ 250 mls/hr ONCE ONCE IV ; Start 10/08/17 at 00:15; Stop 10/08/17 at 01:14; Status UNV Insulin Aspart (NovoLOG SUPPLEMENTAL SCALE) 1 Q4H SQ Last administered on at 20:30; Start 10/08/17 at 00:00; Stop 10/15/17 at 14:52; Status DC Potassium Chloride 100 ml @ 50 mls/hr Q2H PRN IV For Potassium 2.8 - 3.2 mEq/ L Last administered on 10/12/17at 06:47; Start 10/08/17 at 00:15; Stop 10/13/17 at 15:08; Status DC Potassium Chloride 100 ml @ 50 mls/hr Q2H PRN IV For Potassium 2.8 - 3.2 mEq/ L Last administered on 10/10/17at 13:12; Start 10/08/17 at 00:15; Stop 10/13/17 at 15:08; Status DC Potassium Bicarb/ Potassium Chloride (K-Lyte Cl Eff) 50 meq UNSCH PRN PO For Potassium 3.3 - 3.5 mEq/L; Start 10/08/17 at 00:15; Stop 10/13/17 at 15:08; Status DC Potassium Chloride 100 ml @ 25 mls/hr UNSCH PRN IV For Potassium 3.3 - 3.5 mEq /L Last administered on 10/12/17at 06:46; Start 10/08/17 at 00:15; Stop 10/13/17 at 15:08; Status DC Potassium Chloride 100 ml @ 50 mls/hr Q2H PRN IV For Potassium 3.3 - 3.5 mEq/L ; Start 10/08/17 at 00:15; Stop 10/13/17 at 15:08; Status DC Magnesium Sulfate 4 gm/Sodium Chloride 100 ml @ 50 mls/hr UNSCH PRN IV For Magnesium 0.9 - 1.1 mg/dL; Start 10/08/17 at 00:15; Stop 10/13/17 at 15:08; Status DC Magnesium Oxide (Mag-Ox) 800 mg UNSCH PRN PO For Magnesium 1.2 - 1.6 mg/dL; Start 10/08/17 at 00:15; Stop 10/13/17 at 15:08; Status DC Magnesium Sulfate 2 gm/Sodium Chloride 100 ml @ 50 mls/hr UNSCH PRN IV For Magnesium 1.2 - 1.6 mg/dL; Start 10/08/17 at 00:15; Stop 10/13/17 at 15:08; Status DC Potassium Phosphate (K-Phos) 2,000 mg Q4H PRN PO For Phosphorus < 2.5 mg/dL; Start 10/08/17 at 00:15; Stop 10/13/17 at 15:08; Status DC Sodium Phosphate 30 mmol/Sodium Chloride 250 ml @ 42 mls/hr UNSCH PRN IV For Phosphorus < 2.5 mg/dL; Start 10/08/17 at 00:15; Stop 10/13/17 at 15:08; Status DC Potassium Phosphate (K-Phos) 2,000 mg UNSCH PRN PO/TUBE SEE LABEL COMMENTS; Start 10/08/17 at 00:15; Stop 10/13/17 at 15:08; Status DC Potassium Phosphate 30 mmol/ Sodium Chloride 260 ml @ 42 mls/hr UNSCH PRN IV SEE LABEL COMMENTS; Start 10/08/17 at 00:15; Stop 10/13/17 at 15:08; Status DC Pantoprazole Sodium 80 mg/ Sodium Chloride 100 ml @ 10 mls/hr Q10H IV ; Start 10/08/17 at 01:06; Stop 10/08/17 at 01:06; Status DC Flumazenil (Romazicon Inj) 0.2 mg Q1M PRN IV PUSH SEE LABEL COMMENTS; Start at 01:00; Stop 10/22/17 at 00:48; Status DC Lorazepam (Ativan) 1 mg Q4H PRN PO CIWA 8 - 10; Start 10/08/17 at 01:00; Stop 10/22/17 at 00:48; Status DC Lorazepam (Ativan Inj) 1 mg Q4H PRN IV PUSH CIWA 8 - 10 Last administered on at 21:05; Start 10/08/17 at 01:00; Stop 10/22/17 at 00:48; Status DC Lorazepam (Ativan) 2 mg Q2H PRN PO CIWA 11-14; Start 10/08/17 at 01:00; Stop at 00:48; Status DC Lorazepam (Ativan Inj) 2 mg Q2H PRN IV PUSH CIWA 11-14; Start 10/08/17 at 01:00 ; Stop 10/22/17 at 00:48; Status DC Lorazepam (Ativan Inj) 2 mg Q1H PRN IV PUSH CIWA 15-20; Start 10/08/17 at 01:00 ; Stop 10/22/17 at 00:48; Status DC Lorazepam (Ativan Inj) 2 mg Q15M PRN IV PUSH CIWA > 20; Start 10/08/17 at 01:00 ; Stop 10/22/17 at 00:48; Status DC Multivitamins 10 ml/Thiamine HCl 100 mg/Folic Acid 1 mg/Sodium Chloride 511.2 ml @ 125 mls/hr DAILY IV Last administered on 10/13/17at 09:38; Start 10/08/17 at 09:00; Stop 10/13/17 at 15:59; Status DC Polyethylene Glycol/ Electrolytes (Colyte Liq) 4,000 ml ONCE ONCE PO Last administered on 10/09/17at 17:05; Start 10/09/17 at 16:00; Stop 10/09/17 at 16:01 ; Status DC Pharmacy Profile Note 0 ml @ 0 mls/hr UNSCH OTHER ; Start 10/09/17 at 13:45; Stop 10/12/17 at 09:41; Status DC Vancomycin HCl 1250 mg/Sodium Chloride 262.5 ml @ 250 mls/hr Q24H IV Last administered on 10/11/17at 15:48; Start 10/09/17 at 15:00; Stop 10/12/17 at 09:41 ; Status DC Miscellaneous Information [place] [facility] [place] SPECIFIC LAB TO BE ALEXIS... ONCE ONCE .XX ; Start 10/12/17 at 14:45; Stop 10/12/17 at 14:46; Status Cancel Lactated Ringer's 500 ml @ 999 mls/hr BOLUS ONCE IV Last administered on 10/09at 16:57; Start 10/09/17 at 16:15; Stop 10/09/17 at 16:45; Status DC Metronidazole (Flagyl) 500 mg Q8HR PO Last administered on 10/12/17at 05:42; Start 10/10/17 at 17:30; Stop 10/12/17 at 09:41; Status DC Miscellaneous Information [place] [place] ALL NURSING DEPARTME... UNSCH PRN .XX SEE LABEL COMMENTS; Start 10/11/17 at 19:26; Stop 10/12/17 at 19: 25; Status DC Pantoprazole Sodium (Protonix Inj) 40 mg Q24H IV PUSH Last administered on 10/13at 08:39; Start 10/12/17 at 09:00; Stop 10/13/17 at 15:56; Status DC Propofol (Diprivan 200 Mg/20 ml Inj) 400 mg STK-MED ONCE IV ; Start 10/11/17 at 12:00; Stop 10/13/17 at 13:14; Status DC Lidocaine HCl (Xylocaine-Mpf 1% Inj) 5 ml STK-MED ONCE OTHER ; Start 10/11/17 at 12:00; Stop 10/13/17 at 13:14; Status DC Phenylephrine HCl (Neosynephrine/ NS 1000 Mcg/10ml Syr) 1,000 mcg STK-MED ONCE IV ; Start 10/11/17 at 12:00; Stop 10/13/17 at 13:14; Status DC Pantoprazole Sodium (Protonix) 40 mg DAILY PO Last administered on 10/26/17at 08: 48; Start 10/14/17 at 09:00 Potassium Chloride (KCl) 30 meq ONCE ONCE PO Last administered on 10/13/17at 16 :13; Start 10/13/17 at 16:00; Stop 10/13/17 at 16:04; Status DC Fentanyl (Duragesic 25 Mcg Patch.72 Hr) 1 patch ONCE ONCE T-DERMAL Last administered on 10/13/17at 16:13; Start 10/13/17 at 16:00; Stop 10/13/17 at 16:03 ; Status DC Potassium Chloride 100 ml @ 100 mls/hr BOLUS ONCE IV Last administered on at 10:36; Start 10/14/17 at 11:00; Stop 10/14/17 at 11:59; Status DC Potassium Chloride (KCl) 20 meq Q12HR PO Last administered on 10/26/17at 08:48; Start 10/14/17 at 10:30; Stop 10/26/17 at 09:50; Status DC Levofloxacin (Levaquin) 750 mg DAILY PO Last administered on 10/21/17at 09:06; Start 10/14/17 at 13:00; Stop 10/21/17 at 23:00; Status DC Compound Med (Ritters Cream) 1 applic BID RECTAL Last administered on 10/26/17at 08:49; Start 10/14/17 at 13:15 Potassium Chloride/Dextrose/ Sod Cl 1,000 ml @ 100 mls/hr Q10H IV Last administered on 10/17/17at 06:45; Start 10/15/17 at 14:45; Stop 10/17/17 at 13:05 ; Status DC Duloxetine HCl (Cymbalta Dr) 60 mg DAILY PO Last administered on 10/26/17at 08:47 ; Start 10/15/17 at 16:30 Ondansetron HCl (Zofran Odt) 4 mg ONCE ONCE SL Last administered on at 10:54; Start 10/16/17 at 10:45; Stop 10/16/17 at 10:49; Status DC Ondansetron HCl (Zofran Odt) 4 mg Q8HR PRN SL nausea; Start 10/16/17 at 10:45 ; Stop 10/17/17 at 13:29; Status DC Magnesium Sulfate/ Dextrose 100 ml @ 100 mls/hr Q1H IV Last administered on at 15:51; Start 10/16/17 at 11:00; Stop 10/16/17 at 14:59; Status DC Prochlorperazine Edisylate (Compazine Inj) 10 mg ONCE ONCE IV PUSH Last administered on 10/16/17at 11:06; Start 10/16/17 at 11:00; Stop 10/16/17 at 11:01 ; Status DC Prochlorperazine Edisylate (Compazine Inj) 10 mg Q8H PRN IV PUSH NAUSEA OR VOMITING; Start 10/16/17 at 11:00 Sucralfate (Carafate Liq) 1 gm ACHS PO Last administered on 10/16/17at 19:59; Start 10/16/17 at 12:00; Stop 10/17/17 at 12:56; Status DC Ondansetron HCl (Zofran Inj) 4 mg ONCE ONCE IV PUSH ; Start 10/17/17 at 13:00; Stop 10/17/17 at 13:29; Status DC Levofloxacin (Levaquin) 250 mg ONCE ONCE PO Last administered on 10/17/17at 13: 50; Start 10/17/17 at 13:15; Stop 10/17/17 at 13:16; Status DC Prochlorperazine Edisylate (Compazine Inj) 10 mg ONCE ONCE IV PUSH Last administered on 10/17/17at 13:30; Start 10/17/17 at 13:30; Stop 10/17/17 at 14:00 ; Status DC Diatrizoate Meglum/ Diatrizoate Sod ( Gastroview Liq) 18 ml ONCE ONCE PO Last administered on 10/18/17at 10:00; Start 10/18/17 at 10:00; Stop 10/18/17 at 10:01; Status DC Iohexol (Omnipaque 350 Inj) 80 ml STK-MED ONCE IVCONTRAST Last administered on 10/18/17at 20:28; Start 10/18/17 at 20:28; Stop 10/18/17 at 20:29; Status DC Magnesium Sulfate/ Dextrose 100 ml @ 100 mls/hr Q1H IV Last administered on at 02:00; Start 10/19/17 at 01:00; Stop 10/19/17 at 02:59; Status DC Potassium Phos/ Sodium Phos (K-Phos Neutral) 250 mg Q8HR PO Last administered on 10/26/17at 13:03; Start 10/19/17 at 06:00 Sodium Chloride 1,000 ml @ 100 mls/hr Q10H IV Last administered on 10/21/17at 16 :01; Start 10/19/17 at 11:00; Stop 10/22/17 at 00:38; Status DC Sodium Chloride 500 ml @ 500 mls/hr BOLUS ONCE IV Last administered on at 05:30; Start 10/20/17 at 05:30; Stop 10/20/17 at 06:29; Status DC Megestrol Acetate (Megace Liq) 400 mg DAILY PO Last administered on 10/26/17at 08 :48; Start 10/22/17 at 09:00 Lactated Ringer's 1,000 ml @ 100 mls/hr Q10H IV ; Start 10/22/17 at 01:00; Stop 10/22/17 at 01:00; Status DC Furosemide (Lasix) 40 mg BID@,18 PO Last administered on 10/25/17at 17:23; Start 10/22/17 at 09:00 Heparin Sodium/ Dextrose 250 ml @ 16 mls/hr TITRATE PRN IV Coagulation Management Last administered on 10/24/17at 15:30; Start 10/23/17 at 13:45; Stop 10/25/17 at 10:21; Status DC Magnesium Sulfate/ Dextrose 100 ml @ 100 mls/hr Q1H IV Last administered on 15:10; Start 10/24/17 at 12:00; Stop 10/24/17 at 13:59; Status DC Potassium Chloride (KCl) 60 meq ONCE ONCE PO Last administered on 10/24/17at 12: 14; Start 10/24/17 at 11:30; Stop 10/24/17 at 11:31; Status DC Potassium Chloride 100 ml @ 50 mls/hr Q2H IV Last administered on 10/24/17at 17: 44; Start 10/24/17 at 12:00; Stop 10/24/17 at 15:59; Status DC Warfarin Sodium (Coumadin) 2 mg ONCE ONCE PO Last administered on 10/24/17 17: 43; Start 10/24/17 at 16:15; Stop 10/24/17 at 16:16; Status DC Pharmacy Profile Note 0 ml @ 0 mls/hr UNSCH OTHER ; Start 10/24/17 at 16:15 Patient Medication Teaching (Coumadin Booklet) 1 ONCE ONCE .XX Last administered on 10/24/17at 17:44; Start 10/24/17 at 16:15; Stop 10/24/17 at 16:16; Status DC Warfarin Sodium (Coumadin) 2 mg DAILY@1600 PO Last administered on 10/25/17at 14: 43; Start 10/25/17 at 16:00; Status Future Hold Enoxaparin Sodium (Lovenox Inj) 90 mg DAILY@1100,2300 SQ Last administered on at 10:10; Start 10/25/17 at 11:11; Stop 10/26/17 at 13:20; Status DC Potassium Bicarb/ Potassium Chloride (K-Lyte Cl Eff) 100 meq ONCE ONCE PO Last administered on 10/26/17at 10:09; Start 10/26/17 at 09:45; Stop 10/26/17 at 09: 49; Status DC Potassium Bicarb/ Potassium Chloride (K-Lyte Cl Eff) 50 meq DAILY PO ; Start at 09:00 Date of Insertion: October 13, 2017 A/P Problem List: (1) Septic shock ICD Code: A41.9 - Sepsis, unspecified organism; R65.21 - Severe sepsis with septic shock Status: Acute (2) Anemia requiring transfusions ICD Code: D64.9 - Anemia, unspecified (3) Upper GI bleed ICD Code: K92.2 - Gastrointestinal hemorrhage, unspecified (4) Lactic acidosis ICD Code: E87.2 - Acidosis Status: Resolved (5) UTI (urinary tract infection) ICD Code: N39.0 - Urinary tract infection, site not specified (6) Acute kidney injury ICD Code: N17.9 - Acute kidney failure, unspecified (7) Elevated bilirubin ICD Code: R17 - Unspecified jaundice (8) Hypokalemia ICD Code: E87.6 - Hypokalemia Status: Acute (9) Hypothermia ICD Code: T68.XXXA - Hypothermia, initial encounter (10) Alcohol dependence ICD Code: F10.20 - Alcohol dependence, uncomplicated Assessment and Plan Assessment and Plan Upper GI bleed/liver cirrhosis/ N/V/ Abdominal pain Anemia EGD 10/11 - gastritis, duodenitis. No acitve bleeding. Biopsies sent. (Dr. Tatum). Colonoscopy 10/11 -diverticulosis, colon polyps, internal and external hemorrhoids. (Dr. Tatum) transverse colon and descending colon polypectomy were performed x2 and sent for path. - PPI. - Antiemetics as needed. - pain control as needed. - low residue diet. - add sucralfate. - trend LFTs. - reconsult GI for persistent nausea and decreased p.o. intake. 10/18 Patient's bilirrubin trending up with predominance of direct bilirubin over indirect bilirubin. Repeat CT abdomen and pelvis pending. 10/19 bilirubin keeps trending up now total bilirubin 6.1, with predominance of direct bilirubin. Agree with MRCP. 10/21 sp MRCP which does not show any type of obstruction. 10/25 the patient still with severe abdominal pain, not eating. Septic shock/ UTI/ Perirectal abscess Colorectal surgery consult appreciated. 09/27 blood culture 1 out of 4 with GPC. urine culture -E. coli. Levophed weaned off. - antibiotics per ID. - holding antihypertensive meds. - monitor off of IVFs. Chronic pain/ Alcohol dependence Patient drinks about 5 alcoholic beverages daily. Patient states she is nonambulatory at baseline due to chronic pain, uses a motorized scooter. - Supplement thiamine, MVI. - cessation instruction. - PT/ OT. - pain control. Chest pain Serial troponins were negative. She states negative stress test at [facility] in [place] 3 years ago. Seems resolved. - Not candidate for ASA due to GI bleeding. - Not candidate for betablocker due to hypotension. Perirectal abscess CT abdomen and pelvis -findings concerning for perirectal abscess. - Colorectal surgery consulted, Dr. Yin evaluated. Not a candidate for surgery at this time. - continue wound care. Acute kidney insufficiency/ Hypokalemia/ Hypomagnesemia/ Hypophosphatemia Hyperchloremic metabolic acidosis Mg 0.8 10/16. - follow labs and replete lytes as needed. - monitor off of IVFs. 10/18 Magnesium, phosphorus still low. Replace with IV Magnesium sulfate and neutra-phos. 10/19 electrolytes much improved with potassium within normal range as well as magnesium., Phosphorus continues to be low. Continue Neutra-Phos. 10/25 status post IV and oral potassium on 10/24 due to severe hypokalemia. Potassium today 3.1. We will continue to replace orally and monitor BMP. Patient status post IV magnesium sulfate on 10/24. Will recheck magnesium and replace as needed with IV magnesium sulfate. Acromegaly/ Hypothyroidism Previously was on Octreotide and had pituitary surgery in 1986. Random cortisol was normal. - Continue Synthroid 75 mcg p.o. daily. Decreased appetite/Poor oral intake Moderate protein calorie malnutrition Continue Megace. 10/25 Dietitian consulted, recommended [place] 3 times daily with meals. I will order. Transaminitis Hyperbilirrubinemia Portal vein thrombosis 10/22 AST continue to worsens. Unclear etiology. Possibly secondary to hepatic congestion due to anasarca and fluid overload. Start on Lasix 40 mg p.o. twice daily. Monitor strict I's and O's with the goal of keeping a negative balance. Elevated bilirubin continues to worsen. Total bilirubin went up from 7.2-7.7 with predominance of direct bilirubin that went up from 6.2-6.5. Continue to monitor bilirubin levels. Venous Doppler showed portal vein thrombosis. Patient started on IV heparin drip. Start bridge to Coumadin, goal INR 2-3. Bilirubin trending down. Continue to monitor LFTs 10/25 discontinued IV heparin drip and start on Lovenox 1 mg/kg subcutaneous twice daily. Lovenox bridge to Coumadin with a goal INR of 2-3. Continue to monitor LFTs, bilirubin. Anasarca As seen on CT abdomen/pelvis described above. 10/25 On lasix. continue. PROPH: -Bilateral lower extremity SCDs. Hold chemical DVT prophylaxis due to recent GI bleed. Discharge Planning Discharge pending clinical improvement. The patient still having abdominal pain and not eating. Patient will need to be eating appropriately prior to discharge. Problem Qualifiers (1) UTI (urinary tract infection): Kulwinder Dodson DO Oct 26, 2017 15:35
[2017-10-26 16:00] VITALS: BP 111/58; PULSE 76; RESP 18; TEMP 98.1; O2SAT 93
[2017-10-26 20:00] VITALS: BP 98/56; PULSE 87; RESP 17; TEMP 97.6; O2SAT 93
[2017-10-27] VITALS: BP 100/68; PULSE 81; RESP 17; TEMP 97; O2SAT 94
[2017-10-27] MEDS: CHLORHEXIDINE GLUCONATE 2 % 1 PACK (2 CLOTHS) TOP SCH (04:00)
[2017-10-27] MEDS: POTASSIUM PHOSPHATE/SODIUM PHOSPHATE 250 MG TAB PO SCH ×3 (06:00→22:00)
[2017-10-27] MEDS: LEVOTHYROXINE SODIUM 75 MCG TAB PO SCH (06:27)
[2017-10-27 08:00] VITALS: BP 120/56; PULSE 91; RESP 18; TEMP 97.9; O2SAT 94
[2017-10-27 08:46] LABS: INTERNATIONAL NORMALIZED RATIO 4.6 RATIO; PROTHROMBIN TIME - PATIENT 46.2 SEC (9.8-11.6)
[2017-10-27] MEDS: SODIUM CHLORIDE 0.9% FLUSH 10 ML FLUSH IV FLUSH SCH ×2 (09:00→21:00)
[2017-10-27] MEDS ORDERED: POTASSIUM CHLORIDE 25 MEQ EFFERVESCENT TAB PO SCH (09:00)
[2017-10-27] MEDS: SILVER SULFADIAZINE/LIDOCAINE CREAM 60 GM JAR RECTAL SCH ×2 (09:00→21:59)
[2017-10-27 09:01] LABS: AUTOMATED NEUTROPHIL # 9.9 TH/MM3 (1.8-7.7); BASOPHIL # 0.1 TH/MM3 (0-0.2); BASOPHIL % 0.7 % (0.0-2.0); EOSINOPHIL % 0.3 % (0.0-4.0); HEMATOCRIT 25.7 % (35.0-46.0); HEMOGLOBIN 8.5 GM/DL (11.6-15.3); LYMPH % 12.3 % (9.0-44.0); LYMPHOCYTE # 1.5 TH/MM3 (1.0-4.8); MEAN CELL VOLUME 99.8 FL (80.0-100.0); MEAN CORPUSCULAR HGB CONC 33.1 % (32.0-36.0); MEAN PLATELET VOLUME 8.9 FL (7.0-11.0); MONO % 6.4 % (0.0-8.0); MONOCYTE # 0.8 TH/MM3 (0-0.9); NEUT % 80.3 % (16.0-70.0); PLATELET COUNT 202 TH/MM3 (150-450); RED BLOOD COUNT 2.58 MIL/MM3 (4.00-5.30); RED CELL DISTRIBUTION WIDTH 22.5 % (11.6-17.2); WHITE BLOOD COUNT 12.4 TH/MM3 (4.0-11.0)
[2017-10-27 09:04] LABS: ALBUMIN 1.4 GM/DL (3.4-5.0); ALKALINE PHOSPHATASE 267 U/L (45-117); ALT (GPT) 21 U/L (10-53); AST (GOT) 94 U/L (15-37); BICARBONATE 23.7 MEQ/L (21.0-32.0); BLOOD UREA NITROGEN 6 MG/DL (7-18); CALCIUM 7.1 MG/DL (8.5-10.1); CALCIUM-PROTEIN CORRECTED 7.5 MG/DL (8.5-10.1); CHLORIDE 107 MEQ/L (98-107); CREATININE 1.06 MG/DL (0.50-1.00); FREE T4 1.19 NG/DL (0.76-1.46); GLOMERULAR FILTRATION RATE 51 ML/MIN (>89); GLUCOSE,RANDOM 51 MG/DL (74-106); MAGNESIUM 1.1 MG/DL (1.5-2.5); PHOSPHORUS 4.1 MG/DL (2.5-4.9); SODIUM (NA) 144 MEQ/L (136-145); TOTAL PROTEIN 6.4 GM/DL (6.4-8.2)
[2017-10-27] MEDS ORDERED: POTASSIUM CHLORIDE 25 MEQ EFFERVESCENT TAB PO ONE (09:30)
[2017-10-27] MEDS: PANTOPRAZOLE SOD 40 MG DELAYED RELEASE TAB PO SCH (09:48)
[2017-10-27] MEDS: DULoxetine HCl DR 60 MG CAP PO SCH (09:49)
[2017-10-27] MEDS: FUROSEMIDE 40 MG TAB PO SCH ×2 (09:49→17:46)
[2017-10-27] MEDS: MEGESTROL ACETATE SUSP 400 MG/10 ML CUP PO SCH (09:49)
[2017-10-27 10:23] LABS: BANDS 11 % (0-6); LYMPHOCYTES 2 % (9-44); MONOCYTES 5 % (0-8); MYELOCYTES 3 % (0-0); NEUTROPHIL # MANUAL DIFF 11.4 TH/MM3 (1.8-7.7); POLYCHROMASIA 2.8 % (0.0-1.9); POLYS (SEG NEUTROPHILS) 78 % (16-70); TARGET CELLS 1+ (NORMAL)
[2017-10-27 10:24] LABS: TOXIC GRANULATION 1+ (NORMAL)
[2017-10-27 10:33] LABS: STOMATOCYTES 1+ (NORMAL)
[2017-10-27 12:00] VITALS: BP 122/68; PULSE 88; RESP 18; TEMP 97.8; O2SAT 93
--- NOTE | 2017-10-27 13:10 | HHI.PR ---
Subjective Remarks 6-5 Patient seen during PT session. Patient complains of severe epigastric abdominal pain. As per report was in the room the patient is not eating at all. Appetite is poor. 6- POTASSIUM IS DECREASED WILL REPLACE AM LABS DW RN AND PT AND CM 6- POTASSIUM IS STILL LOW SWITCH TO PO TABLETS DW RN AND PT AM LABS CALORIE COUNTS Objective Vitals Vital Signs Date Time Temp Pulse Resp B/P (MAP) Pulse Ox O2 Delivery O2 Flow Rate FiO2 10/27/17 12:00 97.8 88 18 122/68 (86) 93 10/27/17 08:00 97.9 91 18 120/56 (77) 94 10/27/17 00:00 97.0 81 17 100/68 (79) 94 10/26/17 20:00 97.6 87 17 98/56 (70) 93 10/26/17 16:00 98.1 76 18 111/58 (75) 93 I/O 10/26/17 10/26/17 10/26/17 10/27/17 10/27/17 10/27/17 07:00 15:00 23:00 07:00 15:00 23:00 Intake Total 0 ml 640 ml 240 ml Output Total 1000 ml 1000 ml 800 ml Balance -1000 ml -360 ml -560 ml Intake Oral 0 ml 640 ml 240 ml Output Urine Total 1000 ml 1000 ml 800 ml # Bowel Movements 1 2 4 1 Result Diagram: 10/27/17 0754 10/27/17 0754 Other Results Laboratory Tests Test 10/24/17 18:50 10/25/17 02:56 10/25/17 10:15 10/26/17 08:10 Activated Partial Thromboplast Time 34.2 SEC 89.3 SEC 63.9 SEC Prothrombin Time 21.2 SEC 55.2 SEC Prothromb Time International Ratio 2.1 RATIO 5.5 RATIO Blood Urea Nitrogen 6 MG/DL 6 MG/DL Creatinine 0.90 MG/DL 0.97 MG/DL Random Glucose 73 MG/DL 55 MG/DL Calcium Level 7.8 MG/DL 7.7 MG/DL Sodium Level 143 MEQ/L 144 MEQ/L Potassium Level 3.1 MEQ/L 2.3 MEQ/L Chloride Level 108 MEQ/L 107 MEQ/L Carbon Dioxide Level 21.8 MEQ/L 22.9 MEQ/L Anion Gap 13 MEQ/L 14 MEQ/L Estimat Glomerular Filtration Rate 62 ML/MIN 57 ML/MIN Total Bilirubin 6.6 MG/DL 6.5 MG/DL Direct Bilirubin 5.6 MG/DL 5.7 MG/DL Indirect Bilirubin 1.0 MG/DL 0.8 MG/DL Aspartate Amino Transf (AST/SGOT) 113 U/L 95 U/L Alanine Aminotransferase (ALT/SGPT) 28 U/L 23 U/L Alkaline Phosphatase 270 U/L 259 U/L Total Protein 6.3 GM/DL 6.2 GM/DL Albumin 1.5 GM/DL 1.4 GM/DL White Blood Count 10.5 TH/MM3 Red Blood Count 2.50 MIL/MM3 Hemoglobin 8.4 GM/DL Hematocrit 24.8 % Mean Corpuscular Volume 98.9 FL Mean Corpuscular Hemoglobin 33.4 PG Mean Corpuscular Hemoglobin Concent 33.8 % Red Cell Distribution Width 21.7 % Platelet Count 186 TH/MM3 Mean Platelet Volume 8.4 FL Phosphorus Level 4.3 MG/DL Magnesium Level 1.1 MG/DL Ammonia LESS THAN 10 MCMOL/L Test 10/27/17 07:54 White Blood Count 12.4 TH/MM3 Red Blood Count 2.58 MIL/MM3 Hemoglobin 8.5 GM/DL Hematocrit 25.7 % Mean Corpuscular Volume 99.8 FL Mean Corpuscular Hemoglobin 33.0 PG Mean Corpuscular Hemoglobin Concent 33.1 % Red Cell Distribution Width 22.5 % Platelet Count 202 TH/MM3 Mean Platelet Volume 8.9 FL Neutrophils (%) (Auto) 80.3 % Lymphocytes (%) (Auto) 12.3 % Monocytes (%) (Auto) 6.4 % Eosinophils (%) (Auto) 0.3 % Basophils (%) (Auto) 0.7 % Neutrophils # (Auto) 9.9 TH/MM3 Lymphocytes # (Auto) 1.5 TH/MM3 Monocytes # (Auto) 0.8 TH/MM3 Eosinophils # (Auto) 0.0 TH/MM3 Basophils # (Auto) 0.1 TH/MM3 CBC Comment AUTO DIFF Differential Total Cells Counted 100 Neutrophils % (Manual) 78 % Band Neutrophils % 11 % Lymphocytes % 2 % Monocytes % 5 % Eosinophils % 1 % Neutrophils # (Manual) 11.4 TH/MM3 Myelocytes 3 % Differential Comment FINAL DIFF MANUAL Toxic Granulation 1+ Platelet Estimate NORMAL Platelet Morphology Comment NORMAL Polychromasia 2.8 % Target Cells 1+ Stomatocytes 1+ Prothrombin Time 46.2 SEC Prothromb Time International Ratio 4.6 RATIO Blood Urea Nitrogen 6 MG/DL Creatinine 1.06 MG/DL Random Glucose 51 MG/DL Total Protein 6.4 GM/DL Albumin 1.4 GM/DL Calcium Level 7.1 MG/DL Phosphorus Level 4.1 MG/DL Magnesium Level 1.1 MG/DL Alkaline Phosphatase 267 U/L Aspartate Amino Transf (AST/SGOT) 94 U/L Alanine Aminotransferase (ALT/SGPT) 21 U/L Total Bilirubin 7.0 MG/DL Sodium Level 144 MEQ/L Potassium Level 2.8 MEQ/L Chloride Level 107 MEQ/L Carbon Dioxide Level 23.7 MEQ/L Anion Gap 13 MEQ/L Estimat Glomerular Filtration Rate 51 ML/MIN Protein Corrected Calcium 7.5 MG/DL Ammonia LESS THAN 10 MCMOL/L Amylase Level 18 U/L Free Thyroxine 1.19 NG/DL Thyroid Stimulating Hormone 3rd Gen 8.780 uIU/ML Imaging Last Impressions Liver Ultrasound 10/23/17 Signed Impressions: CONCLUSION: 1. Portal vein thrombosis. 2. Diffuse ascites with cirrhotic appearance of the liver and progressive enla rgement of the spleen. 3. The hepatic artery is increased in caliber and flow. Normal flow is identif ied within the splenic artery and vein. Cholangiopancreatography MRI 10/20/17 0000 Signed Impressions: CONCLUSION: 1. No biliary ductal dilation identified. 2. Cirrhotic changes within the liver with mild enlargement of the spleen and mild ascites. Gastric Emptying Nuclear Medicine 10/18/17 0000 Signed Impressions: CONCLUSION: 1. Normal gastric emptying half-time and kinetics. Abdomen/Pelvis CT 10/18/17 0000 Signed Impressions: CONCLUSION: 1. Small perirectal abscess on the right side measuring 2.8 x 1.2 cm.. 2. Small amount of ascites in the upper abdomen. Small to moderate amount of a scites in the pelvis. 3. Scattered diverticula along the sigmoid colon. 4. Midline ventral abdominal wall hernia containing loops of small bowel witho ut obstruction. 5. Small bilateral pleural effusions with bibasilar atelectasis. Chest X-Ray 10/08/17 0000 Signed Impressions: Service Date/Time: Sunday, October 08, 2017 03:08 - CONCLUSION: 1. Right central line in superior vena cava. No pneumothorax or effusion. Maycol Looney MD Objective Remarks GENERAL: Awake and alert talkative cooperative jaundiced SKIN: Warm and dry. HEAD: Atraumatic. Normocephalic. EYES: Pupils equal and round. Positive scleral icterus. No injection or drainage. ENT: No nasal bleeding or discharge. Mucous membranes pink and moist. NECK: Trachea midline. No JVD. CARDIOVASCULAR: Regular rate and rhythm. S1-S2 no S3 or S4 RESPIRATORY: No accessory muscle use. Clear to auscultation. Breath sounds equal bilaterally. GASTROINTESTINAL: Abdomen soft, non-tender, nondistended. Hepatic and splenic margins not palpable. MUSCULOSKELETAL: Extremities without clubbing, cyanosis, or edema. No obvious deformities. NEUROLOGICAL: Awake and alert. No obvious cranial nerve deficits. Motor grossly within normal limits. Five out of 5 muscle strength in the arms and legs. Normal speech. PSYCHIATRIC: INAppropriate mood and affect; insight and judgment ABnormal. Procedures SP EGD and colonoscopy Medications and IVs Current Medications Sodium Chloride 1,000 ml @ 1,000 mls/hr Q1H ONCE IV Last administered on 21:09; Start 10/07/17 at 20:54; Stop 10/07/17 at 21:53; Status DC Sodium Chloride 1,000 ml @ 1,000 mls/hr Q1H ONCE IV Last administered on 21:10; Start 10/07/17 at 20:54; Stop 10/07/17 at 21:53; Status DC Sodium Chloride 400 ml @ 1,000 mls/hr Q24M ONCE IV Last administered on at 21:10; Start 10/07/17 at 20:54; Stop 10/07/17 at 21:17; Status DC Vancomycin HCl 1200 mg/Sodium Chloride 262 ml @ 250 mls/hr ONCE ONCE IV Last administered on 10/07/17 22:20; Start 10/07/17 at 21:15; Stop 10/07/17 at 22:17 ; Status DC Cefepime HCl 2000 mg/Sodium Chloride 100 ml @ 200 mls/hr ONCE ONCE IV Last administered on 10/07/17at 21:28; Start 10/07/17 at 21:15; Stop 10/07/17 at 21:44 ; Status DC Pantoprazole Sodium 80 mg/ Sodium Chloride 35 ml @ 420 mls/hr Q5M ONCE IV Last administered on 10/07/17at 22:21; Start 10/07/17 at 21:20; Stop 10/07/17 at 21:24; Status DC Pantoprazole Sodium 80 mg/ Sodium Chloride 100 ml @ 10 mls/hr Q10H IV Last administered on 10/07/17at 22:21; Start 10/07/17 at 21:20; Stop 10/07/17 at 22:35 ; Status DC Octreotide Acetate 500 mcg/ Sodium Chloride 500.5 ml @ 50 mls/hr Q10H1M IV Last administered on 10/07/17at 22:19; Start 10/07/17 at 21:20; Stop 10/07/17 at 22:35; Status DC Norepinephrine Bitartrate 4 mg/ Sodium Chloride 250 ml @ 7.5 mls/hr TITRATE PRN IV Blood pressure management Last administered on 10/09/17at 21:27; Start at 22:00; Stop 10/11/17 at 23:00; Status DC Terbutaline Sulfate (Brethine Inj) 1 mg UNSCH PRN SQ For Extravasation; Start 10/07/17 at 22:00; Stop 10/11/17 at 23:00; Status DC Levothyroxine Sodium (Synthroid) 75 mcg DAILY@0600 PO Last administered on at 06:27; Start 10/08/17 at 06:00; Stop 10/27/17 at 09:27; Status DC Pantoprazole Sodium 80 mg/ Sodium Chloride 100 ml @ 10 mls/hr Q10H IV Last administered on 10/11/17at 20:09; Start 10/07/17 at 23:24; Stop 10/11/17 at 23:00 ; Status DC Octreotide Acetate 500 mcg/ Sodium Chloride 500 ml @ 25 mls/hr Q20H IV Last administered on 10/11/17at 20:08; Start 10/07/17 at 22:24; Stop 10/11/17 at 23:00 ; Status DC Sodium Chloride 1,000 ml @ 84 mls/hr [id number] IV Last administered on at 03:17; Start 10/07/17 at 22:25; Stop 10/12/17 at 12:48; Status DC Sodium Chloride (NS Flush) 2 ml UNSCH PRN IV FLUSH FLUSH AFTER USING IV ACCESS Last administered on 10/23/17at 16:50; Start 10/07/17 at 22:30 Sodium Chloride (NS Flush) 2 ml BID IV FLUSH Last administered on 10/26/17at 21: 00; Start 10/08/17 at 09:00 Albuterol/ Ipratropium (Duoneb Neb) 1 ampule Q2HR NEB PRN INH WHEEZING; Start 10/07/17 at 22:30 Miscellaneous Information ([facility] Nursing Information) 1 [id number] XX Last administered on 10/07/17at 22:30; Start 10/07/17 at 22:30 Chlorhexidine Gluconate (Chlorhexidine 2% Cloth) 3 pack Taper DAILY@04 TOP Last administered on 10/12/17at 04:00; Start 10/08/17 at 04:00; Stop 10/04/18 at 03:59 Chlorhexidine Gluconate (Chlorhexidine 2% Cloth) 3 pack UNSCH PRN TOP HYGIENIC CARE; Start 10/07/17 at 22:30 Cefepime HCl 1000 mg/Sodium Chloride 100 ml @ 200 mls/hr Q8H IV Last administered on 10/14/17at 04:25; Start 10/08/17 at 05:00; Stop 10/14/17 at 12:14 ; Status DC Vancomycin HCl 1000 mg/Sodium Chloride 250 ml @ 250 mls/hr ONCE ONCE IV ; Start 10/08/17 at 00:15; Stop 10/08/17 at 01:14; Status UNV Insulin Aspart (NovoLOG SUPPLEMENTAL SCALE) 1 Q4H SQ Last administered on at 20:30; Start 10/08/17 at 00:00; Stop 10/15/17 at 14:52; Status DC Potassium Chloride 100 ml @ 50 mls/hr Q2H PRN IV For Potassium 2.8 - 3.2 mEq/ L Last administered on 10/12/17at 06:47; Start 10/08/17 at 00:15; Stop 10/13/17 at 15:08; Status DC Potassium Chloride 100 ml @ 50 mls/hr Q2H PRN IV For Potassium 2.8 - 3.2 mEq/ L Last administered on 10/10/17at 13:12; Start 10/08/17 at 00:15; Stop 10/13/17 at 15:08; Status DC Potassium Bicarb/ Potassium Chloride (K-Lyte Cl Eff) 50 meq UNSCH PRN PO For Potassium 3.3 - 3.5 mEq/L; Start 10/08/17 at 00:15; Stop 10/13/17 at 15:08; Status DC Potassium Chloride 100 ml @ 25 mls/hr UNSCH PRN IV For Potassium 3.3 - 3.5 mEq /L Last administered on 10/12/17at 06:46; Start 10/08/17 at 00:15; Stop 10/13/17 at 15:08; Status DC Potassium Chloride 100 ml @ 50 mls/hr Q2H PRN IV For Potassium 3.3 - 3.5 mEq/L ; Start 10/08/17 at 00:15; Stop 10/13/17 at 15:08; Status DC Magnesium Sulfate 4 gm/Sodium Chloride 100 ml @ 50 mls/hr UNSCH PRN IV For Magnesium 0.9 - 1.1 mg/dL; Start 10/08/17 at 00:15; Stop 10/13/17 at 15:08; Status DC Magnesium Oxide (Mag-Ox) 800 mg UNSCH PRN PO For Magnesium 1.2 - 1.6 mg/dL; Start 10/08/17 at 00:15; Stop 10/13/17 at 15:08; Status DC Magnesium Sulfate 2 gm/Sodium Chloride 100 ml @ 50 mls/hr UNSCH PRN IV For Magnesium 1.2 - 1.6 mg/dL; Start 10/08/17 at 00:15; Stop 10/13/17 at 15:08; Status DC Potassium Phosphate (K-Phos) 2,000 mg Q4H PRN PO For Phosphorus < 2.5 mg/dL; Start 10/08/17 at 00:15; Stop 10/13/17 at 15:08; Status DC Sodium Phosphate 30 mmol/Sodium Chloride 250 ml @ 42 mls/hr UNSCH PRN IV For Phosphorus < 2.5 mg/dL; Start 10/08/17 at 00:15; Stop 10/13/17 at 15:08; Status DC Potassium Phosphate (K-Phos) 2,000 mg UNSCH PRN PO/TUBE SEE LABEL COMMENTS; Start 10/08/17 at 00:15; Stop 10/13/17 at 15:08; Status DC Potassium Phosphate 30 mmol/ Sodium Chloride 260 ml @ 42 mls/hr UNSCH PRN IV SEE LABEL COMMENTS; Start 10/08/17 at 00:15; Stop 10/13/17 at 15:08; Status DC Pantoprazole Sodium 80 mg/ Sodium Chloride 100 ml @ 10 mls/hr Q10H IV ; Start 10/08/17 at 01:06; Stop 10/08/17 at 01:06; Status DC Flumazenil (Romazicon Inj) 0.2 mg Q1M PRN IV PUSH SEE LABEL COMMENTS; Start at 01:00; Stop 10/22/17 at 00:48; Status DC Lorazepam (Ativan) 1 mg Q4H PRN PO CIWA 8 - 10; Start 10/08/17 at 01:00; Stop 10/22/17 at 00:48; Status DC Lorazepam (Ativan Inj) 1 mg Q4H PRN IV PUSH CIWA 8 - 10 Last administered on at 21:05; Start 10/08/17 at 01:00; Stop 10/22/17 at 00:48; Status DC Lorazepam (Ativan) 2 mg Q2H PRN PO CIWA 11-14; Start 10/08/17 at 01:00; Stop at 00:48; Status DC Lorazepam (Ativan Inj) 2 mg Q2H PRN IV PUSH CIWA 11-14; Start 10/08/17 at 01:00 ; Stop 10/22/17 at 00:48; Status DC Lorazepam (Ativan Inj) 2 mg Q1H PRN IV PUSH CIWA 15-20; Start 10/08/17 at 01:00 ; Stop 10/22/17 at 00:48; Status DC Lorazepam (Ativan Inj) 2 mg Q15M PRN IV PUSH CIWA > 20; Start 10/08/17 at 01:00 ; Stop 10/22/17 at 00:48; Status DC Multivitamins 10 ml/Thiamine HCl 100 mg/Folic Acid 1 mg/Sodium Chloride 511.2 ml @ 125 mls/hr DAILY IV Last administered on 10/13/17at 09:38; Start 10/08/17 at 09:00; Stop 10/13/17 at 15:59; Status DC Polyethylene Glycol/ Electrolytes (Colyte Liq) 4,000 ml ONCE ONCE PO Last administered on 10/09/17at 17:05; Start 10/09/17 at 16:00; Stop 10/09/17 at 16:01 ; Status DC Pharmacy Profile Note 0 ml @ 0 mls/hr UNSCH OTHER ; Start 10/09/17 at 13:45; Stop 10/12/17 at 09:41; Status DC Vancomycin HCl 1250 mg/Sodium Chloride 262.5 ml @ 250 mls/hr Q24H IV Last administered on 10/11/17at 15:48; Start 10/09/17 at 15:00; Stop 10/12/17 at 09:41 ; Status DC Miscellaneous Information ([facility] Ordered Lab Info) SPECIFIC LAB TO BE ALEXIS... ONCE ONCE .XX ; Start 10/12/17 at 14:45; Stop 10/12/17 at 14:46; Status Cancel Lactated Ringer's 500 ml @ 999 mls/hr BOLUS ONCE IV Last administered on 10/09at 16:57; Start 10/09/17 at 16:15; Stop 10/09/17 at 16:45; Status DC Metronidazole (Flagyl) 500 mg Q8HR PO Last administered on 10/12/17at 05:42; Start 10/10/17 at 17:30; Stop 10/12/17 at 09:41; Status DC Miscellaneous Information ([facility] Nursing Information) ALL NURSING DEPARTME... UNSCH PRN .XX SEE LABEL COMMENTS; Start 10/11/17 at 19:26; Stop 10/12/17 at 19: 25; Status DC Pantoprazole Sodium (Protonix Inj) 40 mg Q24H IV PUSH Last administered on 10/13at 08:39; Start 10/12/17 at 09:00; Stop 10/13/17 at 15:56; Status DC Propofol (Diprivan 200 Mg/20 ml Inj) 400 mg STK-MED ONCE IV ; Start 10/11/17 at 12:00; Stop 10/13/17 at 13:14; Status DC Lidocaine HCl (Xylocaine-Mpf 1% Inj) 5 ml STK-MED ONCE OTHER ; Start 10/11/17 at 12:00; Stop 10/13/17 at 13:14; Status DC Phenylephrine HCl (Neosynephrine/ NS 1000 Mcg/10ml Syr) 1,000 mcg STK-MED ONCE IV ; Start 10/11/17 at 12:00; Stop 10/13/17 at 13:14; Status DC Pantoprazole Sodium (Protonix) 40 mg DAILY PO Last administered on 10/27/17 09: 48; Start 10/14/17 at 09:00 Potassium Chloride (KCl) 30 meq ONCE ONCE PO Last administered on 10/13/17at 16 :13; Start 10/13/17 at 16:00; Stop 10/13/17 at 16:04; Status DC Fentanyl (Duragesic 25 Mcg Patch.72 Hr) 1 patch ONCE ONCE T-DERMAL Last administered on 10/13/17at 16:13; Start 10/13/17 at 16:00; Stop 10/13/17 at 16:03 ; Status DC Potassium Chloride 100 ml @ 100 mls/hr BOLUS ONCE IV Last administered on at 10:36; Start 10/14/17 at 11:00; Stop 10/14/17 at 11:59; Status DC Potassium Chloride (KCl) 20 meq Q12HR PO Last administered on 10/26/17 08:48; Start 10/14/17 at 10:30; Stop 10/26/17 at 09:50; Status DC Levofloxacin (Levaquin) 750 mg DAILY PO Last administered on 10/21/17at 09:06; Start 10/14/17 at 13:00; Stop 10/21/17 at 23:00; Status DC Compound Med (Ritters Cream) 1 applic BID RECTAL Last administered on 10/27/17 09:00; Start 10/14/17 at 13:15 Potassium Chloride/Dextrose/ Sod Cl 1,000 ml @ 100 mls/hr Q10H IV Last administered on 10/17/17at 06:45; Start 10/15/17 at 14:45; Stop 10/17/17 at 13:05 ; Status DC Duloxetine HCl (Cymbalta Dr) 60 mg DAILY PO Last administered on 10/27/17 09:49 ; Start 10/15/17 at 16:30 Ondansetron HCl (Zofran Odt) 4 mg ONCE ONCE SL Last administered on at 10:54; Start 10/16/17 at 10:45; Stop 10/16/17 at 10:49; Status DC Ondansetron HCl (Zofran Odt) 4 mg Q8HR PRN SL nausea; Start 10/16/17 at 10:45 ; Stop 10/17/17 at 13:29; Status DC Magnesium Sulfate/ Dextrose 100 ml @ 100 mls/hr Q1H IV Last administered on at 15:51; Start 10/16/17 at 11:00; Stop 10/16/17 at 14:59; Status DC Prochlorperazine Edisylate (Compazine Inj) 10 mg ONCE ONCE IV PUSH Last administered on 10/16/17at 11:06; Start 10/16/17 at 11:00; Stop 10/16/17 at 11:01 ; Status DC Prochlorperazine Edisylate (Compazine Inj) 10 mg Q8H PRN IV PUSH NAUSEA OR VOMITING; Start 10/16/17 at 11:00 Sucralfate (Carafate Liq) 1 gm ACHS PO Last administered on 10/16/17at 19:59; Start 10/16/17 at 12:00; Stop 10/17/17 at 12:56; Status DC Ondansetron HCl (Zofran Inj) 4 mg ONCE ONCE IV PUSH ; Start 10/17/17 at 13:00; Stop 10/17/17 at 13:29; Status DC Levofloxacin (Levaquin) 250 mg ONCE ONCE PO Last administered on 10/17/17at 13: 50; Start 10/17/17 at 13:15; Stop 10/17/17 at 13:16; Status DC Prochlorperazine Edisylate (Compazine Inj) 10 mg ONCE ONCE IV PUSH Last administered on 10/17/17at 13:30; Start 10/17/17 at 13:30; Stop 10/17/17 at 14:00 ; Status DC Diatrizoate Meglum/ Diatrizoate Sod (Md Gastroview Liq) 18 ml ONCE ONCE PO Last administered on 10/18/17at 10:00; Start 10/18/17 at 10:00; Stop 10/18/17 at 10:01; Status DC Iohexol (Omnipaque 350 Inj) 80 ml STK-MED ONCE IVCONTRAST Last administered on 10/18/17at 20:28; Start 10/18/17 at 20:28; Stop 10/18/17 at 20:29; Status DC Magnesium Sulfate/ Dextrose 100 ml @ 100 mls/hr Q1H IV Last administered on at 02:00; Start 10/19/17 at 01:00; Stop 10/19/17 at 02:59; Status DC Potassium Phos/ Sodium Phos (K-Phos Neutral) 250 mg Q8HR PO Last administered on 10/26/17at 22:23; Start 10/19/17 at 06:00 Sodium Chloride 1,000 ml @ 100 mls/hr Q10H IV Last administered on 10/21/17at 16 :01; Start 10/19/17 at 11:00; Stop 10/22/17 at 00:38; Status DC Sodium Chloride 500 ml @ 500 mls/hr BOLUS ONCE IV Last administered on at 05:30; Start 10/20/17 at 05:30; Stop 10/20/17 at 06:29; Status DC Megestrol Acetate (Megace Liq) 400 mg DAILY PO Last administered on 10/27/17at 09 :49; Start 10/22/17 at 09:00 Lactated Ringer's 1,000 ml @ 100 mls/hr Q10H IV ; Start 10/22/17 at 01:00; Stop 10/22/17 at 01:00; Status DC Furosemide (Lasix) 40 mg BID@09,18 PO Last administered on 10/27/17at 09:49; Start 10/22/17 at 09:00 Heparin Sodium/ Dextrose 250 ml @ 16 mls/hr TITRATE PRN IV Coagulation Management Last administered on 10/24/17at 15:30; Start 10/23/17 at 13:45; Stop 10/25/17 at 10:21; Status DC Magnesium Sulfate/ Dextrose 100 ml @ 100 mls/hr Q1H IV Last administered on 10/24/17at 15:10; Start 10/24/17 at 12:00; Stop 10/24/17 at 13:59; Status DC Potassium Chloride (KCl) 60 meq ONCE ONCE PO Last administered on 10/24/17at 12: 14; Start 10/24/17 at 11:30; Stop 10/24/17 at 11:31; Status DC Potassium Chloride 100 ml @ 50 mls/hr Q2H IV Last administered on 10/24/17 17: 44; Start 10/24/17 at 12:00; Stop 10/24/17 at 15:59; Status DC Warfarin Sodium (Coumadin) 2 mg ONCE ONCE PO Last administered on 10/24/17 17: 43; Start 10/24/17 at 16:15; Stop 10/24/17 at 16:16; Status DC Pharmacy Profile Note 0 ml @ 0 mls/hr UNSCH OTHER ; Start 10/24/17 at 16:15 Patient Medication Teaching (Coumadin Booklet) 1 ONCE ONCE .XX Last administered on 10/24/17at 17:44; Start 10/24/17 at 16:15; Stop 10/24/17 at 16:16; Status DC Warfarin Sodium (Coumadin) 2 mg DAILY@1600 PO Last administered on 10/25/17at 14: 43; Start 10/25/17 at 16:00; Status Future Hold Enoxaparin Sodium (Lovenox Inj) 90 mg DAILY@1100,2300 SQ Last administered on at 10:10; Start 10/25/17 at 11:11; Stop 10/26/17 at 13:20; Status DC Potassium Bicarb/ Potassium Chloride (K-Lyte Cl Eff) 100 meq ONCE ONCE PO Last administered on 10/26/17at 10:09; Start 10/26/17 at 09:45; Stop 10/26/17 at 09: 49; Status DC Potassium Bicarb/ Potassium Chloride (K-Lyte Cl Eff) 50 meq DAILY PO Last administered on 10/27/17at 09:49; Start 10/27/17 at 09:00 Levothyroxine Sodium (Synthroid) 100 mcg DAILY@0600 PO ; Start 10/28/17 at 06:00 Potassium Bicarb/ Potassium Chloride (K-Lyte Cl Eff) 100 meq ONCE ONCE PO Last administered on 10/27/17at 09:49; Start 10/27/17 at 09:30; Stop 10/27/17 at 09: 31; Status DC Date of Insertion: October 13, 2017 A/P Problem List: (1) Septic shock ICD Code: A41.9 - Sepsis, unspecified organism; R65.21 - Severe sepsis with septic shock Status: Acute (2) Anemia requiring transfusions ICD Code: D64.9 - Anemia, unspecified (3) Upper GI bleed ICD Code: K92.2 - Gastrointestinal hemorrhage, unspecified (4) Lactic acidosis ICD Code: E87.2 - Acidosis Status: Resolved (5) UTI (urinary tract infection) ICD Code: N39.0 - Urinary tract infection, site not specified (6) Acute kidney injury ICD Code: N17.9 - Acute kidney failure, unspecified (7) Elevated bilirubin ICD Code: R17 - Unspecified jaundice (8) Hypokalemia ICD Code: E87.6 - Hypokalemia Status: Acute (9) Hypothermia ICD Code: T68.XXXA - Hypothermia, initial encounter (10) Alcohol dependence ICD Code: F10.20 - Alcohol dependence, uncomplicated Assessment and Plan Assessment and Plan Upper GI bleed/liver cirrhosis/ N/V/ Abdominal pain Anemia EGD 10/11 - gastritis, duodenitis. No acitve bleeding. Biopsies sent. (Dr. Tatum). Colonoscopy 10/11 -diverticulosis, colon polyps, internal and external hemorrhoids. (Dr. Tatum) transverse colon and descending colon polypectomy were performed x2 and sent for path. - PPI. - Antiemetics as needed. - pain control as needed. - low residue diet. - add sucralfate. - trend LFTs. - reconsult GI for persistent nausea and decreased p.o. intake. 10/18 Patient's bilirrubin trending up with predominance of direct bilirubin over indirect bilirubin. Repeat CT abdomen and pelvis pending. 10/19 bilirubin keeps trending up now total bilirubin 6.1, with predominance of direct bilirubin. Agree with MRCP. 10/21 sp MRCP which does not show any type of obstruction. 10/25 the patient still with severe abdominal pain, not eating. Septic shock/ UTI/ Perirectal abscess Colorectal surgery consult appreciated. 09/27 blood culture 1 out of 4 with GPC. urine culture -E. coli. Levophed weaned off. - antibiotics per ID. - holding antihypertensive meds. - monitor off of IVFs. Chronic pain/ Alcohol dependence Patient drinks about 5 alcoholic beverages daily. Patient states she is nonambulatory at baseline due to chronic pain, uses a motorized scooter. - Supplement thiamine, MVI. - cessation instruction. - PT/ OT. - pain control. Chest pain Serial troponins were negative. She states negative stress test at [facility] in [place] 3 years ago. Seems resolved. - Not candidate for ASA due to GI bleeding. - Not candidate for betablocker due to hypotension. Perirectal abscess CT abdomen and pelvis -findings concerning for perirectal abscess. - Colorectal surgery consulted, Dr. Yin evaluated. Not a candidate for surgery at this time. - continue wound care. Acute kidney insufficiency/ Hypokalemia/ Hypomagnesemia/ Hypophosphatemia Hyperchloremic metabolic acidosis Mg 0.8 10/16. - follow labs and replete lytes as needed. - monitor off of IVFs. 10/18 Magnesium, phosphorus still low. Replace with IV Magnesium sulfate and neutra-phos. 10/19 electrolytes much improved with potassium within normal range as well as magnesium., Phosphorus continues to be low. Continue Neutra-Phos. 10/25 status post IV and oral potassium on 10/24 due to severe hypokalemia. Potassium today 3.1. We will continue to replace orally and monitor BMP. Patient status post IV magnesium sulfate on 10/24. Will recheck magnesium and replace as needed with IV magnesium sulfate. HYPOKALEMIA REPLACE BY PO TABLETS Acromegaly/ Hypothyroidism Previously was on Octreotide and had pituitary surgery in 1986. Random cortisol was normal. - Continue Synthroid 75 mcg p.o. daily. Decreased appetite/Poor oral intake Moderate protein calorie malnutrition Continue Megace. 10/25 Dietitian consulted, recommended [place] 3 times daily with meals. I will order. Transaminitis Hyperbilirrubinemia Portal vein thrombosis 10/22 AST continue to worsens. Unclear etiology. Possibly secondary to hepatic congestion due to anasarca and fluid overload. Start on Lasix 40 mg p.o. twice daily. Monitor strict I's and O's with the goal of keeping a negative balance. Elevated bilirubin continues to worsen. Total bilirubin went up from 7.2-7.7 with predominance of direct bilirubin that went up from 6.2-6.5. Continue to monitor bilirubin levels. Venous Doppler showed portal vein thrombosis. Patient started on IV heparin drip. Start bridge to Coumadin, goal INR 2-3. Bilirubin trending down. Continue to monitor LFTs 10/25 discontinued IV heparin drip and start on Lovenox 1 mg/kg subcutaneous twice daily. Lovenox bridge to Coumadin with a goal INR of 2-3. Continue to monitor LFTs, bilirubin. Anasarca As seen on CT abdomen/pelvis described above. 10/25 On lasix. continue. PROPH: -Bilateral lower extremity SCDs. Hold chemical DVT prophylaxis due to recent GI bleed. Discharge Planning Discharge pending clinical improvement. The patient still having abdominal pain and not eating. Patient will need to be eating appropriately prior to discharge. Discharge Planning CALORIE COUNTING POOR ORAL INTAKE Problem Qualifiers (1) UTI (urinary tract infection): Kulwinder Dodson DO Oct 27, 2017 13:10
[2017-10-27] MEDS ORDERED: POTASSIUM CHLORIDE 10 MEQ CONTROLLED RELEASE TAB PO ONE (13:15)
[2017-10-27 16:00] VITALS: BP 117/65; PULSE 88; RESP 18; TEMP 98.3; O2SAT 94
[2017-10-27 20:00] VITALS: BP 117/62; PULSE 88; RESP 18; TEMP 97.9; O2SAT 94
[2017-10-28] VITALS (7 sets, daily range): BP systolic 102–144; BP diastolic 56–71; PULSE 82–104; RESP 16–22; TEMP 97.2–97.8; O2SAT 92–96
[2017-10-28] MEDS: CHLORHEXIDINE GLUCONATE 2 % 1 PACK (2 CLOTHS) TOP SCH (04:00)
[2017-10-28] MEDS: LEVOTHYROXINE SODIUM 100 MCG TAB PO SCH (05:33)
[2017-10-28] MEDS: POTASSIUM PHOSPHATE/SODIUM PHOSPHATE 250 MG TAB PO SCH ×3 (05:33→21:35)
[2017-10-28 08:43] LABS: INTERNATIONAL NORMALIZED RATIO 3.6 RATIO; PROTHROMBIN TIME - PATIENT 36.5 SEC (9.8-11.6)
[2017-10-28 08:51] LABS: AUTOMATED NEUTROPHIL # 10.7 TH/MM3 (1.8-7.7); BASOPHIL % 0.4 % (0.0-2.0); EOSINOPHIL % 0.3 % (0.0-4.0); HEMATOCRIT 27.3 % (35.0-46.0); LYMPHOCYTE # 1.6 TH/MM3 (1.0-4.8); MEAN CELL VOLUME 99.6 FL (80.0-100.0); MEAN CORPUSCULAR HEMOGLOBIN 32.7 PG (27.0-34.0); MEAN CORPUSCULAR HGB CONC 32.8 % (32.0-36.0); MEAN PLATELET VOLUME 8.8 FL (7.0-11.0); MONOCYTE # 0.8 TH/MM3 (0-0.9); NEUT % 81.3 % (16.0-70.0); PLATELET COUNT 195 TH/MM3 (150-450); RED BLOOD COUNT 2.74 MIL/MM3 (4.00-5.30); RED CELL DISTRIBUTION WIDTH 22.5 % (11.6-17.2); WHITE BLOOD COUNT 13.2 TH/MM3 (4.0-11.0)
[2017-10-28 08:58] LABS: ALBUMIN 1.5 GM/DL (3.4-5.0); BICARBONATE 23.9 MEQ/L (21.0-32.0); CALCIUM 7.1 MG/DL (8.5-10.1); CREATININE 1.39 MG/DL (0.50-1.00); PHOSPHORUS 4.5 MG/DL (2.5-4.9); TOTAL BILIRUBIN ADULT 7.4 MG/DL (0.2-1.0); TOTAL PROTEIN 6.6 GM/DL (6.4-8.2)
[2017-10-28 09:02] LABS: CALCIUM-PROTEIN CORRECTED 7.4 MG/DL (8.5-10.1)
[2017-10-28 09:47] LABS: TARGET CELLS 1+ (NORMAL)
[2017-10-28 09:48] LABS: POLYCHROMASIA 2.6 % (0.0-1.9); STOMATOCYTES 1+ (NORMAL); TOXIC GRANULATION 1+ (NORMAL)
[2017-10-28] MEDS: POTASSIUM CHLORIDE 10 MEQ CONTROLLED RELEASE TAB PO SCH (10:11)
[2017-10-28] MEDS: SODIUM CHLORIDE 0.9% FLUSH 10 ML FLUSH IV FLUSH SCH ×2 (10:11→21:35)
[2017-10-28] MEDS: PANTOPRAZOLE SOD 40 MG DELAYED RELEASE TAB PO SCH (10:11)
[2017-10-28] MEDS: FUROSEMIDE 40 MG TAB PO SCH ×2 (10:11→18:00)
[2017-10-28] MEDS: DULoxetine HCl DR 60 MG CAP PO SCH (10:11)
[2017-10-28] MEDS: MEGESTROL ACETATE SUSP 400 MG/10 ML CUP PO SCH (10:11)
[2017-10-28] MEDS: SILVER SULFADIAZINE/LIDOCAINE CREAM 60 GM JAR RECTAL SCH ×2 (10:12→21:35)
[2017-10-28] MEDS ORDERED: POTASSIUM CHLORIDE 10 MEQ CONTROLLED RELEASE TAB PO ONE (12:15)
--- NOTE | 2017-10-28 14:26 | HHI.PR ---
Subjective Remarks 6-5 Patient seen during PT session. Patient complains of severe epigastric abdominal pain. As per report was in the room the patient is not eating at all. Appetite is poor. 6-6 POTASSIUM IS DECREASED WILL REPLACE AM LABS DW RN AND PT AND CM 6-7 POTASSIUM IS STILL LOW SWITCH TO PO TABLETS DW RN AND PT AM LABS CALORIE COUNTS 6-8 IS A DNR NOW REPLACE POTASSIUM AM LABS ENCOURAGE PO INTAKE POOR NUTRITION Objective Vitals Vital Signs Date Time Temp Pulse Resp B/P (MAP) Pulse Ox O2 Delivery O2 Flow Rate FiO2 10/28/17 13:00 97.8 90 22 116/68 (84) 93 10/28/17 08:08 18 10/28/17 07:30 97.3 82 119/59 (79) 92 10/28/17 00:00 97.2 88 20 144/60 (88) 93 10/27/17 20:00 97.9 88 18 117/62 (80) 94 10/27/17 16:00 98.3 88 18 117/65 (82) 94 I/O 10/27/17 10/27/17 10/27/17 10/28/17 10/28/17 10/28/17 07:00 15:00 23:00 07:00 15:00 23:00 Intake Total 240 ml 0 ml 220 ml Output Total 800 ml 350 ml Balance -560 ml 0 ml -130 ml Intake Oral 240 ml 0 ml 220 ml Output Urine Total 800 ml 350 ml # Voids 4 # Bowel Movements 1 2 1 Result Diagram: 10/28/17 0725 10/28/17 0720 Other Results Laboratory Tests Test 10/26/17 08:10 10/27/17 07:54 10/28/17 07:20 10/28/17 07:25 White Blood Count 10.5 TH/MM3 12.4 TH/MM3 13.2 TH/MM3 Red Blood Count 2.50 MIL/MM3 2.58 MIL/MM3 2.74 MIL/MM3 Hemoglobin 8.4 GM/DL 8.5 GM/DL 9.0 GM/DL Hematocrit 24.8 % 25.7 % 27.3 % Mean Corpuscular Volume 98.9 FL 99.8 FL 99.6 FL Mean Corpuscular Hemoglobin 33.4 PG 33.0 PG 32.7 PG Mean Corpuscular Hemoglobin Concent 33.8 % 33.1 % 32.8 % Red Cell Distribution Width 21.7 % 22.5 % 22.5 % Platelet Count 186 TH/MM3 202 TH/MM3 195 TH/MM3 Mean Platelet Volume 8.4 FL 8.9 FL 8.8 FL Prothrombin Time 55.2 SEC 46.2 SEC 36.5 SEC Prothromb Time International Ratio 5.5 RATIO 4.6 RATIO 3.6 RATIO Blood Urea Nitrogen 6 MG/DL 6 MG/DL 8 MG/DL Creatinine 0.97 MG/DL 1.06 MG/DL 1.39 MG/DL Random Glucose 55 MG/DL 51 MG/DL 60 MG/DL Total Protein 6.2 GM/DL 6.4 GM/DL 6.6 GM/DL Albumin 1.4 GM/DL 1.4 GM/DL 1.5 GM/DL Calcium Level 7.7 MG/DL 7.1 MG/DL 7.1 MG/DL Phosphorus Level 4.3 MG/DL 4.1 MG/DL 4.5 MG/DL Magnesium Level 1.1 MG/DL 1.1 MG/DL 1.0 MG/DL Alkaline Phosphatase 259 U/L 267 U/L 269 U/L Aspartate Amino Transf (AST/SGOT) 95 U/L 94 U/L 99 U/L Alanine Aminotransferase (ALT/SGPT) 23 U/L 21 U/L 23 U/L Total Bilirubin 6.5 MG/DL 7.0 MG/DL 7.4 MG/DL Direct Bilirubin 5.7 MG/DL Sodium Level 144 MEQ/L 144 MEQ/L 145 MEQ/L Potassium Level 2.3 MEQ/L 2.8 MEQ/L 3.4 MEQ/L Chloride Level 107 MEQ/L 107 MEQ/L 108 MEQ/L Carbon Dioxide Level 22.9 MEQ/L 23.7 MEQ/L 23.9 MEQ/L Anion Gap 14 MEQ/L 13 MEQ/L 13 MEQ/L Estimat Glomerular Filtration Rate 57 ML/MIN 51 ML/MIN 38 ML/MIN Indirect Bilirubin 0.8 MG/DL Ammonia LESS THAN 10 MCMOL/L LESS THAN 10 MCMOL/L Neutrophils (%) (Auto) 80.3 % 81.3 % Lymphocytes (%) (Auto) 12.3 % 12.0 % Monocytes (%) (Auto) 6.4 % 6.0 % Eosinophils (%) (Auto) 0.3 % 0.3 % Basophils (%) (Auto) 0.7 % 0.4 % Neutrophils # (Auto) 9.9 TH/MM3 10.7 TH/MM3 Lymphocytes # (Auto) 1.5 TH/MM3 1.6 TH/MM3 Monocytes # (Auto) 0.8 TH/MM3 0.8 TH/MM3 Eosinophils # (Auto) 0.0 TH/MM3 0.0 TH/MM3 Basophils # (Auto) 0.1 TH/MM3 0.0 TH/MM3 CBC Comment AUTO DIFF AUTO DIFF Differential Total Cells Counted 100 Neutrophils % (Manual) 78 % Band Neutrophils % 11 % Lymphocytes % 2 % Monocytes % 5 % Eosinophils % 1 % Neutrophils # (Manual) 11.4 TH/MM3 Myelocytes 3 % Differential Comment FINAL DIFF MANUAL AUTO DIFF CONFIRMED Toxic Granulation 1+ 1+ Platelet Estimate NORMAL NORMAL Platelet Morphology Comment NORMAL NORMAL Polychromasia 2.8 % 2.6 % Target Cells 1+ 1+ Stomatocytes 1+ 1+ Protein Corrected Calcium 7.5 MG/DL 7.4 MG/DL Amylase Level 18 U/L Free Thyroxine 1.19 NG/DL Thyroid Stimulating Hormone 3rd Gen 8.780 uIU/ML Basophilic Stippling FAINT Imaging Last Impressions Liver Ultrasound 10/23/17 Signed Impressions: CONCLUSION: 1. Portal vein thrombosis. 2. Diffuse ascites with cirrhotic appearance of the liver and progressive enla rgement of the spleen. 3. The hepatic artery is increased in caliber and flow. Normal flow is identif ied within the splenic artery and vein. Cholangiopancreatography MRI 10/20/17 Signed Impressions: CONCLUSION: 1. No biliary ductal dilation identified. 2. Cirrhotic changes within the liver with mild enlargement of the spleen and mild ascites. Gastric Emptying Nuclear Medicine 10/18/17 Signed Impressions: CONCLUSION: 1. Normal gastric emptying half-time and kinetics. Abdomen/Pelvis CT 10/18/17 Signed Impressions: CONCLUSION: 1. Small perirectal abscess on the right side measuring 2.8 x 1.2 cm.. 2. Small amount of ascites in the upper abdomen. Small to moderate amount of a scites in the pelvis. 3. Scattered diverticula along the sigmoid colon. 4. Midline ventral abdominal wall hernia containing loops of small bowel witho ut obstruction. 5. Small bilateral pleural effusions with bibasilar atelectasis. Chest X-Ray 10/08/17 Signed Impressions: Service Date/Time: Sunday, October 08, 2017 03:08 - CONCLUSION: 1. Right central line in superior vena cava. No pneumothorax or effusion. Maycol Looney MD Objective Remarks GENERAL: Awake and alert talkative cooperative jaundiced SKIN: Warm and dry. HEAD: Atraumatic. Normocephalic. EYES: Pupils equal and round. Positive scleral icterus. No injection or drainage. ENT: No nasal bleeding or discharge. Mucous membranes pink and moist. NECK: Trachea midline. No JVD. CARDIOVASCULAR: Regular rate and rhythm. S1-S2 no S3 or S4 RESPIRATORY: No accessory muscle use. Clear to auscultation. Breath sounds equal bilaterally. GASTROINTESTINAL: Abdomen soft, non-tender, nondistended. Hepatic and splenic margins not palpable. MUSCULOSKELETAL: Extremities without clubbing, cyanosis, or edema. No obvious deformities. NEUROLOGICAL: Awake and alert. No obvious cranial nerve deficits. Motor grossly within normal limits. Five out of 5 muscle strength in the arms and legs. Normal speech. PSYCHIATRIC: INAppropriate mood and affect; insight and judgment ABnormal. Procedures SP EGD and colonoscopy Medications and IVs Current Medications Sodium Chloride 1,000 ml @ 1,000 mls/hr Q1H ONCE IV Last administered on 21:09; Start 10/07/17 at 20:54; Stop 10/07/17 at 21:53; Status DC Sodium Chloride 1,000 ml @ 1,000 mls/hr Q1H ONCE IV Last administered on 21:10; Start 10/07/17 at 20:54; Stop 10/07/17 at 21:53; Status DC Sodium Chloride 400 ml @ 1,000 mls/hr Q24M ONCE IV Last administered on 21:10; Start 10/07/17 at 20:54; Stop 10/07/17 at 21:17; Status DC Vancomycin HCl 1200 mg/Sodium Chloride 262 ml @ 250 mls/hr ONCE ONCE IV Last administered on 10/07/17 22:20; Start 10/07/17 at 21:15; Stop 10/07/17 at 22:17 ; Status DC Cefepime HCl 2000 mg/Sodium Chloride 100 ml @ 200 mls/hr ONCE ONCE IV Last administered on 10/07/17 21:28; Start 10/07/17 at 21:15; Stop 10/07/17 at 21:44 ; Status DC Pantoprazole Sodium 80 mg/ Sodium Chloride 35 ml @ 420 mls/hr Q5M ONCE IV Last administered on 10/07/17at 22:21; Start 10/07/17 at 21:20; Stop 10/07/17 at 21:24; Status DC Pantoprazole Sodium 80 mg/ Sodium Chloride 100 ml @ 10 mls/hr Q10H IV Last administered on 10/07/17at 22:21; Start 10/07/17 at 21:20; Stop 10/07/17 at 22:35 ; Status DC Octreotide Acetate 500 mcg/ Sodium Chloride 500.5 ml @ 50 mls/hr Q10H1M IV Last administered on 10/07/17at 22:19; Start 10/07/17 at 21:20; Stop 10/07/17 at 22:35; Status DC Norepinephrine Bitartrate 4 mg/ Sodium Chloride 250 ml @ 7.5 mls/hr TITRATE PRN IV Blood pressure management Last administered on 10/09/17at 21:27; Start at 22:00; Stop 10/11/17 at 23:00; Status DC Terbutaline Sulfate (Brethine Inj) 1 mg UNSCH PRN SQ For Extravasation; Start 10/07/17 at 22:00; Stop 10/11/17 at 23:00; Status DC Levothyroxine Sodium (Synthroid) 75 mcg DAILY@0600 PO Last administered on at 06:27; Start 10/08/17 at 06:00; Stop 10/27/17 at 09:27; Status DC Pantoprazole Sodium 80 mg/ Sodium Chloride 100 ml @ 10 mls/hr Q10H IV Last administered on 10/11/17at 20:09; Start 10/07/17 at 23:24; Stop 10/11/17 at 23:00 ; Status DC Octreotide Acetate 500 mcg/ Sodium Chloride 500 ml @ 25 mls/hr Q20H IV Last administered on 10/11/17at 20:08; Start 10/07/17 at 22:24; Stop 10/11/17 at 23:00 ; Status DC Sodium Chloride 1,000 ml @ 84 mls/hr [id number] IV Last administered on at 03:17; Start 10/07/17 at 22:25; Stop 10/12/17 at 12:48; Status DC Sodium Chloride (NS Flush) 2 ml UNSCH PRN IV FLUSH FLUSH AFTER USING IV ACCESS Last administered on 10/23/17at 16:50; Start 10/07/17 at 22:30 Sodium Chloride (NS Flush) 2 ml BID IV FLUSH Last administered on 10/28/17at 10: 11; Start 10/08/17 at 09:00 Albuterol/ Ipratropium (Duoneb Neb) 1 ampule Q2HR NEB PRN INH WHEEZING; Start 10/07/17 at 22:30 Miscellaneous Information ([facility]) 1 [id number] Last administered on 10/07/17at 22:30; Start 10/07/17 at 22:30 Chlorhexidine Gluconate (Chlorhexidine 2% Cloth) 3 pack Taper DAILY@04 TOP Last administered on 10/12/17at 04:00; Start 10/08/17 at 04:00; Stop 10/04/18 at 03:59 Chlorhexidine Gluconate (Chlorhexidine 2% Cloth) 3 pack UNSCH PRN TOP HYGIENIC CARE; Start 10/07/17 at 22:30 Cefepime HCl 1000 mg/Sodium Chloride 100 ml @ 200 mls/hr Q8H IV Last administered on 10/14/17at 04:25; Start 10/08/17 at 05:00; Stop 10/14/17 at 12:14 ; Status DC Vancomycin HCl 1000 mg/Sodium Chloride 250 ml @ 250 mls/hr ONCE ONCE IV ; Start 10/08/17 at 00:15; Stop 10/08/17 at 01:14; Status UNV Insulin Aspart (NovoLOG SUPPLEMENTAL SCALE) 1 Q4H SQ Last administered on at 20:30; Start 10/08/17 at 00:00; Stop 10/15/17 at 14:52; Status DC Potassium Chloride 100 ml @ 50 mls/hr Q2H PRN IV For Potassium 2.8 - 3.2 mEq/ L Last administered on 10/12/17at 06:47; Start 10/08/17 at 00:15; Stop 10/13/17 at 15:08; Status DC Potassium Chloride 100 ml @ 50 mls/hr Q2H PRN IV For Potassium 2.8 - 3.2 mEq/ L Last administered on 10/10/17at 13:12; Start 10/08/17 at 00:15; Stop 10/13/17 at 15:08; Status DC Potassium Bicarb/ Potassium Chloride (K-Lyte Cl Eff) 50 meq UNSCH PRN PO For Potassium 3.3 - 3.5 mEq/L; Start 10/08/17 at 00:15; Stop 10/13/17 at 15:08; Status DC Potassium Chloride 100 ml @ 25 mls/hr UNSCH PRN IV For Potassium 3.3 - 3.5 mEq /L Last administered on 10/12/17at 06:46; Start 10/08/17 at 00:15; Stop 10/13/17 at 15:08; Status DC Potassium Chloride 100 ml @ 50 mls/hr Q2H PRN IV For Potassium 3.3 - 3.5 mEq/L ; Start 10/08/17 at 00:15; Stop 10/13/17 at 15:08; Status DC Magnesium Sulfate 4 gm/Sodium Chloride 100 ml @ 50 mls/hr UNSCH PRN IV For Magnesium 0.9 - 1.1 mg/dL; Start 10/08/17 at 00:15; Stop 10/13/17 at 15:08; Status DC Magnesium Oxide (Mag-Ox) 800 mg UNSCH PRN PO For Magnesium 1.2 - 1.6 mg/dL; Start 10/08/17 at 00:15; Stop 10/13/17 at 15:08; Status DC Magnesium Sulfate 2 gm/Sodium Chloride 100 ml @ 50 mls/hr UNSCH PRN IV For Magnesium 1.2 - 1.6 mg/dL; Start 10/08/17 at 00:15; Stop 10/13/17 at 15:08; Status DC Potassium Phosphate (K-Phos) 2,000 mg Q4H PRN PO For Phosphorus < 2.5 mg/dL; Start 10/08/17 at 00:15; Stop 10/13/17 at 15:08; Status DC Sodium Phosphate 30 mmol/Sodium Chloride 250 ml @ 42 mls/hr UNSCH PRN IV For Phosphorus < 2.5 mg/dL; Start 10/08/17 at 00:15; Stop 10/13/17 at 15:08; Status DC Potassium Phosphate (K-Phos) 2,000 mg UNSCH PRN PO/TUBE SEE LABEL COMMENTS; Start 10/08/17 at 00:15; Stop 10/13/17 at 15:08; Status DC Potassium Phosphate 30 mmol/ Sodium Chloride 260 ml @ 42 mls/hr UNSCH PRN IV SEE LABEL COMMENTS; Start 10/08/17 at 00:15; Stop 10/13/17 at 15:08; Status DC Pantoprazole Sodium 80 mg/ Sodium Chloride 100 ml @ 10 mls/hr Q10H IV ; Start 10/08/17 at 01:06; Stop 10/08/17 at 01:06; Status DC Flumazenil (Romazicon Inj) 0.2 mg Q1M PRN IV PUSH SEE LABEL COMMENTS; Start at 01:00; Stop 10/22/17 at 00:48; Status DC Lorazepam (Ativan) 1 mg Q4H PRN PO CIWA 8 - 10; Start 10/08/17 at 01:00; Stop 10/22/17 at 00:48; Status DC Lorazepam (Ativan Inj) 1 mg Q4H PRN IV PUSH CIWA 8 - 10 Last administered on at 21:05; Start 10/08/17 at 01:00; Stop 10/22/17 at 00:48; Status DC Lorazepam (Ativan) 2 mg Q2H PRN PO CIWA 11-14; Start 10/08/17 at 01:00; Stop at 00:48; Status DC Lorazepam (Ativan Inj) 2 mg Q2H PRN IV PUSH CIWA 11-14; Start 10/08/17 at 01:00 ; Stop 10/22/17 at 00:48; Status DC Lorazepam (Ativan Inj) 2 mg Q1H PRN IV PUSH CIWA 15-20; Start 10/08/17 at 01:00 ; Stop 10/22/17 at 00:48; Status DC Lorazepam (Ativan Inj) 2 mg Q15M PRN IV PUSH CIWA > 20; Start 10/08/17 at 01:00 ; Stop 10/22/17 at 00:48; Status DC Multivitamins 10 ml/Thiamine HCl 100 mg/Folic Acid 1 mg/Sodium Chloride 511.2 ml @ 125 mls/hr DAILY IV Last administered on 10/13/17at 09:38; Start 10/08/17 at 09:00; Stop 10/13/17 at 15:59; Status DC Polyethylene Glycol/ Electrolytes (Colyte Liq) 4,000 ml ONCE ONCE PO Last administered on 10/09/17at 17:05; Start 10/09/17 at 16:00; Stop 10/09/17 at 16:01 ; Status DC Pharmacy Profile Note 0 ml @ 0 mls/hr UNSCH OTHER ; Start 10/09/17 at 13:45; Stop 10/12/17 at 09:41; Status DC Vancomycin HCl 1250 mg/Sodium Chloride 262.5 ml @ 250 mls/hr Q24H IV Last administered on 10/11/17at 15:48; Start 10/09/17 at 15:00; Stop 10/12/17 at 09:41 ; Status DC Miscellaneous Information ([facility] Ordered [facility] Info) SPECIFIC LAB TO BE ALEXIS... ONCE ONCE .XX ; Start 10/12/17 at 14:45; Stop 10/12/17 at 14:46; Status Cancel Lactated Ringer's 500 ml @ 999 mls/hr BOLUS ONCE IV Last administered on 10/09at 16:57; Start 10/09/17 at 16:15; Stop 10/09/17 at 16:45; Status DC Metronidazole (Flagyl) 500 mg Q8HR PO Last administered on 10/12/17at 05:42; Start 10/10/17 at 17:30; Stop 10/12/17 at 09:41; Status DC Miscellaneous Information ([facility]) ALL NURSING DEPARTME... UNSCH PRN .XX SEE LABEL COMMENTS; Start 10/11/17 at 19:26; Stop 10/12/17 at 19: 25; Status DC Pantoprazole Sodium (Protonix Inj) 40 mg Q24H IV PUSH Last administered on 10/13at 08:39; Start 10/12/17 at 09:00; Stop 10/13/17 at 15:56; Status DC Propofol (Diprivan 200 Mg/20 ml Inj) 400 mg STK-MED ONCE IV ; Start 10/11/17 at 12:00; Stop 10/13/17 at 13:14; Status DC Lidocaine HCl (Xylocaine-Mpf 1% Inj) 5 ml STK-MED ONCE OTHER ; Start 10/11/17 at 12:00; Stop 10/13/17 at 13:14; Status DC Phenylephrine HCl (Neosynephrine/ NS 1000 Mcg/10ml Syr) 1,000 mcg STK-MED ONCE IV ; Start 10/11/17 at 12:00; Stop 10/13/17 at 13:14; Status DC Pantoprazole Sodium (Protonix) 40 mg DAILY PO Last administered on 10/28/17at 10: 11; Start 10/14/17 at 09:00 Potassium Chloride (KCl) 30 meq ONCE ONCE PO Last administered on 10/13/17at 16 :13; Start 10/13/17 at 16:00; Stop 10/13/17 at 16:04; Status DC Fentanyl (Duragesic 25 Mcg Patch.72 Hr) 1 patch ONCE ONCE T-DERMAL Last administered on 10/13/17at 16:13; Start 10/13/17 at 16:00; Stop 10/13/17 at 16:03 ; Status DC Potassium Chloride 100 ml @ 100 mls/hr BOLUS ONCE IV Last administered on at 10:36; Start 10/14/17 at 11:00; Stop 10/14/17 at 11:59; Status DC Potassium Chloride (KCl) 20 meq Q12HR PO Last administered on 10/26/17at 08:48; Start 10/14/17 at 10:30; Stop 10/26/17 at 09:50; Status DC Levofloxacin (Levaquin) 750 mg DAILY PO Last administered on 10/21/17at 09:06; Start 10/14/17 at 13:00; Stop 10/21/17 at 23:00; Status DC Compound Med (Ritters Cream) 1 applic BID RECTAL Last administered on 10/28/17at 10:12; Start 10/14/17 at 13:15 Potassium Chloride/Dextrose/ Sod Cl 1,000 ml @ 100 mls/hr Q10H IV Last administered on 10/17/17at 06:45; Start 10/15/17 at 14:45; Stop 10/17/17 at 13:05 ; Status DC Duloxetine HCl (Cymbalta Dr) 60 mg DAILY PO Last administered on 10/28/17at 10:11 ; Start 10/15/17 at 16:30 Ondansetron HCl (Zofran Odt) 4 mg ONCE ONCE SL Last administered on at 10:54; Start 10/16/17 at 10:45; Stop 10/16/17 at 10:49; Status DC Ondansetron HCl (Zofran Odt) 4 mg Q8HR PRN SL nausea; Start 10/16/17 at 10:45 ; Stop 10/17/17 at 13:29; Status DC Magnesium Sulfate/ Dextrose 100 ml @ 100 mls/hr Q1H IV Last administered on at 15:51; Start 10/16/17 at 11:00; Stop 10/16/17 at 14:59; Status DC Prochlorperazine Edisylate (Compazine Inj) 10 mg ONCE ONCE IV PUSH Last administered on 10/16/17at 11:06; Start 10/16/17 at 11:00; Stop 10/16/17 at 11:01 ; Status DC Prochlorperazine Edisylate (Compazine Inj) 10 mg Q8H PRN IV PUSH NAUSEA OR VOMITING Last administered on 10/27/17at 23:52; Start 10/16/17 at 11:00 Sucralfate (Carafate Liq) 1 gm ACHS PO Last administered on 10/16/17at 19:59; Start 10/16/17 at 12:00; Stop 10/17/17 at 12:56; Status DC Ondansetron HCl (Zofran Inj) 4 mg ONCE ONCE IV PUSH ; Start 10/17/17 at 13:00; Stop 10/17/17 at 13:29; Status DC Levofloxacin (Levaquin) 250 mg ONCE ONCE PO Last administered on 10/17/17at 13: 50; Start 10/17/17 at 13:15; Stop 10/17/17 at 13:16; Status DC Prochlorperazine Edisylate (Compazine Inj) 10 mg ONCE ONCE IV PUSH Last administered on 10/17/17at 13:30; Start 10/17/17 at 13:30; Stop 10/17/17 at 14:00 ; Status DC Diatrizoate Meglum/ Diatrizoate Sod (Md Gastroview Liq) 18 ml ONCE ONCE PO Last administered on 10/18/17at 10:00; Start 10/18/17 at 10:00; Stop 10/18/17 at 10:01; Status DC Iohexol (Omnipaque 350 Inj) 80 ml STK-MED ONCE IVCONTRAST Last administered on 10/18/17at 20:28; Start 10/18/17 at 20:28; Stop 10/18/17 at 20:29; Status DC Magnesium Sulfate/ Dextrose 100 ml @ 100 mls/hr Q1H IV Last administered on at 02:00; Start 10/19/17 at 01:00; Stop 10/19/17 at 02:59; Status DC Potassium Phos/ Sodium Phos (K-Phos Neutral) 250 mg Q8HR PO Last administered on 10/28/17at 12:55; Start 10/19/17 at 06:00 Sodium Chloride 1,000 ml @ 100 mls/hr Q10H IV Last administered on 10/21/17at 16 :01; Start 10/19/17 at 11:00; Stop 10/22/17 at 00:38; Status DC Sodium Chloride 500 ml @ 500 mls/hr BOLUS ONCE IV Last administered on at 05:30; Start 10/20/17 at 05:30; Stop 10/20/17 at 06:29; Status DC Megestrol Acetate (Megace Liq) 400 mg DAILY PO Last administered on 10/28/17at 10 :11; Start 10/22/17 at 09:00 Lactated Ringer's 1,000 ml @ 100 mls/hr Q10H IV ; Start 10/22/17 at 01:00; Stop 10/22/17 at 01:00; Status DC Furosemide (Lasix) 40 mg BID@,18 PO Last administered on 10/28/17at 10:11; Start 10/22/17 at 09:00 Heparin Sodium/ Dextrose 250 ml @ 16 mls/hr TITRATE PRN IV Coagulation Management Last administered on 10/24/17at 15:30; Start 10/23/17 at 13:45; Stop 10/25/17 at 10:21; Status DC Magnesium Sulfate/ Dextrose 100 ml @ 100 mls/hr Q1H IV Last administered on 10/24/17at 15:10; Start 10/24/17 at 12:00; Stop 10/24/17 at 13:59; Status DC Potassium Chloride (KCl) 60 meq ONCE ONCE PO Last administered on 10/24/17 12: 14; Start 10/24/17 at 11:30; Stop 10/24/17 at 11:31; Status DC Potassium Chloride 100 ml @ 50 mls/hr Q2H IV Last administered on 10/24/17 17: 44; Start 10/24/17 at 12:00; Stop 10/24/17 at 15:59; Status DC Warfarin Sodium (Coumadin) 2 mg ONCE ONCE PO Last administered on 10/24/17 17: 43; Start 10/24/17 at 16:15; Stop 10/24/17 at 16:16; Status DC Pharmacy Profile Note 0 ml @ 0 mls/hr UNSCH OTHER ; Start 10/24/17 at 16:15 Patient Medication Teaching (Coumadin Booklet) 1 ONCE ONCE .XX Last administered on 10/24/17 17:44; Start 10/24/17 at 16:15; Stop 10/24/17 at 16:16; Status DC Warfarin Sodium (Coumadin) 2 mg DAILY@1600 PO Last administered on 10/25/17at 14: 43; Start 10/25/17 at 16:00; Status Future Hold Enoxaparin Sodium (Lovenox Inj) 90 mg DAILY@1100,2300 SQ Last administered on 10:10; Start 10/25/17 at 11:11; Stop 10/26/17 at 13:20; Status DC Potassium Bicarb/ Potassium Chloride (K-Lyte Cl Eff) 100 meq ONCE ONCE PO Last administered on 10/26/17at 10:09; Start 10/26/17 at 09:45; Stop 10/26/17 at 09: 49; Status DC Potassium Bicarb/ Potassium Chloride (K-Lyte Cl Eff) 50 meq DAILY PO Last administered on 10/27/17 09:49; Start 10/27/17 at 09:00; Stop 10/27/17 at 13:08; Status DC Levothyroxine Sodium (Synthroid) 100 mcg DAILY@0600 PO Last administered on 10/28at 05:33; Start 10/28/17 at 06:00 Potassium Bicarb/ Potassium Chloride (K-Lyte Cl Eff) 100 meq ONCE ONCE PO Last administered on 10/27/17at 09:49; Start 6/7/18 at 09:30; Stop 10/27/17 at 13: 08; Status DC Potassium Chloride (KCl) 80 meq ONCE ONCE PO Last administered on 10/27/17at 14: 21; Start 10/27/17 at 13:15; Stop 10/27/17 at 13:35; Status DC Potassium Chloride (KCl) 50 meq DAILY PO Last administered on 10/28/17at 10:11; Start 10/28/17 at 09:00 Potassium Chloride (KCl) 30 meq ONCE ONCE PO Last administered on 10/28/17at 12: 55; Start 10/28/17 at 12:15; Stop 10/28/17 at 12:16; Status DC Date of Insertion: October 13, 2017 A/P Problem List: (1) Septic shock ICD Code: A41.9 - Sepsis, unspecified organism; R65.21 - Severe sepsis with septic shock Status: Acute (2) Anemia requiring transfusions ICD Code: D64.9 - Anemia, unspecified (3) Upper GI bleed ICD Code: K92.2 - Gastrointestinal hemorrhage, unspecified (4) Lactic acidosis ICD Code: E87.2 - Acidosis Status: Resolved (5) UTI (urinary tract infection) ICD Code: N39.0 - Urinary tract infection, site not specified (6) Acute kidney injury ICD Code: N17.9 - Acute kidney failure, unspecified (7) Elevated bilirubin ICD Code: R17 - Unspecified jaundice (8) Hypokalemia ICD Code: E87.6 - Hypokalemia Status: Acute (9) Hypothermia ICD Code: T68.XXXA - Hypothermia, initial encounter (10) Alcohol dependence ICD Code: F10.20 - Alcohol dependence, uncomplicated Assessment and Plan Assessment and Plan Upper GI bleed/liver cirrhosis/ N/V/ Abdominal pain Anemia EGD 10/11 - gastritis, duodenitis. No acitve bleeding. Biopsies sent. (Dr. Tatum). Colonoscopy 10/11 -diverticulosis, colon polyps, internal and external hemorrhoids. (Dr. Tatum) transverse colon and descending colon polypectomy were performed x2 and sent for path. - PPI. - Antiemetics as needed. - pain control as needed. - low residue diet. - add sucralfate. - trend LFTs. - reconsult GI for persistent nausea and decreased p.o. intake. 10/18 Patient's bilirrubin trending up with predominance of direct bilirubin over indirect bilirubin. Repeat CT abdomen and pelvis pending. 10/19 bilirubin keeps trending up now total bilirubin 6.1, with predominance of direct bilirubin. Agree with MRCP. 10/21 sp MRCP which does not show any type of obstruction. 10/25 the patient still with severe abdominal pain, not eating. 10-28 STILL POOR ORAL INTAKE Septic shock/ UTI/ Perirectal abscess Colorectal surgery consult appreciated. 09/27 blood culture 1 out of 4 with GPC. urine culture -E. coli. Levophed weaned off. - antibiotics per ID. - holding antihypertensive meds. - monitor off of IVFs. Chronic pain/ Alcohol dependence Patient drinks about 5 alcoholic beverages daily. Patient states she is nonambulatory at baseline due to chronic pain, uses a motorized scooter. - Supplement thiamine, MVI. - cessation instruction. - PT/ OT. - pain control. Chest pain Serial troponins were negative. She states negative stress test at [facility] in [place] 3 years ago. Seems resolved. - Not candidate for ASA due to GI bleeding. - Not candidate for betablocker due to hypotension. Perirectal abscess CT abdomen and pelvis -findings concerning for perirectal abscess. - Colorectal surgery consulted, Dr. Yin evaluated. Not a candidate for surgery at this time. - continue wound care. Acute kidney insufficiency/ Hypokalemia/ Hypomagnesemia/ Hypophosphatemia Hyperchloremic metabolic acidosis Mg 0.8 10/16. - follow labs and replete lytes as needed. - monitor off of IVFs. 10/18 Magnesium, phosphorus still low. Replace with IV Magnesium sulfate and neutra-phos. 10/19 electrolytes much improved with potassium within normal range as well as magnesium., Phosphorus continues to be low. Continue Neutra-Phos. 10/25 status post IV and oral potassium on 10/24 due to severe hypokalemia. Potassium today 3.1. We will continue to replace orally and monitor BMP. Patient status post IV magnesium sulfate on 10/24. Will recheck magnesium and replace as needed with IV magnesium sulfate. HYPOKALEMIA REPLACE BY PO TABLETS Acromegaly/ Hypothyroidism Previously was on Octreotide and had pituitary surgery in 1986. Random cortisol was normal. - Continue Synthroid 75 mcg p.o. daily. Decreased appetite/Poor oral intake Moderate protein calorie malnutrition Continue Megace. 6 Dietitian consulted, recommended [place] 3 times daily with meals. I will order. Transaminitis Hyperbilirrubinemia Portal vein thrombosis 10/22 AST continue to worsens. Unclear etiology. Possibly secondary to hepatic congestion due to anasarca and fluid overload. Start on Lasix 40 mg p.o. twice daily. Monitor strict I's and O's with the goal of keeping a negative balance. Elevated bilirubin continues to worsen. Total bilirubin went up from 7.2-7.7 with predominance of direct bilirubin that went up from 6.2-6.5. Continue to monitor bilirubin levels. Venous Doppler showed portal vein thrombosis. Patient started on IV heparin drip. Start bridge to Coumadin, goal INR 2-3. Bilirubin trending down. Continue to monitor LFTs 10/25 discontinued IV heparin drip and start on Lovenox 1 mg/kg subcutaneous twice daily. Lovenox bridge to Coumadin with a goal INR of 2-3. Continue to monitor LFTs, bilirubin. HOLD COUMADIN Anasarca As seen on CT abdomen/pelvis described above. 10/25 On lasix. continue. PROPH: -Bilateral lower extremity SCDs. Hold chemical DVT prophylaxis due to recent GI bleed. Discharge Planning Discharge pending clinical improvement. The patient still having abdominal pain and not eating. Patient will need to be eating appropriately prior to discharge. Discharge Planning CALORIE COUNTING POOR ORAL INTAKE Problem Qualifiers (1) UTI (urinary tract infection): Kulwinder Dodson DO Oct 28, 2017 14:26
[2017-10-28 15:55] LABS: HEMOGLOBIN A1C 3.7 % (4.3-6.0)
[2017-10-29 00:13] VITALS: BP 113/56; PULSE 91; RESP 17; TEMP 97.6; O2SAT 93
[2017-10-29] MEDS: CHLORHEXIDINE GLUCONATE 2 % 1 PACK (2 CLOTHS) TOP SCH (04:00)
[2017-10-29] MEDS: POTASSIUM PHOSPHATE/SODIUM PHOSPHATE 250 MG TAB PO SCH ×3 (05:10→19:56)
[2017-10-29] MEDS: LEVOTHYROXINE SODIUM 100 MCG TAB PO SCH (05:11)
[2017-10-29 05:41] LABS: AUTOMATED NEUTROPHIL # 12.1 TH/MM3 (1.8-7.7); BASOPHIL % 0.2 % (0.0-2.0); EOSINOPHIL % 0.1 % (0.0-4.0); HEMATOCRIT 24.8 % (35.0-46.0); HEMOGLOBIN 8.1 GM/DL (11.6-15.3); LYMPH % 12.5 % (9.0-44.0); LYMPHOCYTE # 1.9 TH/MM3 (1.0-4.8); MEAN CELL VOLUME 100.3 FL (80.0-100.0); MEAN CORPUSCULAR HEMOGLOBIN 32.7 PG (27.0-34.0); MEAN CORPUSCULAR HGB CONC 32.6 % (32.0-36.0); MEAN PLATELET VOLUME 8.8 FL (7.0-11.0); MONOCYTE # 0.9 TH/MM3 (0-0.9); NEUT % 81.2 % (16.0-70.0); PLATELET COUNT 219 TH/MM3 (150-450); RED BLOOD COUNT 2.47 MIL/MM3 (4.00-5.30); RED CELL DISTRIBUTION WIDTH 23.7 % (11.6-17.2); WHITE BLOOD COUNT 14.9 TH/MM3 (4.0-11.0)
[2017-10-29 05:47] LABS: INTERNATIONAL NORMALIZED RATIO 3.7 RATIO; PROTHROMBIN TIME - PATIENT 37.3 SEC (9.8-11.6)
[2017-10-29 05:58] LABS: ALBUMIN 1.4 GM/DL (3.4-5.0); BICARBONATE 23.8 MEQ/L (21.0-32.0); CALCIUM 6.5 MG/DL (8.5-10.1); CREATININE 1.68 MG/DL (0.50-1.00); PHOSPHORUS 4.7 MG/DL (2.5-4.9); TOTAL BILIRUBIN ADULT 7.7 MG/DL (0.2-1.0); TOTAL PROTEIN 6.5 GM/DL (6.4-8.2)
[2017-10-29 06:07] LABS: CALCIUM-PROTEIN CORRECTED 6.8 MG/DL (8.5-10.1)
[2017-10-29] MEDS ORDERED: CALCIUM GLUCONATE INJ 1 GM in DEXTROSE 5% IN WATER 100ML INJ 100 ML IV ONE ×2 (07:30)
[2017-10-29 08:00] VITALS: BP 98/56; PULSE 81; RESP 17; TEMP 98; O2SAT 94
[2017-10-29 08:39] LABS: BANDS 5 % (0-6); LYMPHOCYTES 3 % (9-44); MONOCYTES 2 % (0-8); POLYS (SEG NEUTROPHILS) 88 % (16-70); PROMYELOCYTES 1 % (0-0)
[2017-10-29 08:40] LABS: POLYCHROMASIA 2.1 % (0.0-1.9)
[2017-10-29 08:41] LABS: TARGET CELLS 1+ (NORMAL)
[2017-10-29] MEDS: DULoxetine HCl DR 60 MG CAP PO SCH (09:41)
[2017-10-29] MEDS: MEGESTROL ACETATE SUSP 400 MG/10 ML CUP PO SCH (09:41)
[2017-10-29] MEDS: PANTOPRAZOLE SOD 40 MG DELAYED RELEASE TAB PO SCH (09:41)
[2017-10-29] MEDS: FUROSEMIDE 40 MG TAB PO SCH ×2 (09:41→18:16)
[2017-10-29] MEDS: POTASSIUM CHLORIDE 10 MEQ CONTROLLED RELEASE TAB PO SCH (09:41)
[2017-10-29] MEDS: SILVER SULFADIAZINE/LIDOCAINE CREAM 60 GM JAR RECTAL SCH ×2 (09:42→19:57)
[2017-10-29] MEDS: SODIUM CHLORIDE 0.9% FLUSH 10 ML FLUSH IV FLUSH SCH ×2 (09:42→19:57)
[2017-10-29 12:00] VITALS: BP 114/65; PULSE 100; RESP 18; TEMP 97.9; O2SAT 94
--- NOTE | 2017-10-29 12:43 | HHI.PR ---
Subjective Remarks Remarks 6-5 Patient seen during PT session. Patient complains of severe epigastric abdominal pain. As per report was in the room the patient is not eating at all. Appetite is poor. 6-6 POTASSIUM IS DECREASED WILL REPLACE AM LABS DW RN AND PT AND CM 6-7 POTASSIUM IS STILL LOW SWITCH TO PO TABLETS DW RN AND PT AM LABS CALORIE COUNTS 6-8 IS A DNR NOW REPLACE POTASSIUM AM LABS ENCOURAGE PO INTAKE POOR NUTRITION 6-9 WILL REPLACE POTASSIUM AGAIN VERY POOR PO INTAKE HER RN MADE SURE TOOK MEDICATIONS Objective Vitals Vital Signs Date Time Temp Pulse Resp B/P (MAP) Pulse Ox O2 Delivery O2 Flow Rate FiO2 10/29/17 08:00 98.0 81 17 98/56 (70) 94 10/29/17 00:13 97.6 91 17 113/56 (75) 93 10/28/17 20:29 97.8 94 16 109/56 (73) 96 10/28/17 16:00 97.8 104 20 107/71 (83) 93 10/28/17 14:00 97.3 92 16 102/56 (71) 94 10/28/17 13:00 97.8 90 22 116/68 (84) 93 I/O 10/28/17 10/28/17 10/28/17 10/29/17 10/29/17 10/29/17 07:00 15:00 23:00 07:00 15:00 23:00 Intake Total 220 ml 580 ml Output Total 350 ml Balance -130 ml 580 ml Intake Oral 220 ml 580 ml Output Urine Total 350 ml # Voids 2 # Bowel Movements 1 4 Result Diagram: 10/29/17 0442 10/29/17 0442 Other Results Laboratory Tests Test 10/27/17 07:54 10/28/17 07:20 10/28/17 07:25 10/29/17 04:42 White Blood Count 12.4 TH/MM3 13.2 TH/MM3 14.9 TH/MM3 Red Blood Count 2.58 MIL/MM3 2.74 MIL/MM3 2.47 MIL/MM3 Hemoglobin 8.5 GM/DL 9.0 GM/DL 8.1 GM/DL Hematocrit 25.7 % 27.3 % 24.8 % Mean Corpuscular Volume 99.8 FL 99.6 FL 100.3 FL Mean Corpuscular Hemoglobin 33.0 PG 32.7 PG 32.7 PG Mean Corpuscular Hemoglobin Concent 33.1 % 32.8 % 32.6 % Red Cell Distribution Width 22.5 % 22.5 % 23.7 % Platelet Count 202 TH/MM3 195 TH/MM3 219 TH/MM3 Mean Platelet Volume 8.9 FL 8.8 FL 8.8 FL Neutrophils (%) (Auto) 80.3 % 81.3 % 81.2 % Lymphocytes (%) (Auto) 12.3 % 12.0 % 12.5 % Monocytes (%) (Auto) 6.4 % 6.0 % 6.0 % Eosinophils (%) (Auto) 0.3 % 0.3 % 0.1 % Basophils (%) (Auto) 0.7 % 0.4 % 0.2 % Neutrophils # (Auto) 9.9 TH/MM3 10.7 TH/MM3 12.1 TH/MM3 Lymphocytes # (Auto) 1.5 TH/MM3 1.6 TH/MM3 1.9 TH/MM3 Monocytes # (Auto) 0.8 TH/MM3 0.8 TH/MM3 0.9 TH/MM3 Eosinophils # (Auto) 0.0 TH/MM3 0.0 TH/MM3 0.0 TH/MM3 Basophils # (Auto) 0.1 TH/MM3 0.0 TH/MM3 0.0 TH/MM3 CBC Comment AUTO DIFF AUTO DIFF AUTO DIFF Differential Total Cells Counted 100 100 Neutrophils % (Manual) 78 % 88 % Band Neutrophils % 11 % 5 % Lymphocytes % 2 % 3 % Monocytes % 5 % 2 % Eosinophils % 1 % 1 % Neutrophils # (Manual) 11.4 TH/MM3 14.0 TH/MM3 Myelocytes 3 % Differential Comment FINAL DIFF MANUAL AUTO DIFF CONFIRMED FINAL DIFF MANUAL Toxic Granulation 1+ 1+ Platelet Estimate NORMAL NORMAL NORMAL Platelet Morphology Comment NORMAL NORMAL NORMAL Polychromasia 2.8 % 2.6 % 2.1 % Target Cells 1+ 1+ 1+ Stomatocytes 1+ 1+ Prothrombin Time 46.2 SEC 36.5 SEC 37.3 SEC Prothromb Time International Ratio 4.6 RATIO 3.6 RATIO 3.7 RATIO Blood Urea Nitrogen 6 MG/DL 8 MG/DL 9 MG/DL Creatinine 1.06 MG/DL 1.39 MG/DL 1.68 MG/DL Random Glucose 51 MG/DL 60 MG/DL 57 MG/DL Total Protein 6.4 GM/DL 6.6 GM/DL 6.5 GM/DL Albumin 1.4 GM/DL 1.5 GM/DL 1.4 GM/DL Calcium Level 7.1 MG/DL 7.1 MG/DL 6.5 MG/DL Phosphorus Level 4.1 MG/DL 4.5 MG/DL 4.7 MG/DL Magnesium Level 1.1 MG/DL 1.0 MG/DL 1.0 MG/DL Alkaline Phosphatase 267 U/L 269 U/L 258 U/L Aspartate Amino Transf (AST/SGOT) 94 U/L 99 U/L 95 U/L Alanine Aminotransferase (ALT/SGPT) 21 U/L 23 U/L 20 U/L Total Bilirubin 7.0 MG/DL 7.4 MG/DL 7.7 MG/DL Sodium Level 144 MEQ/L 145 MEQ/L 145 MEQ/L Potassium Level 2.8 MEQ/L 3.4 MEQ/L 3.5 MEQ/L Chloride Level 107 MEQ/L 108 MEQ/L 108 MEQ/L Carbon Dioxide Level 23.7 MEQ/L 23.9 MEQ/L 23.8 MEQ/L Anion Gap 13 MEQ/L 13 MEQ/L 13 MEQ/L Estimat Glomerular Filtration Rate 51 ML/MIN 38 ML/MIN 30 ML/MIN Hemoglobin A1c 3.7 % Protein Corrected Calcium 7.5 MG/DL 7.4 MG/DL 6.8 MG/DL Ammonia LESS THAN 10 MCMOL/L Amylase Level 18 U/L Free Thyroxine 1.19 NG/DL Thyroid Stimulating Hormone 3rd Gen 8.780 uIU/ML Basophilic Stippling FAINT Promyelocytes 1 % Imaging Last Impressions Liver Ultrasound 10/23/17 Signed Impressions: CONCLUSION: 1. Portal vein thrombosis. 2. Diffuse ascites with cirrhotic appearance of the liver and progressive enla rgement of the spleen. 3. The hepatic artery is increased in caliber and flow. Normal flow is identif ied within the splenic artery and vein. Cholangiopancreatography MRI 10/20/17 Signed Impressions: CONCLUSION: 1. No biliary ductal dilation identified. 2. Cirrhotic changes within the liver with mild enlargement of the spleen and mild ascites. Gastric Emptying Nuclear Medicine 10/18/17 Signed Impressions: CONCLUSION: 1. Normal gastric emptying half-time and kinetics. Abdomen/Pelvis CT 10/18/17 Signed Impressions: CONCLUSION: 1. Small perirectal abscess on the right side measuring 2.8 x 1.2 cm.. 2. Small amount of ascites in the upper abdomen. Small to moderate amount of a scites in the pelvis. 3. Scattered diverticula along the sigmoid colon. 4. Midline ventral abdominal wall hernia containing loops of small bowel witho ut obstruction. 5. Small bilateral pleural effusions with bibasilar atelectasis. Chest X-Ray 10/08/17 0000 Signed Impressions: Service Date/Time: Sunday, October 08, 2017 03:08 - CONCLUSION: 1. Right central line in superior vena cava. No pneumothorax or effusion. Maycol Looney MD Objective Remarks GENERAL: Awake and alert talkative cooperative jaundiced SKIN: Warm and dry. HEAD: Atraumatic. Normocephalic. EYES: Pupils equal and round. Positive scleral icterus. No injection or drainage. ENT: No nasal bleeding or discharge. Mucous membranes pink and moist. NECK: Trachea midline. No JVD. CARDIOVASCULAR: Regular rate and rhythm. S1-S2 no S3 or S4 RESPIRATORY: No accessory muscle use. Clear to auscultation. Breath sounds equal bilaterally. GASTROINTESTINAL: Abdomen soft, non-tender, nondistended. Hepatic and splenic margins not palpable. MUSCULOSKELETAL: Extremities without clubbing, cyanosis, or edema. No obvious deformities. NEUROLOGICAL: Awake and alert. No obvious cranial nerve deficits. Motor grossly within normal limits. Five out of 5 muscle strength in the arms and legs. Normal speech. PSYCHIATRIC: INAppropriate mood and affect; insight and judgment ABnormal. Procedures SP EGD and colonoscopy Medications and IVs Current Medications Sodium Chloride 1,000 ml @ 1,000 mls/hr Q1H ONCE IV Last administered on 21:09; Start 10/07/17 at 20:54; Stop 10/07/17 at 21:53; Status DC Sodium Chloride 1,000 ml @ 1,000 mls/hr Q1H ONCE IV Last administered on 21:10; Start 10/07/17 at 20:54; Stop 10/07/17 at 21:53; Status DC Sodium Chloride 400 ml @ 1,000 mls/hr Q24M ONCE IV Last administered on 21:10; Start 10/07/17 at 20:54; Stop 10/07/17 at 21:17; Status DC Vancomycin HCl 1200 mg/Sodium Chloride 262 ml @ 250 mls/hr ONCE ONCE IV Last administered on 10/07/17at 22:20; Start 10/07/17 at 21:15; Stop 10/07/17 at 22:17 ; Status DC Cefepime HCl 2000 mg/Sodium Chloride 100 ml @ 200 mls/hr ONCE ONCE IV Last administered on 10/07/17at 21:28; Start 10/07/17 at 21:15; Stop 10/07/17 at 21:44 ; Status DC Pantoprazole Sodium 80 mg/ Sodium Chloride 35 ml @ 420 mls/hr Q5M ONCE IV Last administered on 10/07/17at 22:21; Start 10/07/17 at 21:20; Stop 10/07/17 at 21:24; Status DC Pantoprazole Sodium 80 mg/ Sodium Chloride 100 ml @ 10 mls/hr Q10H IV Last administered on 10/07/17at 22:21; Start 10/07/17 at 21:20; Stop 10/07/17 at 22:35 ; Status DC Octreotide Acetate 500 mcg/ Sodium Chloride 500.5 ml @ 50 mls/hr Q10H1M IV Last administered on 10/07/17at 22:19; Start 10/07/17 at 21:20; Stop 10/07/17 at 22:35; Status DC Norepinephrine Bitartrate 4 mg/ Sodium Chloride 250 ml @ 7.5 mls/hr TITRATE PRN IV Blood pressure management Last administered on 10/09/17at 21:27; Start at 22:00; Stop 10/11/17 at 23:00; Status DC Terbutaline Sulfate (Brethine Inj) 1 mg UNSCH PRN SQ For Extravasation; Start 10/07/17 at 22:00; Stop 10/11/17 at 23:00; Status DC Levothyroxine Sodium (Synthroid) 75 mcg DAILY@0600 PO Last administered on at 06:27; Start 10/08/17 at 06:00; Stop 10/27/17 at 09:27; Status DC Pantoprazole Sodium 80 mg/ Sodium Chloride 100 ml @ 10 mls/hr Q10H IV Last administered on 10/11/17at 20:09; Start 10/07/17 at 23:24; Stop 10/11/17 at 23:00 ; Status DC Octreotide Acetate 500 mcg/ Sodium Chloride 500 ml @ 25 mls/hr Q20H IV Last administered on 10/11/17at 20:08; Start 10/07/17 at 22:24; Stop 10/11/17 at 23:00 ; Status DC Sodium Chloride 1,000 ml @ 84 mls/hr [id number] IV Last administered on at 03:17; Start 10/07/17 at 22:25; Stop 10/12/17 at 12:48; Status DC Sodium Chloride (NS Flush) 2 ml UNSCH PRN IV FLUSH FLUSH AFTER USING IV ACCESS Last administered on 10/23/17at 16:50; Start 10/07/17 at 22:30 Sodium Chloride (NS Flush) 2 ml BID IV FLUSH Last administered on 10/29/17at 09: 42; Start 10/08/17 at 09:00 Albuterol/ Ipratropium (Duoneb Neb) 1 ampule Q2HR NEB PRN INH WHEEZING; Start 10/07/17 at 22:30 Miscellaneous Information ([facility] Nursing Information) 1 [id number] XX Last administered on 10/07/17at 22:30; Start 10/07/17 at 22:30 Chlorhexidine Gluconate (Chlorhexidine 2% Cloth) 3 pack Taper DAILY@04 TOP Last administered on 10/29/17at 04:00; Start 10/08/17 at 04:00; Stop 10/04/18 at 03:59 Chlorhexidine Gluconate (Chlorhexidine 2% Cloth) 3 pack UNSCH PRN TOP HYGIENIC CARE; Start 10/07/17 at 22:30 Cefepime HCl 1000 mg/Sodium Chloride 100 ml @ 200 mls/hr Q8H IV Last administered on 10/14/17at 04:25; Start 10/08/17 at 05:00; Stop 10/14/17 at 12:14 ; Status DC Vancomycin HCl 1000 mg/Sodium Chloride 250 ml @ 250 mls/hr ONCE ONCE IV ; Start 10/08/17 at 00:15; Stop 10/08/17 at 01:14; Status UNV Insulin Aspart (NovoLOG SUPPLEMENTAL SCALE) 1 Q4H SQ Last administered on at 20:30; Start 10/08/17 at 00:00; Stop 10/15/17 at 14:52; Status DC Potassium Chloride 100 ml @ 50 mls/hr Q2H PRN IV For Potassium 2.8 - 3.2 mEq/ L Last administered on 10/12/17at 06:47; Start 10/08/17 at 00:15; Stop 10/13/17 at 15:08; Status DC Potassium Chloride 100 ml @ 50 mls/hr Q2H PRN IV For Potassium 2.8 - 3.2 mEq/ L Last administered on 10/10/17at 13:12; Start 10/08/17 at 00:15; Stop 10/13/17 at 15:08; Status DC Potassium Bicarb/ Potassium Chloride (K-Lyte Cl Eff) 50 meq UNSCH PRN PO For Potassium 3.3 - 3.5 mEq/L; Start 10/08/17 at 00:15; Stop 10/13/17 at 15:08; Status DC Potassium Chloride 100 ml @ 25 mls/hr UNSCH PRN IV For Potassium 3.3 - 3.5 mEq /L Last administered on 10/12/17at 06:46; Start 10/08/17 at 00:15; Stop 10/13/17 at 15:08; Status DC Potassium Chloride 100 ml @ 50 mls/hr Q2H PRN IV For Potassium 3.3 - 3.5 mEq/L ; Start 10/08/17 at 00:15; Stop 10/13/17 at 15:08; Status DC Magnesium Sulfate 4 gm/Sodium Chloride 100 ml @ 50 mls/hr UNSCH PRN IV For Magnesium 0.9 - 1.1 mg/dL; Start 10/08/17 at 00:15; Stop 10/13/17 at 15:08; Status DC Magnesium Oxide (Mag-Ox) 800 mg UNSCH PRN PO For Magnesium 1.2 - 1.6 mg/dL; Start 10/08/17 at 00:15; Stop 10/13/17 at 15:08; Status DC Magnesium Sulfate 2 gm/Sodium Chloride 100 ml @ 50 mls/hr UNSCH PRN IV For Magnesium 1.2 - 1.6 mg/dL; Start 10/08/17 at 00:15; Stop 10/13/17 at 15:08; Status DC Potassium Phosphate (K-Phos) 2,000 mg Q4H PRN PO For Phosphorus < 2.5 mg/dL; Start 10/08/17 at 00:15; Stop 10/13/17 at 15:08; Status DC Sodium Phosphate 30 mmol/Sodium Chloride 250 ml @ 42 mls/hr UNSCH PRN IV For Phosphorus < 2.5 mg/dL; Start 10/08/17 at 00:15; Stop 10/13/17 at 15:08; Status DC Potassium Phosphate (K-Phos) 2,000 mg UNSCH PRN PO/TUBE SEE LABEL COMMENTS; Start 10/08/17 at 00:15; Stop 10/13/17 at 15:08; Status DC Potassium Phosphate 30 mmol/ Sodium Chloride 260 ml @ 42 mls/hr UNSCH PRN IV SEE LABEL COMMENTS; Start 10/08/17 at 00:15; Stop 10/13/17 at 15:08; Status DC Pantoprazole Sodium 80 mg/ Sodium Chloride 100 ml @ 10 mls/hr Q10H IV ; Start 10/08/17 at 01:06; Stop 10/08/17 at 01:06; Status DC Flumazenil (Romazicon Inj) 0.2 mg Q1M PRN IV PUSH SEE LABEL COMMENTS; Start at 01:00; Stop 10/22/17 at 00:48; Status DC Lorazepam (Ativan) 1 mg Q4H PRN PO CIWA 8 - 10; Start 10/08/17 at 01:00; Stop 10/22/17 at 00:48; Status DC Lorazepam (Ativan Inj) 1 mg Q4H PRN IV PUSH CIWA 8 - 10 Last administered on at 21:05; Start 10/08/17 at 01:00; Stop 10/22/17 at 00:48; Status DC Lorazepam (Ativan) 2 mg Q2H PRN PO CIWA 11-14; Start 10/08/17 at 01:00; Stop at 00:48; Status DC Lorazepam (Ativan Inj) 2 mg Q2H PRN IV PUSH CIWA 11-14; Start 10/08/17 at 01:00 ; Stop 10/22/17 at 00:48; Status DC Lorazepam (Ativan Inj) 2 mg Q1H PRN IV PUSH CIWA 15-20; Start 10/08/17 at 01:00 ; Stop 10/22/17 at 00:48; Status DC Lorazepam (Ativan Inj) 2 mg Q15M PRN IV PUSH CIWA > 20; Start 10/08/17 at 01:00 ; Stop 10/22/17 at 00:48; Status DC Multivitamins 10 ml/Thiamine HCl 100 mg/Folic Acid 1 mg/Sodium Chloride 511.2 ml @ 125 mls/hr DAILY IV Last administered on 10/13/17at 09:38; Start 10/08/17 at 09:00; Stop 10/13/17 at 15:59; Status DC Polyethylene Glycol/ Electrolytes (Colyte Liq) 4,000 ml ONCE ONCE PO Last administered on 10/09/17at 17:05; Start 10/09/17 at 16:00; Stop 10/09/17 at 16:01 ; Status DC Pharmacy Profile Note 0 ml @ 0 mls/hr UNSCH OTHER ; Start 10/09/17 at 13:45; Stop 10/12/17 at 09:41; Status DC Vancomycin HCl 1250 mg/Sodium Chloride 262.5 ml @ 250 mls/hr Q24H IV Last administered on 10/11/17at 15:48; Start 10/09/17 at 15:00; Stop 10/12/17 at 09:41 ; Status DC Miscellaneous Information ([facility] Ordered Lab Info) SPECIFIC LAB TO BE ALEXIS... ONCE ONCE .XX ; Start 10/12/17 at 14:45; Stop 10/12/17 at 14:46; Status Cancel Lactated Ringer's 500 ml @ 999 mls/hr BOLUS ONCE IV Last administered on 10/09at 16:57; Start 10/09/17 at 16:15; Stop 10/09/17 at 16:45; Status DC Metronidazole (Flagyl) 500 mg Q8HR PO Last administered on 10/12/17at 05:42; Start 10/10/17 at 17:30; Stop 10/12/17 at 09:41; Status DC Miscellaneous Information ([facility] Nursing Information) ALL NURSING DEPARTME... UNSCH PRN .XX SEE LABEL COMMENTS; Start 10/11/17 at 19:26; Stop 10/12/17 at 19: 25; Status DC Pantoprazole Sodium (Protonix Inj) 40 mg Q24H IV PUSH Last administered on 10/13at 08:39; Start 10/12/17 at 09:00; Stop 10/13/17 at 15:56; Status DC Propofol (Diprivan 200 Mg/20 ml Inj) 400 mg STK-MED ONCE IV ; Start 10/11/17 at 12:00; Stop 10/13/17 at 13:14; Status DC Lidocaine HCl (Xylocaine-Mpf 1% Inj) 5 ml STK-MED ONCE OTHER ; Start 10/11/17 at 12:00; Stop 10/13/17 at 13:14; Status DC Phenylephrine HCl (Neosynephrine/ NS 1000 Mcg/10ml Syr) 1,000 mcg STK-MED ONCE IV ; Start 10/11/17 at 12:00; Stop 10/13/17 at 13:14; Status DC Pantoprazole Sodium (Protonix) 40 mg DAILY PO Last administered on 10/29/17at 09: 41; Start 10/14/17 at 09:00 Potassium Chloride (KCl) 30 meq ONCE ONCE PO Last administered on 10/13/17at 16 :13; Start 10/13/17 at 16:00; Stop 10/13/17 at 16:04; Status DC Fentanyl (Duragesic 25 Mcg Patch.72 Hr) 1 patch ONCE ONCE T-DERMAL Last administered on 10/13/17at 16:13; Start 10/13/17 at 16:00; Stop 10/13/17 at 16:03 ; Status DC Potassium Chloride 100 ml @ 100 mls/hr BOLUS ONCE IV Last administered on at 10:36; Start 10/14/17 at 11:00; Stop 10/14/17 at 11:59; Status DC Potassium Chloride (KCl) 20 meq Q12HR PO Last administered on 10/26/17at 08:48; Start 10/14/17 at 10:30; Stop 10/26/17 at 09:50; Status DC Levofloxacin (Levaquin) 750 mg DAILY PO Last administered on 10/21/17at 09:06; Start 10/14/17 at 13:00; Stop 10/21/17 at 23:00; Status DC Compound Med (Ritters Cream) 1 applic BID RECTAL Last administered on 10/29/17at 09:42; Start 10/14/17 at 13:15 Potassium Chloride/Dextrose/ Sod Cl 1,000 ml @ 100 mls/hr Q10H IV Last administered on 10/17/17at 06:45; Start 10/15/17 at 14:45; Stop 10/17/17 at 13:05 ; Status DC Duloxetine HCl (Cymbalta Dr) 60 mg DAILY PO Last administered on 10/29/17at 09:41 ; Start 10/15/17 at 16:30 Ondansetron HCl (Zofran Odt) 4 mg ONCE ONCE SL Last administered on at 10:54; Start 10/16/17 at 10:45; Stop 10/16/17 at 10:49; Status DC Ondansetron HCl (Zofran Odt) 4 mg Q8HR PRN SL nausea; Start 10/16/17 at 10:45 ; Stop 10/17/17 at 13:29; Status DC Magnesium Sulfate/ Dextrose 100 ml @ 100 mls/hr Q1H IV Last administered on at 15:51; Start 10/16/17 at 11:00; Stop 10/16/17 at 14:59; Status DC Prochlorperazine Edisylate (Compazine Inj) 10 mg ONCE ONCE IV PUSH Last administered on 10/16/17at 11:06; Start 10/16/17 at 11:00; Stop 10/16/17 at 11:01 ; Status DC Prochlorperazine Edisylate (Compazine Inj) 10 mg Q8H PRN IV PUSH NAUSEA OR VOMITING Last administered on 10/27/17at 23:52; Start 10/16/17 at 11:00 Sucralfate (Carafate Liq) 1 gm ACHS PO Last administered on 10/16/17at 19:59; Start 10/16/17 at 12:00; Stop 10/17/17 at 12:56; Status DC Ondansetron HCl (Zofran Inj) 4 mg ONCE ONCE IV PUSH ; Start 10/17/17 at 13:00; Stop 10/17/17 at 13:29; Status DC Levofloxacin (Levaquin) 250 mg ONCE ONCE PO Last administered on 10/17/17at 13: 50; Start 10/17/17 at 13:15; Stop 10/17/17 at 13:16; Status DC Prochlorperazine Edisylate (Compazine Inj) 10 mg ONCE ONCE IV PUSH Last administered on 10/17/17at 13:30; Start 10/17/17 at 13:30; Stop 10/17/17 at 14:00 ; Status DC Diatrizoate Meglum/ Diatrizoate Sod ( Gastroview Liq) 18 ml ONCE ONCE PO Last administered on 10/18/17at 10:00; Start 10/18/17 at 10:00; Stop 10/18/17 at 10:01; Status DC Iohexol (Omnipaque 350 Inj) 80 ml STK-MED ONCE IVCONTRAST Last administered on 10/18/17at 20:28; Start 10/18/17 at 20:28; Stop 10/18/17 at 20:29; Status DC Magnesium Sulfate/ Dextrose 100 ml @ 100 mls/hr Q1H IV Last administered on at 02:00; Start 10/19/17 at 01:00; Stop 10/19/17 at 02:59; Status DC Potassium Phos/ Sodium Phos (K-Phos Neutral) 250 mg Q8HR PO Last administered on 10/29/17at 05:10; Start 10/19/17 at 06:00 Sodium Chloride 1,000 ml @ 100 mls/hr Q10H IV Last administered on 10/21/17at 16 :01; Start 10/19/17 at 11:00; Stop 10/22/17 at 00:38; Status DC Sodium Chloride 500 ml @ 500 mls/hr BOLUS ONCE IV Last administered on at 05:30; Start 10/20/17 at 05:30; Stop 10/20/17 at 06:29; Status DC Megestrol Acetate (Megace Liq) 400 mg DAILY PO Last administered on 10/29/17at 09 :41; Start 10/22/17 at 09:00 Lactated Ringer's 1,000 ml @ 100 mls/hr Q10H IV ; Start 10/22/17 at 01:00; Stop 10/22/17 at 01:00; Status DC Furosemide (Lasix) 40 mg BID@,18 PO Last administered on 10/29/17at 09:41; Start 10/22/17 at 09:00 Heparin Sodium/ Dextrose 250 ml @ 16 mls/hr TITRATE PRN IV Coagulation Management Last administered on 10/24/17 15:30; Start 10/23/17 at 13:45; Stop 10/25/17 at 10:21; Status DC Magnesium Sulfate/ Dextrose 100 ml @ 100 mls/hr Q1H IV Last administered on 15:10; Start 10/24/17 at 12:00; Stop 10/24/17 at 13:59; Status DC Potassium Chloride (KCl) 60 meq ONCE ONCE PO Last administered on 10/24/17at 12: 14; Start 10/24/17 at 11:30; Stop 10/24/17 at 11:31; Status DC Potassium Chloride 100 ml @ 50 mls/hr Q2H IV Last administered on 10/24/17 17: 44; Start 10/24/17 at 12:00; Stop 10/24/17 at 15:59; Status DC Warfarin Sodium (Coumadin) 2 mg ONCE ONCE PO Last administered on 10/24/17 17: 43; Start 10/24/17 at 16:15; Stop 10/24/17 at 16:16; Status DC Pharmacy Profile Note 0 ml @ 0 mls/hr UNSCH OTHER ; Start 10/24/17 at 16:15 Patient Medication Teaching (Coumadin Booklet) 1 ONCE ONCE .XX Last administered on 10/24/17 17:44; Start 10/24/17 at 16:15; Stop 10/24/17 at 16:16; Status DC Warfarin Sodium (Coumadin) 2 mg DAILY@1600 PO Last administered on 10/25/17at 14: 43; Start 10/25/17 at 16:00; Status Future Hold Enoxaparin Sodium (Lovenox Inj) 90 mg DAILY@1100,2300 SQ Last administered on 10:10; Start 10/25/17 at 11:11; Stop 10/26/17 at 13:20; Status DC Potassium Bicarb/ Potassium Chloride (K-Lyte Cl Eff) 100 meq ONCE ONCE PO Last administered on 10/26/17 10:09; Start 10/26/17 at 09:45; Stop 10/26/17 at 09: 49; Status DC Potassium Bicarb/ Potassium Chloride (K-Lyte Cl Eff) 50 meq DAILY PO Last administered on 10/27/17at 09:49; Start 10/27/17 at 09:00; Stop 10/27/17 at 13:08; Status DC Levothyroxine Sodium (Synthroid) 100 mcg DAILY@0600 PO Last administered on 10/29at 05:11; Start 10/28/17 at 06:00 Potassium Bicarb/ Potassium Chloride (K-Lyte Cl Eff) 100 meq ONCE ONCE PO Last administered on 10/27/17at 09:49; Start 10/27/17 at 09:30; Stop 10/27/17 at 13: 08; Status DC Potassium Chloride (KCl) 80 meq ONCE ONCE PO Last administered on 10/27/17at 14: 21; Start 10/27/17 at 13:15; Stop 10/27/17 at 13:35; Status DC Potassium Chloride (KCl) 50 meq DAILY PO Last administered on 10/29/17at 09:41; Start 10/28/17 at 09:00 Potassium Chloride (KCl) 30 meq ONCE ONCE PO Last administered on 10/28/17at 12: 55; Start 10/28/17 at 12:15; Stop 10/28/17 at 12:16; Status DC Calcium Gluconate 1 gm/Dextrose 110 ml @ 110 mls/hr ONCE ONCE IV Last administered on 10/29/17at 09:41; Start 10/29/17 at 07:30; Stop 10/29/17 at 08:29; Status DC Date of Insertion: October 13, 2017 A/P Problem List: (1) Septic shock ICD Code: A41.9 - Sepsis, unspecified organism; R65.21 - Severe sepsis with septic shock Status: Acute (2) Anemia requiring transfusions ICD Code: D64.9 - Anemia, unspecified (3) Upper GI bleed ICD Code: K92.2 - Gastrointestinal hemorrhage, unspecified (4) Lactic acidosis ICD Code: E87.2 - Acidosis Status: Resolved (5) UTI (urinary tract infection) ICD Code: N39.0 - Urinary tract infection, site not specified (6) Acute kidney injury ICD Code: N17.9 - Acute kidney failure, unspecified (7) Elevated bilirubin ICD Code: R17 - Unspecified jaundice (8) Hypokalemia ICD Code: E87.6 - Hypokalemia Status: Acute (9) Hypothermia ICD Code: T68.XXXA - Hypothermia, initial encounter (10) Alcohol dependence ICD Code: F10.20 - Alcohol dependence, uncomplicated Assessment and Plan Assessment and Plan Upper GI bleed/liver cirrhosis/ N/V/ Abdominal pain Anemia EGD 10/11 - gastritis, duodenitis. No acitve bleeding. Biopsies sent. (Dr. Tatum). Colonoscopy 10/11 -diverticulosis, colon polyps, internal and external hemorrhoids. (Dr. Tatum) transverse colon and descending colon polypectomy were performed x2 and sent for path. - PPI. - Antiemetics as needed. - pain control as needed. - low residue diet. - add sucralfate. - trend LFTs. - reconsult GI for persistent nausea and decreased p.o. intake. 10/18 Patient's bilirrubin trending up with predominance of direct bilirubin over indirect bilirubin. Repeat CT abdomen and pelvis pending. 10/19 bilirubin keeps trending up now total bilirubin 6.1, with predominance of direct bilirubin. Agree with MRCP. 10/21 sp MRCP which does not show any type of obstruction. 10/25 the patient still with severe abdominal pain, not eating. 10-28 STILL POOR ORAL INTAKE Septic shock/ UTI/ Perirectal abscess Colorectal surgery consult appreciated. 09/27 blood culture 1 out of 4 with GPC. urine culture -E. coli. Levophed weaned off. - antibiotics per ID. - holding antihypertensive meds. - monitor off of IVFs. Chronic pain/ Alcohol dependence Patient drinks about 5 alcoholic beverages daily. Patient states she is nonambulatory at baseline due to chronic pain, uses a motorized scooter. - Supplement thiamine, MVI. - cessation instruction. - PT/ OT. - pain control. Chest pain Serial troponins were negative. She states negative stress test at [facility] in [place] 3 years ago. Seems resolved. - Not candidate for ASA due to GI bleeding. - Not candidate for betablocker due to hypotension. Perirectal abscess CT abdomen and pelvis -findings concerning for perirectal abscess. - Colorectal surgery consulted, Dr. Yin evaluated. Not a candidate for surgery at this time. - continue wound care. Acute kidney insufficiency/ Hypokalemia/ Hypomagnesemia/ Hypophosphatemia Hyperchloremic metabolic acidosis Mg 0.8 10/16. - follow labs and replete lytes as needed. - monitor off of IVFs. 10/18 Magnesium, phosphorus still low. Replace with IV Magnesium sulfate and neutra-phos. 10/19 electrolytes much improved with potassium within normal range as well as magnesium., Phosphorus continues to be low. Continue Neutra-Phos. 10/25 status post IV and oral potassium on 10/24 due to severe hypokalemia. Potassium today 3.1. We will continue to replace orally and monitor BMP. Patient status post IV magnesium sulfate on 10/24. Will recheck magnesium and replace as needed with IV magnesium sulfate. HYPOKALEMIA REPLACE BY PO TABLETS Acromegaly/ Hypothyroidism Previously was on Octreotide and had pituitary surgery in 1986. Random cortisol was normal. - Continue Synthroid 75 mcg p.o. daily. Decreased appetite/Poor oral intake Moderate protein calorie malnutrition Continue Megace. 10/25 Dietitian consulted, recommended [place] 3 times daily with meals. I will order. Transaminitis Hyperbilirrubinemia Portal vein thrombosis 10/22 AST continue to worsens. Unclear etiology. Possibly secondary to hepatic congestion due to anasarca and fluid overload. Start on Lasix 40 mg p.o. twice daily. Monitor strict I's and O's with the goal of keeping a negative balance. Elevated bilirubin continues to worsen. Total bilirubin went up from 7.2-7.7 with predominance of direct bilirubin that went up from 6.2-6.5. Continue to monitor bilirubin levels. Venous Doppler showed portal vein thrombosis. Patient started on IV heparin drip. Start bridge to Coumadin, goal INR 2-3. Bilirubin trending down. Continue to monitor LFTs 10/25 discontinued IV heparin drip and start on Lovenox 1 mg/kg subcutaneous twice daily. Lovenox bridge to Coumadin with a goal INR of 2-3. Continue to monitor LFTs, bilirubin. HOLD COUMADIN Anasarca As seen on CT abdomen/pelvis described above. 10/25 On lasix. continue. PROPH: -Bilateral lower extremity SCDs. Hold chemical DVT prophylaxis due to recent GI bleed. Discharge Planning Discharge pending clinical improvement. The patient still having abdominal pain and not eating. Patient will need to be eating appropriately prior to discharge. Discharge Planning CALORIE COUNTING POOR ORAL INTAKE Problem Qualifiers (1) UTI (urinary tract infection): Kulwinder Dodson DO Oct 29, 2017 12:43
[2017-10-29 16:00] VITALS: BP 102/56; PULSE 95; RESP 18; TEMP 97.8; O2SAT 94
[2017-10-29 20:00] VITALS: BP 96/53; PULSE 100; RESP 19; TEMP 97.6; O2SAT 91
[2017-10-30] VITALS: BP 97/55; PULSE 101; RESP 19; TEMP 97.9; O2SAT 95
[2017-10-30] MEDS: CHLORHEXIDINE GLUCONATE 2 % 1 PACK (2 CLOTHS) TOP SCH (04:00)
[2017-10-30] MEDS: POTASSIUM PHOSPHATE/SODIUM PHOSPHATE 250 MG TAB PO SCH ×3 (05:12→20:07)
[2017-10-30] MEDS: LEVOTHYROXINE SODIUM 100 MCG TAB PO SCH (05:12)
[2017-10-30 05:23] LABS: INTERNATIONAL NORMALIZED RATIO 3.7 RATIO; PROTHROMBIN TIME - PATIENT 37.4 SEC (9.8-11.6)
[2017-10-30 05:24] LABS: AUTOMATED NEUTROPHIL # 12.8 TH/MM3 (1.8-7.7); BASOPHIL # 0.1 TH/MM3 (0-0.2); BASOPHIL % 0.8 % (0.0-2.0); EOSINOPHIL % 0.2 % (0.0-4.0); HEMATOCRIT 25.8 % (35.0-46.0); HEMOGLOBIN 8.5 GM/DL (11.6-15.3); LYMPH % 12.4 % (9.0-44.0); MEAN CELL VOLUME 99.5 FL (80.0-100.0); MEAN CORPUSCULAR HEMOGLOBIN 32.8 PG (27.0-34.0); MEAN PLATELET VOLUME 8.5 FL (7.0-11.0); MONO % 6.5 % (0.0-8.0); NEUT % 80.1 % (16.0-70.0); PLATELET COUNT 232 TH/MM3 (150-450); RED CELL DISTRIBUTION WIDTH 22.6 % (11.6-17.2); WHITE BLOOD COUNT 15.9 TH/MM3 (4.0-11.0)
[2017-10-30 05:42] LABS: ALBUMIN 1.4 GM/DL (3.4-5.0); BICARBONATE 21.2 MEQ/L (21.0-32.0); CALCIUM 6.7 MG/DL (8.5-10.1); CREATININE 2.14 MG/DL (0.50-1.00)
[2017-10-30 05:52] LABS: PHOSPHORUS 5.2 MG/DL (2.5-4.9); TOTAL BILIRUBIN ADULT 7.9 MG/DL (0.2-1.0); TOTAL PROTEIN 6.3 GM/DL (6.4-8.2)
[2017-10-30 05:55] LABS: CALCIUM-PROTEIN CORRECTED 7.1 MG/DL (8.5-10.1)
[2017-10-30] MEDS: MAGNESIUM SULFATE 1 GM PREMIX 100 ML IV SCH ×2 (06:15→10:09)
[2017-10-30 06:17] LABS: BANDS 8 % (0-6); LYMPHOCYTES 4 % (9-44); MONOCYTES 4 % (0-8); NEUTROPHIL # MANUAL DIFF 14.6 TH/MM3 (1.8-7.7); POLYS (SEG NEUTROPHILS) 84 % (16-70); TOXIC GRANULATION 1+ (NORMAL)
[2017-10-30 06:18] LABS: TARGET CELLS 1+ (NORMAL)
[2017-10-30 06:19] LABS: SPHEROCYTES 1+ (NORMAL)
[2017-10-30] MEDS ORDERED: CALCIUM GLUCONATE INJ 1 GM in DEXTROSE 5% IN WATER 100ML INJ 100 ML IV ONE ×2 (06:40)
[2017-10-30 09:26] VITALS: BP 102/56; PULSE 105; RESP 17; TEMP 97.9; O2SAT 92
[2017-10-30] MEDS ORDERED: POTASSIUM PHOSPHATE MONOBASIC 500 MG TAB PO ONE (10:00)
[2017-10-30] MEDS: MEGESTROL ACETATE SUSP 400 MG/10 ML CUP PO SCH (10:09)
[2017-10-30] MEDS: DULoxetine HCl DR 60 MG CAP PO SCH (10:09)
[2017-10-30] MEDS: FUROSEMIDE 40 MG TAB PO SCH ×2 (10:09→18:14)
[2017-10-30] MEDS: POTASSIUM CHLORIDE 10 MEQ CONTROLLED RELEASE TAB PO SCH (10:10)
[2017-10-30] MEDS: PANTOPRAZOLE SOD 40 MG DELAYED RELEASE TAB PO SCH (10:10)
[2017-10-30] MEDS: SILVER SULFADIAZINE/LIDOCAINE CREAM 60 GM JAR RECTAL SCH ×2 (10:11→20:06)
[2017-10-30] MEDS: SODIUM CHLORIDE 0.9% FLUSH 10 ML FLUSH IV FLUSH SCH ×2 (10:34→20:10)
[2017-10-30 13:11] VITALS: BP 110/55; PULSE 108; RESP 18; TEMP 97.3; O2SAT 93
--- NOTE | 2017-10-30 15:02 | HHI.PR ---
Subjective Remarks 6-5 Patient seen during PT session. Patient complains of severe epigastric abdominal pain. As per report was in the room the patient is not eating at all. Appetite is poor. 6-6 POTASSIUM IS DECREASED WILL REPLACE AM LABS DW RN AND PT AND CM 6-7 POTASSIUM IS STILL LOW SWITCH TO PO TABLETS DW RN AND PT AM LABS CALORIE COUNTS 6-8 IS A DNR NOW REPLACE POTASSIUM AM LABS ENCOURAGE PO INTAKE POOR NUTRITION 6-9 WILL REPLACE POTASSIUM AGAIN VERY POOR PO INTAKE HER RN MADE SURE TOOK MEDICATIONS 6-10 DW FAMILY, AND MULTIPLE OTHER FAMILY MEMBERS THEY STATE SHE WOULD NOT LIKE A PEG TUBE PATIENT NEEDS TO EAT WILL ASK PALLIATIVE CARE TO EVAL AND DW FAMILY PROBABLE HOSPICE CANDIDATE HYPOKALEMIA REPLACE AM LABS NEEDS TO EAT OR WILL NEED HOSPICE Objective Vitals Vital Signs Date Time Temp Pulse Resp B/P (MAP) Pulse Ox O2 Delivery O2 Flow Rate FiO2 10/30/17 13:11 97.3 108 18 110/55 (73) 93 10/30/17 09:26 97.9 105 17 102/56 (71) 92 10/30/17 00:00 97.9 101 19 97/55 (69) 95 97/55 (69) 10/29/17 20:00 97.6 100 19 96/53 (67) 91 10/29/17 16:00 97.8 95 18 102/56 (71) 94 I/O 10/29/17 10/29/17 10/29/17 10/30/17 10/30/17 10/30/17 07:00 15:00 23:00 07:00 15:00 23:00 Intake Total 580 ml 110 ml 360 ml 650 ml Balance 580 ml 110 ml 360 ml 650 ml Intake Oral 580 ml 360 ml 650 ml IV Total 110 ml # Voids 2 1 1 # Bowel Movements 4 3 6 Result Diagram: 10/30/17 0421 10/30/17 0421 Other Results Laboratory Tests Test 10/28/17 07:20 10/28/17 07:25 10/29/17 04:42 10/30/17 04:21 Blood Urea Nitrogen 8 MG/DL 9 MG/DL 11 MG/DL Creatinine 1.39 MG/DL 1.68 MG/DL 2.14 MG/DL Random Glucose 60 MG/DL 57 MG/DL 75 MG/DL Total Protein 6.6 GM/DL 6.5 GM/DL 6.3 GM/DL Albumin 1.5 GM/DL 1.4 GM/DL 1.4 GM/DL Calcium Level 7.1 MG/DL 6.5 MG/DL 6.7 MG/DL Phosphorus Level 4.5 MG/DL 4.7 MG/DL 5.2 MG/DL Magnesium Level 1.0 MG/DL 1.0 MG/DL 1.0 MG/DL Alkaline Phosphatase 269 U/L 258 U/L 255 U/L Aspartate Amino Transf (AST/SGOT) 99 U/L 95 U/L 90 U/L Alanine Aminotransferase (ALT/SGPT) 23 U/L 20 U/L 20 U/L Total Bilirubin 7.4 MG/DL 7.7 MG/DL 7.9 MG/DL Sodium Level 145 MEQ/L 145 MEQ/L 145 MEQ/L Potassium Level 3.4 MEQ/L 3.5 MEQ/L 3.4 MEQ/L Chloride Level 108 MEQ/L 108 MEQ/L 109 MEQ/L Carbon Dioxide Level 23.9 MEQ/L 23.8 MEQ/L 21.2 MEQ/L Anion Gap 13 MEQ/L 13 MEQ/L 15 MEQ/L Estimat Glomerular Filtration Rate 38 ML/MIN 30 ML/MIN 23 ML/MIN Protein Corrected Calcium 7.4 MG/DL 6.8 MG/DL 7.1 MG/DL White Blood Count 13.2 TH/MM3 14.9 TH/MM3 15.9 TH/MM3 Red Blood Count 2.74 MIL/MM3 2.47 MIL/MM3 2.60 MIL/MM3 Hemoglobin 9.0 GM/DL 8.1 GM/DL 8.5 GM/DL Hematocrit 27.3 % 24.8 % 25.8 % Mean Corpuscular Volume 99.6 FL 100.3 FL 99.5 FL Mean Corpuscular Hemoglobin 32.7 PG 32.7 PG 32.8 PG Mean Corpuscular Hemoglobin Concent 32.8 % 32.6 % 33.0 % Red Cell Distribution Width 22.5 % 23.7 % 22.6 % Platelet Count 195 TH/MM3 219 TH/MM3 232 TH/MM3 Mean Platelet Volume 8.8 FL 8.8 FL 8.5 FL Neutrophils (%) (Auto) 81.3 % 81.2 % 80.1 % Lymphocytes (%) (Auto) 12.0 % 12.5 % 12.4 % Monocytes (%) (Auto) 6.0 % 6.0 % 6.5 % Eosinophils (%) (Auto) 0.3 % 0.1 % 0.2 % Basophils (%) (Auto) 0.4 % 0.2 % 0.8 % Neutrophils # (Auto) 10.7 TH/MM3 12.1 TH/MM3 12.8 TH/MM3 Lymphocytes # (Auto) 1.6 TH/MM3 1.9 TH/MM3 2.0 TH/MM3 Monocytes # (Auto) 0.8 TH/MM3 0.9 TH/MM3 1.0 TH/MM3 Eosinophils # (Auto) 0.0 TH/MM3 0.0 TH/MM3 0.0 TH/MM3 Basophils # (Auto) 0.0 TH/MM3 0.0 TH/MM3 0.1 TH/MM3 CBC Comment AUTO DIFF AUTO DIFF AUTO DIFF Differential Comment AUTO DIFF CONFIRMED FINAL DIFF MANUAL FINAL DIFF MANUAL Toxic Granulation 1+ 1+ Platelet Estimate NORMAL NORMAL NORMAL Platelet Morphology Comment NORMAL NORMAL NORMAL Polychromasia 2.6 % 2.1 % Basophilic Stippling FAINT FAINT Target Cells 1+ 1+ 1+ Stomatocytes 1+ Prothrombin Time 36.5 SEC 37.3 SEC 37.4 SEC Prothromb Time International Ratio 3.6 RATIO 3.7 RATIO 3.7 RATIO Differential Total Cells Counted 100 100 Neutrophils % (Manual) 88 % 84 % Band Neutrophils % 5 % 8 % Lymphocytes % 3 % 4 % Monocytes % 2 % 4 % Eosinophils % 1 % Neutrophils # (Manual) 14.0 TH/MM3 14.6 TH/MM3 Promyelocytes 1 % Spherocytes 1+ Imaging Last Impressions Liver Ultrasound 10/23/17 Signed Impressions: CONCLUSION: 1. Portal vein thrombosis. 2. Diffuse ascites with cirrhotic appearance of the liver and progressive enla rgement of the spleen. 3. The hepatic artery is increased in caliber and flow. Normal flow is identif ied within the splenic artery and vein. Cholangiopancreatography MRI 10/20/17 Signed Impressions: CONCLUSION: 1. No biliary ductal dilation identified. 2. Cirrhotic changes within the liver with mild enlargement of the spleen and mild ascites. Gastric Emptying Nuclear Medicine 10/18/17 Signed Impressions: CONCLUSION: 1. Normal gastric emptying half-time and kinetics. Abdomen/Pelvis CT 10/18/17 Signed Impressions: CONCLUSION: 1. Small perirectal abscess on the right side measuring 2.8 x 1.2 cm.. 2. Small amount of ascites in the upper abdomen. Small to moderate amount of a scites in the pelvis. 3. Scattered diverticula along the sigmoid colon. 4. Midline ventral abdominal wall hernia containing loops of small bowel witho ut obstruction. 5. Small bilateral pleural effusions with bibasilar atelectasis. Chest X-Ray 10/08/17 0000 Signed Impressions: Service Date/Time: Sunday, October 08, 2017 03:08 - CONCLUSION: 1. Right central line in superior vena cava. No pneumothorax or effusion. Maycol Looney MD Objective Remarks GENERAL: Awake and alert talkative cooperative jaundiced SKIN: Warm and dry. HEAD: Atraumatic. Normocephalic. EYES: Pupils equal and round. Positive scleral icterus. No injection or drainage. ENT: No nasal bleeding or discharge. Mucous membranes pink and moist. NECK: Trachea midline. No JVD. CARDIOVASCULAR: Regular rate and rhythm. S1-S2 no S3 or S4 RESPIRATORY: No accessory muscle use. Clear to auscultation. Breath sounds equal bilaterally. GASTROINTESTINAL: Abdomen soft, non-tender, nondistended. Hepatic and splenic margins not palpable. MUSCULOSKELETAL: Extremities without clubbing, cyanosis, or edema. No obvious deformities. NEUROLOGICAL: Awake and alert. No obvious cranial nerve deficits. Motor grossly within normal limits. Five out of 5 muscle strength in the arms and legs. Normal speech. PSYCHIATRIC: INAppropriate mood and affect; insight and judgment ABnormal. Procedures SP EGD and colonoscopy Medications and IVs Current Medications Sodium Chloride 1,000 ml @ 1,000 mls/hr Q1H ONCE IV Last administered on 21:09; Start 10/07/17 at 20:54; Stop 10/07/17 at 21:53; Status DC Sodium Chloride 1,000 ml @ 1,000 mls/hr Q1H ONCE IV Last administered on 21:10; Start 10/07/17 at 20:54; Stop 10/07/17 at 21:53; Status DC Sodium Chloride 400 ml @ 1,000 mls/hr Q24M ONCE IV Last administered on at 21:10; Start 10/07/17 at 20:54; Stop 10/07/17 at 21:17; Status DC Vancomycin HCl 1200 mg/Sodium Chloride 262 ml @ 250 mls/hr ONCE ONCE IV Last administered on 10/07/17at 22:20; Start 10/07/17 at 21:15; Stop 10/07/17 at 22:17 ; Status DC Cefepime HCl 2000 mg/Sodium Chloride 100 ml @ 200 mls/hr ONCE ONCE IV Last administered on 10/07/17at 21:28; Start 10/07/17 at 21:15; Stop 10/07/17 at 21:44 ; Status DC Pantoprazole Sodium 80 mg/ Sodium Chloride 35 ml @ 420 mls/hr Q5M ONCE IV Last administered on 10/07/17at 22:21; Start 10/07/17 at 21:20; Stop 10/07/17 at 21:24; Status DC Pantoprazole Sodium 80 mg/ Sodium Chloride 100 ml @ 10 mls/hr Q10H IV Last administered on 10/07/17at 22:21; Start 10/07/17 at 21:20; Stop 10/07/17 at 22:35 ; Status DC Octreotide Acetate 500 mcg/ Sodium Chloride 500.5 ml @ 50 mls/hr Q10H1M IV Last administered on 10/07/17at 22:19; Start 10/07/17 at 21:20; Stop 10/07/17 at 22:35; Status DC Norepinephrine Bitartrate 4 mg/ Sodium Chloride 250 ml @ 7.5 mls/hr TITRATE PRN IV Blood pressure management Last administered on 10/09/17at 21:27; Start at 22:00; Stop 10/11/17 at 23:00; Status DC Terbutaline Sulfate (Brethine Inj) 1 mg UNSCH PRN SQ For Extravasation; Start 10/07/17 at 22:00; Stop 10/11/17 at 23:00; Status DC Levothyroxine Sodium (Synthroid) 75 mcg DAILY@0600 PO Last administered on at 06:27; Start 10/08/17 at 06:00; Stop 10/27/17 at 09:27; Status DC Pantoprazole Sodium 80 mg/ Sodium Chloride 100 ml @ 10 mls/hr Q10H IV Last administered on 10/11/17at 20:09; Start 10/07/17 at 23:24; Stop 10/11/17 at 23:00 ; Status DC Octreotide Acetate 500 mcg/ Sodium Chloride 500 ml @ 25 mls/hr Q20H IV Last administered on 10/11/17at 20:08; Start 10/07/17 at 22:24; Stop 10/11/17 at 23:00 ; Status DC Sodium Chloride 1,000 ml @ 84 mls/hr [id number] IV Last administered on at 03:17; Start 10/07/17 at 22:25; Stop 10/12/17 at 12:48; Status DC Sodium Chloride (NS Flush) 2 ml UNSCH PRN IV FLUSH FLUSH AFTER USING IV ACCESS Last administered on 10/23/17at 16:50; Start 10/07/17 at 22:30 Sodium Chloride (NS Flush) 2 ml BID IV FLUSH Last administered on 10/30/17at 10: 34; Start 10/08/17 at 09:00 Albuterol/ Ipratropium (Duoneb Neb) 1 ampule Q2HR NEB PRN INH WHEEZING; Start 10/07/17 at 22:30 Miscellaneous Information ([facility] Information) 1 [id number] XX Last administered on 10/07/17at 22:30; Start 10/07/17 at 22:30 Chlorhexidine Gluconate (Chlorhexidine 2% Cloth) 3 pack Taper DAILY@04 TOP Last administered on 10/30/17at 04:00; Start 10/08/17 at 04:00; Stop 10/04/18 at 03:59 Chlorhexidine Gluconate (Chlorhexidine 2% Cloth) 3 pack UNSCH PRN TOP HYGIENIC CARE; Start 10/07/17 at 22:30 Cefepime HCl 1000 mg/Sodium Chloride 100 ml @ 200 mls/hr Q8H IV Last administered on 10/14/17 04:25; Start 10/08/17 at 05:00; Stop 10/14/17 at 12:14 ; Status DC Vancomycin HCl 1000 mg/Sodium Chloride 250 ml @ 250 mls/hr ONCE ONCE IV ; Start 10/08/17 at 00:15; Stop 10/08/17 at 01:14; Status UNV Insulin Aspart (NovoLOG SUPPLEMENTAL SCALE) 1 Q4H SQ Last administered on at 20:30; Start 10/08/17 at 00:00; Stop 10/15/17 at 14:52; Status DC Potassium Chloride 100 ml @ 50 mls/hr Q2H PRN IV For Potassium 2.8 - 3.2 mEq/ L Last administered on 10/12/17at 06:47; Start 10/08/17 at 00:15; Stop 10/13/17 at 15:08; Status DC Potassium Chloride 100 ml @ 50 mls/hr Q2H PRN IV For Potassium 2.8 - 3.2 mEq/ L Last administered on 10/10/17at 13:12; Start 10/08/17 at 00:15; Stop 10/13/17 at 15:08; Status DC Potassium Bicarb/ Potassium Chloride (K-Lyte Cl Eff) 50 meq UNSCH PRN PO For Potassium 3.3 - 3.5 mEq/L; Start 10/08/17 at 00:15; Stop 10/13/17 at 15:08; Status DC Potassium Chloride 100 ml @ 25 mls/hr UNSCH PRN IV For Potassium 3.3 - 3.5 mEq /L Last administered on 10/12/17at 06:46; Start 10/08/17 at 00:15; Stop 10/13/17 at 15:08; Status DC Potassium Chloride 100 ml @ 50 mls/hr Q2H PRN IV For Potassium 3.3 - 3.5 mEq/L ; Start 10/08/17 at 00:15; Stop 10/13/17 at 15:08; Status DC Magnesium Sulfate 4 gm/Sodium Chloride 100 ml @ 50 mls/hr UNSCH PRN IV For Magnesium 0.9 - 1.1 mg/dL; Start 10/08/17 at 00:15; Stop 10/13/17 at 15:08; Status DC Magnesium Oxide (Mag-Ox) 800 mg UNSCH PRN PO For Magnesium 1.2 - 1.6 mg/dL; Start 10/08/17 at 00:15; Stop 10/13/17 at 15:08; Status DC Magnesium Sulfate 2 gm/Sodium Chloride 100 ml @ 50 mls/hr UNSCH PRN IV For Magnesium 1.2 - 1.6 mg/dL; Start 10/08/17 at 00:15; Stop 10/13/17 at 15:08; Status DC Potassium Phosphate (K-Phos) 2,000 mg Q4H PRN PO For Phosphorus < 2.5 mg/dL; Start 10/08/17 at 00:15; Stop 10/13/17 at 15:08; Status DC Sodium Phosphate 30 mmol/Sodium Chloride 250 ml @ 42 mls/hr UNSCH PRN IV For Phosphorus < 2.5 mg/dL; Start 10/08/17 at 00:15; Stop 10/13/17 at 15:08; Status DC Potassium Phosphate (K-Phos) 2,000 mg UNSCH PRN PO/TUBE SEE LABEL COMMENTS; Start 10/08/17 at 00:15; Stop 10/13/17 at 15:08; Status DC Potassium Phosphate 30 mmol/ Sodium Chloride 260 ml @ 42 mls/hr UNSCH PRN IV SEE LABEL COMMENTS; Start 10/08/17 at 00:15; Stop 10/13/17 at 15:08; Status DC Pantoprazole Sodium 80 mg/ Sodium Chloride 100 ml @ 10 mls/hr Q10H IV ; Start 10/08/17 at 01:06; Stop 10/08/17 at 01:06; Status DC Flumazenil (Romazicon Inj) 0.2 mg Q1M PRN IV PUSH SEE LABEL COMMENTS; Start at 01:00; Stop 10/22/17 at 00:48; Status DC Lorazepam (Ativan) 1 mg Q4H PRN PO CIWA 8 - 10; Start 10/08/17 at 01:00; Stop 10/22/17 at 00:48; Status DC Lorazepam (Ativan Inj) 1 mg Q4H PRN IV PUSH CIWA 8 - 10 Last administered on at 21:05; Start 10/08/17 at 01:00; Stop 10/22/17 at 00:48; Status DC Lorazepam (Ativan) 2 mg Q2H PRN PO CIWA 11-14; Start 10/08/17 at 01:00; Stop at 00:48; Status DC Lorazepam (Ativan Inj) 2 mg Q2H PRN IV PUSH CIWA 11-14; Start 10/08/17 at 01:00 ; Stop 10/22/17 at 00:48; Status DC Lorazepam (Ativan Inj) 2 mg Q1H PRN IV PUSH CIWA 15-20; Start 10/08/17 at 01:00 ; Stop 10/22/17 at 00:48; Status DC Lorazepam (Ativan Inj) 2 mg Q15M PRN IV PUSH CIWA > 20; Start 10/08/17 at 01:00 ; Stop 10/22/17 at 00:48; Status DC Multivitamins 10 ml/Thiamine HCl 100 mg/Folic Acid 1 mg/Sodium Chloride 511.2 ml @ 125 mls/hr DAILY IV Last administered on 10/13/17at 09:38; Start 10/08/17 at 09:00; Stop 10/13/17 at 15:59; Status DC Polyethylene Glycol/ Electrolytes (Colyte Liq) 4,000 ml ONCE ONCE PO Last administered on 10/09/17at 17:05; Start 10/09/17 at 16:00; Stop 10/09/17 at 16:01 ; Status DC Pharmacy Profile Note 0 ml @ 0 mls/hr UNSCH OTHER ; Start 10/09/17 at 13:45; Stop 10/12/17 at 09:41; Status DC Vancomycin HCl 1250 mg/Sodium Chloride 262.5 ml @ 250 mls/hr Q24H IV Last administered on 10/11/17at 15:48; Start 10/09/17 at 15:00; Stop 10/12/17 at 09:41 ; Status DC Miscellaneous Information ([facility] Ordered Lab Info) SPECIFIC LAB TO BE ALEXIS... ONCE ONCE .XX ; Start 10/12/17 at 14:45; Stop 10/12/17 at 14:46; Status Cancel Lactated Ringer's 500 ml @ 999 mls/hr BOLUS ONCE IV Last administered on 10/09at 16:57; Start 10/09/17 at 16:15; Stop 10/09/17 at 16:45; Status DC Metronidazole (Flagyl) 500 mg Q8HR PO Last administered on 10/12/17at 05:42; Start 10/10/17 at 17:30; Stop 10/12/17 at 09:41; Status DC Miscellaneous Information ([facility] Nursing Information) ALL NURSING DEPARTME... UNSCH PRN .XX SEE LABEL COMMENTS; Start 10/11/17 at 19:26; Stop 10/12/17 at 19: 25; Status DC Pantoprazole Sodium (Protonix Inj) 40 mg Q24H IV PUSH Last administered on 10/13at 08:39; Start 10/12/17 at 09:00; Stop 10/13/17 at 15:56; Status DC Propofol (Diprivan 200 Mg/20 ml Inj) 400 mg STK-MED ONCE IV ; Start 10/11/17 at 12:00; Stop 10/13/17 at 13:14; Status DC Lidocaine HCl (Xylocaine-Mpf 1% Inj) 5 ml STK-MED ONCE OTHER ; Start 10/11/17 at 12:00; Stop 10/13/17 at 13:14; Status DC Phenylephrine HCl (Neosynephrine/ NS 1000 Mcg/10ml Syr) 1,000 mcg STK-MED ONCE IV ; Start 10/11/17 at 12:00; Stop 10/13/17 at 13:14; Status DC Pantoprazole Sodium (Protonix) 40 mg DAILY PO Last administered on 10/30/17at 10 :10; Start 10/14/17 at 09:00 Potassium Chloride (KCl) 30 meq ONCE ONCE PO Last administered on 10/13/17at 16 :13; Start 10/13/17 at 16:00; Stop 10/13/17 at 16:04; Status DC Fentanyl (Duragesic 25 Mcg Patch.72 Hr) 1 patch ONCE ONCE T-DERMAL Last administered on 10/13/17at 16:13; Start 10/13/17 at 16:00; Stop 10/13/17 at 16:03 ; Status DC Potassium Chloride 100 ml @ 100 mls/hr BOLUS ONCE IV Last administered on at 10:36; Start 10/14/17 at 11:00; Stop 10/14/17 at 11:59; Status DC Potassium Chloride (KCl) 20 meq Q12HR PO Last administered on 10/26/17at 08:48; Start 10/14/17 at 10:30; Stop 10/26/17 at 09:50; Status DC Levofloxacin (Levaquin) 750 mg DAILY PO Last administered on 10/21/17at 09:06; Start 10/14/17 at 13:00; Stop 10/21/17 at 23:00; Status DC Compound Med (Ritters Cream) 1 applic BID RECTAL Last administered on at 10:11; Start 10/14/17 at 13:15 Potassium Chloride/Dextrose/ Sod Cl 1,000 ml @ 100 mls/hr Q10H IV Last administered on 10/17/17at 06:45; Start 10/15/17 at 14:45; Stop 10/17/17 at 13:05 ; Status DC Duloxetine HCl (Cymbalta Dr) 60 mg DAILY PO Last administered on 10/30/17at 10: 09; Start 10/15/17 at 16:30 Ondansetron HCl (Zofran Odt) 4 mg ONCE ONCE SL Last administered on at 10:54; Start 10/16/17 at 10:45; Stop 10/16/17 at 10:49; Status DC Ondansetron HCl (Zofran Odt) 4 mg Q8HR PRN SL nausea; Start 10/16/17 at 10:45 ; Stop 10/17/17 at 13:29; Status DC Magnesium Sulfate/ Dextrose 100 ml @ 100 mls/hr Q1H IV Last administered on at 15:51; Start 10/16/17 at 11:00; Stop 10/16/17 at 14:59; Status DC Prochlorperazine Edisylate (Compazine Inj) 10 mg ONCE ONCE IV PUSH Last administered on 10/16/17at 11:06; Start 10/16/17 at 11:00; Stop 10/16/17 at 11:01 ; Status DC Prochlorperazine Edisylate (Compazine Inj) 10 mg Q8H PRN IV PUSH NAUSEA OR VOMITING Last administered on 10/27/17at 23:52; Start 10/16/17 at 11:00 Sucralfate (Carafate Liq) 1 gm ACHS PO Last administered on 10/16/17at 19:59; Start 10/16/17 at 12:00; Stop 10/17/17 at 12:56; Status DC Ondansetron HCl (Zofran Inj) 4 mg ONCE ONCE IV PUSH ; Start 10/17/17 at 13:00; Stop 10/17/17 at 13:29; Status DC Levofloxacin (Levaquin) 250 mg ONCE ONCE PO Last administered on 10/17/17at 13: 50; Start 10/17/17 at 13:15; Stop 10/17/17 at 13:16; Status DC Prochlorperazine Edisylate (Compazine Inj) 10 mg ONCE ONCE IV PUSH Last administered on 10/17/17at 13:30; Start 10/17/17 at 13:30; Stop 10/17/17 at 14:00 ; Status DC Diatrizoate Meglum/ Diatrizoate Sod ( Gastroview Liq) 18 ml ONCE ONCE PO Last administered on 10/18/17at 10:00; Start 10/18/17 at 10:00; Stop 10/18/17 at 10:01; Status DC Iohexol (Omnipaque 350 Inj) 80 ml STK-MED ONCE IVCONTRAST Last administered on 10/18/17at 20:28; Start 10/18/17 at 20:28; Stop 10/18/17 at 20:29; Status DC Magnesium Sulfate/ Dextrose 100 ml @ 100 mls/hr Q1H IV Last administered on at 02:00; Start 10/19/17 at 01:00; Stop 10/19/17 at 02:59; Status DC Potassium Phos/ Sodium Phos (K-Phos Neutral) 250 mg Q8HR PO Last administered on 10/30/17at 14:31; Start 10/19/17 at 06:00 Sodium Chloride 1,000 ml @ 100 mls/hr Q10H IV Last administered on 10/21/17at 16 :01; Start 10/19/17 at 11:00; Stop 10/22/17 at 00:38; Status DC Sodium Chloride 500 ml @ 500 mls/hr BOLUS ONCE IV Last administered on at 05:30; Start 10/20/17 at 05:30; Stop 10/20/17 at 06:29; Status DC Megestrol Acetate (Megace Liq) 400 mg DAILY PO Last administered on 10/30/17at 10:09; Start 10/22/17 at 09:00 Lactated Ringer's 1,000 ml @ 100 mls/hr Q10H IV ; Start 10/22/17 at 01:00; Stop 10/22/17 at 01:00; Status DC Furosemide (Lasix) 40 mg BID@,18 PO Last administered on 10/30/17at 10:09; Start 10/22/17 at 09:00 Heparin Sodium/ Dextrose 250 ml @ 16 mls/hr TITRATE PRN IV Coagulation Management Last administered on 10/24/17at 15:30; Start 10/23/17 at 13:45; Stop 10/25/17 at 10:21; Status DC Magnesium Sulfate/ Dextrose 100 ml @ 100 mls/hr Q1H IV Last administered on 15:10; Start 10/24/17 at 12:00; Stop 10/24/17 at 13:59; Status DC Potassium Chloride (KCl) 60 meq ONCE ONCE PO Last administered on 10/24/17 12: 14; Start 10/24/17 at 11:30; Stop 10/24/17 at 11:31; Status DC Potassium Chloride 100 ml @ 50 mls/hr Q2H IV Last administered on 10/24/17 17: 44; Start 10/24/17 at 12:00; Stop 10/24/17 at 15:59; Status DC Warfarin Sodium (Coumadin) 2 mg ONCE ONCE PO Last administered on 10/24/17 17: 43; Start 10/24/17 at 16:15; Stop 10/24/17 at 16:16; Status DC Pharmacy Profile Note 0 ml @ 0 mls/hr UNSCH OTHER ; Start 10/24/17 at 16:15 Patient Medication Teaching (Coumadin Booklet) 1 ONCE ONCE .XX Last administered on 10/24/17 17:44; Start 10/24/17 at 16:15; Stop 10/24/17 at 16:16; Status DC Warfarin Sodium (Coumadin) 2 mg DAILY@1600 PO Last administered on 10/25/17 14: 43; Start 10/25/17 at 16:00; Status Future Hold Enoxaparin Sodium (Lovenox Inj) 90 mg DAILY@1100,2300 SQ Last administered on 10:10; Start 10/25/17 at 11:11; Stop 10/26/17 at 13:20; Status DC Potassium Bicarb/ Potassium Chloride (K-Lyte Cl Eff) 100 meq ONCE ONCE PO Last administered on 10/26/17 10:09; Start 10/26/17 at 09:45; Stop 10/26/17 at 09: 49; Status DC Potassium Bicarb/ Potassium Chloride (K-Lyte Cl Eff) 50 meq DAILY PO Last administered on 10/27/17at 09:49; Start 10/27/17 at 09:00; Stop 10/27/17 at 13:08; Status DC Levothyroxine Sodium (Synthroid) 100 mcg DAILY@0600 PO Last administered on 03/09at 05:12; Start 10/28/17 at 06:00 Potassium Bicarb/ Potassium Chloride (K-Lyte Cl Eff) 100 meq ONCE ONCE PO Last administered on 10/27/17at 09:49; Start 10/27/17 at 09:30; Stop 10/27/17 at 13: 08; Status DC Potassium Chloride (KCl) 80 meq ONCE ONCE PO Last administered on 10/27/17at 14: 21; Start 10/27/17 at 13:15; Stop 10/27/17 at 13:35; Status DC Potassium Chloride (KCl) 50 meq DAILY PO Last administered on 10/30/17at 10:10; Start 10/28/17 at 09:00 Potassium Chloride (KCl) 30 meq ONCE ONCE PO Last administered on 10/28/17at 12: 55; Start 10/28/17 at 12:15; Stop 10/28/17 at 12:16; Status DC Calcium Gluconate 1 gm/Dextrose 110 ml @ 110 mls/hr ONCE ONCE IV Last administered on 10/29/17at 09:41; Start 10/29/17 at 07:30; Stop 10/29/17 at 08:29; Status DC Magnesium Sulfate/ Dextrose 100 ml @ 100 mls/hr Q1H IV Last administered on 03/09at 10:09; Start 10/30/17 at 06:15; Stop 10/30/17 at 08:14; Status DC Calcium Gluconate 1 gm/Dextrose 110 ml @ 110 mls/hr ONCE ONCE IV Last administered on 10/30/17at 10:08; Start 10/30/17 at 06:40; Stop 10/30/17 at 07:39 ; Status DC Potassium Phosphate (K-Phos) 1,000 mg ONCE ONCE PO Last administered on at 10:34; Start 10/30/17 at 10:00; Stop 10/30/17 at 10:11; Status DC Date of Insertion: October 13, 2017 A/P Problem List: (1) Septic shock ICD Code: A41.9 - Sepsis, unspecified organism; R65.21 - Severe sepsis with septic shock Status: Acute (2) Anemia requiring transfusions ICD Code: D64.9 - Anemia, unspecified (3) Upper GI bleed ICD Code: K92.2 - Gastrointestinal hemorrhage, unspecified (4) Lactic acidosis ICD Code: E87.2 - Acidosis Status: Resolved (5) UTI (urinary tract infection) ICD Code: N39.0 - Urinary tract infection, site not specified (6) Acute kidney injury ICD Code: N17.9 - Acute kidney failure, unspecified (7) Elevated bilirubin ICD Code: R17 - Unspecified jaundice (8) Hypokalemia ICD Code: E87.6 - Hypokalemia Status: Acute (9) Hypothermia ICD Code: T68.XXXA - Hypothermia, initial encounter (10) Alcohol dependence ICD Code: F10.20 - Alcohol dependence, uncomplicated Assessment and Plan Assessment and Plan Upper GI bleed/liver cirrhosis/ N/V/ Abdominal pain Anemia EGD 10/11 - gastritis, duodenitis. No acitve bleeding. Biopsies sent. (Dr. Tatum). Colonoscopy 10/11 -diverticulosis, colon polyps, internal and external hemorrhoids. (Dr. Tatum) transverse colon and descending colon polypectomy were performed x2 and sent for path. - PPI. - Antiemetics as needed. - pain control as needed. - low residue diet. - add sucralfate. - trend LFTs. - reconsult GI for persistent nausea and decreased p.o. intake. 10/18 Patient's bilirrubin trending up with predominance of direct bilirubin over indirect bilirubin. Repeat CT abdomen and pelvis pending. 10/19 bilirubin keeps trending up now total bilirubin 6.1, with predominance of direct bilirubin. Agree with MRCP. 10/21 sp MRCP which does not show any type of obstruction. 10/25 the patient still with severe abdominal pain, not eating. - STILL POOR ORAL INTAKE FAMILY INTERESTED IN PALLIATIVE CARE/HOSPICE-- FAMILY STATES WOULD NOT WANT FEEDING TUBE Septic shock/ UTI/ Perirectal abscess Colorectal surgery consult appreciated. 09/27 blood culture 1 out of 4 with GPC. urine culture -E. coli. Levophed weaned off. - antibiotics per ID. - holding antihypertensive meds. - monitor off of IVFs. Chronic pain/ Alcohol dependence Patient drinks about 5 alcoholic beverages daily. Patient states she is nonambulatory at baseline due to chronic pain, uses a motorized scooter. - Supplement thiamine, MVI. - cessation instruction. - PT/ OT. - pain control. Chest pain Serial troponins were negative. She states negative stress test at [facility] in [place] 3 years ago. Seems resolved. - Not candidate for ASA due to GI bleeding. - Not candidate for betablocker due to hypotension. Perirectal abscess CT abdomen and pelvis -findings concerning for perirectal abscess. - Colorectal surgery consulted, Dr. Yin evaluated. Not a candidate for surgery at this time. - continue wound care. Acute kidney insufficiency/ Hypokalemia/ Hypomagnesemia/ Hypophosphatemia Hyperchloremic metabolic acidosis Mg 0.8 10/16. - follow labs and replete lytes as needed. - monitor off of IVFs. 10/18 Magnesium, phosphorus still low. Replace with IV Magnesium sulfate and neutra-phos. 10/19 electrolytes much improved with potassium within normal range as well as magnesium., Phosphorus continues to be low. Continue Neutra-Phos. 10/25 status post IV and oral potassium on 10/24 due to severe hypokalemia. Potassium today 3.1. We will continue to replace orally and monitor BMP. Patient status post IV magnesium sulfate on 10/24. Will recheck magnesium and replace as needed with IV magnesium sulfate. HYPOKALEMIA REPLACE BY PO TABLETS Acromegaly/ Hypothyroidism Previously was on Octreotide and had pituitary surgery in 1986. Random cortisol was normal. - Continue Synthroid 75 mcg p.o. daily. Decreased appetite/Poor oral intake Moderate protein calorie malnutrition Continue Megace. 10/25 Dietitian consulted, recommended Force 3 times daily with meals. I will order. VERY POOR INTAKE--FAMILY DOES NOT WANT PEG- CONSULT PALLIATIVE WILL PROBABLY NEED HOSPICE Transaminitis Hyperbilirrubinemia Portal vein thrombosis 10/22 AST continue to worsens. Unclear etiology. Possibly secondary to hepatic congestion due to anasarca and fluid overload. Start on Lasix 40 mg p.o. twice daily. Monitor strict I's and O's with the goal of keeping a negative balance. Elevated bilirubin continues to worsen. Total bilirubin went up from 7.2-7.7 with predominance of direct bilirubin that went up from 6.2-6.5. Continue to monitor bilirubin levels. Venous Doppler showed portal vein thrombosis. Patient started on IV heparin drip. Start bridge to Coumadin, goal INR 2-3. Bilirubin trending down. Continue to monitor LFTs 10/25 discontinued IV heparin drip and start on Lovenox 1 mg/kg subcutaneous twice daily. Lovenox bridge to Coumadin with a goal INR of 2-3. Continue to monitor LFTs, bilirubin. HOLD COUMADIN NOT A GOOD CANDIDATE FOR COUMADIN UNLESS SHE IS EATING Anasarca As seen on CT abdomen/pelvis described above. 6 On lasix. continue. PROPH: -Bilateral lower extremity SCDs. Hold chemical DVT prophylaxis due to recent GI bleed. Discharge Planning Discharge pending clinical improvement. The patient still having abdominal pain and not eating. Patient will need to be eating appropriately prior to discharge. NOT EATING WILL NEED PALLIATIVE CARE FAMILY NOT WISHING PEG TUBE WILL PROBABLY NEED HOSPICE Discharge Planning CALORIE COUNTING POOR ORAL INTAKE Problem Qualifiers (1) UTI (urinary tract infection): Kulwinder Dodson DO Oct 30, 2017 15:02
[2017-10-30 17:26] VITALS: BP 127/59; PULSE 94; RESP 17; TEMP 97.8; O2SAT 92
[2017-10-30 20:00] VITALS: BP 103/52; PULSE 86; RESP 15; TEMP 97.7; O2SAT 91
[2017-10-31] VITALS: BP 109/62; PULSE 79; RESP 15; TEMP 97.5; O2SAT 95
[2017-10-31] MEDS: CHLORHEXIDINE GLUCONATE 2 % 1 PACK (2 CLOTHS) TOP SCH (04:00)
[2017-10-31] MEDS: LEVOTHYROXINE SODIUM 100 MCG TAB PO SCH (04:31)
[2017-10-31] MEDS: POTASSIUM PHOSPHATE/SODIUM PHOSPHATE 250 MG TAB PO SCH (04:31)
[2017-10-31 08:00] VITALS: BP 109/63; PULSE 101; RESP 18; TEMP 97.3; O2SAT 93
[2017-10-31] MEDS: SILVER SULFADIAZINE/LIDOCAINE CREAM 60 GM JAR RECTAL SCH (09:00)
[2017-10-31] MEDS: DULoxetine HCl DR 60 MG CAP PO SCH (09:22)
[2017-10-31] MEDS: FUROSEMIDE 40 MG TAB PO SCH (09:22)
[2017-10-31] MEDS: PANTOPRAZOLE SOD 40 MG DELAYED RELEASE TAB PO SCH (09:23)
[2017-10-31] MEDS: POTASSIUM CHLORIDE 10 MEQ CONTROLLED RELEASE TAB PO SCH (09:24)
[2017-10-31] MEDS: SODIUM CHLORIDE 0.9% FLUSH 10 ML FLUSH IV FLUSH SCH (09:25)
[2017-10-31] MEDS: MEGESTROL ACETATE SUSP 400 MG/10 ML CUP PO SCH (09:25)
[2017-10-31 10:07] LABS: AUTOMATED NEUTROPHIL # 11.7 TH/MM3 (1.8-7.7); BASOPHIL # 0.1 TH/MM3 (0-0.2); BASOPHIL % 0.5 % (0.0-2.0); EOSINOPHIL % 0.3 % (0.0-4.0); HEMATOCRIT 27.1 % (35.0-46.0); HEMOGLOBIN 8.9 GM/DL (11.6-15.3); LYMPH % 14.3 % (9.0-44.0); LYMPHOCYTE # 2.1 TH/MM3 (1.0-4.8); MEAN CELL VOLUME 100.1 FL (80.0-100.0); MEAN PLATELET VOLUME 8.8 FL (7.0-11.0); MONO % 5.7 % (0.0-8.0); MONOCYTE # 0.8 TH/MM3 (0-0.9); NEUT % 79.2 % (16.0-70.0); PLATELET COUNT 262 TH/MM3 (150-450); RED BLOOD COUNT 2.71 MIL/MM3 (4.00-5.30); RED CELL DISTRIBUTION WIDTH 22.9 % (11.6-17.2); WHITE BLOOD COUNT 14.8 TH/MM3 (4.0-11.0)
[2017-10-31 10:13] LABS: INTERNATIONAL NORMALIZED RATIO 3.4 RATIO; PROTHROMBIN TIME - PATIENT 34.6 SEC (9.8-11.6)
[2017-10-31 10:40] LABS: ALBUMIN 1.4 GM/DL (3.4-5.0); BICARBONATE 23.6 MEQ/L (21.0-32.0); CREATININE 2.54 MG/DL (0.50-1.00); MAGNESIUM 1.4 MG/DL (1.5-2.5); PHOSPHORUS 5.6 MG/DL (2.5-4.9); TOTAL BILIRUBIN ADULT 8.5 MG/DL (0.2-1.0); TOTAL PROTEIN 6.8 GM/DL (6.4-8.2)
[2017-10-31 10:47] LABS: CALCIUM-PROTEIN CORRECTED 7.2 MG/DL (8.5-10.1)
[2017-10-31] MEDS ORDERED: MAGNESIUM SULFATE 1 GM PREMIX 100 ML IV SCH (11:00)
[2017-10-31] MEDS ORDERED: CALCIUM CHLORIDE INJ 1 GM in SODIUM CHLORIDE 0.9% INJ 90 ML IV ONE (11:00)
--- NOTE | 2017-10-31 11:03 | HHI.PR ---
Subjective Remarks Patient states she feels very tired. spoke with hospice yesterday. plan for meeting today. Objective Vitals Vital Signs Date Time Temp Pulse Resp B/P (MAP) Pulse Ox O2 Delivery O2 Flow Rate FiO2 10/31/17 00:00 97.5 79 15 109/62 (78) 95 10/30/17 20:00 97.7 86 15 103/52 (69) 91 10/30/17 17:26 97.8 94 17 127/59 (81) 92 10/30/17 13:11 97.3 108 18 110/55 (73) 93 I/O 10/30/17 10/30/17 10/30/17 10/31/17 10/31/17 10/31/17 07:00 15:00 23:00 07:00 15:00 23:00 Intake Total 650 ml 120 ml 480 ml Balance 650 ml 120 ml 480 ml Intake Oral 650 ml 120 ml 480 ml # Voids 1 4 3 # Bowel Movements 6 5 6 Result Diagram: 10/31/17 0951 10/31/17 0951 Procedures SP EGD and colonoscopy Date of Insertion: October 13, 2017 A/P Problem List: (1) Septic shock ICD Code: A41.9 - Sepsis, unspecified organism; R65.21 - Severe sepsis with septic shock Status: Acute (2) Anemia requiring transfusions ICD Code: D64.9 - Anemia, unspecified (3) Upper GI bleed ICD Code: K92.2 - Gastrointestinal hemorrhage, unspecified (4) Lactic acidosis ICD Code: E87.2 - Acidosis Status: Resolved (5) UTI (urinary tract infection) ICD Code: N39.0 - Urinary tract infection, site not specified (6) Acute kidney injury ICD Code: N17.9 - Acute kidney failure, unspecified (7) Elevated bilirubin ICD Code: R17 - Unspecified jaundice (8) Hypokalemia ICD Code: E87.6 - Hypokalemia Status: Acute (9) Hypothermia ICD Code: T68.XXXA - Hypothermia, initial encounter (10) Alcohol dependence ICD Code: F10.20 - Alcohol dependence, uncomplicated Problem Qualifiers (1) UTI (urinary tract infection): Amada Kelly MD Oct 31, 2017 11:03
[2017-10-31 12:00] VITALS: BP 106/55; PULSE 108; RESP 18; TEMP 97.2; O2SAT 94
--- NOTE | 2017-10-31 14:25 | HHI.DS ---
Discharge Summary Admission Date October 07, 2017 at 22:27 Discharge Date: Oct 31, 2017 Admitting Diagnosis shock (1) Septic shock ICD Code: A41.9 - Sepsis, unspecified organism; R65.21 - Severe sepsis with septic shock Status: Acute (2) Anemia requiring transfusions ICD Code: D64.9 - Anemia, unspecified (3) Upper GI bleed ICD Code: K92.2 - Gastrointestinal hemorrhage, unspecified (4) Lactic acidosis ICD Code: E87.2 - Acidosis Status: Resolved (5) UTI (urinary tract infection) ICD Code: N39.0 - Urinary tract infection, site not specified (6) Acute kidney injury ICD Code: N17.9 - Acute kidney failure, unspecified (7) Elevated bilirubin ICD Code: R17 - Unspecified jaundice (8) Hypokalemia ICD Code: E87.6 - Hypokalemia Status: Acute (9) Hypothermia ICD Code: T68.XXXA - Hypothermia, initial encounter (10) Alcohol dependence ICD Code: F10.20 - Alcohol dependence, uncomplicated Procedures SP EGD and colonoscopy Brief History - From Admission Patient is a 67-year-old female with history of alcohol dependence, history of acromegaly, hypertension, type 2 diabetes, COPD who presented to the emergency department for increasing lethargy and a UTI symptoms and severe fatigue for last 4 days. She drinks approximately 5 alcoholic beverages a day. Patient was initially hypothermic with temperatures in the 95. Tachycardic and hypotensive with lowest blood pressure recorded as 55/30. Patient was fluid resuscitated with 2.5 L of normal saline, and despite that remained hypotensive. Patient was given vancomycin and cefepime. Hb was 8.1, found to be Hemoccult positive and also had coffee-ground emesis with some blood clots in the emergency department. She was transfused 2 units of emergency release blood. Levophed was started for persistent hypotension and Dr. Lieberman placed a Rright IUJ central line. Her lactic acid was found to be 7.3. UA showed evidence of severe UTI which could be the source of sepsis, white count was 12.9 with left shift. Other pertinent labs included total bilirubin of 3.8 elevated lipase at 742, lactic acid as mentioned above 7.3. I evaluated the patient in the emergency department. Despite fluid boluses and now receiving blood patient is on 10 mcg/min of Levophed. Patient is lethargic encephalopathic but she is able to answer some of the questions. I am told by the ED physician that patient wanted to be a DNR but wants to get medical management for current situation. Patient is a poor historian is lethargic and has encephalopathy from UTI. I will readdress the CODE STATUS when patient is clinically improved. For sepsis cefepime will be continued. Have placed the patient on IV Protonix infusion and octreotide infusion for upper GI bleed. Monitor hemoglobin every 6 hours for at least 24 hours. GI has been consulted. Cefepime will provide SBP prophylaxis also CBC/BMP: 10/31/17 0951 10/31/17 0951 Significant Findings Laboratory Tests Test 10/29/17 04:42 10/30/17 04:21 10/31/17 09:51 White Blood Count 14.9 TH/MM3 (4.0-11.0) 15.9 TH/MM3 (4.0-11.0) 14.8 TH/MM3 (4.0-11.0) Red Blood Count 2.47 MIL/MM3 (4.00-5.30) 2.60 MIL/MM3 (4.00-5.30) 2.71 MIL/MM3 (4.00-5.30) Hemoglobin 8.1 GM/DL (11.6-15.3) 8.5 GM/DL (11.6-15.3) 8.9 GM/DL (11.6-15.3) Hematocrit 24.8 % (35.0-46.0) 25.8 % (35.0-46.0) 27.1 % (35.0-46.0) Mean Corpuscular Volume 100.3 FL (80.0-100.0) 100.1 FL (80.0-100.0) Red Cell Distribution Width 23.7 % (11.6-17.2) 22.6 % (11.6-17.2) 22.9 % (11.6-17.2) Neutrophils (%) (Auto) 81.2 % (16.0-70.0) 80.1 % (16.0-70.0) 79.2 % (16.0-70.0) Neutrophils # (Auto) 12.1 TH/MM3 (1.8-7.7) 12.8 TH/MM3 (1.8-7.7) 11.7 TH/MM3 (1.8-7.7) Neutrophils % (Manual) 88 % (16-70) 84 % (16-70) Lymphocytes % 3 % (9-44) 4 % (9-44) Neutrophils # (Manual) 14.0 TH/MM3 (1.8-7.7) 14.6 TH/MM3 (1.8-7.7) Promyelocytes 1 % (0-0) Polychromasia 2.1 % (0.0-1.9) Target Cells 1+ (NORMAL) 1+ (NORMAL) Prothrombin Time 37.3 SEC (9.8-11.6) 37.4 SEC (9.8-11.6) 34.6 SEC (9.8-11.6) Creatinine 1.68 MG/DL (0.50-1.00) 2.14 MG/DL (0.50-1.00) 2.54 MG/DL (0.50-1.00) Random Glucose 57 MG/DL (74-106) Albumin 1.4 GM/DL (3.4-5.0) 1.4 GM/DL (3.4-5.0) 1.4 GM/DL (3.4-5.0) Calcium Level 6.5 MG/DL (8.5-10.1) 6.7 MG/DL (8.5-10.1) 7.0 MG/DL (8.5-10.1) Magnesium Level 1.0 MG/DL (1.5-2.5) 1.0 MG/DL (1.5-2.5) 1.4 MG/DL (1.5-2.5) Alkaline Phosphatase 258 U/L (45-117) 255 U/L (45-117) 285 U/L (45-117) Aspartate Amino Transf (AST/SGOT) 95 U/L (15-37) 90 U/L (15-37) 98 U/L (15-37) Total Bilirubin 7.7 MG/DL (0.2-1.0) 7.9 MG/DL (0.2-1.0) 8.5 MG/DL (0.2-1.0) Chloride Level 108 MEQ/L (98-107) 109 MEQ/L (98-107) 109 MEQ/L (98-107) Estimat Glomerular Filtration Rate 30 ML/MIN (>89) 23 ML/MIN (>89) 19 ML/MIN (>89) Protein Corrected Calcium 6.8 MG/DL (8.5-10.1) 7.1 MG/DL (8.5-10.1) 7.2 MG/DL (8.5-10.1) Monocytes # (Auto) 1.0 TH/MM3 (0-0.9) Band Neutrophils % 8 % (0-6) Toxic Granulation 1+ (NORMAL) Basophilic Stippling FAINT (NORMAL) Spherocytes 1+ (NORMAL) Total Protein 6.3 GM/DL (6.4-8.2) Phosphorus Level 5.2 MG/DL (2.5-4.9) 5.6 MG/DL (2.5-4.9) Potassium Level 3.4 MEQ/L (3.5-5.1) Imaging Last Impressions Liver Ultrasound 10/23/17 Signed Impressions: CONCLUSION: 1. Portal vein thrombosis. 2. Diffuse ascites with cirrhotic appearance of the liver and progressive enla rgement of the spleen. 3. The hepatic artery is increased in caliber and flow. Normal flow is identif ied within the splenic artery and vein. Cholangiopancreatography MRI 10/20/17 Signed Impressions: CONCLUSION: 1. No biliary ductal dilation identified. 2. Cirrhotic changes within the liver with mild enlargement of the spleen and mild ascites. Gastric Emptying Nuclear Medicine 10/18/17 Signed Impressions: CONCLUSION: 1. Normal gastric emptying half-time and kinetics. Abdomen/Pelvis CT 10/18/17 Signed Impressions: CONCLUSION: 1. Small perirectal abscess on the right side measuring 2.8 x 1.2 cm.. 2. Small amount of ascites in the upper abdomen. Small to moderate amount of a scites in the pelvis. 3. Scattered diverticula along the sigmoid colon. 4. Midline ventral abdominal wall hernia containing loops of small bowel witho ut obstruction. 5. Small bilateral pleural effusions with bibasilar atelectasis. Chest X-Ray 10/08/17 0000 Signed Impressions: Service Date/Time: Sunday, October 08, 2017 03:08 - CONCLUSION: 1. Right central line in superior vena cava. No pneumothorax or effusion. Maycol Looney MD PE at Discharge GENERAL: Awake and alert talkative cooperative jaundiced SKIN: Warm and dry. HEAD: Atraumatic. Normocephalic. EYES: Pupils equal and round. Positive scleral icterus. No injection or drainage. ENT: No nasal bleeding or discharge. Mucous membranes pink and moist. NECK: Trachea midline. No JVD. CARDIOVASCULAR: Regular rate and rhythm. S1-S2 no S3 or S4 RESPIRATORY: No accessory muscle use. Clear to auscultation. Breath sounds equal bilaterally. GASTROINTESTINAL: Abdomen soft, non-tender, nondistended. Hepatic and splenic margins not palpable. MUSCULOSKELETAL: Extremities without clubbing, cyanosis, or edema. No obvious deformities. NEUROLOGICAL: Awake and alert. No obvious cranial nerve deficits. Motor grossly within normal limits. Five out of 5 muscle strength in the arms and legs. Normal speech. PSYCHIATRIC: INAppropriate mood and affect; insight and judgment ABnormal. Pt update on day of discharge Patient states she feels very tired. spoke with hospice yesterday. Patient and family had a meeting today. They decided to transition the patient to comfort care with hospice. Plan for discharge to hospice care center. Hospital Course 67-year-old female admitted and treated for the following. Unfortunately the patient has end-stage liver cirrhosis and was not making any significant improvement. Patient is not taking enough life-sustaining nutrition orally and she refused a feeding tube. Patient and family decided to transition to comfort care only. Hospital course detailed below: Upper GI bleed/liver cirrhosis/ N/V/ Abdominal pain Anemia EGD 10/11 - gastritis, duodenitis. No acitve bleeding. Biopsies sent. (Dr. Tatum). Colonoscopy 10/11 -diverticulosis, colon polyps, internal and external hemorrhoids. (Dr. Tatum) transverse colon and descending colon polypectomy were performed x2 and sent for path. - PPI. - Antiemetics as needed. - pain control as needed. - low residue diet. - sucralfate. - trend LFTs. - reconsult GI for persistent nausea and decreased p.o. intake. Unfortunately the patient's bilirubin continued to trend up and she refused to take much orally.sp MRCP which does not show any type of obstruction. Family and patient decided against tube feeding and transition to comfort care. Septic shock/ UTI/ Perirectal abscess Colorectal surgery consult appreciated. 09/27 blood culture 1 out of 4 with GPC. urine culture -E. coli. Levophed weaned off. -Patient treated with antibiotics per ID. - holding antihypertensive meds. Chronic pain/ Alcohol dependence Patient drinks about 5 alcoholic beverages daily. Patient states she is nonambulatory at baseline due to chronic pain, uses a motorized scooter. - Supplement thiamine, MVI. - cessation instruction. - PT/ OT. - pain control. Chest pain Serial troponins were negative. She states negative stress test at [facility] in [place] 3 years ago. Seems resolved. - Not candidate for ASA due to GI bleeding. - Not candidate for betablocker due to hypotension. Perirectal abscess CT abdomen and pelvis -findings concerning for perirectal abscess. - Colorectal surgery consulted, Dr. Yin evaluated. Not a candidate for surgery at this time. - continue wound care. Acute kidney insufficiency/ Hypokalemia/ Hypomagnesemia/ Hypophosphatemia Hyperchloremic metabolic acidosis -Electrolytes were being replaced as indicated. Acromegaly/ Hypothyroidism Previously was on Octreotide and had pituitary surgery in 1986. Random cortisol was normal. - Continue Synthroid 75 mcg p.o. daily. Decreased appetite/Poor oral intake Moderate protein calorie malnutrition Did not respond to Megace. Likely due to cachectic state from liver failure. Patient and family refused tube feeding. Transaminitis Hyperbilirrubinemia Portal vein thrombosis 10/22 AST continue to worsens. Unclear etiology. Possibly secondary to hepatic congestion due to anasarca and fluid overload. Start on Lasix 40 mg p.o. twice daily. However renal functions worsened. Therefore Lasix was discontinued. Patient is not a good candidate for Coumadin Anasarca As seen on CT abdomen/pelvis described above. Pt Condition on Discharge: Stable Discharge Disposition: Hospice/Med Facility Discharge Time: > 30 minutes Discharge Instructions DIET: Follow Instructions for: As Tolerated, No Restrictions Activities you can perform: Regular-No Restrictions, See Additionl Instruction Amada Kelly MD Oct 31, 2017 14:25
[2017-10-31] MEDS ORDERED: CALCIUM CARBONATE 1.25 GM (CA 500 MG) TAB PO SCH (21:00)
== END 2017-10-31 15:00 | disposition hospice, inpatient (51) | DRG 871 ==
LOC: NEPC 19:55 → NEDA 22:27 → HIME 10-08 00:45 → HCIS 10-12 23:54 → N07B 10-14 22:15
PROVIDERS: ADMIT Family Medicine; ATTEND Family Medicine
PROC: 30233N1 Transfusion of Nonautologous Red Blood Cells into Peripheral Vein, Percutaneous Approach (ICD-10-PCS; principal; 2017-10-07)
PROC: 02HV33Z Insertion of Infusion Device into Superior Vena Cava, Percutaneous Approach (ICD-10-PCS; 2017-10-07)
PROC: 0DB98ZX Excision of Duodenum, Via Natural or Artificial Opening Endoscopic, Diagnostic (ICD-10-PCS; 2017-10-11)
PROC: 0DB78ZX Excision of Stomach, Pylorus, Via Natural or Artificial Opening Endoscopic, Diagnostic (ICD-10-PCS; 2017-10-11)
PROC: 0DBM8ZX Excision of Descending Colon, Via Natural or Artificial Opening Endoscopic, Diagnostic (ICD-10-PCS; 2017-10-11)
PROC: 0DBL8ZX Excision of Transverse Colon, Via Natural or Artificial Opening Endoscopic, Diagnostic (ICD-10-PCS; 2017-10-11)
DX: A41.51 Sepsis due to Escherichia coli [E. coli] (principal); R65.21 Severe sepsis with septic shock; R57.1 Hypovolemic shock; I81 Portal vein thrombosis; G93.40 Encephalopathy, unspecified; N17.9 Acute kidney failure, unspecified; R64 Cachexia; E44.0 Moderate protein-calorie malnutrition; R18.8 Other ascites; E87.2 Acidosis; N39.0 Urinary tract infection, site not specified; K61.1 Rectal abscess; R34 Anuria and oliguria; K31.84 Gastroparesis; E11.42 Type 2 diabetes mellitus with diabetic polyneuropathy; F10.20 Alcohol dependence, uncomplicated; K72.90 Hepatic failure, unspecified without coma; I10 Essential (primary) hypertension; E11.43 Type 2 diabetes mellitus with diabetic autonomic (poly)neuropathy; E66.9 Obesity, unspecified; E22.0 Acromegaly and pituitary gigantism; M79.7 Fibromyalgia; J44.9 Chronic obstructive pulmonary disease, unspecified; E03.9 Hypothyroidism, unspecified; F17.210 Nicotine dependence, cigarettes, uncomplicated; R68.0 Hypothermia, not associated with low environmental temperature; R00.0 Tachycardia, unspecified; D64.9 Anemia, unspecified; E87.6 Hypokalemia; Z66 Do not resuscitate; K74.60 Unspecified cirrhosis of liver; K21.9 Gastro-esophageal reflux disease without esophagitis; D12.4 Benign neoplasm of descending colon; D12.3 Benign neoplasm of transverse colon; B96.20 Unspecified Escherichia coli [E. coli] as the cause of diseases classified elsewhere; K57.30 Diverticulosis of large intestine without perforation or abscess without bleeding; K64.8 Other hemorrhoids; K64.4 Residual hemorrhoidal skin tags; K29.70 Gastritis, unspecified, without bleeding; K60.4 Rectal fistula; E86.0 Dehydration; G89.29 Other chronic pain; R60.1 Generalized edema; E83.39 Other disorders of phosphorus metabolism; E83.42 Hypomagnesemia; L30.9 Dermatitis, unspecified; R15.9 Full incontinence of feces; R11.2 Nausea with vomiting, unspecified; Z86.010 Personal history of colon polyps; Z79.84 Long term (current) use of oral hypoglycemic drugs
CPT/HCPCS: 36430; 36556; 36600; 51702; 71045; 74176; 74177; 74181; 76377; 76937; 78264; 80048; 80053; 80074; 80076; 80307; 81001; 82140; 82150; 82247; 82248; 82272; 82533; 82805; 82948; 83036; 83605; 83690; 83735; 84100; 84132; 84155; 84439; 84443; 84484; 85007; 85014; 85018; 85025; 85027; 85610; 85730; 86850; 86900; 86901; 86920; 87040; 87077; 87086; 87186; 87205; 87641; 88305; 88312; 93005; 93975; 96365; 96375; A9541; C9113; J0610; J0692; J0780; J1644; J1650; J1815; J2060; J2354; J2370; J3370; J3411; J3475; J3480; J7030; J7040; J7050; J7120; P9016; Q9963; Q9967